=== PATIENT | female | born 1955 | race Caucasian/White ===

== ENCOUNTER 2021-10-13 14:38 | Outpatient (CLI) | payer MEDICARE, MEDICAID, SELFPAY | END 2021-10-13 14:39 | disposition home or self-care (01) | LOC: AMB 10-19 23:00 | PROVIDERS: Visit Provider Family Medicine | DX: R41.82 Altered mental status, unspecified (principal) | CPT/HCPCS: A0425; A0429 ==

== ENCOUNTER 2021-10-13 15:26 | Observation (INO) | payer MEDICARE, MEDICAID, SELFPAY ==
[2021-10-13 15:31] VITALS: BP 128/50; PULSE 80; RESP 18; TEMP 36.6; O2SAT 98
--- NOTE | 2021-10-13 15:44 | CRLHL7_ITS ---
For Patients: As a result of the Century Cures Act, medical imaging exams and procedure reports are released immediately into your electronic medical record. You may view this report before your referring provider. If you have questions, please contact your health care provider. INDICATION: Stroke symptoms TECHNIQUE: Head CT without contrast. COMPARISON: None FINDINGS: CSF spaces: Within normal limits for age. Brain parenchyma: There are nonspecific low attenuation white matter changes consistent with chronic microvascular disease. No sign of mass, hemorrhage, or midline shift. Skull base and calvarium: The visualized paranasal sinuses and mastoid air cells demonstrate no acute or significant findings. The visualized orbits are grossly unremarkable. No skull fractures. There is intracranial atherosclerosis. IMPRESSION: 1. No acute findings. 2. Nonspecific white matter disease, typical of chronic microvascular disease. 3. Findings discussed with Dr. Maria at 4:30 p.m. on October 13, [address] all CT scans at this facility use dose modulation, iterative reconstruction, and/or weight-based dosing when appropriate to reduce radiation dose to as low as reasonably achievable. Dictated by María Byrd MD @ 10/13/2021 4:32:20 PM (Electronically Signed)
[2021-10-13 16:11] LABS: Lactate* 1.7 mmol/L (0.5-1.9)
[2021-10-13 16:23] LABS: Basophils Percent Auto 0.1 % (0.0-3.0); Eosinophils Percent Auto 2.1 % (0.0-7.0); Hematocrit 28.7 % (33.0-51.0); Hemoglobin* 9.1 gm/dL (12.0-16.0); Immature Granulocytes Abs Auto 0.09 K/uL (0.00-0.30); Lymphocytes Percent Auto 19.8 % (20-44); Mean Corpuscular HGB Conc 32 gm/dL (32-36); Mean Corpuscular Hemoglobin 30 pg (26-34); Mean Corpuscular Volume 93 fL (80-100); Monocytes Percent Auto 7.1 % (0.0-11.0); Neutrophils Percent Auto 70.1 % (42.0-72.0); Platelet Count* 299 K/uL (140-440); RDW Coefficient of Variation % 13.8 % (11.5-15.5); Red Blood Count 3.08 m/uL (4.00-5.20); White Blood Count* 11.26 K/uL (4.50-11.00)
[2021-10-13 16:34] LABS: Slide Review Reflex No
[2021-10-13 16:37] LABS: Albumin* 3.9 g/dL (3.3-5.0)
[2021-10-13 16:38] LABS: Chloride* 101 mmol/L (96-114); Partial Thromboplastin Time* 32 Seconds (23-33); Potassium* 5.9 mmol/L (3.6-5.1); Prothrombin Time 14.6 Seconds; Sodium* 134 mmol/L (135-149)
[2021-10-13 16:40] LABS: Alkaline Phosphatase* 79 U/L (40-150); Aspartate Amino Transferase* 27 U/L (12-35); Bilirubin Direct* 0.4 mg/dL (0.0-0.5); Bilirubin Total* 0.4 mg/dL (0.1-1.5); Blood Urea Nitrogen* 104 mg/dL (7-30); Carbon Dioxide* 22 mmol/L (20-32); Creatinine* 3.9 mg/dL (0.5-1.5); Estimated Glomerular Filt Rate 12 ml/min; Glucose* 161 mg/dL (60-115)
[2021-10-13 16:41] LABS: Alanine Aminotransferase* 19 U/L (4-35); Calcium* 8.8 mg/dL (8.4-10.6)
[2021-10-13 16:57] LABS: Acetaminophen* < 10.0 ug/mL (10.0-30.0); C Reactive Protein* 6.3 mg/dL (0.5-1.0); Ethanol* < 0.01 % (0.01-0.03)
[2021-10-13] MEDS: 0.9 % SODIUM CHLORIDE 1000 ml 1,000 ML IV (17:10)
--- NOTE | 2021-10-13 17:14 | ED_ITS ---
HPI - General Adult General Chief complaint: Neuro Symptoms/Altered Deficit Stated complaint: Muscle Twitching Time Seen by Provider: 10/13/21 15:34 Source: patient Mode of arrival: EMS Limitations: altered mental status History of Present Illness HPI narrative: 66-year-old female, resident at the [facility], into the ER via EMS secondary to confusion head tremor. She states that she started taking Lyrica a couple of days ago and immediately started getting very shaky and started getting confused. He states that he got so bad that she did not take her dose of Lyrica last night. She tells me 1st that was was going to be her 2nd dose then tells me that she has had at least 2 doses and it was at least her 3rd dose. She tells me that she feels very confused and tremulous. She denies any headache or blurry vision. She denies chest pain, shortness of breath or abdominal discomfort. She denies any changes in the amount of pain that she is in as she does have chronic pain fibromyalgia. She denies feeling lightheaded or like she might fall over. She denies feeling weak in any extremity. Patient does seem quite confused however during our conversation, she will keep answering the previous question over and over again, she will sometimes just stare off to the ceiling in mid conversation. Patient does have a complex medical history including chronic pain fibromyalgia, chronic kidney disease stage 3, diabetes, asthma, hypothyroidism, GERD, chronic anemia. She does deny any drug use or alcohol intake. She is on multiple medications- including both OxyContin and tramadol. Related Data Home Medications Medication Instructions Recorded Confirmed albuterol sulfate 90 mcg/actuation INHALATION 10/13/21 aerosol inhaler (Ventolin HFA) aspirin 81 mg chewable tablet 10/13/21 blood sugar diagnostic (True 10/13/21 10/13/21 Metrix Glucose Test Strip) blood-glucose meter (True Metrix 10/13/21 10/13/21 Glucose Meter) cyclobenzaprine 10 mg tablet mg 10/13/21 diltiazem HCl 300 mg mg PO 10/13/21 capsule,extended release 24 hr docusate sodium 100 mg capsule mg PO 10/13/21 dulaglutide 0.75 mg/0.5 mL mg SUBCUT 10/13/21 subcutaneous pen injector ([facility]) duloxetine 60 mg capsule,delayed mg PO 10/13/21 release ferrous sulfate 325 mg (65 mg mg 10/13/21 iron) tablet (FeroSul) fluticasone 500 mcg-salmeterol 50 INHALATION 10/13/21 mcg/dose blistr powdr for inhalation (Advair Diskus) fluticasone propionate 50 INTRANASAL 10/13/21 mcg/actuation nasal spray,suspension furosemide 20 mg tablet mg 10/13/21 indapamide 2.5 mg tablet mg 10/13/21 insulin aspart U-100 100 unit/mL SUBCUT 10/13/21 (3 mL) subcutaneous pen (Novolog Flexpen U-100 Insulin aspart) lancets 33 gauge (TRUEplus Lancets) 10/13/21 10/13/21 levothyroxine 150 mcg tablet mcg 10/13/21 lisinopril 20 mg tablet mg 10/13/21 montelukast 10 mg tablet mg 10/13/21 nystatin 100,000 unit/gram topical TOPICAL 10/13/21 powder (Nystop) oxycodone 60 mg tablet,crush mg PO 10/13/21 resistant,extended release 12 hr (OxyContin) pantoprazole 40 mg tablet,delayed mg PO 10/13/21 release polyethylene glycol 3350 17 g 10/13/21 gram/dose oral powder topiramate 100 mg tablet mg 10/13/21 tramadol 50 mg tablet mg 10/13/21 Allergies Allergy/AdvReac Type Severity Reaction Status Date / Time adhesive tape Allergy Verified 10/13/21 15:48 allopurinol Allergy Verified 10/13/21 15:48 atorvastatin Allergy Verified 10/13/21 15:48 clarithromycin Allergy Verified 10/13/21 15:48 fluconazole [From Diflucan] Allergy Verified 10/13/21 15:48 Review of Systems Status of ROS: Reports: 6 or more systems reviewed and unremarkable except as noted in History and below PFSH PFSH Social History Smoking Status: Never smoker Do you use any of these nicotine containing products: None Second hand tobacco smoke exposure: No How often do you have a drink containing alcohol: never How often do you have six or more drinks on one occasion: Never AUDIT-C Alcohol total score: 0 Non-prescribed substance use: denies use service: No Exam Narrative: Exam Narrative: Morbidly obese patient in no acute distress. Does not appear to be in any respiratory distress, breathes easily. HEENT: Normocephalic atraumatic. Pupils are equally round reactive to light. Extraocular muscles are intact. Conjunctivae are moist without any icterus noted. Slightly dry mucous membranes. Posterior pharynx is normal. Neck is soft without any lymphadenopathy or thyromegaly. No masses are appreciated. Cardiovascular: Heart is regular rate and rhythm S1 and S2 are present with a 3/6 systolic murmur Lungs: Clear to auscultation bilaterally no wheezes rhonchi or rales are appreciated. Patient takes deep breaths without any discomfort. Abdomen: Soft and nontender nondistended with normal bowel sounds. No guarding or rebound. Unable to assess for organomegaly or masses secondary to body habitus. Extremities: She does have bilateral lymphedema with compression stockings in place. She tells me that it is painful when I touch her legs. Skin: Well perfused without any obvious rashes. Neurologic exam: Patient follows commands when asked her to move her extremities. She has 5/5 strength of the upper bilateral extremities and 4/5 strength of the bilateral lower extremities. 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 She has no facial deficits and face is symmetric. She can smile and lift her eyebrows on command. Cranial nerves 3-12 appear to be grossly intact. Again, during our conversation patient will sometimes get stuck on the question previous and answer that multiple times. She will also sometimes stop talking in the middle of our conversation and she is not able to answer the following questions on till it is asked more than once. She is alert and oriented to place person and day of the week. She cannot however tell me the season or the year. Const: Vital Signs, click to edit/add: Vital Signs - 24 hr 10/13/21 15:31 10/13/21 17:20 Temperature 97.8 F Pulse Rate [Left P ulse Oximeter] 80 Respiratory Rate 18 Blood Pressure [Ri ght Upper Arm] 128/50 L 128/77 Pulse Oximetry 98 Course Course Hospital Course: IV was established. EKG was done, shows sinus rhythm. Proceeded with a head CT which did not show any acute pathology. Vital Signs Vital signs: Initial Vital Signs Temperature 97.8 F 10/13/21 15:31 Temperature Source Temporal Artery Scan 10/13/21 15:31 Pulse Rate 80 10/13/21 15:31 Pulse Rhythm 10/13/21 15:31 Respiratory Rate 18 10/13/21 15:31 Blood Pressure 128/50 L 10/13/21 15:31 Blood Pressure Mean 76 10/13/21 15:31 Blood Pressure Position Supine 10/13/21 15:31 Pulse Oximetry 98 10/13/21 15:31 Oxygen Delivery Method 10/13/21 15:31 Vital Signs Temperature 97.8 F 10/13/21 15:31 Pulse Rate 80 10/13/21 15:31 Respiratory Rate 18 10/13/21 15:31 Blood Pressure 128/50 L 10/13/21 15:31 Pulse Oximetry 98 10/13/21 15:31 Temperature 97.8 F 10/13/21 15:31 Pulse Rate 80 10/13/21 15:31 Respiratory Rate 18 10/13/21 15:31 Blood Pressure 128/77 10/13/21 17:20 Pulse Oximetry 98 10/13/21 15:31 Medical Decision Making MDM Narrative Medical decision making narrative: 66-year-old female coming in today with confusion. Potentially side effect from her Lyrica. Could also be secondary to chronic kidney disease and electrolyte imbalance. We is still have to rule out infection given her UA pending at this time. Given that she has no motor deficits and no speech deficits, I do not believe the patient is having stroke at this time. I did not do a CTA secondary to her kidney function we have no MRI capability at this time. Given that the patient has not yet cleared she will be admitted for further management. Medical Records Medical records reviewed: Yes I reviewed the patient's medical records Lab Data Lab results reviewed: Yes I reviewed the patient's lab results (UA and urine drug screen pending at this time.) Labs: Lab Results 10/13/21 10/13/21 10/13/21 Range/Units 16:00 16:00 16:00 WBC (4.50-11.00) K/uL RBC (4.00-5.20) m/uL Hgb (12.0-16.0) gm/dL Hct (33.0-51.0) % MCV (80-100) fL MCH (26-34) pg MCHC (32-36) gm/dL RDW Coeff of Antonio (11.5-15.5) % Plt Count (140-440) K/uL Neut % (Auto) (42.0-72.0) % Lymph % (Auto) (20-44) % [place] % (Auto) (0.0-11.0) % Eos % (Auto) (0.0-7.0) % Baso % (Auto) (0.0-3.0) % Neut # (Auto) (1.7-7.0) K/uL Lymph # (Auto) (0.90-2.90) K/uL [place] # (Auto) (0.00-0.90) K/UL Eos # (Auto) (0.00-0.50) K/uL Baso # (Auto) (0.00-0.30) K/uL Abs Immat Gran (auto) (0.00-0.30) K/uL ESR >102 L (2-20) mm/hr INR (0.91-1.10) APTT (23-33) Seconds Sodium 134 L (135-149) mmol/L Potassium 5.9 H (3.6-5.1) mmol/L Chloride 101 (96-114) mmol/L Carbon Dioxide 22 (20-32) mmol/L BUN 104 H (7-30) mg/dL Creatinine 3.9 H (0.5-1.5) mg/dL Estimated Creat Clear Estimated GFR 12 ml/min Glucose 161 H (60-115) mg/dL Lactate (0.5-1.9) mmol/L Calcium 8.8 (8.4-10.6) mg/dL Total Bilirubin 0.4 (0.1-1.5) mg/dL Direct Bilirubin 0.4 (0.0-0.5) mg/dL AST 27 (12-35) U/L ALT 19 (4-35) U/L Alkaline Phosphatase 79 (40-150) U/L Ammonia C-Reactive Protein 6.3 H (0.5-1.0) mg/dL Total Protein 7.0 (6.0-8.3) g/dL Albumin 3.9 (3.3-5.0) g/dL Acetaminophen < 10.0 L (10.0-30.0) ug/mL Ethyl Alcohol < 0.01 L (0.01-0.03) % POC Troponin I (0.01-0.04) ng/ml 10/13/21 10/13/21 10/13/21 Range/Units 16:00 16:00 16:00 WBC 11.26 H (4.50-11.00) K/uL RBC 3.08 L (4.00-5.20) m/uL Hgb 9.1 L (12.0-16.0) gm/dL Hct 28.7 L (33.0-51.0) % MCV 93 (80-100) fL MCH 30 (26-34) pg MCHC 32 (32-36) gm/dL RDW Coeff of Antonio 13.8 (11.5-15.5) % Plt Count 299 (140-440) K/uL Neut % (Auto) 70.1 (42.0-72.0) % Lymph % (Auto) 19.8 L (20-44) % [place] % (Auto) 7.1 (0.0-11.0) % Eos % (Auto) 2.1 (0.0-7.0) % Baso % (Auto) 0.1 (0.0-3.0) % Neut # (Auto) 7.90 H (1.7-7.0) K/uL Lymph # (Auto) 2.20 (0.90-2.90) K/uL [place] # (Auto) 0.80 (0.00-0.90) K/UL Eos # (Auto) 0.20 (0.00-0.50) K/uL Baso # (Auto) 0.00 (0.00-0.30) K/uL Abs Immat Gran (auto) 0.09 (0.00-0.30) K/uL ESR (2-20) mm/hr INR (0.91-1.10) APTT (23-33) Seconds Sodium (135-149) mmol/L Potassium (3.6-5.1) mmol/L Chloride (96-114) mmol/L Carbon Dioxide (20-32) mmol/L BUN (7-30) mg/dL Creatinine (0.5-1.5) mg/dL Estimated Creat Clear Estimated GFR ml/min Glucose (60-115) mg/dL Lactate 1.7 (0.5-1.9) mmol/L Calcium (8.4-10.6) mg/dL Total Bilirubin (0.1-1.5) mg/dL Direct Bilirubin (0.0-0.5) mg/dL AST (12-35) U/L ALT (4-35) U/L Alkaline Phosphatase (40-150) U/L Ammonia C-Reactive Protein (0.5-1.0) mg/dL Total Protein (6.0-8.3) g/dL Albumin (3.3-5.0) g/dL Acetaminophen (10.0-30.0) ug/mL Ethyl Alcohol (0.01-0.03) % POC Troponin I 0.00 L (0.01-0.04) ng/ml 10/13/21 10/13/21 10/13/21 Range/Units 16:00 16:00 16:00 WBC (4.50-11.00) K/uL RBC (4.00-5.20) m/uL Hgb (12.0-16.0) gm/dL Hct (33.0-51.0) % MCV (80-100) fL MCH (26-34) pg MCHC (32-36) gm/dL RDW Coeff of Antonio (11.5-15.5) % Plt Count (140-440) K/uL Neut % (Auto) (42.0-72.0) % Lymph % (Auto) (20-44) % [place] % (Auto) (0.0-11.0) % Eos % (Auto) (0.0-7.0) % Baso % (Auto) (0.0-3.0) % Neut # (Auto) (1.7-7.0) K/uL Lymph # (Auto) (0.90-2.90) K/uL [place] # (Auto) (0.00-0.90) K/UL Eos # (Auto) (0.00-0.50) K/uL Baso # (Auto) (0.00-0.30) K/uL Abs Immat Gran (auto) (0.00-0.30) K/uL ESR (2-20) mm/hr INR 1.10 (0.91-1.10) APTT 32 (23-33) Seconds Sodium Cancelled (135-149) mmol/L Potassium Cancelled (3.6-5.1) mmol/L Chloride Cancelled (96-114) mmol/L Carbon Dioxide Cancelled (20-32) mmol/L BUN Cancelled (7-30) mg/dL Creatinine Cancelled (0.5-1.5) mg/dL Estimated Creat Clear Cancelled Estimated GFR Cancelled ml/min Glucose Cancelled (60-115) mg/dL Lactate (0.5-1.9) mmol/L Calcium Cancelled (8.4-10.6) mg/dL Total Bilirubin Cancelled (0.1-1.5) mg/dL Direct Bilirubin (0.0-0.5) mg/dL AST Cancelled (12-35) U/L ALT Cancelled (4-35) U/L Alkaline Phosphatase Cancelled (40-150) U/L Ammonia Cancelled C-Reactive Protein (0.5-1.0) mg/dL Total Protein Cancelled (6.0-8.3) g/dL Albumin Cancelled (3.3-5.0) g/dL Acetaminophen (10.0-30.0) ug/mL Ethyl Alcohol (0.01-0.03) % POC Troponin I (0.01-0.04) ng/ml Imaging Data CT scan - head: Attestation: I have reviewed the pertinent imaging results. Radiologist's impression: FINDINGS: CSF spaces: Within normal limits for age. Brain parenchyma: There are nonspecific low attenuation white matter changes consistent with chronic microvascular disease. No sign of mass, hemorrhage, or midline shift. Skull base and calvarium: The visualized paranasal sinuses and mastoid air cells demonstrate no acute or significant findings. The visualized orbits are grossly unremarkable. No skull fractures. There is intracranial atherosclerosis. IMPRESSION: 1. No acute findings. 2. Nonspecific white matter disease, typical of chronic microvascular disease. 3. Findings discussed with Dr. Maria at 4:30 p.m. on October 13, 2021 Discharge Plan Discharge Clinical Impression: Hyponatremia, Acute confusion, Chronic renal failure, Hyperkalemia Patient Disposition: Admitted As Inpatient Condition: Stable
--- NOTE | 2021-10-13 17:14 | ED.NURSE ---
Heads up to house.
[2021-10-13 17:20] VITALS: BP 128/77
[2021-10-13 17:24] LABS: Erythrocyte SedimentationRate* >102 mm/hr (2-20)
--- NOTE | 2021-10-13 17:53 | ED.NURSE ---
Attempted to straight cath pt w/ assist of two other RNs (pt preferred females for cath). Pt did not tolerate well. Was unable to bed legs and position self. updated. Pt stated that she normally ambulates to bathroom and is continent of bowel and bladder, however, she does wear disposable briefs. Of note, pt did have some bleeding present in the vagina that was observed prior to cath attempts.
--- NOTE | 2021-10-13 17:57 | W.PC.EDHO ---
Primary Language: Preferred Language: Orientation Status: (a&o at baseline. Intermittent confusion today.) [] Alert & Oriented [X] Slight Confusion [] Known Dx Dementia Transfers By: (normally is able to transfer) [] Assist of 1 [X] Assist of 2 [] Lift Active Medications Generic Name Dose Route Start Last Admin Trade Name Freq PRN Reason Stop Dose Admin Sodium Chloride 1,000 mls @ 1,000 mls/hr 10/13/21 17:00 10/13/21 17:10 0.9 % Sodium Chloride 1000 Ml IV 10/13/21 17:59 1,000 mls/hr .Q1H AMINA Administration Description of Symptoms ED Triage Present Problem Pt comes from [facility] for altered Description mental status and muscle twitching. Hx of diabetes. Blood sugars fine. Recently started Lyrica (10/08) but refused dose last night ( facility wondering if it's causing symptoms.) Pt is slow to respond at times, but other times responds normally. ED Triage Date of Onset of 10/13/21 Symptoms Female History Jona Coma Scale [place] coma scale total score 13 Oxygen Administration Pulse Oximetry 98 Oxygen Delivery Method Room Air Cardiac Monitoring EKG Method 12 Lead
[2021-10-13 18:20] VITALS: BP 121/81; PULSE 81; RESP 10; O2SAT 94
[2021-10-13 18:32] LABS: SARS PCR* Negative SARS-CoV-2 (Negative)
[2021-10-13 18:58] VITALS: BP 135/71; PULSE 80; RESP 20; TEMP 36.3; O2SAT 95; BMI 60.1
[2021-10-13 19:15] VITALS: RESP 20; O2SAT 95
[2021-10-13 19:20] LABS: HCO3 VBG 22 mmol/L (21-28); PCO2 VBG 44 mmHG (40-50); PO2 VBG 73.6 mmHG (25-47); pH VBG 7.311 (7.32-7.43)
[2021-10-13 19:23] LABS: Hemoglobin* 8.3 gm/dL (12.0-16.0)
--- NOTE | 2021-10-13 19:33 | P.IMHP_ITS ---
Hospitalist- H&P: HPI History of Present Illness Time Seen by Provider: 18:30 Date Seen: 10/13/21 Chief complaint: Muscle Twitching, confusion Narrative: Eryn Pollard is a 66 year old woman. She was in her usual state of health up until about 5 days ago. Five days ago she started on a new medication, pregabalin (Lyrica) 50 mg once daily for peripheral neuropathy pain. Since then she has noted more confusion, episodes of disorientation, decreased ability to focus and pay attention, more drowsy and lethargic, more weak, and muscle twitching. Muscle twitching is keeping her awake at night sometimes. Denies fevers, rigors, diaphoresis. She states that the medicine has not helped her pain. Denies any change in her pain symptoms complex that she suffers from. No new myalgias or arthralgias or headaches. Denies focal motor neurologic deficits. Has difficulty ambulating and transferring in the 1st place. Now so weak that she is unable to transfer or pivot transfer. Denies dysuria, urgency, frequency, or hematuria. Denies diarrhea or constipation. Denies shortness of breath or cough. Denies chest heaviness, pressure, tightness, or pain. Denies syncope or near-syncope. Denies nausea or vomiting. Denies palpitations. She believes she has more edema than she normally has. Review of Systems Status of ROS: Reports: 10 or more systems reviewed and unremarkable except as noted in History and below Narrative: She tells me that she has a disability and that she is not able to walk. She tells me that she is able to pivot transfer and move about with use of wheelchair. Does ordinarily receive help with some of her activities of daily living. [facility] Social History Smoking Status: Never smoker Do you use any of these nicotine containing products: None Second hand tobacco smoke exposure: No How often do you have a drink containing alcohol: never How often do you have six or more drinks on one occasion: Never AUDIT-C Alcohol total score: 0 Non-prescribed substance use: denies use service: No Active Problems Muscle twitching (Acute) R25.3 Fibromyalgia (Acute) M79.7 Supraventricular tachycardia (Acute) I47.1 Chronic rhinitis (Acute) J31.0 Lymphedema associated with obesity (Acute) I89.0, E66.9 Chronic, continuous use of opioids (Acute) F11.90 Chronic pain (Acute) G89.29 Hyperlipidemia associated with type 2 diabetes mellitus (Acute) E11.69, E78.5 Hypertension (Acute) I10 Morbid obesity (Acute) E66.01 Obstructive sleep apnea (Acute) G47.33 Diabetic peripheral neuropathy associated with type 2 diabetes mellitus (Acute) E11.42 Chronic kidney disease, stage 5 (Acute) N18.5 Acute kidney injury (nontraumatic) (Acute) N17.9 Asthma (Acute) J45.909 Diabetes mellitus type 2 in obese (Acute) E11.69, E66.9 Edema (Acute) R60.9 Vaginal bleeding (Acute) N93.9 Anemia (Acute) D64.9 Metabolic acidosis (Acute) E87.2 Adverse drug effect (Acute) T50.905A Hyponatremia (Acute) E87.1 Acute confusion (Acute) R41.0 Chronic renal failure (Acute) N18.9 Hyperkalemia (Acute) E87.5 Social History Smoking Status: Never smoker Do you use any of these nicotine containing products: None Second hand tobacco smoke exposure: No How often do you have a drink containing alcohol: never How often do you have six or more drinks on one occasion: Never AUDIT-C Alcohol total score: 0 Non-prescribed substance use: denies use service: No Social History Smoking Status: Never smoker Do you use any of these nicotine containing products: None Second hand tobacco smoke exposure: No How often do you have a drink containing alcohol: never How often do you have six or more drinks on one occasion: Never AUDIT-C Alcohol total score: 0 Non-prescribed substance use: denies use service: No Active Problems Muscle twitching (Acute) R25.3 Fibromyalgia (Acute) M79.7 Supraventricular tachycardia (Acute) I47.1 Chronic rhinitis (Acute) J31.0 Lymphedema associated with obesity (Acute) I89.0, E66.9 Chronic, continuous use of opioids (Acute) F11.90 Chronic pain (Acute) G89.29 Hyperlipidemia associated with type 2 diabetes mellitus (Acute) E11.69, E78.5 Hypertension (Acute) I10 Morbid obesity (Acute) E66.01 Obstructive sleep apnea (Acute) G47.33 Diabetic peripheral neuropathy associated with type 2 diabetes mellitus (Acute) E11.42 Chronic kidney disease, stage 5 (Acute) N18.5 Acute kidney injury (nontraumatic) (Acute) N17.9 Asthma (Acute) J45.909 Diabetes mellitus type 2 in obese (Acute) E11.69, E66.9 Edema (Acute) R60.9 Vaginal bleeding (Acute) N93.9 Anemia (Acute) D64.9 Metabolic acidosis (Acute) E87.2 Adverse drug effect (Acute) T50.905A Hyponatremia (Acute) E87.1 Acute confusion (Acute) R41.0 Chronic renal failure (Acute) N18.9 Hyperkalemia (Acute) E87.5 Social History Smoking Status: Never smoker Do you use any of these nicotine containing products: None Second hand tobacco smoke exposure: No How often do you have a drink containing alcohol: never How often do you have six or more drinks on one occasion: Never AUDIT-C Alcohol total score: 0 Non-prescribed substance use: denies use service: No [facility] Active Problems Muscle twitching (Acute) R25.3 Fibromyalgia (Acute) M79.7 Supraventricular tachycardia (Acute) I47.1 Chronic rhinitis (Acute) J31.0 Lymphedema associated with obesity (Acute) I89.0, E66.9 Chronic, continuous use of opioids (Acute) F11.90 Chronic pain (Acute) G89.29 Hyperlipidemia associated with type 2 diabetes mellitus (Acute) E11.69, E78.5 Hypertension (Acute) I10 Morbid obesity (Acute) E66.01 Obstructive sleep apnea (Acute) G47.33 Diabetic peripheral neuropathy associated with type 2 diabetes mellitus (Acute) E11.42 Chronic kidney disease, stage 5 (Acute) N18.5 Acute kidney injury (nontraumatic) (Acute) N17.9 Asthma (Acute) J45.909 Diabetes mellitus type 2 in obese (Acute) E11.69, E66.9 Edema (Acute) R60.9 Vaginal bleeding (Acute) N93.9 Anemia (Acute) D64.9 Metabolic acidosis (Acute) E87.2 Adverse drug effect (Acute) T50.905A Hyponatremia (Acute) E87.1 Acute confusion (Acute) R41.0 Chronic renal failure (Acute) N18.9 Hyperkalemia (Acute) E87.5 Social History Smoking Status: Never smoker Do you use any of these nicotine containing products: None Second hand tobacco smoke exposure: No How often do you have a drink containing alcohol: never How often do you have six or more drinks on one occasion: Never AUDIT-C Alcohol total score: 0 Non-prescribed substance use: denies use service: No Meds Home Medications and Allergies Home Medications Medication Instructions Recorded Confirmed Type albuterol sulfate 90 mcg/actuation INHALATION 10/13/21 History aerosol inhaler (Ventolin HFA) aspirin 81 mg chewable tablet 10/13/21 History blood sugar diagnostic (True 10/13/21 10/13/21 History Metrix Glucose Test Strip) blood-glucose meter (True Metrix 10/13/21 10/13/21 History Glucose Meter) cyclobenzaprine 10 mg tablet mg 10/13/21 History diltiazem HCl 300 mg mg PO 10/13/21 History capsule,extended release 24 hr docusate sodium 100 mg capsule mg PO 10/13/21 History dulaglutide 0.75 mg/0.5 mL mg SUBCUT 10/13/21 History subcutaneous pen injector (Trulicity) duloxetine 60 mg capsule,delayed mg PO 10/13/21 History release ferrous sulfate 325 mg (65 mg mg 10/13/21 History iron) tablet (FeroSul) fluticasone 500 mcg-salmeterol 50 INHALATION 10/13/21 History mcg/dose blistr powdr for inhalation (Advair Diskus) fluticasone propionate 50 INTRANASAL 10/13/21 History mcg/actuation nasal spray,suspension furosemide 20 mg tablet mg 10/13/21 History indapamide 2.5 mg tablet mg 10/13/21 History insulin aspart U-100 100 unit/mL SUBCUT 10/13/21 History (3 mL) subcutaneous pen (Novolog Flexpen U-100 Insulin aspart) lancets 33 gauge (TRUEplus Lancets) 10/13/21 10/13/21 History levothyroxine 150 mcg tablet mcg 10/13/21 History lisinopril 20 mg tablet mg 10/13/21 History montelukast 10 mg tablet mg 10/13/21 History nystatin 100,000 unit/gram topical TOPICAL 10/13/21 History powder (Nystop) oxycodone 60 mg tablet,crush mg PO 10/13/21 History resistant,extended release 12 hr (OxyContin) pantoprazole 40 mg tablet,delayed mg PO 10/13/21 History release polyethylene glycol 3350 17 g 10/13/21 History gram/dose oral powder topiramate 100 mg tablet mg 10/13/21 History tramadol 50 mg tablet mg 10/13/21 History Home Medication Comments: She believes she may have taken 3 doses of the pregabalin. Allergies Allergy/AdvReac Type Severity Reaction Status Date / Time adhesive tape Allergy Verified 10/13/21 15:48 allopurinol Allergy Verified 10/13/21 15:48 atorvastatin Allergy Verified 10/13/21 15:48 clarithromycin Allergy Verified 10/13/21 15:48 fluconazole [From Diflucan] Allergy Verified 10/13/21 15:48 Exam Narrative: Exam Narrative: Does not appear in any acute distress. Appears drowsy. Is none the less awake. Able to engage in some conversation. Slow to respond to questions. At times when having a conversation she stops talking and stairs and then she forgets what she was talking about. She is able to sense that she is having a hard time engaging in conversation and she apologizes for this several times. Alert and oriented to self, place, time, and situation. Appears somewhat anxious. Mood and affect are congruent. Appears pale. Has intermittent twitching and jerking movements of her body and limbs. I do not see any fasciculation in her muscles. Has mild cogwheeling of both wrists, reproducible over time. Muscle tone otherwise preserved. Symmetrically diminished deep tendon reflexes of upper and lower extremities. Muscle strength testing of upper and lower extremities is symmetric. Unable to raise her legs against resistance but able to do so without resistance. Able to follow simple 1 step commands. She is not able to transfer herself from exam table to hospital bed. It takes 2-3 staff and slide board to transfer her. Cranial nerves 3-12 are grossly normal. Lungs are clear to auscultation. Heart tones with regular rhythm, murmur across precordium. Abdomen is obese, active bowel I do not examine her perineum, but when nurses attempted to do a straight cath giles finch noted scant amount of vaginal bleeding before they even attempted to do the straight cath. Has edema and lymphedema of lower extremities. Skin is intact. Const: Vital Signs, click to edit/add: Vital Signs - 24 hr 10/13/21 15:31 10/13/21 17:20 10/13/21 18:20 Temperature 97.8 F Pulse Rate [Left P ulse Oximeter] 80 81 Pulse Rate [Right Pulse Oximeter] Respiratory Rate 18 10 L Blood Pressure [Ri ght Arm] Blood Pressure [Ri ght Upper Arm] 128/50 L 128/77 121/81 Pulse Oximetry 98 94 10/13/21 18:58 Temperature 97.3 F L Pulse Rate [Left P ulse Oximeter] Pulse Rate [Right Pulse Oximeter] 80 Respiratory Rate 20 Blood Pressure [Ri ght Arm] 135/71 Blood Pressure [Ri ght Upper Arm] Pulse Oximetry 95 Documenting provider has reviewed patient's vital signs: yes Hospitalist - H&P: Result Labs Labs: Short CBC 10/13/21 10/13/21 Range/Units 16:00 19:15 WBC 11.26 H (4.50-11.00) K/uL Hgb 9.1 L 8.3 L (12.0-16.0) gm/dL Hct 28.7 L (33.0-51.0) % Plt Count 299 (140-440) K/uL BMP 10/13/21 10/13/21 16:00 16:00 Sodium 134 L Cancelled Potassium 5.9 H Cancelled Chloride 101 Cancelled Carbon Dioxide 22 Cancelled BUN 104 H Cancelled Creatinine 3.9 H Cancelled Glucose 161 H Cancelled Calcium 8.8 Cancelled Liver Function 10/13/21 10/13/21 Range/Units 16:00 16:00 Total Bilirubin 0.4 Cancelled (0.1-1.5) mg/dL Direct Bilirubin 0.4 (0.0-0.5) mg/dL AST 27 Cancelled (12-35) U/L ALT 19 Cancelled (4-35) U/L Alkaline Phosphatase 79 Cancelled (40-150) U/L Albumin 3.9 Cancelled (3.3-5.0) g/dL Assessment and Plan Assessment and plan (1) Acute confusion: Status: Acute Assessment and Plan: Likely multifactorial. Seemingly related to acute kidney injury and chronic kidney disease stage 5. May be related to adverse effect of medications as well, including pregabalin which was recently started as well as Toprinate which she has been on for some time. Certainly warrants close monitoring. (2) Chronic kidney disease, stage 5: Status: Acute (3) Muscle twitching: Status: Acute Assessment and Plan: Likely related to her metabolic encephalopathy in combination with possible adverse consequences of medications as specified. (4) Acute kidney injury (nontraumatic): Status: Acute Assessment and Plan: Will attempt mild hydration. Continue to monitor renal function. Also monitor for volume overloaded state. (5) Asthma: Status: Acute Assessment and Plan: Continue with medicines as needed. (6) Metabolic acidosis: Status: Acute Assessment and Plan: Likely related to kidney disease. Monitor venous blood gas. Consider arterial blood gas. (7) Adverse drug effect: Status: Acute Assessment and Plan: The pregabalin that she recently started and the topiramate which she has been on for some time are possible culprits. Pregabalin has already been stopped. Will decrease the dose of the topiramate by 50%. (8) Hyponatremia: Status: Acute Assessment and Plan: Chronic, stable. Continue monitor. (9) Hyperkalemia: Status: Acute Assessment and Plan: Worse than usual. Monitor with ongoing hydration efforts. May need to consider dialysis if worsening or not improving. (10) Anemia: Status: Acute Assessment and Plan: Possibly acute on chronic. Continue to monitor. (11) Vaginal bleeding: Status: Acute Assessment and Plan: She did have a hysterectomy in the past. Consider test conductor consultation. (12) Edema: Status: Acute Assessment and Plan: This is a chronic problem. May have an acute exacerbation. (13) Diabetes mellitus type 2 in obese: Status: Acute Assessment and Plan: Continue with insulin dosing for now. (14) Diabetic peripheral neuropathy associated with type 2 diabetes mellitus: Status: Acute (15) Chronic pain: Status: Acute (16) Chronic, continuous use of opioids: Status: Acute Assessment and Plan: May need to decrease her dose of opioids for short period time. (17) Obstructive sleep apnea: Status: Acute (18) Morbid obesity: Status: Acute (19) Hypertension: Status: Acute (20) Hyperlipidemia associated with type 2 diabetes mellitus: Status: Acute (21) Lymphedema associated with obesity: Status: Acute (22) Chronic rhinitis: Status: Acute (23) Supraventricular tachycardia: Status: Acute (24) Fibromyalgia: Status: Acute Plan Reviewed with patient. She is agreeable. Answered her questions. She asks us to proceed.
[2021-10-13 19:40] LABS: Creatine Kinase* 286 U/L (41-117)
[2021-10-13 19:43] LABS: Lactate* 0.6 mmol/L (0.5-1.9)
[2021-10-13] MEDS: IPRAT-ALBUT 0.5-2.5 MG/3 ML NEB 1 NEB IH (20:32)
[2021-10-13] MEDS: DULOXETINE 30 MG CAPSULE DR 60 MG PO (21:25)
[2021-10-13] MEDS: MONTELUKAST 10 MG TABLET PO (21:27)
[2021-10-13] MEDS: CYCLOBENZAPRINE HCL 10 MG TABLET PO (21:27)
[2021-10-13] MEDS: OMEPRAZOLE 20 MG CAPSULE DR PO (21:27)
[2021-10-13] MEDS: lisinopriL 20 MG TABLET PO (21:27)
[2021-10-13] MEDS: MELATONIN 3 MG TABLET PO (21:28)
[2021-10-13] MEDS: TOPIRAMATE 25 MG TABLET 50 MG PO (22:18)
[2021-10-13] MEDS: INSULIN NPH 100 UNIT/ML 40 UNIT SUBCUT (22:28)
[2021-10-13] MEDS: NYSTATIN POWDER 1 APPLIC TOPICAL (22:28)
[2021-10-13 23:09] VITALS: BP 126/52; PULSE 86; RESP 20; TEMP 37.2; O2SAT 95
[2021-10-13] MEDS: TRAMADOL HCL 50 MG TABLET PO (23:34)
[2021-10-13 23:47] LABS: Appearance Urine Cloudy (Clear); Bilirubin Urine Negative (Negative); Blood Urine 1+ (Negative); Color Urine Yellow (Yellow); Glucose Urine Negative (Negative); Ketones Urine Negative (Negative); Leukocyte Esterase Urine Trace (Negative); Nitrite Urine Negative (Negative); Protein Urine Negative (Negative); Specific Gravity Urine 1.015 (1.000-1.030); Urobilinogen Urine 0.2 (0.2-1.0)
[2021-10-13 23:54] LABS: Bacteria Urine Moderate; Other Sediment Urine 0; Squamous Epithelial Cell Urine Moderate (None-Few)
[2021-10-14] VITALS (7 sets, daily range): BP systolic 101–129; BP diastolic 45–77; PULSE 70–82; RESP 12–16; TEMP 37.1–37.2; O2SAT 92–97
[2021-10-14 00:12] LABS: Cannabinoid Screen Urine Negative (Negative); Cocaine Screen Urine Negative (Negative); Methamphetamines Screen Urine Negative (Negative); Opiate Screen Urine Negative (Negative); Phencyclidine Screen Urine Negative (Negative)
[2021-10-14 00:13] LABS: Amphetamine Screen Urine Negative (Negative); Barbiturate Screen Urine Negative (Negative); Benzodiazepines Screen Urine Negative (Negative); Methadone Screen Urine Negative (Negative); Oxycodone Screen Urine POSITIVE (Negative); Tricyclic Antidepressant Urine POSITIVE (Negative)
--- NOTE | 2021-10-14 06:00 | PC.NURSE ---
Shift Note -: Pt pleasant and cooperative, VSS, afebrile. Muscle twitching continues and Pt remains confused and dazed at times. Pt can accurately give her name, date, place and situation but will frequently fixate on one phrase and not respond, make choices or make eye contact. Pt moved under her own power to BR with A2, walker and gait belt. PT eval has been ordered for today. Tele has been d/c by order, neuro checks are WNL. BLE are fluid filled with non-pitting edema, Pt prefers to have own tj hose on. 2100 BG was 120, no action was taken. See eMAR for medication administration.
[2021-10-14 06:37] LABS: Basophils Absolute Auto 0.01 K/uL (0.00-0.30); Basophils Percent Auto 0.1 % (0.0-3.0); Eosinophils Percent Auto 2.9 % (0.0-7.0); HCO3 VBG 22 mmol/L (21-28); Hematocrit 25.4 % (33.0-51.0); Immature Granulocytes Abs Auto 0.02 K/uL (0.00-0.30); Immature Reticulocyte Fraction 12.2 % (3.0-15.9); Lymphocytes Absolute Auto 2.47 K/uL (0.90-2.90); Lymphocytes Percent Auto 23.8 % (20-44); Mean Corpuscular HGB Conc 32 gm/dL (32-36); Mean Corpuscular Hemoglobin 29 pg (26-34); Mean Corpuscular Volume 93 fL (80-100); Monocytes Percent Auto 8.4 % (0.0-11.0); Neutrophils Absolute Auto 6.69 K/uL (1.7-7.0); Neutrophils Percent Auto 64.6 % (42.0-72.0); PCO2 VBG 40 mmHG (40-50); Platelet Count* 262 K/uL (140-440); RDW Coefficient of Variation % 13.9 % (11.5-15.5); Red Blood Count 2.73 m/uL (4.00-5.20); Reticulocyte Hemoglobin Equivi 28.4 pg (29.0-35.0); Reticulocytes Absolute 0.05 # (0.03-0.08); White Blood Count* 10.36 K/uL (4.50-11.00); pH VBG 7.345 (7.32-7.43)
[2021-10-14 06:38] LABS: Lactate* 0.5 mmol/L (0.5-1.9)
[2021-10-14] MEDS: LEVOTHYROXINE 50 MCG TABLET PO (06:44)
[2021-10-14] MEDS: LEVOTHYROXINE 100 MCG TABLET PO (06:44)
[2021-10-14 06:49] LABS: Slide Review Reflex No
[2021-10-14 07:09] LABS: Iron* 49 ug/dL (37-170)
[2021-10-14 07:10] LABS: Hemoglobin A1C* 6.88 % (0-5.6)
[2021-10-14 07:12] LABS: Chloride* 103 mmol/L (96-114)
[2021-10-14 07:13] LABS: Albumin* 3.5 g/dL (3.3-5.0); Potassium* 5.7 mmol/L (3.6-5.1); Sodium* 133 mmol/L (135-149)
[2021-10-14 07:15] LABS: Creatinine* 3.7 mg/dL (0.5-1.5); Est. Creatinine Clearance* 11.03; Estimated Glomerular Filt Rate 13 ml/min
[2021-10-14 07:16] LABS: Blood Urea Nitrogen* 102 mg/dL (7-30); Calcium* 8.4 mg/dL (8.4-10.6); Carbon Dioxide* 25 mmol/L (20-32); Glucose* 105 mg/dL (60-115)
[2021-10-14 07:17] LABS: Magnesium* 3.1 mg/dL (1.5-2.6)
[2021-10-14 07:18] LABS: Percent Iron Saturation 20 % (20-50); Total Iron Binding Capacity 239 ug/dL (265-497)
[2021-10-14 07:19] LABS: C Reactive Protein* 5.9 mg/dL (0.5-1.0)
[2021-10-14 07:31] LABS: Phosphorus* 6.8 mg/dL (2.5-4.5)
--- NOTE | 2021-10-14 07:50 | PC.NURSE ---
Lab called with critical high phosphorus. Dr Sullivan aware.
[2021-10-14 08:17] LABS: NT Pro B Type NatriureticPept* 553 PG/mL (0-125)
[2021-10-14 08:20] LABS: Troponin I* 0.08 ng/mL (0.01-0.04)
--- NOTE | 2021-10-14 08:24 | PM.IMPN1 ---
Progress Note: A&P Assessment and plan (1) Acute confusion: Problem details: Likely related to her metabolic encephalopathy. Status: Acute Assessment and Plan: We will try to normalize her electrolytes today. Will continue to work with her to try to get her back to [facility]. (2) Chronic kidney disease, stage 5: Problem details: Patient does see a law office receptionist as an outpatient. Status: Acute Assessment and Plan: Creatinine is down. Will try to advance her diet. Patient has elevation of phosphorus and I did add PhosLo twice a day. (3) Muscle twitching: Status: Acute Assessment and Plan: Will try to improve her metabolic status. (4) Asthma: Problem details: Chronic problem Status: Acute Assessment and Plan: Will continue outpatient treatment. (5) Adverse drug effect: Problem details: Likely related to the effects of Lyrica given her complex medical history and medications. Status: Acute Assessment and Plan: Will continue to hold Lyrica and provide supportive care. (6) Hyponatremia: Status: Acute Assessment and Plan: Chronic no intervention needed. (7) Hyperkalemia: Status: Acute Assessment and Plan: Potassium is improving from 5.9-5.7. (8) Anemia: Problem details: Chronic likely due to renal insufficiency and anemia of chronic disease. Status: Acute (9) Diabetes mellitus type 2 in obese: Problem details: Chronic problem Status: Acute Assessment and Plan: Will continue outpatient care. (10) Chronic pain: Status: Acute Assessment and Plan: Will continue outpatient care. (11) Morbid obesity: Problem details: Chronic Status: Acute Assessment and Plan: Will continue to provide supportive care and patient will require assisted living for discharge. Subjective Time Seen by Provider: 08:25 Date Seen: 10/14/21 Interval history: Patient is a very complex 66-year-old woman with chronic renal insufficiency not on dialysis who presents with confusion disorientation lethargy and muscle twitches after being started on Lyrica for chronic pain. Patient's creatinine did come down overnight. Patient's potassium did come down. Phosphorus comes back elevated today at 6.8. Patient's Lyrica was held overnight she was gently hydrated she is eating and drinking but is quite tremulous and frail in appearance. No new problems have been noted. Exam Narrative: Exam Narrative: EXAM GENERAL: Patient is morbidly obese and tremulous. THYROID: no thyroid nodules or thyromegaly. LYMPH: No supraclavicular or cervical lymphadenopathy. SKIN: Visible skin seen during exam normal or with benign process only. EXT: No dependent lower extremity pedal edema. HEART: Regular rate and rhythm with no murmurs, rubs, or gallops. LUNGS: Clear to auscultation bilaterally with no crackles or wheezes. ABD: Soft, non tender, non distended. PSYCH: Good eye contact, speech is not pressured. Neurologic: Patient is tremulous and having difficult time feeding herself. Const: Vital Signs, click to edit/add: Vital Signs - 24 hr 10/13/21 15:31 10/13/21 17:20 10/13/21 18:20 Temperature 97.8 F Pulse Rate Pulse Rate [Left P ulse Oximeter] 80 81 Pulse Rate [Right Pulse Oximeter] Respiratory Rate 18 10 L Blood Pressure [Ri ght Arm] Blood Pressure [Ri ght Upper Arm] 128/50 L 128/77 121/81 Pulse Oximetry 98 94 10/13/21 18:58 10/13/21 19:15 10/13/21 23:09 Temperature 97.3 F L 98.9 F Pulse Rate Pulse Rate [Left P ulse Oximeter] Pulse Rate [Right Pulse Oximeter] 80 86 Respiratory Rate 20 20 20 Blood Pressure [Ri ght Arm] 135/71 126/52 L Blood Pressure [Ri ght Upper Arm] Pulse Oximetry 95 95 95 10/14/21 02:08 10/14/21 03:00 10/14/21 07:00 Temperature 99 F Pulse Rate 71 Pulse Rate [Left P ulse Oximeter] Pulse Rate [Right Pulse Oximeter] 70 82 Respiratory Rate 12 16 Blood Pressure [Ri ght Arm] 129/65 Blood Pressure [Ri ght Upper Arm] Pulse Oximetry 92 97 Labs Labs: Laboratory Results - last 24 hr 10/13/21 10/13/21 10/13/21 16:00 16:00 16:00 WBC RBC Hgb Hct MCV MCH MCHC RDW Coeff of Antonio Plt Count Neut % (Auto) Lymph % (Auto) [place] % (Auto) Eos % (Auto) Baso % (Auto) Neut # (Auto) Lymph # (Auto) [place] # (Auto) Eos # (Auto) Baso # (Auto) Abs Immat Gran (auto) ESR >102 L Absolute Retic Percent Retic Immature Retic Fraction Retic Hgb Equivalent INR APTT VBG pH VBG pCO2 VBG pO2 VBG HCO3 Sodium 134 L Potassium 5.9 H Chloride 101 Carbon Dioxide 22 BUN 104 H Creatinine 3.9 H Estimated Creat Clear Estimated GFR 12 Glucose 161 H Hemoglobin A1c Lactate Calcium 8.8 Phosphorus Magnesium Iron TIBC % Saturation Total Bilirubin 0.4 Direct Bilirubin 0.4 AST 27 ALT 19 Alkaline Phosphatase 79 Ammonia Total Creatine Kinase Troponin I C-Reactive Protein 6.3 H NT-Pro-B Natriuret Pep Total Protein 7.0 Albumin 3.9 Urine Color Urine Appearance Urine pH Ur Specific [place] Urine Protein Urine Glucose (UA) Urine Ketones Urine Blood Urine Nitrite Urine Bilirubin Urine Urobilinogen Ur Leukocyte Esterase Urine RBC Urine WBC Ur Squamous Epith Cells Other Sediment Urine Bacteria Urine Opiates Screen Ur Oxycodone Screen Urine Methadone Screen Ur Propoxyphene Screen Acetaminophen < 10.0 L Ur Barbiturates Screen U Tricyclic Antidepress Ur Phencyclidine Scrn Ur Amphetamines Screen U Methamphetamines Scrn U Benzodiazepines Scrn Urine Cocaine Screen U Marijuana (THC) Screen Ur Drug Screen Comment Ethyl Alcohol < 0.01 L SARS-CoV-2 (PCR) POC Troponin I 10/13/21 10/13/21 10/13/21 16:00 16:00 16:00 WBC 11.26 H RBC 3.08 L Hgb 9.1 L Hct 28.7 L MCV 93 MCH 30 MCHC 32 RDW Coeff of Antonio 13.8 Plt Count 299 Neut % (Auto) 70.1 Lymph % (Auto) 19.8 L [place] % (Auto) 7.1 Eos % (Auto) 2.1 Baso % (Auto) 0.1 Neut # (Auto) 7.90 H Lymph # (Auto) 2.20 [place] # (Auto) 0.80 Eos # (Auto) 0.20 Baso # (Auto) 0.00 Abs Immat Gran (auto) 0.09 ESR Absolute Retic Percent Retic Immature Retic Fraction Retic Hgb Equivalent INR APTT VBG pH VBG pCO2 VBG pO2 VBG HCO3 Sodium Potassium Chloride Carbon Dioxide BUN Creatinine Estimated Creat Clear Estimated GFR Glucose Hemoglobin A1c Lactate 1.7 Calcium Phosphorus Magnesium Iron TIBC % Saturation Total Bilirubin Direct Bilirubin AST ALT Alkaline Phosphatase Ammonia Total Creatine Kinase Troponin I C-Reactive Protein NT-Pro-B Natriuret Pep Total Protein Albumin Urine Color Urine Appearance Urine pH Ur Specific [place] Urine Protein Urine Glucose (UA) Urine Ketones Urine Blood Urine Nitrite Urine Bilirubin Urine Urobilinogen Ur Leukocyte Esterase Urine RBC Urine WBC Ur Squamous Epith Cells Other Sediment Urine Bacteria Urine Opiates Screen Ur Oxycodone Screen Urine Methadone Screen Ur Propoxyphene Screen Acetaminophen Ur Barbiturates Screen U Tricyclic Antidepress Ur Phencyclidine Scrn Ur Amphetamines Screen U Methamphetamines Scrn U Benzodiazepines Scrn Urine Cocaine Screen U Marijuana (THC) Screen Ur Drug Screen Comment Ethyl Alcohol SARS-CoV-2 (PCR) POC Troponin I 0.00 L 10/13/21 10/13/21 10/13/21 16:00 16:00 16:00 WBC RBC Hgb Hct MCV MCH MCHC RDW Coeff of Antonio Plt Count Neut % (Auto) Lymph % (Auto) [place] % (Auto) Eos % (Auto) Baso % (Auto) Neut # (Auto) Lymph # (Auto) [place] # (Auto) Eos # (Auto) Baso # (Auto) Abs Immat Gran (auto) ESR Absolute Retic Percent Retic Immature Retic Fraction Retic Hgb Equivalent INR 1.10 APTT 32 VBG pH VBG pCO2 VBG pO2 VBG HCO3 Sodium Cancelled Potassium Cancelled Chloride Cancelled Carbon Dioxide Cancelled BUN Cancelled Creatinine Cancelled Estimated Creat Clear Cancelled Estimated GFR Cancelled Glucose Cancelled Hemoglobin A1c Lactate Calcium Cancelled Phosphorus Magnesium Iron TIBC % Saturation Total Bilirubin Cancelled Direct Bilirubin AST Cancelled ALT Cancelled Alkaline Phosphatase Cancelled Ammonia Cancelled Total Creatine Kinase Troponin I C-Reactive Protein NT-Pro-B Natriuret Pep Total Protein Cancelled Albumin Cancelled Urine Color Urine Appearance Urine pH Ur Specific [place] Urine Protein Urine Glucose (UA) Urine Ketones Urine Blood Urine Nitrite Urine Bilirubin Urine Urobilinogen Ur Leukocyte Esterase Urine RBC Urine WBC Ur Squamous Epith Cells Other Sediment Urine Bacteria Urine Opiates Screen Ur Oxycodone Screen Urine Methadone Screen Ur Propoxyphene Screen Acetaminophen Ur Barbiturates Screen U Tricyclic Antidepress Ur Phencyclidine Scrn Ur Amphetamines Screen U Methamphetamines Scrn U Benzodiazepines Scrn Urine Cocaine Screen U Marijuana (THC) Screen Ur Drug Screen Comment Ethyl Alcohol SARS-CoV-2 (PCR) POC Troponin I 10/13/21 10/13/21 10/13/21 17:30 19:00 19:15 WBC RBC Hgb 8.3 L Hct MCV MCH MCHC RDW Coeff of Antonio Plt Count Neut % (Auto) Lymph % (Auto) [place] % (Auto) Eos % (Auto) Baso % (Auto) Neut # (Auto) Lymph # (Auto) [place] # (Auto) Eos # (Auto) Baso # (Auto) Abs Immat Gran (auto) ESR Absolute Retic Percent Retic Immature Retic Fraction Retic Hgb Equivalent INR APTT VBG pH 7.311 L VBG pCO2 44 VBG pO2 73.6 H VBG HCO3 22 Sodium Potassium Chloride Carbon Dioxide BUN Creatinine Estimated Creat Clear Estimated GFR Glucose Hemoglobin A1c Lactate 0.6 Calcium Phosphorus Magnesium Iron TIBC % Saturation Total Bilirubin Direct Bilirubin AST ALT Alkaline Phosphatase Ammonia Total Creatine Kinase Troponin I C-Reactive Protein NT-Pro-B Natriuret Pep Total Protein Albumin Urine Color Urine Appearance Urine pH Ur Specific [place] Urine Protein Urine Glucose (UA) Urine Ketones Urine Blood Urine Nitrite Urine Bilirubin Urine Urobilinogen Ur Leukocyte Esterase Urine RBC Urine WBC Ur Squamous Epith Cells Other Sediment Urine Bacteria Urine Opiates Screen Ur Oxycodone Screen Urine Methadone Screen Ur Propoxyphene Screen Acetaminophen Ur Barbiturates Screen U Tricyclic Antidepress Ur Phencyclidine Scrn Ur Amphetamines Screen U Methamphetamines Scrn U Benzodiazepines Scrn Urine Cocaine Screen U Marijuana (THC) Screen Ur Drug Screen Comment Ethyl Alcohol SARS-CoV-2 (PCR) Negative SARS-CoV-2 POC Troponin I 10/13/21 10/13/21 10/13/21 19:15 23:05 23:05 WBC RBC Hgb Hct MCV MCH MCHC RDW Coeff of Antonio Plt Count Neut % (Auto) Lymph % (Auto) [place] % (Auto) Eos % (Auto) Baso % (Auto) Neut # (Auto) Lymph # (Auto) [place] # (Auto) Eos # (Auto) Baso # (Auto) Abs Immat Gran (auto) ESR Absolute Retic Percent Retic Immature Retic Fraction Retic Hgb Equivalent INR APTT VBG pH VBG pCO2 VBG pO2 VBG HCO3 Sodium Potassium Chloride Carbon Dioxide BUN Creatinine Estimated Creat Clear Estimated GFR Glucose Hemoglobin A1c Lactate Calcium Phosphorus Magnesium Iron TIBC % Saturation Total Bilirubin Direct Bilirubin AST ALT Alkaline Phosphatase Ammonia Total Creatine Kinase 286 H Troponin I 0.08 H* C-Reactive Protein NT-Pro-B Natriuret Pep 553 H Total Protein Albumin Urine Color Yellow Urine Appearance Cloudy A Urine pH 5.0 Ur Specific [place] 1.015 Urine Protein Negative Urine Glucose (UA) Negative Urine Ketones Negative Urine Blood 1+ A Urine Nitrite Negative Urine Bilirubin Negative Urine Urobilinogen 0.2 Ur Leukocyte Esterase Trace A Urine RBC 5-10 A Urine WBC 2-5 Ur Squamous Epith Cells Moderate A Other Sediment 0 Urine Bacteria Moderate A Urine Opiates Screen Negative Ur Oxycodone Screen POSITIVE A Urine Methadone Screen Negative Ur Propoxyphene Screen Negative Acetaminophen Ur Barbiturates Screen Negative U Tricyclic Antidepress POSITIVE A Ur Phencyclidine Scrn Negative Ur Amphetamines Screen Negative U Methamphetamines Scrn Negative U Benzodiazepines Scrn Negative Urine Cocaine Screen Negative U Marijuana (THC) Screen Negative Ur Drug Screen Comment See Note Ethyl Alcohol SARS-CoV-2 (PCR) POC Troponin I 10/14/21 10/14/21 10/14/21 06:16 06:16 06:16 WBC 10.36 RBC 2.73 L Hgb 8.0 L Hct 25.4 L MCV 93 MCH 29 MCHC 32 RDW Coeff of Antonio 13.9 Plt Count 262 Neut % (Auto) 64.6 Lymph % (Auto) 23.8 [place] % (Auto) 8.4 Eos % (Auto) 2.9 Baso % (Auto) 0.1 Neut # (Auto) 6.69 Lymph # (Auto) 2.47 [place] # (Auto) 0.90 Eos # (Auto) 0.30 Baso # (Auto) 0.01 Abs Immat Gran (auto) 0.02 ESR Absolute Retic 0.05 Percent Retic 2.0 Immature Retic Fraction 12.2 Retic Hgb Equivalent 28.4 L INR APTT VBG pH VBG pCO2 VBG pO2 VBG HCO3 Sodium 133 L Potassium 5.7 H Chloride 103 Carbon Dioxide 25 BUN 102 H Creatinine 3.7 H Estimated Creat Clear 11.03 Estimated GFR 13 Glucose 105 Hemoglobin A1c Lactate Calcium 8.4 Phosphorus 6.8 H* Magnesium 3.1 H Iron 49 TIBC 239 L % Saturation 20 Total Bilirubin Direct Bilirubin AST ALT Alkaline Phosphatase Ammonia Total Creatine Kinase Troponin I C-Reactive Protein 5.9 H NT-Pro-B Natriuret Pep Total Protein Albumin 3.5 Urine Color Urine Appearance Urine pH Ur Specific [place] Urine Protein Urine Glucose (UA) Urine Ketones Urine Blood Urine Nitrite Urine Bilirubin Urine Urobilinogen Ur Leukocyte Esterase Urine RBC Urine WBC Ur Squamous Epith Cells Other Sediment Urine Bacteria Urine Opiates Screen Ur Oxycodone Screen Urine Methadone Screen Ur Propoxyphene Screen Acetaminophen Ur Barbiturates Screen U Tricyclic Antidepress Ur Phencyclidine Scrn Ur Amphetamines Screen U Methamphetamines Scrn U Benzodiazepines Scrn Urine Cocaine Screen U Marijuana (THC) Screen Ur Drug Screen Comment Ethyl Alcohol SARS-CoV-2 (PCR) POC Troponin I 10/14/21 10/14/21 06:16 06:16 WBC RBC Hgb Hct MCV MCH MCHC RDW Coeff of Antonio Plt Count Neut % (Auto) Lymph % (Auto) [place] % (Auto) Eos % (Auto) Baso % (Auto) Neut # (Auto) Lymph # (Auto) [place] # (Auto) Eos # (Auto) Baso # (Auto) Abs Immat Gran (auto) ESR Absolute Retic Percent Retic Immature Retic Fraction Retic Hgb Equivalent INR APTT VBG pH 7.345 VBG pCO2 40 VBG pO2 167.0 H VBG HCO3 22 Sodium Potassium Chloride Carbon Dioxide BUN Creatinine Estimated Creat Clear Estimated GFR Glucose Hemoglobin A1c 6.88 H Lactate 0.5 Calcium Phosphorus Magnesium Iron TIBC % Saturation Total Bilirubin Direct Bilirubin AST ALT Alkaline Phosphatase Ammonia Total Creatine Kinase Troponin I C-Reactive Protein NT-Pro-B Natriuret Pep Total Protein Albumin Urine Color Urine Appearance Urine pH Ur Specific [place] Urine Protein Urine Glucose (UA) Urine Ketones Urine Blood Urine Nitrite Urine Bilirubin Urine Urobilinogen Ur Leukocyte Esterase Urine RBC Urine WBC Ur Squamous Epith Cells Other Sediment Urine Bacteria Urine Opiates Screen Ur Oxycodone Screen Urine Methadone Screen Ur Propoxyphene Screen Acetaminophen Ur Barbiturates Screen U Tricyclic Antidepress Ur Phencyclidine Scrn Ur Amphetamines Screen U Methamphetamines Scrn U Benzodiazepines Scrn Urine Cocaine Screen U Marijuana (THC) Screen Ur Drug Screen Comment Ethyl Alcohol SARS-CoV-2 (PCR) POC Troponin I
[2021-10-14] MEDS: ASPIRIN 81 MG TAB.CHEW PO (08:28)
[2021-10-14] MEDS: OMEPRAZOLE 20 MG CAPSULE DR PO ×2 (08:28→20:38)
[2021-10-14] MEDS: dilTIAZem 180 MG CAP (CD) PO (08:29)
[2021-10-14] MEDS: dilTIAZem 120 MG CAP.ER.24H PO (08:29)
[2021-10-14] MEDS: CALCIUM ACETATE 667 MG CAPSULE PO ×2 (08:29→18:36)
[2021-10-14] MEDS: polyethylene glycoL 3350 17 GM PACK PO (08:30)
[2021-10-14] MEDS: IPRAT-ALBUT 0.5-2.5 MG/3 ML NEB 1 NEB IH ×4 (08:30→20:35)
[2021-10-14] MEDS: FUROSEMIDE 20 MG TABLET PO (08:30)
[2021-10-14] MEDS: NYSTATIN POWDER 1 APPLIC TOPICAL ×2 (08:32→20:55)
[2021-10-14] MEDS: TOPIRAMATE 50 MG TABLET PO ×2 (09:05→20:34)
[2021-10-14] MEDS: INDAPAMIDE 2.5 MG TABLET PO (09:44)
--- NOTE | 2021-10-14 10:52 | REH.OT ---
Per PT, Pt. not medically appropriate for OT evaluation today. OT will re-attempt evaluation tomorrow.
--- NOTE | 2021-10-14 11:17 | NUTR.NU ---
RDN with MD consult for DMT2, АНДРЕЙ, and CCKD stage 5. RDN attempted to visit with patient whom was in pain and declined visit - visit not appropriate at this time. RDN will continue to monitor and follow-up prn.
[2021-10-14] MEDS: TRAMADOL HCL 50 MG TABLET PO (13:04)
[2021-10-14 14:31] LABS: NT Pro B Type NatriureticPept* 675 PG/mL (0-125)
[2021-10-14 14:34] LABS: Troponin I* 0.01 ng/mL (0.01-0.04)
--- NOTE | 2021-10-14 15:04 | PC.NURSE ---
Shift [id number]: pt having difficulty verbalizing. Pt able to answer yes or no questions. Occasionally pt is able to speak, responses are delayed. Pt says ?ow ow ow? with repositions, prn tramadol given.?SCDs not applied d/t pain in bilat LE. When speaking with pt display card writer notes her dozing off, pt is easy to wake. Needs full assistance with eating d/t muscle spasms. A x 2 with gb and walker. Pt up to the BR x1, no BM, 800ml yellow urine output. PERRLA. Productive cough, 2 nebs given. O2 sats >93% on RA. HR 80s. BP 120s/60s, taken on pts forearm per her request. Spoke with Claudette at [facility] in [place] this afternoon. She stated that the pt is typically alert, orientated, and coherent. Per Claudette, Lyrica was started on 10/08 and the pt stopped taking it 10/12, last dose was Wednesday 10/11. ?
[2021-10-14 18:14] LABS: Ferritin* 39.3 ng/mL (11.1-264.0)
--- NOTE | 2021-10-14 19:18 | PC.NURSE ---
End of shift-- Assumed care of patient at 1500. Alert and oriented, but drowsy. Generalized weakness and tremors noted. VSS and pt is afebrile. SPO2 maintained >93% on RA. Patient was unable to verbalize pain but stated ouchie, everywhere and better. LS CTA. HR reg, but murmur was noted. She denied nausea, and ate 75% of a regular diet, though she did require assistance with eating and appeared at times to struggle with delayed swallowing. She was incontinent of urine and had a smear of incontinent BM as well. Inner right thigh and coccyx area were reddish purple and aloe was applied. Pt repositioned frequently. She was up to the chair with assist of 2, belt and walker and tolerated it fairly well. Report to [place], [place].
[2021-10-14] MEDS: CYCLOBENZAPRINE HCL 10 MG TABLET PO (20:34)
[2021-10-14] MEDS: DULOXETINE 30 MG CAPSULE DR 60 MG PO (20:34)
[2021-10-14] MEDS: lisinopriL 20 MG TABLET PO (20:35)
[2021-10-14] MEDS: MONTELUKAST 10 MG TABLET PO (20:39)
[2021-10-14] MEDS: MELATONIN 3 MG TABLET PO (20:54)
[2021-10-15 03:00] VITALS: BP 127/62; PULSE 83; RESP 18; TEMP 36.9; O2SAT 92
--- NOTE | 2021-10-15 05:53 | PC.NURSE ---
Alert and orientedx4 with some forgetfulness and delayed response. Really frustrated with neuro assessment. Moving all extremities fine. Resting hand/limb tremors. Following commands fine. Neuro checks Q4H; no new changes noted. Stable vitals. Difficulty with rating pain no visible signs of pain tonight. Conversing much better this am. Denies further concerns
[2021-10-15 06:30] LABS: Basophils Absolute Auto 0.02 K/uL (0.00-0.30); Basophils Percent Auto 0.2 % (0.0-3.0); Eosinophils Percent Auto 3.2 % (0.0-7.0); Hematocrit 24.5 % (33.0-51.0); Immature Granulocytes Abs Auto 0.08 K/uL (0.00-0.30); Lymphocytes Absolute Auto 2.11 K/uL (0.90-2.90); Lymphocytes Percent Auto 22.7 % (20-44); Mean Corpuscular HGB Conc 32 gm/dL (32-36); Mean Corpuscular Hemoglobin 30 pg (26-34); Mean Corpuscular Volume 94 fL (80-100); Neutrophils Absolute Auto 6.03 K/uL (1.7-7.0); Platelet Count* 261 K/uL (140-440); Red Blood Count 2.62 m/uL (4.00-5.20); White Blood Count* 9.28 K/uL (4.50-11.00)
[2021-10-15] MEDS: LEVOTHYROXINE 100 MCG TABLET PO (06:36)
[2021-10-15] MEDS: LEVOTHYROXINE 50 MCG TABLET PO (06:36)
[2021-10-15 06:41] LABS: Albumin* 3.4 g/dL (3.3-5.0)
[2021-10-15 06:42] LABS: Chloride* 105 mmol/L (96-114); Hemoglobin* 7.9 gm/dL (12.0-16.0); Potassium* 5.4 mmol/L (3.6-5.1); Slide Review Reflex No; Sodium* 133 mmol/L (135-149)
[2021-10-15 06:44] LABS: Alkaline Phosphatase* 70 U/L (40-150); Aspartate Amino Transferase* 20 U/L (12-35); Bilirubin Total* 0.4 mg/dL (0.1-1.5); Carbon Dioxide* 21 mmol/L (20-32); Creatinine* 3.1 mg/dL (0.5-1.5); Est. Creatinine Clearance* 13.17; Estimated Glomerular Filt Rate 16 ml/min; Total Protein* 6.1 g/dL (6.0-8.3)
[2021-10-15 06:45] LABS: Alanine Aminotransferase* 13 U/L (4-35); Blood Urea Nitrogen* 93 mg/dL (7-30); Calcium* 8.5 mg/dL (8.4-10.6); Glucose* 145 mg/dL (60-115); Phosphorus* 5.7 mg/dL (2.5-4.5)
[2021-10-15 07:00] VITALS: BP 137/74; PULSE 94; RESP 18; TEMP 37.2; O2SAT 98
[2021-10-15] MEDS: CALCIUM ACETATE 667 MG CAPSULE PO ×2 (07:26→18:53)
--- NOTE | 2021-10-15 08:25 | PM.IMPN1 ---
Progress Note: A&P Assessment and plan (1) Acute confusion: Problem details: Likely related to her metabolic encephalopathy. Status: Acute Assessment and Plan: Electrolytes improving. I am concerned about a hemoglobin of 7.9. Will PT OT see her with possible discharge back tomorrow to [facility]. (2) Chronic kidney disease, stage 5: Problem details: Patient does see a transportation department supervisor as an outpatient. Status: Acute Assessment and Plan: Creatinine phosphorus improving. Will continue current management. (3) Muscle twitching: Status: Acute Assessment and Plan: Improving with management of underlying issues. (4) Asthma: Problem details: Chronic problem Status: Acute Assessment and Plan: Will continue outpatient treatment. (5) Adverse drug effect: Problem details: Likely related to the effects of Lyrica given her complex medical history and medications. Status: Acute Assessment and Plan: Will continue to hold Lyrica and provide supportive care. Improving. (6) Hyponatremia: Status: Acute Assessment and Plan: Sodium stable 133. (7) Hyperkalemia: Status: Acute Assessment and Plan: Stable. (8) Anemia: Problem details: Chronic likely due to renal insufficiency and anemia of chronic disease. Status: Acute Assessment and Plan: Will plan to repeat her CBC in the morning. This likely is anemia of chronic disease related to her chronic renal insufficiency worsened by her acute illness. (9) Diabetes mellitus type 2 in obese: Problem details: Chronic problem Status: Acute Assessment and Plan: Will continue outpatient care. (10) Chronic pain: Status: Acute Assessment and Plan: Will continue outpatient care. (11) Morbid obesity: Problem details: Chronic Status: Acute Assessment and Plan: Will continue to provide supportive care and patient will require assisted living for discharge. Time Spent With Patient Total time spent: 30 minutes. Subjective Time Seen by Provider: 08:27 Date Seen: 10/15/21 Interval history: Patient is a 66-year-old woman who was admitted with acute weakness in neurologic complaints felt to be related to the initiation of Lyrica. Patient had worsening of her chronic renal insufficiency as well as elevated phosphorus admission. She was very tremulous and was nearly bed-bound yesterday. Today she is up in a chair feeling much better still has a bit of a tremor though. She has had improvement of her creatinine down her phosphorus down. Her hemoglobin is down to 7.9. She really has no other major complaints or concerns. Exam Narrative: Exam Narrative: EXAM GENERAL: Patient is obese and somewhat tremulous. Much improved from yesterday. EYES: No scleral icterus. LYMPH: No supraclavicular or cervical lymphadenopathy. SKIN: Visible skin seen during exam normal or with benign process only. EXT: No dependent lower extremity pedal edema. HEART: Regular rate and rhythm with no murmurs, rubs, or gallops. LUNGS: Clear to auscultation bilaterally with no crackles or wheezes. ABD: Soft, non tender, non distended. PSYCH: Good eye contact, speech is not pressured. Const: Vital Signs, click to edit/add: Vital Signs - 24 hr 10/14/21 11:00 10/14/21 15:00 10/14/21 19:00 Temperature 98.7 F 98.8 F 98.9 F Pulse Rate [Right Pulse Oximeter] 81 74 Respiratory Rate 16 16 Blood Pressure [Ri ght Arm] 122/61 101/45 L 107/65 Pulse Oximetry 94 94 96 10/14/21 23:00 10/15/21 03:00 Temperature 98.4 F Pulse Rate [Right Pulse Oximeter] 82 83 Respiratory Rate 18 Blood Pressure [Ri ght Arm] 109/77 127/62 Pulse Oximetry 94 92 Labs Labs: Laboratory Results - last 24 hr 10/14/21 10/14/21 10/15/21 06:16 06:16 05:52 WBC 9.28 RBC 2.62 L Hgb 7.9 L* Hct 24.5 L MCV 94 MCH 30 MCHC 32 RDW Coeff of Antonio 14.0 Plt Count 261 Neut % (Auto) 65.0 Lymph % (Auto) 22.7 [place] % (Auto) 8.0 Eos % (Auto) 3.2 Baso % (Auto) 0.2 Neut # (Auto) 6.03 Lymph # (Auto) 2.11 [place] # (Auto) 0.70 Eos # (Auto) 0.30 Baso # (Auto) 0.02 Abs Immat Gran (auto) 0.08 Sodium Potassium Chloride Carbon Dioxide BUN Creatinine Estimated Creat Clear Estimated GFR Glucose Calcium Phosphorus Ferritin 39.3 Total Bilirubin AST ALT Alkaline Phosphatase Troponin I 0.01 NT-Pro-B Natriuret Pep 675 H Total Protein Albumin TSH 2.100 10/15/21 05:52 WBC RBC Hgb Hct MCV MCH MCHC RDW Coeff of Antonio Plt Count Neut % (Auto) Lymph % (Auto) [place] % (Auto) Eos % (Auto) Baso % (Auto) Neut # (Auto) Lymph # (Auto) [place] # (Auto) Eos # (Auto) Baso # (Auto) Abs Immat Gran (auto) Sodium 133 L Potassium 5.4 H Chloride 105 Carbon Dioxide 21 BUN 93 H Creatinine 3.1 H Estimated Creat Clear 13.17 Estimated GFR 16 Glucose 145 H Calcium 8.5 Phosphorus 5.7 H Ferritin Total Bilirubin 0.4 AST 20 ALT 13 Alkaline Phosphatase 70 Troponin I NT-Pro-B Natriuret Pep Total Protein 6.1 Albumin 3.4 TSH
[2021-10-15] MEDS: OMEPRAZOLE 20 MG CAPSULE DR PO ×2 (08:57→20:33)
[2021-10-15] MEDS: dilTIAZem 120 MG CAP.ER.24H PO (08:57)
[2021-10-15] MEDS: INDAPAMIDE 2.5 MG TABLET PO (08:57)
[2021-10-15] MEDS: TOPIRAMATE 50 MG TABLET PO ×2 (08:57→20:33)
[2021-10-15] MEDS: FUROSEMIDE 20 MG TABLET PO (08:57)
[2021-10-15] MEDS: ASPIRIN 81 MG TAB.CHEW PO (08:58)
[2021-10-15] MEDS: polyethylene glycoL 3350 17 GM PACK PO (08:58)
[2021-10-15] MEDS: NYSTATIN POWDER 1 APPLIC TOPICAL ×2 (08:58→20:35)
[2021-10-15] MEDS: dilTIAZem 180 MG CAP (CD) PO (08:58)
[2021-10-15] MEDS: IPRAT-ALBUT 0.5-2.5 MG/3 ML NEB 1 NEB IH ×4 (08:58→20:31)
[2021-10-15] MEDS: TRAMADOL HCL 50 MG TABLET PO (10:59)
[2021-10-15 11:00] VITALS: BP 129/57; PULSE 80; RESP 18; TEMP 36.9; O2SAT 95
[2021-10-15 15:00] VITALS: BP 126/50; PULSE 75; RESP 18; TEMP 36.6; O2SAT 99
--- NOTE | 2021-10-15 15:15 | PC.SOCIAL ---
Discharge planning: Met with pt regarding discharge plan. Pt lives at [facility] on the [facility]I waver and is pleased with this arrangement. Pt states she plans to return there at discharge from the hospital. Pt shared that there has been some concern expressed by the facility about the assistance she needs but she is not interested in moving at this time. Pt shared she has fallen several times at the facility. Pt is open to using a walker if recommended from this hospital stay to be safer at her assisted living apartment. Pt has a CADI worker at [facility], who she states is helpful if she needs increased services. Pt gave this delinquency prevention social worker permission to contact [facility] and her [facility] CADI worker as needed to arrange discharge plans. telephone sex worker to follow up as needed.
--- NOTE | 2021-10-15 15:27 | NUTR.NU ---
RDN with MD consult for DMT2 and CKD stage V. RDN visited with patient whom agreed to receive diabetic diet education. She reports she has received some carbohydrate counting diet education in the past. Diabetic diet education provided. Discussed basics of carbohydrate counting including sources of carbohydrates, serving sizes, and label reading. Discussed using the plate method for carbohydrate-controlled, balanced meals that include ? plate non-starchy vegetables, ? plate protein, and ~3 servings of carbohydrates per meal (fruit, whole grains, legumes, milk, yogurt) and 1-2 per snack. RDN also recommended patient to have a consistent intake of protein, however to limit an excessive amount due to kidney function. Handout provided to support discussion. RDN contact information provided and encouraged patient to call with questions. RDN to follow up as needed.
[2021-10-15 19:00] VITALS: BP 97/70; PULSE 74; RESP 18; TEMP 36.6; O2SAT 96
--- NOTE | 2021-10-15 19:34 | PC.NURSE ---
shift note -: A x 2 with gb and walker to standing position, SBA with gb and walker. up to BR 2x this shift, 800mL urine output each BR trip. pt up in chair majority of shift. appetite is very poor, only few bites of each meal. pt c/o pain in her mouth from the sores, swish & swallow aids pain. PRN Ultram given for generalized pain, 11/06. pt is less tremulous today. pt occasionally becomes less alert and needs to be redirected, otherwise she is oriented and is able to communicate very well. VSS. pt continues to have a cough, occasionally able to spit up green thick phlegm. Daughter in law Feng came to visit, # [phone]
[2021-10-15] MEDS: DULOXETINE 30 MG CAPSULE DR 60 MG PO (20:31)
[2021-10-15] MEDS: lisinopriL 20 MG TABLET PO (20:31)
[2021-10-15] MEDS: MONTELUKAST 10 MG TABLET PO (20:31)
[2021-10-15] MEDS: CYCLOBENZAPRINE HCL 10 MG TABLET PO (20:33)
[2021-10-15] MEDS: MELATONIN 3 MG TABLET PO (20:33)
[2021-10-15 23:00] VITALS: BP 130/60; PULSE 70; PULSE 74; RESP 18; TEMP 36.6; O2SAT 96
[2021-10-16 03:00] VITALS: BP 138/72; PULSE 68; RESP 18; TEMP 36.9; O2SAT 93
[2021-10-16] MEDS: LEVOTHYROXINE 100 MCG TABLET PO (05:30)
[2021-10-16] MEDS: LEVOTHYROXINE 50 MCG TABLET PO (05:30)
[2021-10-16] MEDS: TRAMADOL HCL 50 MG TABLET PO ×2 (05:30→12:05)
--- NOTE | 2021-10-16 06:53 | PC.NURSE ---
Alert and oriented x4. conversing more this AM; less delayed response. Ambulating independently in the room with rolling walker. Vitals stable.Pain managed with scheduled and PRN Oxycodone and tramdol respectively. Excited to go home soon. Low HS blood sugars; MD to be notified to adjust insulin.
[2021-10-16 07:00] VITALS: BP 138/60; PULSE 82; RESP 18; TEMP 36.9; O2SAT 99
[2021-10-16 07:22] LABS: Basophils Absolute Auto 0.02 K/uL (0.00-0.30); Basophils Percent Auto 0.2 % (0.0-3.0); Eosinophils Absolute Auto 0.29 K/uL (0.00-0.50); Eosinophils Percent Auto 3.5 % (0.0-7.0); Hematocrit 27.5 % (33.0-51.0); Hemoglobin* 8.8 gm/dL (12.0-16.0); Immature Granulocytes Abs Auto 0.03 K/uL (0.00-0.30); Lymphocytes Absolute Auto 2.15 K/uL (0.90-2.90); Lymphocytes Percent Auto 25.6 % (20-44); Mean Corpuscular HGB Conc 32 gm/dL (32-36); Mean Corpuscular Hemoglobin 30 pg (26-34); Mean Corpuscular Volume 94 fL (80-100); Monocytes Percent Auto 8.1 % (0.0-11.0); Neutrophils Absolute Auto 5.22 K/uL (1.7-7.0); Neutrophils Percent Auto 62.2 % (42.0-72.0); Platelet Count* 272 K/uL (140-440); RDW Coefficient of Variation % 13.9 % (11.5-15.5); Red Blood Count 2.93 m/uL (4.00-5.20); White Blood Count* 8.39 K/uL (4.50-11.00)
[2021-10-16 07:23] LABS: Chloride* 105 mmol/L (96-114); Slide Review Reflex No; Sodium* 136 mmol/L (135-149)
[2021-10-16 07:24] LABS: Potassium* 4.6 mmol/L (3.6-5.1)
[2021-10-16 07:26] LABS: Carbon Dioxide* 22 mmol/L (20-32); Creatinine* 2.3 mg/dL (0.5-1.5); Est. Creatinine Clearance* 17.75; Estimated Glomerular Filt Rate 23 ml/min
[2021-10-16 07:27] LABS: Blood Urea Nitrogen* 78 mg/dL (7-30); Calcium* 9.2 mg/dL (8.4-10.6); Glucose* 165 mg/dL (60-115)
[2021-10-16] MEDS: CALCIUM ACETATE 667 MG CAPSULE PO (08:20)
[2021-10-16] MEDS: OMEPRAZOLE 20 MG CAPSULE DR PO (08:25)
[2021-10-16] MEDS: NYSTATIN POWDER 1 APPLIC TOPICAL (09:00)
[2021-10-16] MEDS: dilTIAZem 120 MG CAP.ER.24H PO (09:05)
[2021-10-16] MEDS: TOPIRAMATE 50 MG TABLET PO (09:05)
[2021-10-16] MEDS: dilTIAZem 180 MG CAP (CD) PO (09:05)
[2021-10-16] MEDS: INDAPAMIDE 2.5 MG TABLET PO (09:06)
[2021-10-16] MEDS: IPRAT-ALBUT 0.5-2.5 MG/3 ML NEB 1 NEB IH (09:06)
--- NOTE | 2021-10-16 09:49 | PM.DS1 ---
DS: Providers Provider Time Seen by Provider: 09:50 Date Seen: 10/16/21 Date of admission: 10/13/21 18:09 Primary care physician: Not a Local Provider Admitting Clinician: Tre Paredes MD Consults: 10/13/21 19:04 Consult to Nutrition [CONS] Routine Comment: Reason for consult:: Miscellaneous Comment: DMT2; АНДРЕЙ & CKD stage V Consult to Physical Therapy [CONS] Routine Comment: Reason(s) for PT Consult:: Evaluate and Treat Any Restrictions?:: See Comment Comment: baseline weak, now more weak Consult to [employer] [CONS] Routine Comment: Reason for Consult:: Discharge Planning Needs 10/13/21 19:06 Consult to Occupational Therapy [CONS] Routine Comment: Reason(s) for OT Consult:: Evaluate and Treat Any Restrictions?:: See Comment Comment: baseline weak, now more weak 10/14/21 02:01 Consult to Physical Therapy [CONS] Routine Comment: Reason(s) for PT Consult:: ACL Protocols Any Restrictions?:: No Restrictions 10/14/21 08:45 Consult to Physical Therapy [CONS] Routine Comment: Reason(s) for PT Consult:: Weakness Any Restrictions?:: No Restrictions 10/14/21 08:46 Consult to Occupational Therapy [CONS] Routine Comment: Reason(s) for OT Consult:: Difficulty Managing ADLs Any Restrictions?:: No Restrictions Attending Physician on discharge: Tre Paredes MD DS: Diagnosis Discharge Diagnosis (1) Acute confusion: Status: Acute Problem details: Likely related to her metabolic encephalopathy. (2) Chronic kidney disease, stage 5: Status: Acute Problem details: Patient does see a door maker as an outpatient. (3) Muscle twitching: Status: Acute (4) Asthma: Status: Acute Problem details: Chronic problem (5) Adverse drug effect: Status: Acute Problem details: Likely related to the effects of Lyrica given her complex medical history and medications. (6) Hyponatremia: Status: Acute (7) Hyperkalemia: Status: Acute (8) Anemia: Status: Acute Problem details: Chronic likely due to renal insufficiency and anemia of chronic disease. (9) Diabetes mellitus type 2 in obese: Status: Acute Problem details: Chronic problem (10) Chronic pain: Status: Acute (11) Morbid obesity: Status: Acute Problem details: Chronic DS: Summary Hospital Course Hospital Course: Patient was admitted with increased tremulousness following the initiation Lyrica for chronic pain. She had acute mental status changes. The mental status changes in the tremulousness improved. She is still has significantly unsteady gait related to her comorbidities and obesity. We did have PT and OT see her in the patient is return to usual level of functioning. Patient has chronic renal insufficiency her creatinine did go to 3.9 before following to 3.1 which is near her baseline. She did have elevated phosphorus which showed was treated with PhosLo in the hospital. Patient is ready for discharge home and will continue her outpatient medications as previous minus the Lyrica. Time Spent with Patient Time attestation: Total time spent providing and/or coordinating discharge services: Time spent: Greater than 30 minutes Exam Narrative: Exam Narrative: EXAM GENERAL: Patient appears comfortable and well. Patient is obese but with less tremulousness and good cognition today. EYES: No scleral icterus. LYMPH: No supraclavicular or cervical lymphadenopathy. SKIN: Visible skin seen during exam normal or with benign process only. EXT: No dependent lower extremity pedal edema. HEART: Regular rate and rhythm with no murmurs, rubs, or gallops. LUNGS: Clear to auscultation bilaterally with no crackles or wheezes. ABD: Soft, non tender, non distended. PSYCH: Good eye contact, speech is not pressured. Const: Vital Signs, click to edit/add: Vital Signs - 24 hr 10/15/21 11:00 10/15/21 15:00 10/15/21 19:00 Temperature 98.4 F 98 F 98 F Pulse Rate [Right Pulse Oximeter] 80 75 74 Respiratory Rate 18 18 18 Blood Pressure [Ri ght Arm] 129/57 L 126/50 L 97/70 Pulse Oximetry 95 99 96 10/15/21 23:00 10/16/21 03:00 10/16/21 07:00 Temperature 98 F 98.4 F 98.4 F Pulse Rate [Right Pulse Oximeter] 70 68 82 Respiratory Rate 18 18 18 Blood Pressure [Ri ght Arm] 130/60 138/72 138/60 Pulse Oximetry 96 93 99 DS: Data Data Completed and Pending Labs on day of discharge: Labs from last 24 hours 10/16/21 10/16/21 06:08 06:08 WBC 8.39 RBC 2.93 L Hgb 8.8 L Hct 27.5 L MCV 94 MCH 30 MCHC 32 RDW Coeff of Antonio 13.9 Plt Count 272 Neut % (Auto) 62.2 Lymph % (Auto) 25.6 [place] % (Auto) 8.1 Eos % (Auto) 3.5 Baso % (Auto) 0.2 Neut # (Auto) 5.22 Lymph # (Auto) 2.15 [place] # (Auto) 0.70 Eos # (Auto) 0.29 Baso # (Auto) 0.02 Abs Immat Gran (auto) 0.03 Sodium 136 Potassium 4.6 Chloride 105 Carbon Dioxide 22 BUN 78 H Creatinine 2.3 H Estimated Creat Clear 17.75 Estimated GFR 23 Glucose 165 H Calcium 9.2 Phosphorus 5.0 H Discharge Plan Discharge Disposition: [facility] Date of Admission: 10/13/21 18:09 Attending Provider on Discharge: Payam Sullivan Primary Care Provider: Provider,Not a Local Condition: Stable Discharge Medications: Continued cyclobenzaprine 10 mg tablet 10 mg PO HS 0RF (DME) blood-glucose meter [True Metrix Glucose Meter] [facility] [place] MISCELLANEOUS 0RF Label Comments: USE DIRECTED . PHARMACY TO DISPENSE BRAND BASED ON INSURANCE indapamide 2.5 mg tablet 2.5 mg PO DAILY 0RF lisinopril 20 mg tablet 20 mg PO HS 0RF (DME) True Metrix Glucose Test Strip Strip MISCELLANEOUS 0RF Label Comments: USE 1 EACH TO TEST 4 TIMES A DAY. (DIAGNOSIS CODE E11.21) tramadol 50 mg tablet 50 mg PO Q8H PRN0RF diltiazem HCl 300 mg capsule,extended release 24hr 300 mg PO Q24H 0RF pantoprazole 40 mg tablet,delayed release (DR/EC) 40 mg PO Q12H 0RF ferrous sulfate [FeroSul] 325 mg (65 mg iron) tablet 325 mg PO QAM 0RF levothyroxine 150 mcg tablet 150 mcg PO DAILY 0RF fluticasone propion-salmeterol [Advair Diskus] 500-50 mcg/dose blister with device 1 inh INHALATION Q12H 0RF docusate sodium 100 mg capsule 200 mg PO HS 0RF aspirin 81 mg tablet,chewable 1 tab PO DAILY 0RF montelukast 10 mg tablet 10 mg PO HS 0RF furosemide 20 mg tablet 20 mg PO QAM 0RF nystatin [Nystop] 100,000 unit/gram powder 1 applic TOPICAL BID PRN0RF polyethylene glycol 3350 17 gram/dose powder 17 g PO Q48H 0RF albuterol sulfate [Ventolin HFA] 90 mcg/actuation HFA aerosol inhaler 1 - 2 puff INHALATION Q4H PRN0RF topiramate 100 mg tablet 100 mg PO Q12H 0RF fluticasone propionate 50 mcg/actuation spray,suspension 2 spray INTRANASAL DAILY 0RF insulin aspart U-100 [Novolog Flexpen U-100 Insulin] 100 unit/mL (3 mL) insulin pen 8 unit SUBCUT TIDWM 0RF duloxetine 60 mg capsule,delayed release(DR/EC) 60 mg PO DAILY 0RF (DME) lancets [TRUEplus Lancets] 33 gauge misc MISCELLANEOUS 0RF Label Comments: USE 1 EACH TO TEST 4 TIMES A DAY. oxycodone [OxyContin] 60 mg tablet,oral only,ext.rel.12 hr 60 mg PO Q12H 0RF Trulicity 0.75 mg/0.5 mL pen injector 0.75 mg SUBCUT .WEEKLY 0RF Novolin N Flexpen 100 unit/mL (3 mL) insulin pen 10 unit SUBCUT QAM 0RF Novolin N Flexpen 100 unit/mL (3 mL) insulin pen 40 unit subcut HS 0RF melatonin 3 mg capsule 3 mg PO HS 0RF clotrimazole 1 % cream 1 applic topical BID 0RF insulin aspart U-100 [Novolog Flexpen U-100 Insulin] 100 unit/mL (3 mL) insulin pen 1 sliding scale dose subcut USEASDIRECTD 0RF Rx Instructions: 2 ADDITIONAL UNITS FOR EVERY 40 POINTS GREATER THAN BLOOD SUGAR OF 180 cholecalciferol (vitamin D3) [Vitamin D3] 50 mcg (2,000 unit) tablet 2,000 unit PO DAILY 0RF Discharge Orders: Discharge Order (Routine); Ordered 10/16/21 Ordered By: Payam Sullivan Activity Level: Activity as Tolerated Discharge Diet: Regular Follow Up Appointments: Provider,Not a Local [Primary Care Provider] - Forms: [facility] Info Instructions
[2021-10-16] MEDS: FUROSEMIDE 20 MG TABLET PO (11:03)
[2021-10-16] MEDS: ASPIRIN 81 MG TAB.CHEW PO (11:03)
--- NOTE | 2021-10-16 12:16 | PC.NURSE ---
Pt. Alert and oriented x4. conversing more this AM; no delayed response. Ambulating independently in the room with rolling walker. Vitals stable.Pain managed with scheduled and PRN Oxycodone and tramdol respectively. Excited to go home soon. blood sugars elevated, insulin and sliding scale given; IV intact and removed at 1215. Patient belongings form signed and discharge instructions given. Nurse to Nurse given to YONI Wilkins at [facility] at 1150.
== END 2021-10-16 12:40 ==
LOC: ED 18:06 → MEDSURG 19:50
PROVIDERS: Internal Medicine; Admitting Provider Internal Medicine; Emergency Provider Family Medicine; Visit Provider Internal Medicine
DX: G93.41 Metabolic encephalopathy (principal); R25.3 Fasciculation; J45.909 Unspecified asthma, uncomplicated; T50.905A Adverse effect of unspecified drugs, medicaments and biological substances, initial encounter; E87.1 Hypo-osmolality and hyponatremia; E87.5 Hyperkalemia; D64.9 Anemia, unspecified; N18.5 Chronic kidney disease, stage 5; E11.22 Type 2 diabetes mellitus with diabetic chronic kidney disease; I12.0 Hypertensive chronic kidney disease with stage 5 chronic kidney disease or end stage renal disease; E11.42 Type 2 diabetes mellitus with diabetic polyneuropathy; E11.69 Type 2 diabetes mellitus with other specified complication; E66.9 Obesity, unspecified; E66.01 Morbid (severe) obesity due to excess calories; Z68.44 Body mass index [BMI] 60.0-69.9, adult; G89.29 Other chronic pain; R26.81 Unsteadiness on feet; E83.39 Other disorders of phosphorus metabolism; Z79.82 Long term (current) use of aspirin; Z79.4 Long term (current) use of insulin; R41.0 Disorientation, unspecified; R53.1 Weakness; R60.9 Edema, unspecified; M79.7 Fibromyalgia; I47.1 Supraventricular tachycardia; J31.0 Chronic rhinitis; I89.0 Lymphedema, not elsewhere classified; F11.90 Opioid use, unspecified, uncomplicated; E78.5 Hyperlipidemia, unspecified; G47.33 Obstructive sleep apnea (adult) (pediatric); N93.9 Abnormal uterine and vaginal bleeding, unspecified; N17.9 Acute kidney failure, unspecified; Z90.710 Acquired absence of both cervix and uterus; K21.9 Gastro-esophageal reflux disease without esophagitis; E03.9 Hypothyroidism, unspecified; E87.8 Other disorders of electrolyte and fluid balance, not elsewhere classified
CPT/HCPCS: 36415; 70450; 80048; 80053; 80069; 80076; 80143; 80306; 81001; 82077; 82140; 82550; 82728; 82803; 82947; 83036; 83540; 83550; 83605; 83735; 83880; 84100; 84443; 84484; 85018; 85025; 85045; 85610; 85651; 85730; 86140; 87086; 87635; 93005; 94640; 96360; 96372; 97110; 97116; 97162; 97165; 97535; 99284; A9270; G0378; G0379; J7030

== ENCOUNTER 2022-03-30 16:55 | Outpatient (CLI) | payer MEDICARE, MEDICAID, SELFPAY | END 2022-03-30 16:56 | disposition home or self-care (01) | LOC: AMB 21:44 | PROVIDERS: Visit Provider Family Medicine | DX: S89.91XA Unspecified injury of right lower leg, initial encounter (principal); S09.90XA Unspecified injury of head, initial encounter; W19.XXXA Unspecified fall, initial encounter; Y92.009 Unspecified place in unspecified non-institutional (private) residence as the place of occurrence of the external cause | CPT/HCPCS: A0425; A0427 ==

== ENCOUNTER 2022-04-20 07:05 | Outpatient (CLI) | payer MEDICARE, MEDICAID, SELFPAY | END 2022-04-20 07:06 | disposition home or self-care (01) | LOC: AMB 04-23 09:51 | PROVIDERS: Visit Provider Family Medicine | DX: M79.604 Pain in right leg (principal); M79.605 Pain in left leg; M54.50 Low back pain, unspecified | CPT/HCPCS: A0425; A0427 ==

== ENCOUNTER 2022-04-20 07:51 | Emergency (ER) | payer MEDICARE, MEDICAID, SELFPAY ==
[2022-04-20] VITALS (22 sets, daily range): BP systolic 166–187; BP diastolic 65–117; PULSE 90–100; RESP 16–20; TEMP 36.8; O2SAT 93–99; BMI 58.6
--- NOTE | 2022-04-20 09:05 | CRLHL7_ITS ---
For Patients: As a result of the Century Cures Act, medical imaging exams and procedure reports are released immediately into your electronic medical record. You may view this report before your referring provider. If you have questions, please contact your health care provider. Indication: Flank pain Technique: Contrast CT chest abdomen and pelvis Comparison: No comparison Findings: Mild aneurysmal dilatation of the ascending thoracic aorta measuring 4.3 cm. Heart size is normal. Lungs are clear. Liver gallbladder spleen appears unremarkable adrenal glands unremarkable pancreas is unremarkable. No abdominal aortic aneurysm. Small to characterize low-attenuation lesions in the right kidney. No hydronephrosis or renal calculi seen however limited given presence of contrast. Urinary bladder slightly lobulated but unremarkable. Abundant stool in the colon the bowel unremarkable. No suspicious bony lesions are seen. Impression: No acute findings in the abdomen or pelvis. No hydronephrosis or renal calculi seen limited by presence of contrast. Please note that all CT scans at this facility use dose modulation, iterative reconstruction, and/or weight-based dosing when appropriate to reduce radiation dose to as low as reasonably achievable. Dictated by Amanda Chao MD @ 04/20/2022 11:46:14 AM (Electronically Signed)
--- NOTE | 2022-04-20 09:19 | ED_ITS ---
HPI - General Adult General Date Seen: 04/20/22 Chief complaint: Back Injury/Pain Stated complaint: Fall Time Seen by Provider: 04/20/22 08:15 Source: patient, EMS and RN notes reviewed Mode of arrival: wheelchair Limitations: no limitations History of Present Illness HPI narrative: Patient is a 66-year-old woman who is brought in by ambulance after a fall at [facility] where she resides. She says that they have not done a good job of getting her medications filled on a timely basis, she is supposed to be on OxyContin 60 mg twice daily and they ran out of that about a week ago, and also she takes Topamax for her diabetic neuropathy in the ran out of that several days ago. As a result, she says that her neuropathy has been worse, so she stumbled this morning and fell, striking her right back and flank area on a bookcase. She complains of pain in that area as well as her right upper shoulder blade area. She was not able to get up and so was laying on the floor for several hours before someone came to help. She did not hit her head, denies loss of consciousness or neck pain. She does not complain specifically of shortness of breath. Received fentanyl and Zofran in the ambulance per EMS for complaints of pain and nausea. She also tells me she was admitted to [facility] a couple of weeks ago due to cellulitis in her right leg. She says when she was discharged she was only given 3 days of oral antibiotics and she is concerned that the cellulitis has not gotten better. She does have chronic lymphedema in her legs, but the erythema has not resolved in the right leg. She has not had fevers or vomiting. Related Data Home Medications Medication Instructions Recorded Confirmed albuterol sulfate 90 mcg/actuation 1 - 2 puff inhalation Q4H PRN 10/13/21 10/14/21 aerosol inhaler (Ventolin HFA) aspirin 81 mg chewable tablet 1 tab PO DAILY 10/13/21 04/20/22 blood sugar diagnostic (True 10/13/21 10/13/21 Metrix Glucose Test Strip) blood-glucose meter (True Metrix 10/13/21 10/13/21 Glucose Meter) cyclobenzaprine 10 mg tablet 10 mg PO HS 10/13/21 04/20/22 diltiazem HCl 300 mg 300 mg PO Q24H 10/13/21 04/20/22 capsule,extended release 24 hr docusate sodium 100 mg capsule 200 mg PO HS 10/13/21 04/20/22 dulaglutide 0.75 mg/0.5 mL 0.75 mg subcut .WEEKLY 10/13/21 04/20/22 subcutaneous pen injector (Trulicity) duloxetine 60 mg capsule,delayed 60 mg PO DAILY 10/13/21 04/20/22 release ferrous sulfate 325 mg (65 mg 325 mg PO QAM 10/13/21 10/14/21 iron) tablet (FeroSul) fluticasone 500 mcg-salmeterol 50 1 inh inhalation Q12H 10/13/21 04/20/22 mcg/dose blistr powdr for inhalation (Advair Diskus) fluticasone propionate 50 2 spray intranasal DAILY 10/13/21 10/14/21 mcg/actuation nasal spray,suspension furosemide 20 mg tablet 20 mg PO QA 10/13/21 04/20/22 indapamide 2.5 mg tablet 2.5 mg PO DAILY 10/13/21 04/20/22 insulin aspart U-100 100 unit/mL 8 unit subcut TIDWM 10/13/21 10/14/21 (3 mL) subcutaneous pen (Novolog FlexPen U-100 Insulin aspart) lancets 33 gauge (TRUEplus Lancets) 10/13/21 10/13/21 levothyroxine 150 mcg tablet 150 mcg PO DAILY 10/13/21 04/20/22 lisinopril 20 mg tablet 20 mg PO HS 10/13/21 04/20/22 montelukast 10 mg tablet 10 mg PO HS 10/13/21 04/20/22 nystatin 100,000 unit/gram topical 1 applic topical BID PRN 10/13/21 10/14/21 powder (Nystop) oxycodone 60 mg tablet,crush 60 mg PO Q12H 10/13/21 04/20/22 resistant,extended release 12 hr (OxyContin) pantoprazole 40 mg tablet,delayed 40 mg PO Q12H 10/13/21 04/20/22 release polyethylene glycol 3350 17 17 g PO Q48H 10/13/21 04/20/22 gram/dose oral powder topiramate 100 mg tablet 100 mg PO Q12H 10/13/21 04/20/22 tramadol 50 mg tablet 50 mg PO Q8H PRN 10/13/21 10/14/21 cholecalciferol (vitamin D3) 50 2,000 unit PO DAILY 10/14/21 04/20/22 mcg (2,000 unit) tablet (Vitamin D3) clotrimazole 1 % topical cream 1 applic topical BID 10/14/21 04/20/22 insulin NPH isoph U-100 human 100 10 unit subcut QAM 10/14/21 10/14/21 unit/mL (3 mL) subcutaneous pen (Novolin N FlexPen) insulin NPH isoph U-100 human 100 40 unit subcut HS 10/14/21 04/20/22 unit/mL (3 mL) subcutaneous pen (Novolin N FlexPen) insulin aspart U-100 100 unit/mL 1 sliding scale dose subcut 10/14/21 10/14/21 (3 mL) subcutaneous pen (Novolog USEASDIRECTD FlexPen U-100 Insulin aspart) melatonin 3 mg capsule 3 mg PO HS 10/14/21 04/20/22 fluticasone 500 mcg-salmeterol 50 1 inh inhalation BID 04/20/22 04/20/22 mcg/dose blistr powdr for inhalation (Advair Diskus) Allergies Allergy/AdvReac Type Severity Reaction Status Date / Time adhesive tape Allergy Verified 04/20/22 08:15 allopurinol Allergy Verified 04/20/22 08:15 atorvastatin Allergy Verified 04/20/22 08:15 clarithromycin Allergy Verified 04/20/22 08:15 fluconazole [From Diflucan] Allergy Verified 04/20/22 08:15 Review of Systems Status of ROS: Reports: 10 or more systems reviewed and unremarkable except as noted in History and below [facility] Medical History Chronic, continuous use of opioids Hyponatremia Metabolic acidosis POLST (Physician Orders for Life-Sustaining Treatment) Vaginal bleeding Social History Highest level of school completed/degree received: high school graduate Smoking Status: Never smoker Do you use any of these nicotine containing products: None Second hand tobacco smoke exposure: No How often do you have a drink containing alcohol: never How often do you have six or more drinks on one occasion: Never AUDIT-C Alcohol total score: 0 Non-prescribed substance use: denies use Gender Identity: female service: No Exam Narrative: Exam Narrative: Vital signs as noted above. In general, an alert, nontoxic woman. She is sitting in a wheelchair. Significantly overweight. Head: Normocephalic, atraumatic. Eyes: Pupils are equal reactive. Extraocular movements are full. Conjunctivae are normal. ENT: Mucous membranes are moist. Throat is normal. Neck: Supple without lymphadenopathy. Nontender to palpation in the midline. Heart: Regular rate and rhythm. Significant systolic murmur heard best over the right sternal border. She reports this is old. Lungs: Clear bilaterally. No increased work of breathing, crackles or wheezes. Abdomen: Soft and nontender. Obese. Back: Diffusely tender throughout the right side of her back. Difficult to assess for any focal tenderness. Extremities: Significant bilateral lower extremity edema. She does have erythema noted over the right lower extremity laterally. There is warmth in this area, induration. No fluctuance or visible open wounds. She has some venous stasis changes on the left but no significant erythema. Pulses were not evaluated. She notes some shortness of the right shoulder but does have range of motion. No significant tenderness to palpation. Neurologic: Patient is alert and oriented to person and place. Speech is fluent. Face is symmetric. Moves all extremities equally. Affect: Normal. Skin: Warm and dry. Well perfused. Const: Vital Signs, click to edit/add: Vital Signs - 24 hr 04/20/22 08:03 04/20/22 09:22 04/20/22 09:26 Temperature 98.3 F Pulse Rate Pulse Rate [Bilate ral] 93 Pulse Rate [Right Pulse Oximeter] 91 93 Respiratory Rate 16 20 Blood Pressure Blood Pressure [Le ft Forearm] 166/82 H 168/65 H Pulse Oximetry 98 98 Oxygen Delivery Me thod Room Air Room Air 04/20/22 09:31 04/20/22 09:34 04/20/22 09:45 Temperature Pulse Rate 95 96 95 Pulse Rate [Bilate ral] Pulse Rate [Right Pulse Oximeter] Respiratory Rate Blood Pressure Blood Pressure [Le ft Forearm] Pulse Oximetry 95 96 96 Oxygen Delivery Me thod 04/20/22 10:00 04/20/22 10:05 04/20/22 10:15 Temperature Pulse Rate 96 93 90 Pulse Rate [Bilate ral] Pulse Rate [Right Pulse Oximeter] Respiratory Rate Blood Pressure Blood Pressure [Le ft Forearm] Pulse Oximetry 98 98 98 Oxygen Delivery Me thod 04/20/22 10:30 04/20/22 11:11 04/20/22 11:14 Temperature Pulse Rate 91 97 97 Pulse Rate [Bilate ral] Pulse Rate [Right Pulse Oximeter] Respiratory Rate Blood Pressure 178/74 H Blood Pressure [Le ft Forearm] Pulse Oximetry 95 99 98 Oxygen Delivery Me thod 04/20/22 11:15 04/20/22 11:30 04/20/22 11:32 Temperature Pulse Rate 98 93 94 Pulse Rate [Bilate ral] Pulse Rate [Right Pulse Oximeter] Respiratory Rate Blood Pressure 187/117 H Blood Pressure [Le ft Forearm] Pulse Oximetry 98 93 96 Oxygen Delivery Me thod Documenting provider has reviewed patient's vital signs: yes Course Course Hospital Course: I gave her oxycodone orally here. Given limitations of the exam, body habitus, and reported fall against the corner of a but case, I have elected to just CT her to evaluate for any solid organ injury or bony injury to her flank. I have also ordered some labs given what looks to be some ongoing cellulitis in the right leg. She is afebrile here, not tachycardic nor hypotensive. It is possible there is a component of venous stasis to this, but it does look like there is also probably a cellulitic component to me as well. Patient had 10 mg of immediate release oxycodone here. She does express frustration with the fact that her living facility has not consistently gotten her medications filled, which is understandable. I did give her ultimately also a 60 mg OxyContin here. Her labs are reassuring, CBC shows a normal white blood cell count. Her hemoglobin is 9.4, which is pretty good for her actually. She tends to run low. Electrolytes are unremarkable, creatinine is 1.4. She did have a CT scan of the chest and abdomen with contrast. Radiology reads this as negative for any acute findings. There is no evidence of solid organ injury or fracture. UA is negative. CRP is mildly elevated at 3.7. Lactate is normal. I am going to put her on some Keflex for her leg, discussed with her that I think part of this is probably chronic given her lymphedema, but it does look disproportionately erythematous to me. She needs to be back on her OxyContin, but it sounds as if she will not have access to that until at least tomorrow night, so I did give her oxycodone 10. I looked in the prescription monitoring database and it does appear that that prescription has not yet been filled for March. It is usually filled on the of the and it is now the . She should be rechecked with primary care this week for her leg. If she has worsening such as fever, chills, vomiting etcetera she should be seen again here. Otherwise, continue current medications for pain, ice as needed. Note also that total CK was normal at 73. No concern for rhabdomyolysis. Vital Signs Vital signs: Initial Vital Signs Temperature 98.3 F 04/20/22 08:03 Temperature Source Temporal Artery Scan 04/20/22 08:03 Pulse Rate 91 04/20/22 08:03 Respiratory Rate 16 04/20/22 08:03 Blood Pressure 166/82 H 04/20/22 08:03 Blood Pressure Mean 110 04/20/22 08:03 Blood Pressure Position Sitting 04/20/22 08:03 Pulse Oximetry 98 04/20/22 08:03 Oxygen Delivery Method 04/20/22 08:03 Vital Signs Temperature 98.3 F 04/20/22 08:03 Pulse Rate 91 04/20/22 08:03 Respiratory Rate 16 04/20/22 08:03 Blood Pressure 166/82 H 04/20/22 08:03 Pulse Oximetry 98 04/20/22 08:03 Oxygen Delivery Method 04/20/22 08:03 Temperature 98.3 F 04/20/22 08:03 Pulse Rate 94 04/20/22 11:32 Respiratory Rate 20 04/20/22 09:26 Blood Pressure 187/117 H 04/20/22 11:32 Pulse Oximetry 96 04/20/22 11:32 Oxygen Delivery Method 04/20/22 09:26 Medical Decision Making Lab Data Labs: Lab Results 04/20/22 04/20/22 04/20/22 Range/Units 08:40 09:24 09:24 WBC 10.83 (4.50-11.00) K/uL RBC 3.17 L (4.00-5.20) m/uL Hgb 9.4 L (12.0-16.0) gm/dL Hct 29.9 L (33.0-51.0) % MCV 94 (80-100) fL MCH 30 (26-34) pg MCHC 31 L (32-36) gm/dL RDW Coeff of Antonio 12.7 (11.5-15.5) % Plt Count 312 (140-440) K/uL Neut % (Auto) 79.7 H (42.0-72.0) % Lymph % (Auto) 14.9 L (20-44) % [place] % (Auto) 3.9 (0.0-11.0) % Eos % (Auto) 0.8 (0.0-7.0) % Baso % (Auto) 0.2 (0.0-3.0) % Neut # (Auto) 8.60 H (1.7-7.0) K/uL Lymph # (Auto) 1.60 (0.90-2.90) K/uL [place] # (Auto) 0.40 (0.00-0.90) K/UL Eos # (Auto) 0.09 (0.00-0.50) K/uL Baso # (Auto) 0.02 (0.00-0.30) K/uL Sodium 140 (135-149) mmol/L Potassium 4.1 (3.6-5.1) mmol/L Chloride 109 (96-114) mmol/L Carbon Dioxide 25 (20-32) mmol/L BUN 36 H (7-30) mg/dL Creatinine 1.4 (0.5-1.5) mg/dL Estimated Creat Clear 29.16 Estimated GFR 42 ml/min Glucose 196 H (60-115) mg/dL Lactate (0.5-1.9) mmol/L Calcium 8.7 (8.4-10.6) mg/dL Total Bilirubin 0.4 (0.1-1.5) mg/dL Direct Bilirubin 0.3 (0.0-0.5) mg/dL AST 18 (12-35) U/L ALT 16 (4-35) U/L Alkaline Phosphatase 85 (40-150) U/L Total Creatine Kinase (41-117) U/L C-Reactive Protein 3.7 H (0.5-1.0) mg/dL Total Protein 7.3 (6.0-8.3) g/dL Albumin 3.8 (3.3-5.0) g/dL Urine Color Yellow (Yellow) Urine Appearance Clear (Clear) Urine pH 8.5 (5.0-8.5) Ur Specific [place] 1.015 (1.000-1.030) Urine Protein Negative (Negative) Urine Glucose (UA) Negative (Negative) Urine Ketones Negative (Negative) Urine Blood Negative (Negative) Urine Nitrite Negative (Negative) Urine Bilirubin Negative (Negative) Urine Urobilinogen 0.2 (0.2-1.0) Ur Leukocyte Esterase Trace A (Negative) Urine RBC 0-2 (0-2) Urine WBC 2-5 (0-5) Ur Squamous Epith Cells Few (None-Few) Urine Bacteria Few A (None) 04/20/22 04/20/22 Range/Units 09:24 09:24 WBC (4.50-11.00) K/uL RBC (4.00-5.20) m/uL Hgb (12.0-16.0) gm/dL Hct (33.0-51.0) % MCV (80-100) fL MCH (26-34) pg MCHC (32-36) gm/dL RDW Coeff of Antonio (11.5-15.5) % Plt Count (140-440) K/uL Neut % (Auto) (42.0-72.0) % Lymph % (Auto) (20-44) % [place] % (Auto) (0.0-11.0) % Eos % (Auto) (0.0-7.0) % Baso % (Auto) (0.0-3.0) % Neut # (Auto) (1.7-7.0) K/uL Lymph # (Auto) (0.90-2.90) K/uL [place] # (Auto) (0.00-0.90) K/UL Eos # (Auto) (0.00-0.50) K/uL Baso # (Auto) (0.00-0.30) K/uL Sodium (135-149) mmol/L Potassium (3.6-5.1) mmol/L Chloride (96-114) mmol/L Carbon Dioxide (20-32) mmol/L BUN (7-30) mg/dL Creatinine (0.5-1.5) mg/dL Estimated Creat Clear Estimated GFR ml/min Glucose (60-115) mg/dL Lactate 0.9 (0.5-1.9) mmol/L Calcium (8.4-10.6) mg/dL Total Bilirubin (0.1-1.5) mg/dL Direct Bilirubin (0.0-0.5) mg/dL AST (12-35) U/L ALT (4-35) U/L Alkaline Phosphatase (40-150) U/L Total Creatine Kinase 73 (41-117) U/L C-Reactive Protein (0.5-1.0) mg/dL Total Protein (6.0-8.3) g/dL Albumin (3.3-5.0) g/dL Urine Color (Yellow) Urine Appearance (Clear) Urine pH (5.0-8.5) Ur Specific [place] (1.000-1.030) Urine Protein (Negative) Urine Glucose (UA) (Negative) Urine Ketones (Negative) Urine Blood (Negative) Urine Nitrite (Negative) Urine Bilirubin (Negative) Urine Urobilinogen (0.2-1.0) Ur Leukocyte Esterase (Negative) Urine RBC (0-2) Urine WBC (0-5) Ur Squamous Epith Cells (None-Few) Urine Bacteria (None) Discharge Plan Discharge Clinical Impression: Back contusion, Chronic pain, Cellulitis of leg Patient Disposition: [facility] Condition: Improved Instructions: Cellulitis (ED), Contusion in Adults (ED) Additional Instructions: Antibiotic as prescribed. Continue your pain medications. Return for worsening cellulitis, new symptoms such as fever, vomiting, chills. Primary care follow- up in the next week for recheck. Prescriptions: No Action cyclobenzaprine 10 mg tablet 10 mg PO HS (DME) blood-glucose meter [True Metrix Glucose Meter] [facility] MISCELLANEOUS Label Comments: USE DIRECTED . PHARMACY TO DISPENSE BRAND BASED ON INSURANCE indapamide 2.5 mg tablet 2.5 mg PO DAILY lisinopril 20 mg tablet 20 mg PO HS (DME) True Metrix Glucose Test Strip Strip MISCELLANEOUS Label Comments: USE 1 EACH TO TEST 4 TIMES A DAY. (DIAGNOSIS CODE E11.21) tramadol 50 mg tablet 50 mg PO Q8H PRN diltiazem HCl 300 mg capsule,extended release 24hr 300 mg PO Q24H pantoprazole 40 mg tablet,delayed release (DR/EC) 40 mg PO Q12H ferrous sulfate [FeroSul] 325 mg (65 mg iron) tablet 325 mg PO QAM levothyroxine 150 mcg tablet 150 mcg PO DAILY fluticasone propion-salmeterol [Advair Diskus] 500-50 mcg/dose blister with device 1 inh INHALATION Q12H docusate sodium 100 mg capsule 200 mg PO HS aspirin 81 mg tablet,chewable 1 tab PO DAILY montelukast 10 mg tablet 10 mg PO HS furosemide 20 mg tablet 20 mg PO QAM nystatin [Nystop] 100,000 unit/gram powder 1 applic TOPICAL BID PRN polyethylene glycol 3350 17 gram/dose powder 17 g PO Q48H albuterol sulfate [Ventolin HFA] 90 mcg/actuation HFA aerosol inhaler 1 - 2 puff INHALATION Q4H PRN topiramate 100 mg tablet 100 mg PO Q12H fluticasone propionate 50 mcg/actuation spray,suspension 2 spray INTRANASAL DAILY insulin aspart U-100 [Novolog FlexPen U-100 Insulin] 100 unit/mL (3 mL) insulin pen 8 unit SUBCUT TIDWM duloxetine 60 mg capsule,delayed release(DR/EC) 60 mg PO DAILY (DME) lancets [TRUEplus Lancets] 33 gauge [facility] MISCELLANEOUS Label Comments: USE 1 EACH TO TEST 4 TIMES A DAY. oxycodone [OxyContin] 60 mg tablet,oral only,ext.rel.12 hr 60 mg PO Q12H Trulicity 0.75 mg/0.5 mL pen injector 0.75 mg SUBCUT .WEEKLY Novolin N FlexPen 100 unit/mL (3 mL) insulin pen 10 unit SUBCUT QAM Novolin N FlexPen 100 unit/mL (3 mL) insulin pen 40 unit subcut HS melatonin 3 mg capsule 3 mg PO HS clotrimazole 1 % cream 1 applic topical BID insulin aspart U-100 [Novolog FlexPen U-100 Insulin] 100 unit/mL (3 mL) insulin pen 1 sliding scale dose subcut USEASDIRECTD Rx Instructions: 2 ADDITIONAL UNITS FOR EVERY 40 POINTS GREATER THAN BLOOD SUGAR OF 180 cholecalciferol (vitamin D3) [Vitamin D3] 50 mcg (2,000 unit) tablet 2,000 unit PO DAILY fluticasone propion-salmeterol [Advair Diskus] 500-50 mcg/dose blister with device 1 inh inhalation BID Stand Alone Forms: MyHealth Info Instructions
[2022-04-20] MEDS: OXYCODONE 5 MG TABLET PO ×2 (09:20→10:59)
[2022-04-20 09:32] LABS: Lactate* 0.9 mmol/L (0.5-1.9)
[2022-04-20 09:34] LABS: Appearance Urine Clear (Clear); Bilirubin Urine Negative (Negative); Blood Urine Negative (Negative); Color Urine Yellow (Yellow); Glucose Urine Negative (Negative); Ketones Urine Negative (Negative); Leukocyte Esterase Urine Trace (Negative); Nitrite Urine Negative (Negative); Protein Urine Negative (Negative); Specific Gravity Urine 1.015 (1.000-1.030); Urobilinogen Urine 0.2 (0.2-1.0); pH Urine 8.5 (5.0-8.5)
--- NOTE | 2022-04-20 09:35 | ED.NURSE ---
During assessment questions, pt answered no to do you feel safe in your current living environment? Are you currently being abused? and pt stated no, further questions how do you feel unsafe? pt stated they are not giving me my medications
[2022-04-20 09:38] LABS: Basophils Absolute Auto 0.02 K/uL (0.00-0.30); Basophils Percent Auto 0.2 % (0.0-3.0); Eosinophils Absolute Auto 0.09 K/uL (0.00-0.50); Eosinophils Percent Auto 0.8 % (0.0-7.0); Hematocrit 29.9 % (33.0-51.0); Hemoglobin* 9.4 gm/dL (12.0-16.0); Immature Granulocytes Abs Auto 0.05 K/uL (0.00-0.30); Immature Granulocytes Pct Auto 0.5 %; Lymphocytes Percent Auto 14.9 % (20-44); Mean Corpuscular HGB Conc 31 gm/dL (32-36); Mean Corpuscular Hemoglobin 30 pg (26-34); Mean Corpuscular Volume 94 fL (80-100); Monocytes Percent Auto 3.9 % (0.0-11.0); Neutrophils Percent Auto 79.7 % (42.0-72.0); Platelet Count* 312 K/uL (140-440); RDW Coefficient of Variation % 12.7 % (11.5-15.5); Red Blood Count 3.17 m/uL (4.00-5.20); White Blood Count* 10.83 K/uL (4.50-11.00)
[2022-04-20 09:45] LABS: Slide Review Reflex No
[2022-04-20 09:45] LABS: Bacteria Urine Few; RBC Urine 0-2 (0-2); Squamous Epithelial Cell Urine Few (None-Few)
[2022-04-20 10:07] LABS: Albumin* 3.8 g/dL (3.3-5.0); Chloride* 109 mmol/L (96-114)
[2022-04-20 10:08] LABS: Potassium* 4.1 mmol/L (3.6-5.1); Sodium* 140 mmol/L (135-149)
[2022-04-20 10:10] LABS: Alkaline Phosphatase* 85 U/L (40-150); Aspartate Amino Transferase* 18 U/L (12-35); Bilirubin Direct* 0.3 mg/dL (0.0-0.5); Bilirubin Total* 0.4 mg/dL (0.1-1.5); Blood Urea Nitrogen* 36 mg/dL (7-30); Carbon Dioxide* 25 mmol/L (20-32); Creatinine* 1.4 mg/dL (0.5-1.5); Est. Creatinine Clearance* 29.16; Estimated Glomerular Filt Rate 42 ml/min; Total Protein* 7.3 g/dL (6.0-8.3)
[2022-04-20 10:11] LABS: Alanine Aminotransferase* 16 U/L (4-35); Calcium* 8.7 mg/dL (8.4-10.6); Creatine Kinase* 73 U/L (41-117); Glucose* 196 mg/dL (60-115)
[2022-04-20 10:13] LABS: C Reactive Protein* 3.7 mg/dL (0.5-1.0)
[2022-04-20] MEDS: METOCLOPRAMIDE HCL 10 MG in 0.9 % SODIUM CHLORIDE 100 ml 100 ML 306 MG IVPB (11:01)
--- NOTE | 2022-04-20 13:10 | ED.NURSE ---
Pt received prescriptions of Keflex and oxycodone and DC information given to pt. Waiting on taxi ride back to care facility. Report given to Roldan BORDEN (no RN available).
--- NOTE | 2022-04-20 13:41 | ED.NURSE ---
Gave update to Patience BORDEN at the [facility] on what medications pt received while in the hospital and that pt currently has her two new prescriptions with her, one being a pain medication. Pt sent back home in taxi ride
--- NOTE | 2022-04-21 16:57 | ED.NURSE ---
A report was made for a [facility] report with confirmation number [id number] at 04/21/22 at 1654 based on concerns expressed by patient.
== END 2022-04-20 13:26 ==
PROVIDERS: Emergency Provider Emergency Medicine
DX: S30.0XXA Contusion of lower back and pelvis, initial encounter (principal); L03.119 Cellulitis of unspecified part of limb; G89.29 Other chronic pain
CPT/HCPCS: 36415; 71260; 74177; 80048; 80076; 81001; 82550; 83605; 85025; 86140; 87040; 87086; 96365; 99284; 99285; A9270; J2765; Q9967

== ENCOUNTER 2022-09-14 19:16 | Outpatient (CLI) | payer MEDICARE, MEDICAID, SELFPAY | END 2022-09-14 19:17 | disposition home or self-care (01) | LOC: AMB 09-18 09:17 | PROVIDERS: Visit Provider Family Medicine | DX: S81.812A Laceration without foreign body, left lower leg, initial encounter (principal); X58.XXXA Exposure to other specified factors, initial encounter; Y92.039 Unspecified place in apartment as the place of occurrence of the external cause | CPT/HCPCS: A0425; A0433 ==

== ENCOUNTER 2022-09-14 19:58 | Inpatient (IN) | payer MEDICARE, MEDICAID, SELFPAY ==
[2022-09-14] VITALS (12 sets, daily range): BP systolic 121–166; BP diastolic 46–78; PULSE 75–85; RESP 14–24; TEMP 35.8–36.9; O2SAT 95–100; BMI 56.2
--- NOTE | 2022-09-14 | CRLHL7_ITS ---
For Patients: As a result of the Cures Act, medical imaging exams and procedure reports are released immediately into your electronic medical record. You may view this report before your referring provider. If you have questions, please contact your health care provider. INDICATION: Left leg laceration. Evaluate fracture. TECHNIQUE: Two views of the left tibia/fibula. COMPARISON: None. FINDINGS: There is a large soft tissue defect over the anterolateral lower leg. There is no acute fracture or suspicious osseous lesion. No radiopaque foreign body. There is diffuse reticulation of the subcutaneous fat suggestive of edema. IMPRESSION: Large soft tissue laceration over the anterolateral lower leg. No fracture or radiopaque foreign body.. Dictated by Melissa Galvez MD @ 09/14/2022 9:21:20 PM (Electronically Signed)
[2022-09-14] MEDS: HYDROmorphone 0.5 mg/0.5 ml inj 1 MG IVP (20:07)
--- NOTE | 2022-09-14 20:38 | ED.WOUNDLAC ---
HPI - Wound/Laceration General Date Seen: 09/14/22 Chief Complaint: Laceration/Wound Stated Complaint: Leg Lac Time Seen by Provider: 09/14/22 20:16 Source: patient and EMS Mode of arrival: EMS Limitations: no limitations History of Present Illness HPI narrative: Patient is a 67-year-old lady who presents from the detention after she slipped and went over top of her walker, lacerating her left gold region. EMS was called because the amount of bleeding, she was turn a hernandez x2 over her left upper leg, in brought in by a [facility]. She does does have a lot of pain and received fentanyl and morphine EN route. Two IVs were started both 18 gauge in her upper extremities, she denies any injury to her head or neck, there is no loss of consciousness, [facility] Body four view annotation: 1. 2. Place: home Patient tetanus UTD: Yes Context: accidental Associated symptoms: none Treatments prior to arrival: tourniquet Related Data Home Medications Medication Instructions Recorded Confirmed albuterol sulfate 90 mcg/actuation 1 - 2 puff inhalation Q4H PRN 10/13/21 09/14/22 aerosol inhaler (Ventolin HFA) aspirin 81 mg chewable tablet 1 tab PO DAILY 10/13/21 09/14/22 blood sugar diagnostic (True 10/13/21 10/13/21 Metrix Glucose Test Strip) blood-glucose meter (True Metrix 10/13/21 10/13/21 Glucose Meter) cyclobenzaprine 10 mg tablet 10 mg PO HS 10/13/21 09/14/22 diltiazem HCl 300 mg 300 mg PO Q24H 10/13/21 09/14/22 capsule,extended release 24 hr docusate sodium 100 mg capsule 200 mg PO HS 10/13/21 09/14/22 dulaglutide 0.75 mg/0.5 mL 0.75 mg subcut .WEEKLY 10/13/21 04/20/22 subcutaneous pen injector (Virgilioulicmichael) duloxetine 60 mg capsule,delayed 60 mg PO DAILY 10/13/21 09/14/22 release ferrous sulfate 325 mg (65 mg 325 mg PO QAM 10/13/21 09/14/22 iron) tablet (FeroSul) fluticasone 500 mcg-salmeterol 50 1 inh inhalation Q12H 10/13/21 09/14/22 mcg/dose blistr powdr for inhalation (Advair Diskus) fluticasone propionate 50 2 spray intranasal DAILY 10/13/21 10/14/21 mcg/actuation nasal spray,suspension furosemide 20 mg tablet 20 mg PO QAM 10/13/21 09/14/22 indapamide 2.5 mg tablet 2.5 mg PO DAILY 10/13/21 09/14/22 insulin aspart U-100 100 unit/mL 8 unit subcut TIDWM 10/13/21 09/14/22 (3 mL) subcutaneous pen (Novolog FlexPen U-100 Insulin aspart) lancets 33 gauge (TRUEplus Lancets) 10/13/21 10/13/21 levothyroxine 150 mcg tablet 150 mcg PO DAILY 10/13/21 09/14/22 lisinopril 20 mg tablet 20 mg PO HS 10/13/21 09/14/22 montelukast 10 mg tablet 10 mg PO HS 10/13/21 09/14/22 nystatin 100,000 unit/gram topical 1 applic topical BID PRN 10/13/21 09/14/22 powder (Nystop) oxycodone 60 mg tablet,crush 60 mg PO Q12H 10/13/21 09/14/22 resistant,extended release 12 hr (OxyContin) pantoprazole 40 mg tablet,delayed 40 mg PO Q12H 10/13/21 09/14/22 release polyethylene glycol 3350 17 17 g PO Q48H 10/13/21 09/14/22 gram/dose oral powder topiramate 100 mg tablet 100 mg PO Q12H 10/13/21 09/14/22 tramadol 50 mg tablet 50 mg PO Q8H PRN 10/13/21 09/14/22 cholecalciferol (vitamin D3) 50 2,000 unit PO DAILY 10/14/21 09/14/22 mcg (2,000 unit) tablet (Vitamin D3) insulin NPH isoph U-100 human 100 10 unit subcut QAM 10/14/21 10/14/21 unit/mL (3 mL) subcutaneous pen (Novolin N FlexPen) insulin NPH isoph U-100 human 100 40 unit subcut HS 10/14/21 09/14/22 unit/mL (3 mL) subcutaneous pen (Novolin N FlexPen) insulin aspart U-100 100 unit/mL 1 sliding scale dose subcut 10/14/21 10/14/21 (3 mL) subcutaneous pen (Novolog USEASDIRECTD FlexPen U-100 Insulin aspart) melatonin 3 mg capsule 3 mg PO HS 10/14/21 09/14/22 fluticasone 500 mcg-salmeterol 50 1 inh inhalation BID 04/20/22 09/14/22 mcg/dose blistr powdr for inhalation (Advair Diskus) Allergies Allergy/AdvReac Type Severity Reaction Status Date / Time adhesive tape Allergy Verified 09/14/22 20:32 allopurinol Allergy Verified 09/14/22 20:32 atorvastatin Allergy Verified 09/14/22 20:32 clarithromycin Allergy Verified 09/14/22 20:32 dulaglutide [From Trulicity] Allergy Verified 09/14/22 20:32 fluconazole [From Diflucan] Allergy Verified 09/14/22 20:32 Review of Systems Status of ROS: Reports: 10 or more systems reviewed and unremarkable except as noted in History and below PFSH PFSH Medical History POLST (Physician Orders for Life-Sustaining Treatment) ?Z78.9 - Other specified health status (ICD-10) Chronic, continuous use of opioids ?F11.90 - Opioid use, unspecified, uncomplicated (ICD-10) Vaginal bleeding ?N93.9 - Abnormal uterine and vaginal bleeding, unspecified (ICD-10) Metabolic acidosis ?E87.2 - Acidosis (ICD-10) Hyponatremia ?E87.1 - Hypo-osmolality and hyponatremia (ICD-10) Social History Highest level of school completed/degree received: high school graduate Smoking Status: Never smoker Do you use any of these nicotine containing products: None Second hand tobacco smoke exposure: No How often do you have a drink containing alcohol: never How often do you have six or more drinks on one occasion: Never AUDIT-C Alcohol total score: 0 Non-prescribed substance use: denies use Gender Identity: female service: No Exam Narrative: Exam Narrative: On examination there is a tourniquet on her upper left lower leg, the tourniquet he is removed, wanted of time, there is a large laceration of it least 14 in common obese type presentation with also [place] skin, that looks to be non viable, large amount of fat, is noted, and some venous oozing, but no arterial marga bleeding is noted. She has good DP and posterior tibial pulses on the left side, found by Doppler she has good dorsiflexion against and 5/5 strength EHLs for 5/5 in her foot flexion is normal too. Knee has good range of motion she is little bit sore with assistant attorney general hernandez was but otherwise is normal her hip has normal range of motion, there is no evidence of any abdominal pain she has a very large abdomen, chest is clear heart sounds are normal, her neck moves for full range of motion her mouth opening is normal no evidence of trauma. Const: Documenting provider has reviewed patient's vital signs: yes MDM - Wound/Laceration MDM Narrative Medical decision making narrative: Given this large laceration, we used 4x4s, on wet them, I put some playing over the area, she will give her some Ancef, 2 g, I contacted surgery, from General surgery will come in and take her to the OR for a closure and a wound VAC. I contacted hospitalist, to admit her given her whole host of other medical problems, to manage these, while in the hospital. I did two views of her leg by x-ray, there did not show any fracture, just the deficit of tissue. I will review the labs also. She is typed and screen for 2 units, she received 1 mg of Dilaudid here. Differential Diagnosis Differential diagnosis: Likely laceration, abscess, abrasion and avulsion of skin Lab Data Attestation: I reviewed the patient's lab results. Discharge Plan Discharge Clinical Impression: Laceration of leg not thigh, complicated Patient Disposition: Admitted As Inpatient Prescriptions: No Action cyclobenzaprine 10 mg tablet 10 mg PO HS (DME) blood-glucose meter [True Metrix Glucose Meter] Misc MISCELLANEOUS Patient Comments: USE DIRECTED . PHARMACY TO DISPENSE BRAND BASED ON INSURANCE indapamide 2.5 mg tablet 2.5 mg PO DAILY lisinopril 20 mg tablet 20 mg PO HS (DME) True Metrix Glucose Test Strip Strip MISCELLANEOUS Patient Comments: USE 1 EACH TO TEST 4 TIMES A DAY. (DIAGNOSIS CODE E11.21) tramadol 50 mg tablet 50 mg PO Q8H PRN diltiazem HCl 300 mg capsule,extended release 24hr 300 mg PO Q24H pantoprazole 40 mg tablet,delayed release (DR/EC) 40 mg PO Q12H ferrous sulfate [FeroSul] 325 mg (65 mg iron) tablet 325 mg PO QAM levothyroxine 150 mcg tablet 150 mcg PO DAILY fluticasone propion-salmeterol [Advair Diskus] 500-50 mcg/dose blister with device 1 inh INHALATION Q12H docusate sodium 100 mg capsule 200 mg PO HS aspirin 81 mg tablet,chewable 1 tab PO DAILY montelukast 10 mg tablet 10 mg PO HS furosemide 20 mg tablet 20 mg PO QAM nystatin [Nystop] 100,000 unit/gram powder 1 applic TOPICAL BID PRN polyethylene glycol 3350 17 gram/dose powder 17 g PO Q48H albuterol sulfate [Ventolin HFA] 90 mcg/actuation HFA aerosol inhaler 1 - 2 puff INHALATION Q4H PRN topiramate 100 mg tablet 100 mg PO Q12H fluticasone propionate 50 mcg/actuation spray,suspension 2 spray INTRANASAL DAILY insulin aspart U-100 [Novolog FlexPen U-100 Insulin] 100 unit/mL (3 mL) insulin pen 8 unit SUBCUT TIDWM duloxetine 60 mg capsule,delayed release(DR/EC) 60 mg PO DAILY (DME) lancets [TRUEplus Lancets] 33 gauge misc MISCELLANEOUS Patient Comments: USE 1 EACH TO TEST 4 TIMES A DAY. oxycodone [OxyContin] 60 mg tablet,oral only,ext.rel.12 hr 60 mg PO Q12H Trulicity 0.75 mg/0.5 mL pen injector 0.75 mg SUBCUT .WEEKLY Novolin N FlexPen 100 unit/mL (3 mL) insulin pen 10 unit SUBCUT QAM Novolin N FlexPen 100 unit/mL (3 mL) insulin pen 40 unit subcut HS melatonin 3 mg capsule 3 mg PO HS insulin aspart U-100 [Novolog FlexPen U-100 Insulin] 100 unit/mL (3 mL) insulin pen 1 sliding scale dose subcut USEASDIRECTD Rx Instructions: 2 ADDITIONAL UNITS FOR EVERY 40 POINTS GREATER THAN BLOOD SUGAR OF 180 cholecalciferol (vitamin D3) [Vitamin D3] 50 mcg (2,000 unit) tablet 2,000 unit PO DAILY fluticasone propion-salmeterol [Advair Diskus] 500-50 mcg/dose blister with device 1 inh inhalation BID Follow Up/Referrals: Provider,Not a Local [Primary Care Provider] -
[2022-09-14 20:39] LABS: Basophils Absolute Auto 0.02 K/uL (0.00-0.30); Basophils Percent Auto 0.2 % (0.0-3.0); Eosinophils Absolute Auto 0.24 K/uL (0.00-0.50); Eosinophils Percent Auto 2.4 % (0.0-7.0); Hematocrit 28.1 % (33.0-51.0); Immature Granulocytes Abs Auto 0.04 K/uL (0.00-0.30); Immature Granulocytes Pct Auto 0.4 %; Lymphocytes Absolute Auto 2.31 K/uL (0.90-2.90); Lymphocytes Percent Auto 23.5 % (20-44); Mean Corpuscular HGB Conc 32 gm/dL (32-36); Mean Corpuscular Hemoglobin 30 pg (26-34); Mean Corpuscular Volume 94 fL (80-100); Neutrophils Absolute Auto 6.64 K/uL (1.7-7.0); Neutrophils Percent Auto 67.5 % (42.0-72.0); Platelet Count* 268 K/uL (140-440); RDW Coefficient of Variation % 13.7 % (11.5-15.5); Red Blood Count 2.99 m/uL (4.00-5.20); White Blood Count* 9.84 K/uL (4.50-11.00)
[2022-09-14 20:43] LABS: Chloride* 105 mmol/L (96-114); Potassium* 5.2 mmol/L (3.6-5.1); Sodium* 133 mmol/L (135-149)
[2022-09-14 20:46] LABS: Blood Urea Nitrogen* 45 mg/dL (7-30); Carbon Dioxide* 22 mmol/L (20-32); Creatinine* 1.6 mg/dL (0.5-1.5); Est. Creatinine Clearance* 25.18; Estimated Glomerular Filt Rate 36 ml/min; Glucose* 266 mg/dL (60-115)
[2022-09-14 20:47] LABS: Calcium* 8.4 mg/dL (8.4-10.6); INR 1.06 (0.91-1.10); Partial Thromboplastin Time* 37 Seconds (23-33); Prothrombin Time 14.5 Seconds
[2022-09-14 20:50] LABS: Slide Review Reflex No
[2022-09-14] MEDS: 0.9 % SODIUM CHLORIDE 1000 ml 1,000 ML 125 ML IV ×2 (20:50→22:28)
--- NOTE | 2022-09-14 20:50 | ED.NURSE ---
Ct Director of Health Services updated at [facility].
[2022-09-14] MEDS: CEFAZOLIN 2 GM INJ IVP (21:01)
--- NOTE | 2022-09-14 21:14 | ED.NURSE ---
patient changed out of clothes and into her gown. Patients dress cut off.
--- NOTE | 2022-09-14 21:25 | PM.IMCN1 ---
Date of Consult Patient: Other Consult date: 09/14/22 Requesting Physician: General Surgery Primary Care Provider: Not a Local Provider Consult Narrative Reason for consult: Assist with management of multiple active medical conditions Narrative: Eryn Pollard is a 67 year old woman was in her usual state of health until she slipped and fell this evening. She resides in an assisted living facility in [place], [place]. She was preparing for a bath. She has chronic gait instability for which she receives assistance with various activities of daily living including or bathing. She was standing and attempted to sit down on her wheelchair, reportedly the brakes for the wheelchair were not locked, and when she attempted to sit the wheelchair moved and she then somehow fell forward landing on her walker. The walker caused a huge laceration in her left leg anteriorly and laterally. She bled profusely. Had no loss of consciousness. Recalls the event clearly. The technical support internship called EMS promptly. On arrival, EMS applied a tourniquet and transferred her to the emergency department for further assessment and management. IV analgesics were administered to help manage the pain. In our emergency department the tourniquet was removed and the wound was cleaned. Remarkably the lower extremity pain improved substantially after the tourniquet was removed. X-ray demonstrated no fracture. It was determined that patient required deeper cleaning and management from a surgeon. Surgery was consulted. Patient will be going to the operating room shortly for additional management of this wound. She indicates that she remains able to move her affected left lower extremity as usual. Has no loss of sensation that she is aware of. Does have chronic bilateral lower extremity lymphedema. Ordinarily utilizes either compression wraps or compression stockings. At the time of this incident she was preparing to take a bath and she had her wraps and stockings removed. Did not have a wound of this lower extremity prior to this event. Review of Systems Status of ROS: Reports: 10 or more systems reviewed and unremarkable except as noted in History and below Narrative: No recent illness, fever, rigors, diaphoresis. No recent trauma, injury, or travel. Denies chest heaviness, pressure, tightness, or pain. Denies syncope or near-syncope. Denies orthostasis, dizziness, vertigo. Denies cough, dyspnea at rest, change in baseline dyspnea with exertion, paroxysmal nocturnal dyspnea, orthopnea. Denies claudication. Has chronic bilateral lower extremity lymphedema. Until this event her skin has been intact. Denies dysphagia, odynophagia, dyspepsia, nausea, vomiting, abdominal pain, abdominal bloating, constipation, or diarrhea. Denies icterus or jaundice. Denies dysuria, urgency, frequency, hematuria. Denies polyuria, polydipsia, polyphagia. Denies nocturnal sweats. Denies weight gain or weight loss. Denies heat or cold intolerance. Receives much of her medical care [facility]. Tells me she has disability is not ordinarily able to walk very well. Usually able to pivot transfer and move about with use of her wheelchair. Receives help with much of her activities of daily living. [facility] Medical History (Updated 09/14/22 @ 21:52 by Tre Paredes MD) Lymphedema associated with obesity ?I89.0 - Lymphedema, not elsewhere classified (ICD-10) ?E66.9 - Obesity, unspecified (ICD-10) Chronic pain ?G89.29 - Other chronic pain (ICD-10) Hypertension ?I10 - Essential (primary) hypertension (ICD-10) Morbid obesity ?E66.01 - Morbid (severe) obesity due to excess calories (ICD-10) Obstructive sleep apnea ?G47.33 - Obstructive sleep apnea (adult) (pediatric) (ICD-10) Diabetic peripheral neuropathy associated with type 2 diabetes mellitus ?E11.42 - Type 2 diabetes mellitus with diabetic polyneuropathy (ICD-10) Asthma ?J45.909 - Unspecified asthma, uncomplicated (ICD-10) Diabetes mellitus type 2 in obese ?E11.69 - Type 2 diabetes mellitus with other specified complication (ICD-10) ?E66.9 - Obesity, unspecified (ICD-10) Anemia ?D64.9 - Anemia, unspecified (ICD-10) Chronic kidney disease, stage 4 (severe) ?N18.4 - Chronic kidney disease, stage 4 (severe) (ICD-10) Fibromyalgia ?M79.7 - Fibromyalgia (ICD-10) Supraventricular tachycardia ?I47.1 - Supraventricular tachycardia (ICD-10) Chronic rhinitis ?J31.0 - Chronic rhinitis (ICD-10) Hyperlipidemia associated with type 2 diabetes mellitus ?E11.69 - Type 2 diabetes mellitus with other specified complication (ICD-10) ?E78.5 - Hyperlipidemia, unspecified (ICD-10) POLST (Physician Orders for Life-Sustaining Treatment) ?Z78.9 - Other specified health status (ICD-10) Chronic, continuous use of opioids ?F11.90 - Opioid use, unspecified, uncomplicated (ICD-10) Vaginal bleeding ?N93.9 - Abnormal uterine and vaginal bleeding, unspecified (ICD-10) Metabolic acidosis ?E87.2 - Acidosis (ICD-10) Hyponatremia ?E87.1 - Hypo-osmolality and hyponatremia (ICD-10) Surgical History (Updated 09/14/22 @ 21:47 by Niya Mistry MD) S/P carpal tunnel release ?Z98.890 - Other specified postprocedural states (ICD-10) H/O left wrist surgery ?Z98.890 - Other specified postprocedural states (ICD-10) H/O: section ?Z98.891 - History of uterine scar from previous surgery (ICD-10) H/O hysterectomy with oophorectomy Social History Highest level of school completed/degree received: high school graduate Smoking Status: Never smoker Do you use any of these nicotine containing products: None Second hand tobacco smoke exposure: No How often do you have a drink containing alcohol: never How often do you have six or more drinks on one occasion: Never AUDIT-C Alcohol total score: 0 Non-prescribed substance use: denies use Gender Identity: female service: No Meds Home Medications and Allergies Home Medications Medication Instructions Recorded Confirmed Type albuterol sulfate 90 mcg/actuation 1 - 2 puff inhalation Q4H PRN 10/13/21 09/14/22 History aerosol inhaler (Ventolin HFA) aspirin 81 mg chewable tablet 1 tab PO DAILY 10/13/21 09/14/22 History blood sugar diagnostic (True 10/13/21 10/13/21 History Metrix Glucose Test Strip) blood-glucose meter (True Metrix 10/13/21 10/13/21 History Glucose Meter) cyclobenzaprine 10 mg tablet 10 mg PO HS 10/13/21 09/14/22 History diltiazem HCl 300 mg 300 mg PO Q24H 10/13/21 09/14/22 History capsule,extended release 24 hr docusate sodium 100 mg capsule 200 mg PO HS 10/13/21 09/14/22 History dulaglutide 0.75 mg/0.5 mL 0.75 mg subcut .WEEKLY 10/13/21 04/20/22 History subcutaneous pen injector (Trulicity) duloxetine 60 mg capsule,delayed 60 mg PO DAILY 10/13/21 09/14/22 History release ferrous sulfate 325 mg (65 mg 325 mg PO QAM 10/13/21 09/14/22 History iron) tablet (FeroSul) fluticasone 500 mcg-salmeterol 50 1 inh inhalation Q12H 10/13/21 09/14/22 History mcg/dose blistr powdr for inhalation (Advair Diskus) fluticasone propionate 50 2 spray intranasal DAILY 10/13/21 10/14/21 History mcg/actuation nasal spray,suspension furosemide 20 mg tablet 20 mg PO QAM 10/13/21 09/14/22 History indapamide 2.5 mg tablet 2.5 mg PO DAILY 10/13/21 09/14/22 History insulin aspart U-100 100 unit/mL 8 unit subcut TIDWM 10/13/21 09/14/22 History (3 mL) subcutaneous pen (Novolog FlexPen U-100 Insulin aspart) lancets 33 gauge (TRUEplus Lancets) 10/13/21 10/13/21 History levothyroxine 150 mcg tablet 150 mcg PO DAILY 10/13/21 09/14/22 History lisinopril 20 mg tablet 20 mg PO HS 10/13/21 09/14/22 History montelukast 10 mg tablet 10 mg PO HS 10/13/21 09/14/22 History nystatin 100,000 unit/gram topical 1 applic topical BID PRN 10/13/21 09/14/22 History powder (Nystop) oxycodone 60 mg tablet,crush 60 mg PO Q12H 10/13/21 09/14/22 History resistant,extended release 12 hr (OxyContin) pantoprazole 40 mg tablet,delayed 40 mg PO Q12H 10/13/21 09/14/22 History release polyethylene glycol 3350 17 17 g PO Q48H 10/13/21 09/14/22 History gram/dose oral powder topiramate 100 mg tablet 100 mg PO Q12H 10/13/21 09/14/22 History tramadol 50 mg tablet 50 mg PO Q8H PRN 10/13/21 09/14/22 History cholecalciferol (vitamin D3) 50 2,000 unit PO DAILY 10/14/21 09/14/22 History mcg (2,000 unit) tablet (Vitamin D3) insulin NPH isoph U-100 human 100 10 unit subcut QAM 10/14/21 10/14/21 History unit/mL (3 mL) subcutaneous pen (Novolin N FlexPen) insulin NPH isoph U-100 human 100 40 unit subcut HS 10/14/21 09/14/22 History unit/mL (3 mL) subcutaneous pen (Novolin N FlexPen) insulin aspart U-100 100 unit/mL 1 sliding scale dose subcut 10/14/21 10/14/21 History (3 mL) subcutaneous pen (Novolog USEASDIRECTD FlexPen U-100 Insulin aspart) melatonin 3 mg capsule 3 mg PO HS 10/14/21 09/14/22 History fluticasone 500 mcg-salmeterol 50 1 inh inhalation BID 04/20/22 09/14/22 History mcg/dose blistr powdr for inhalation (Advair Diskus) Home Medication Comments: Medications still need to be reconciled as of this documentation. Allergies Allergy/AdvReac Type Severity Reaction Status Date / Time adhesive tape Allergy Verified 09/14/22 20:32 allopurinol Allergy Verified 09/14/22 20:32 atorvastatin Allergy Verified 09/14/22 20:32 clarithromycin Allergy Verified 09/14/22 20:32 dulaglutide [From Trulicity] Allergy Verified 09/14/22 20:32 fluconazole [From Diflucan] Allergy Verified 09/14/22 20:32 Exam Narrative: Exam Narrative: Appears comfortable and in no acute distress. Vision and hearing are grossly normal. Skin is pale. Pleasant, cooperative. Articulate. Mood and affect are congruent. Alert, oriented to self, place, time, situation. No head injuries. External auditory canals are clear. Tympanic membranes normal. Midline nasal septum, normal nasal mucosa. Tight oral aperture. Dentition in fair repair. Neck supple. Midline trachea. No JVD or hepatojugular reflux. No carotid bruits. No lymphadenopathy of head and neck region. No axillary lymphadenopathy. Lungs clear to auscultation without wheezing, rhonchi, or rales. Chest wall excursions are full. No CVA tenderness. Heart tones with regular rhythm, normal S1-S2. Chronic systolic murmur across precordium. PMI not laterally displaced. Abdomen is obese with active bowel sounds, soft, nontender. No rebound or guarding. Bilateral lower extremity edema. Left leg with large dressing. I did review photographs of her affected left leg. Large, deep, laceration, transverse and longitudinal. Adipose tissue visible. Bone not visible. Capillary refill less than 3 seconds in hands and feet. Able to move hips, knees, ankles, toes bilaterally. Const: Vital Signs, click to edit/add: Vital Signs - 24 hr 09/14/22 20:33 09/14/22 21:14 Temperature 98.5 F Pulse Rate [Pulse Oximeter] 85 85 Respiratory Rate 24 20 Blood Pressure [Le ft Forearm] 166/78 H 131/55 L Pulse Oximetry 100 97 Oxygen Delivery Me thod Room Air Labs Labs: Short CBC 09/14/22 Range/Units 20:20 WBC 9.84 (4.50-11.00) K/uL Hgb 9.0 L (12.0-16.0) gm/dL Hct 28.1 L (33.0-51.0) % Plt Count 268 (140-440) K/uL BMP 09/14/22 20:20 Sodium 133 L Potassium 5.2 H Chloride 105 Carbon Dioxide 22 BUN 45 H Creatinine 1.6 H Glucose 266 H Calcium 8.4 Assessment and Plan Assessment and plan (1) Laceration of leg not thigh, complicated: Status: Acute (2) Hyperkalemia: Status: Acute (3) Chronic kidney disease, stage 4 (severe): Status: Acute (4) Lymphedema associated with obesity: Status: Acute (5) Chronic pain: Status: Acute (6) Diabetes mellitus type 2 in obese: Problem comment: Chronic problem Status: Acute (7) Morbid obesity: Problem comment: Chronic Status: Acute (8) Hypertension: Status: Acute (9) Obstructive sleep apnea: Status: Acute (10) Asthma: Problem comment: Chronic problem Status: Acute (11) Diabetic peripheral neuropathy associated with type 2 diabetes mellitus: Status: Acute (12) Anemia: Problem comment: Chronic likely due to renal insufficiency and anemia of chronic disease. Status: Acute (13) Unstable gait: Status: Acute (14) Physical debility: Status: Acute Plan 1. Will follow with General surgery. 2. My understanding is that is that patient will go to the operating room shortly for wound management. 3. Will continue with general supportive efforts. 4. Sliding scale insulin in addition to her usual dose of insulin. 5. Will need to decide on a discharge disposition that is safe for her as time evolves. 6. Consider physical therapy, occupational therapy, high school social science teacher consultation. 7. Answered patient's questions are satisfaction. 8. Patient agreeable with above stated plans and recommendations.
[2022-09-14] MEDS: HYDROmorphone 0.5 mg/0.5 ml inj IVP ×3 (21:36→23:27)
--- NOTE | 2022-09-14 21:40 | PM.GSCN ---
History of Present Illness Consult details Date Seen: 09/14/22 Consult date: 09/14/22 Narrative: The patient is a 67-year-old female who presented to the emergency department today after falling at her assisted living facility and sustaining a large laceration to her left lower extremity. She states that she was not dizzy but she went to sit down in her wheelchair however lost her balance because the wheelchair was moved from underneath her and her leg got caught on the walker which was sitting next to her. She had a large laceration to her left lower extremity and a large amount of bleeding at the scene. She has has a history of lymphedema. This was diagnosed about 6 years ago at [facility]. She was hospitalized there for cellulitis of her right lower extremity. This occurred after sustaining superficial trauma to the right leg. She feels that she has recently had recurrence of cellulitis on the right leg as well as the left because she has noticed some new redness. She does wraps with occupational therapy 3 times a week for her lymphedema. The left lower extremity is painful. She is mildly nauseated. She has neuropathy of her foot at baseline because of her diabetes. She last ate at 6:00 p.m.. [facility] Medical History (Updated 09/14/22 @ 21:52 by Tre Paredes MD) Lymphedema associated with obesity ?I89.0 - Lymphedema, not elsewhere classified (ICD-10) ?E66.9 - Obesity, unspecified (ICD-10) Chronic pain ?G89.29 - Other chronic pain (ICD-10) Hypertension ?I10 - Essential (primary) hypertension (ICD-10) Morbid obesity ?E66.01 - Morbid (severe) obesity due to excess calories (ICD-10) Obstructive sleep apnea ?G47.33 - Obstructive sleep apnea (adult) (pediatric) (ICD-10) Diabetic peripheral neuropathy associated with type 2 diabetes mellitus ?E11.42 - Type 2 diabetes mellitus with diabetic polyneuropathy (ICD-10) Asthma ?J45.909 - Unspecified asthma, uncomplicated (ICD-10) Diabetes mellitus type 2 in obese ?E11.69 - Type 2 diabetes mellitus with other specified complication (ICD-10) ?E66.9 - Obesity, unspecified (ICD-10) Anemia ?D64.9 - Anemia, unspecified (ICD-10) Chronic kidney disease, stage 4 (severe) ?N18.4 - Chronic kidney disease, stage 4 (severe) (ICD-10) Fibromyalgia ?M79.7 - Fibromyalgia (ICD-10) Supraventricular tachycardia ?I47.1 - Supraventricular tachycardia (ICD-10) Chronic rhinitis ?J31.0 - Chronic rhinitis (ICD-10) Hyperlipidemia associated with type 2 diabetes mellitus ?E11.69 - Type 2 diabetes mellitus with other specified complication (ICD-10) ?E78.5 - Hyperlipidemia, unspecified (ICD-10) POLST (Physician Orders for Life-Sustaining Treatment) ?Z78.9 - Other specified health status (ICD-10) Chronic, continuous use of opioids ?F11.90 - Opioid use, unspecified, uncomplicated (ICD-10) Vaginal bleeding ?N93.9 - Abnormal uterine and vaginal bleeding, unspecified (ICD-10) Metabolic acidosis ?E87.2 - Acidosis (ICD-10) Hyponatremia ?E87.1 - Hypo-osmolality and hyponatremia (ICD-10) Surgical History (Updated 09/14/22 @ 21:47 by Niya Mistry MD) S/P carpal tunnel release ?Z98.890 - Other specified postprocedural states (ICD-10) H/O left wrist surgery ?Z98.890 - Other specified postprocedural states (ICD-10) H/O: section ?Z98.891 - History of uterine scar from previous surgery (ICD-10) H/O hysterectomy with oophorectomy Social History Highest level of school completed/degree received: high school graduate Smoking Status: Never smoker Do you use any of these nicotine containing products: None Second hand tobacco smoke exposure: No How often do you have a drink containing alcohol: never How often do you have six or more drinks on one occasion: Never AUDIT-C Alcohol total score: 0 Non-prescribed substance use: denies use Gender Identity: female service: No Meds Home Medications and Allergies Home Medications Medication Instructions Recorded Confirmed Type albuterol sulfate 90 mcg/actuation 1 - 2 puff inhalation Q4H PRN 10/13/21 09/14/22 History aerosol inhaler (Ventolin HFA) aspirin 81 mg chewable tablet 1 tab PO DAILY 10/13/21 09/14/22 History blood sugar diagnostic (True 10/13/21 10/13/21 History Metrix Glucose Test Strip) blood-glucose meter (True Metrix 10/13/21 10/13/21 History Glucose Meter) cyclobenzaprine 10 mg tablet 10 mg PO HS 10/13/21 09/14/22 History diltiazem HCl 300 mg 300 mg PO Q24H 10/13/21 09/14/22 History capsule,extended release 24 hr docusate sodium 100 mg capsule 200 mg PO HS 10/13/21 09/14/22 History dulaglutide 0.75 mg/0.5 mL 0.75 mg subcut .WEEKLY 10/13/21 04/20/22 History subcutaneous pen injector (Trulicity) duloxetine 60 mg capsule,delayed 60 mg PO DAILY 10/13/21 09/14/22 History release ferrous sulfate 325 mg (65 mg 325 mg PO QAM 10/13/21 09/14/22 History iron) tablet (FeroSul) fluticasone 500 mcg-salmeterol 50 1 inh inhalation Q12H 10/13/21 09/14/22 History mcg/dose blistr powdr for inhalation (Advair Diskus) fluticasone propionate 50 2 spray intranasal DAILY 10/13/21 10/14/21 History mcg/actuation nasal spray,suspension furosemide 20 mg tablet 20 mg PO QAM 10/13/21 09/14/22 History indapamide 2.5 mg tablet 2.5 mg PO DAILY 10/13/21 09/14/22 History insulin aspart U-100 100 unit/mL 8 unit subcut TIDWM 10/13/21 09/14/22 History (3 mL) subcutaneous pen (Novolog FlexPen U-100 Insulin aspart) lancets 33 gauge (TRUEplus Lancets) 10/13/21 10/13/21 History levothyroxine 150 mcg tablet 150 mcg PO DAILY 10/13/21 09/14/22 History lisinopril 20 mg tablet 20 mg PO HS 10/13/21 09/14/22 History montelukast 10 mg tablet 10 mg PO HS 10/13/21 09/14/22 History nystatin 100,000 unit/gram topical 1 applic topical BID PRN 10/13/21 09/14/22 History powder (Nystop) oxycodone 60 mg tablet,crush 60 mg PO Q12H 10/13/21 09/14/22 History resistant,extended release 12 hr (OxyContin) pantoprazole 40 mg tablet,delayed 40 mg PO Q12H 10/13/21 09/14/22 History release polyethylene glycol 3350 17 17 g PO Q48H 10/13/21 09/14/22 History gram/dose oral powder topiramate 100 mg tablet 100 mg PO Q12H 10/13/21 09/14/22 History tramadol 50 mg tablet 50 mg PO Q8H PRN 10/13/21 09/14/22 History cholecalciferol (vitamin D3) 50 2,000 unit PO DAILY 10/14/21 09/14/22 History mcg (2,000 unit) tablet (Vitamin D3) insulin NPH isoph U-100 human 100 10 unit subcut QAM 10/14/21 10/14/21 History unit/mL (3 mL) subcutaneous pen (Novolin N FlexPen) insulin NPH isoph U-100 human 100 40 unit subcut HS 10/14/21 09/14/22 History unit/mL (3 mL) subcutaneous pen (Novolin N FlexPen) insulin aspart U-100 100 unit/mL 1 sliding scale dose subcut 10/14/21 10/14/21 History (3 mL) subcutaneous pen (Novolog USEASDIRECTD FlexPen U-100 Insulin aspart) melatonin 3 mg capsule 3 mg PO HS 10/14/21 09/14/22 History fluticasone 500 mcg-salmeterol 50 1 inh inhalation BID 04/20/22 09/14/22 History mcg/dose blistr powdr for inhalation (Advair Diskus) Allergies Allergy/AdvReac Type Severity Reaction Status Date / Time adhesive tape Allergy Verified 09/14/22 20:32 allopurinol Allergy Verified 09/14/22 20:32 atorvastatin Allergy Verified 09/14/22 20:32 clarithromycin Allergy Verified 09/14/22 20:32 dulaglutide [From Trulicity] Allergy Verified 09/14/22 20:32 fluconazole [From Diflucan] Allergy Verified 09/14/22 20:32 Exam Narrative: Exam Narrative: General: Alert and oriented, no acute distress CV: Regular rate and rhythm Respiratory: Breathing nonlabored on room air Extremities: Right lower extremity with erythema over her gold. This does not johanna. Left lower extremity with a large laceration anteriolaterally. There is a flap of nonviable skin. This appears to be only down to subcutaneous fat. No active bleeding currently. I am able to palpate a dorsalis pedis pulse on the left. Patient has paresthesias because of diabetic medic neuropathy. Able to wiggle her toes and move her foot without difficulty. There is also some redness of the skin on the left lower extremity as well in a similar distribution to the right. Const: Vital Signs, click to edit/add: Vital Signs - 24 hr 09/14/22 20:33 09/14/22 21:14 Temperature 98.5 F Pulse Rate [Pulse Oximeter] 85 85 Respiratory Rate 24 20 Blood Pressure [Le ft Forearm] 166/78 H 131/55 L Pulse Oximetry 100 97 Oxygen Delivery Me thod Room Air Results Labs Labs: Abnormal lab results 09/14/22 Range/Units 20:20 RBC 2.99 L (4.00-5.20) m/uL Hgb 9.0 L (12.0-16.0) gm/dL Hct 28.1 L (33.0-51.0) % APTT 37 H (23-33) Seconds Sodium 133 L (135-149) mmol/L Potassium 5.2 H (3.6-5.1) mmol/L BUN 45 H (7-30) mg/dL Creatinine 1.6 H (0.5-1.5) mg/dL Glucose 266 H (60-115) mg/dL Diabetes panel 09/14/22 Range/Units 20:20 Sodium 133 L (135-149) mmol/L Potassium 5.2 H (3.6-5.1) mmol/L Chloride 105 (96-114) mmol/L Carbon Dioxide 22 (20-32) mmol/L BUN 45 H (7-30) mg/dL Creatinine 1.6 H (0.5-1.5) mg/dL Glucose 266 H (60-115) mg/dL Calcium 8.4 (8.4-10.6) mg/dL Calcium panel 09/14/22 Range/Units 20:20 Calcium 8.4 (8.4-10.6) mg/dL Pituitary panel 09/14/22 Range/Units 20:20 Sodium 133 L (135-149) mmol/L Potassium 5.2 H (3.6-5.1) mmol/L Chloride 105 (96-114) mmol/L Carbon Dioxide 22 (20-32) mmol/L BUN 45 H (7-30) mg/dL Creatinine 1.6 H (0.5-1.5) mg/dL Glucose 266 H (60-115) mg/dL Calcium 8.4 (8.4-10.6) mg/dL Adrenal panel 09/14/22 Range/Units 20:20 Sodium 133 L (135-149) mmol/L Potassium 5.2 H (3.6-5.1) mmol/L Chloride 105 (96-114) mmol/L Carbon Dioxide 22 (20-32) mmol/L BUN 45 H (7-30) mg/dL Creatinine 1.6 H (0.5-1.5) mg/dL Glucose 266 H (60-115) mg/dL Calcium 8.4 (8.4-10.6) mg/dL All other labs normal. Imaging Additional studies: INDICATION: Left leg laceration. Evaluate fracture. TECHNIQUE: Two views of the left tibia/fibula. COMPARISON: None. FINDINGS: There is a large soft tissue defect over the anterolateral lower leg. There is no acute fracture or suspicious osseous lesion. No radiopaque foreign body. There is diffuse reticulation of the subcutaneous fat suggestive of edema. IMPRESSION: Large soft tissue laceration over the anterolateral lower leg. No fracture or radiopaque foreign body.. Dictated by Melissa aGlvez MD @ 09/14/2022 9:21:20 PM Assessment and Plan Assessment and plan (1) Laceration of leg not thigh, complicated: Status: Acute Plan The patient is a 67-year-old female with morbid obesity, diabetes, lymphedema possible early cellulitis of the bilateral lower extremities now with a large laceration to the left lower extremity. -given its size and also her comorbidities I think that this would best be repaired in the operating room. I discussed with her that there will likely be an open area left since there is a large flap of devascularized skin. She is at risk for infection and compression wraps and vigilant wound care will be necessary. Fortunately she seems to have a good set up already at her assisted living facility and she may be able to easily transition her care back to the assisted living facility. We can also consider having her follow-up in our wound clinic if there is availability as well. I have discussed her case with Anesthesia and I think that spinal anesthetic will be most feasible for her given her risk of aspiration with her comorbidities and recent meal. The patient agreed to proceed with exploration and closure of laceration in the operating room and we will plan on this emergently.
--- NOTE | 2022-09-14 21:54 | P.GSOP_ITS ---
Operative Note Date of procedure: 09/14/22 Pre-op diagnosis: Left lower extremity laceration Post-op diagnosis: Left lower extremity laceration with degloving injury Type of Procedure: 1. Irrigation and debridement left lower extremity laceration; sharp debridement down to fascia, 3 x 10 cm 2. Laceration repair; 11 cm total Indications: The patient is a 67-year-old female who today fell in her correction and sustained a large laceration to her left lower extremity with devitalized tissue. Because of the extensive nature of the wound, it was felt that she wo uld need washout and debridement in the OR prior to repair. Procedure Description: After discussing the risks and benefits of the procedure, the patient signed informed consent.? The operative site was marked and the patient was brought to the operating room. A spinal anesthetic was then placed. Please see the truck repair supervisor note for details. The patient was placed in supine position with care to pad her pressure points.? The operative site was then prepped and draped in the usual sterile fashion.? A time-out was then performed. The wound was examined. It was somewhat crescent shaped. Medially the wound measured 6 cm. Inferiorly the wound measured 12 cm. There was a flap of devitalized tissue measuring 3 cm x 10 cm. This was attached laterally. The majority of this was ecchymotic. The wound extended down to fascia and upon further investigation, there was 6 cm of undermining superiorly. The wound was 2 cm deep. I began by scrubbing the wound with Hibiclens and then irrigating it. I then used cautery to ensure hemostasis on small bleeding vessels. Using a scissor, I then proceeded to debride pieces of subcutaneous fat which were devitalized. The lateral skin flap was fairly well-demarcated and I excised the ischemic portion. Once this was done, I placed vertical mattress suture for 6 cm medially as well as 4 and 1 cm laterally with a total area of closure measuring 11 cm. Once this was done, I placed Surgicel in the wound base, and then placed a wet to dry dressing with Kerlix in the open portion of the wound and Xeroform gauze over the sutured area. An ABD was applied. The leg was then wrapped in Kerlix and an Ketan wrap. The patient was then transported to the recovery area in stable condition. The patient tolerated the procedure well. Findings: Degloving injury to the left lower extremity with devitalized skin. Anesthesia: spinal Surgeon: Niya Mistry MD Estimated blood loss (mL): 20 Condition: stable Disposition: PACU
[2022-09-14] MEDS: fentaNYL 100 MCG/2 ML inj 50 MCG IVP ×2 (23:07→23:23)
--- NOTE | 2022-09-14 23:08 | P.ANES_ITS ---
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
[2022-09-15] VITALS (17 sets, daily range): BP systolic 125–161; BP diastolic 50–68; PULSE 73–85; RESP 18; TEMP 36.2–36.6; O2SAT 97–100
[2022-09-15] MEDS: HYDROmorphone 0.5 mg/0.5 ml inj IVP ×10 (00:43→23:40)
[2022-09-15] MEDS: dilTIAZem 180 MG CAP (CD) PO ×2 (01:54→21:09)
[2022-09-15] MEDS: dilTIAZem 120 MG CAP.ER.24H PO ×2 (01:54→21:09)
[2022-09-15] MEDS: TOPIRAMATE 25 MG TABLET 100 MG PO (01:55)
[2022-09-15] MEDS: CYCLOBENZAPRINE HCL 10 MG TABLET PO ×2 (01:55→21:09)
--- NOTE | 2022-09-15 02:55 | W.PM.CROSSCO ---
Assessment and Plan Assessment and plan (1) Diabetes mellitus type 2 in obese: Problem comment: Chronic problem Status: Acute Plan [facility] called to address few nighttime meds Ordered one time dose of flexeril, topamax as well as insulin. BG of 342 so ordered 8 u novolog sliding scale. She also missed her home nighttime long acting insulin of 40u so ordered 20u NPH now. May benefit from BID dosing of NPH while hospitalized but no changes made to currently ordered regimen at this time. Further adjustments pending AM glucose.
[2022-09-15] MEDS: INSULIN NPH 100 UNIT/ML 20 UNIT SUBCUT (03:29)
[2022-09-15] MEDS: ACETAMINOPHEN 325 MG TABLET 650 MG PO ×3 (03:32→17:12)
[2022-09-15] MEDS: TRAMADOL HCL 50 MG TABLET PO ×3 (03:32→19:29)
[2022-09-15] MEDS: CEFAZOLIN 1 GM in 0.9 % SODIUM CHLORIDE Mini-bag 100 ML IVPB ×3 (04:52→21:07)
[2022-09-15 06:16] LABS: Basophils Absolute Auto 0.01 K/uL (0.00-0.30); Basophils Percent Auto 0.1 % (0.0-3.0); Eosinophils Absolute Auto 0.08 K/uL (0.00-0.50); Eosinophils Percent Auto 0.9 % (0.0-7.0); Hematocrit 23.1 % (33.0-51.0); Immature Granulocytes Abs Auto 0.08 K/uL (0.00-0.30); Immature Granulocytes Pct Auto 0.9 %; Lymphocytes Absolute Auto 2.32 K/uL (0.90-2.90); Lymphocytes Percent Auto 24.9 % (20-44); Mean Corpuscular HGB Conc 32 gm/dL (32-36); Mean Corpuscular Hemoglobin 30 pg (26-34); Mean Corpuscular Volume 94 fL (80-100); Monocytes Percent Auto 6.3 % (0.0-11.0); Neutrophils Absolute Auto 6.25 K/uL (1.7-7.0); Neutrophils Percent Auto 66.9 % (42.0-72.0); Platelet Count* 209 K/uL (140-440); RDW Coefficient of Variation % 13.5 % (11.5-15.5); Red Blood Count 2.46 m/uL (4.00-5.20); White Blood Count* 9.33 K/uL (4.50-11.00)
[2022-09-15 06:21] LABS: Hemoglobin* 7.3 gm/dL (12.0-16.0); Slide Review Reflex No
[2022-09-15 06:33] LABS: Chloride* 107 mmol/L (96-114); Potassium* 4.4 mmol/L (3.6-5.1); Sodium* 134 mmol/L (135-149)
[2022-09-15 06:36] LABS: Blood Urea Nitrogen* 42 mg/dL (7-30); Calcium* 8.1 mg/dL (8.4-10.6); Carbon Dioxide* 24 mmol/L (20-32); Creatinine* 1.7 mg/dL (0.5-1.5); Estimated Glomerular Filt Rate 33 ml/min; Glucose* 338 mg/dL (60-115)
--- NOTE | 2022-09-15 06:50 | PC.NURSE ---
Shift note: Pt came back from surgery awake, alert and oriented. Tolerated ice chips and fluids PO with no c/o nausea. DIONTE wrap applied after surgery, it has some serous drainage through. The extremity is elevated, ice applied periodically when pt able tolerate it. She is moving her toes and an entire extremity. C/o pain 8-01/06, RN treated per eMAR with relief so that the pt was able to rest 1-2 hours and the time.
[2022-09-15] MEDS: FERROUS SULFATE 325 MG TABLET PO (08:54)
[2022-09-15] MEDS: TOPIRAMATE 50 MG TABLET 100 MG PO ×2 (08:54→21:09)
[2022-09-15] MEDS: FUROSEMIDE 20 MG TABLET PO (08:54)
[2022-09-15] MEDS: INDAPAMIDE 2.5 MG TABLET PO (08:54)
[2022-09-15] MEDS: LEVOTHYROXINE 75 MCG TABLET 150 MCG PO (08:54)
[2022-09-15] MEDS: DULOXETINE 30 MG CAPSULE DR 60 MG PO (08:54)
[2022-09-15] MEDS: NYSTATIN POWDER 1 APPLIC TOPICAL (08:55)
[2022-09-15] MEDS: FLUTICASONE PROPIONATE NASAL 2 SPRAY NOSTRIL-B (08:55)
--- NOTE | 2022-09-15 09:08 | P.IMPN_ITS ---
Progress Note: A&P Assessment and plan (1) Laceration of leg not thigh, complicated: Problem details: - primary repair with Dr. Mistry of General Surgery 09/14 Status: Acute (2) Anemia: Problem details: - acute on chronic, amenable to transfusion 09/15 for Hgb <8 Status: Acute (3) Physical debility: Problem details: - multiple comorbidities including lymphedema, therapies following - may require higher level of care upon discharge Status: Acute (4) Diabetic peripheral neuropathy associated with type 2 diabetes mellitus: Status: Acute (5) Chronic kidney disease, stage 5: Problem details: - follows with Nephrology as an outpatient Status: Acute (6) Lymphedema associated with obesity: Problem details: - wraps at home, therapies following during stay Status: Acute (7) Chronic pain: Status: Acute Plan - transfuse today - General Surgery following wound status - appreciate input from therapies regarding discharge planning Subjective Date Seen: 09/15/22 Interval history: Eryn is still having some pain in her LLE from wound repair last night. Amenable to blood transfusion given Hgb of <8 today. Exam Narrative: Exam Narrative: GEN: Alert and laying comfortably in bed HEENT: EOMIs bilaterally, no scleral icterus CV: RRR, + systolic murmur heard across precordium R: LCTA bilaterally without concerning wheezing, decreased bilateral bases Ext: + lymphedema noted, LLE wrapped from surgical intervention and not formally examined Neuro: No focal deficits Psych: Appropriate Const: Vital Signs, click to edit/add: Vital Signs - 24 hr 09/14/22 20:33 09/14/22 21:14 09/14/22 23:01 Temperature 98.5 F 97.7 F Pulse Rate 80 Pulse Rate [Pulse Oximeter] 85 85 Respiratory Rate 24 20 16 Blood Pressure 121/59 L Blood Pressure [Le ft Arm] Blood Pressure [Le ft Forearm] 166/78 H 131/55 L Pulse Oximetry 100 97 98 Oxygen Delivery Me thod Room Air Room Air 09/14/22 23:05 09/14/22 23:10 09/14/22 23:14 Temperature Pulse Rate 81 80 Pulse Rate [Pulse Oximeter] Respiratory Rate 14 14 Blood Pressure 137/63 135/54 L Blood Pressure [Le ft Arm] Blood Pressure [Le ft Forearm] Pulse Oximetry 99 98 98 Oxygen Delivery Me thod 09/14/22 23:15 09/14/22 23:20 09/14/22 23:25 Temperature Pulse Rate 80 76 77 Pulse Rate [Pulse Oximeter] Respiratory Rate 16 16 15 Blood Pressure 129/46 L 130/74 134/72 Blood Pressure [Le ft Arm] Blood Pressure [Le ft Forearm] Pulse Oximetry 99 98 95 Oxygen Delivery Me thod 09/14/22 23:30 09/14/22 23:35 09/14/22 23:40 Temperature 98.2 F 96.5 F L Pulse Rate 76 75 76 Pulse Rate [Pulse Oximeter] Respiratory Rate 14 16 18 Blood Pressure 133/55 L 140/65 H Blood Pressure [Le ft Arm] 162/56 H Blood Pressure [Le ft Forearm] Pulse Oximetry 97 97 Oxygen Delivery Me thod Room Air 09/14/22 23:40 09/15/22 00:00 09/15/22 00:15 Temperature 96.5 F L 97.7 F 97.7 F Pulse Rate Pulse Rate [Pulse Oximeter] 76 82 77 Respiratory Rate 18 18 18 Blood Pressure Blood Pressure [Le ft Arm] 162/56 H 143/62 H 150/50 H Blood Pressure [Le ft Forearm] Pulse Oximetry 96 98 98 Oxygen Delivery Me od Room Air Room Air Room Air 09/15/22 00:30 09/15/22 02:00 09/15/22 02:30 Temperature 97.7 F 97.8 F 97.8 F Pulse Rate Pulse Rate [Pulse Oximeter] 79 81 85 Respiratory Rate 18 18 18 Blood Pressure Blood Pressure [Le ft Arm] 154/63 H 161/62 H 160/59 H Blood Pressure [Le ft Forearm] Pulse Oximetry 98 97 97 Oxygen Delivery Me od Room Air Room Air Room Air 09/15/22 03:30 09/15/22 07:00 09/15/22 07:00 Temperature 98 F 97.6 F Pulse Rate Pulse Rate [Pulse Oximeter] 81 77 Respiratory Rate 18 18 Blood Pressure Blood Pressure [Le ft Arm] 154/60 H 143/59 H Blood Pressure [Le ft Forearm] Pulse Oximetry 98 100 100 Oxygen Delivery Me thod Room Air Room Air Labs Labs: Laboratory Results - last 24 hr 09/14/22 09/15/22 20:20 05:59 WBC 9.84 9.33 RBC 2.99 L 2.46 L Hgb 9.0 L 7.3 L* Hct 28.1 L 23.1 L MCV 94 94 MCH 30 30 MCHC 32 32 RDW Coeff of Antonio 13.7 13.5 Plt Count 268 209 Neut % (Auto) 67.5 66.9 Lymph % (Auto) 23.5 24.9 [place] % (Auto) 6.0 6.3 Eos % (Auto) 2.4 0.9 Baso % (Auto) 0.2 0.1 Neut # (Auto) 6.64 6.25 Lymph # (Auto) 2.31 2.32 [place] # (Auto) 0.60 0.60 Eos # (Auto) 0.24 0.08 Baso # (Auto) 0.02 0.01 INR 1.06 APTT 37 H Sodium 133 L 134 L Potassium 5.2 H 4.4 Chloride 105 107 Carbon Dioxide 22 24 BUN 45 H 42 H Creatinine 1.6 H 1.7 H Estimated Creat Clear 25.18 23.70 Estimated GFR 36 33 Glucose 266 H 338 H Calcium 8.4 8.1 L Blood Type O Positive Antibody Screen NEGATIVE Crossmatch (AHG) See Detail
--- NOTE | 2022-09-15 09:50 | REH.PT ---
PT Eval orders received, but evaluation held today due to fatigue and low Hgb with transfusion possible. Will attempt again tomorrow.
[2022-09-15] MEDS: OMEPRAZOLE 20 MG CAPSULE DR 40 MG PO ×2 (12:13→23:39)
--- NOTE | 2022-09-15 12:35 | P.GSPN_ITS ---
Subjective Subjective Date Seen: 09/15/22 Interval history: Eryn had significant pain overnight. Morning hemoglobin was 7.3. She is getting transfused. Exam Narrative: Exam Narrative: General: No acute distress Extremities: Left lower extremity with serous drainage on the dressing. No significant bleeding. Superior flap is somewhat reddened, more likely from ti ssue ischemia than cellulitis wound base is clean. Const: Vital Signs, click to edit/add: Vital Signs - 24 hr 09/14/22 20:33 09/14/22 21:14 09/14/22 23:01 Temperature 98.5 F 97.7 F Pulse Rate 80 Pulse Rate [Pulse Oximeter] 85 85 Respiratory Rate 24 20 16 Blood Pressure 121/59 L Blood Pressure [Le ft Arm] Blood Pressure [Le ft Forearm] 166/78 H 131/55 L Pulse Oximetry 100 97 98 Oxygen Delivery Me od Room Air Room Air 09/14/22 23:05 09/14/22 23:10 09/14/22 23:14 Temperature Pulse Rate 81 80 Pulse Rate [Pulse Oximeter] Respiratory Rate 14 14 Blood Pressure 137/63 135/54 L Blood Pressure [Le ft Arm] Blood Pressure [Le ft Forearm] Pulse Oximetry 99 98 98 Oxygen Delivery Me thod 09/14/22 23:15 09/14/22 23:20 09/14/22 23:25 Temperature Pulse Rate 80 76 77 Pulse Rate [Pulse Oximeter] Respiratory Rate 16 16 15 Blood Pressure 129/46 L 130/74 134/72 Blood Pressure [Le ft Arm] Blood Pressure [Le ft Forearm] Pulse Oximetry 99 98 95 Oxygen Delivery Me thod 09/14/22 23:30 09/14/22 23:35 09/14/22 23:40 Temperature 98.2 F 96.5 F L Pulse Rate 76 75 76 Pulse Rate [Pulse Oximeter] Respiratory Rate 14 16 18 Blood Pressure 133/55 L 140/65 H Blood Pressure [Le ft Arm] 162/56 H Blood Pressure [Le ft Forearm] Pulse Oximetry 97 97 Oxygen Delivery Me thod Room Air 09/14/22 23:40 09/15/22 00:00 09/15/22 00:15 Temperature 96.5 F L 97.7 F 97.7 F Pulse Rate Pulse Rate [Pulse Oximeter] 76 82 77 Respiratory Rate 18 18 18 Blood Pressure Blood Pressure [Le ft Arm] 162/56 H 143/62 H 150/50 H Blood Pressure [Le ft Forearm] Pulse Oximetry 96 98 98 Oxygen Delivery Me thod Room Air Room Air Room Air 09/15/22 00:30 09/15/22 02:00 09/15/22 02:30 Temperature 97.7 F 97.8 F 97.8 F Pulse Rate Pulse Rate [Pulse Oximeter] 79 81 85 Respiratory Rate 18 18 18 Blood Pressure Blood Pressure [Le ft Arm] 154/63 H 161/62 H 160/59 H Blood Pressure [Le ft Forearm] Pulse Oximetry 98 97 97 Oxygen Delivery Me thod Room Air Room Air Room Air 09/15/22 03:30 09/15/22 07:00 09/15/22 07:00 Temperature 98 F 97.6 F Pulse Rate Pulse Rate [Pulse Oximeter] 81 77 Respiratory Rate 18 18 Blood Pressure Blood Pressure [Le ft Arm] 154/60 H 143/59 H Blood Pressure [Le ft Forearm] Pulse Oximetry 98 100 100 Oxygen Delivery Me thod Room Air Room Air 09/15/22 07:00 09/15/22 10:34 09/15/22 10:55 Temperature 97.1 F L 97.5 F L Pulse Rate 78 74 Pulse Rate [Pulse Oximeter] 74 Respiratory Rate 18 18 Blood Pressure 137/57 L 128/57 L Blood Pressure [Le ft Arm] Blood Pressure [Le ft Forearm] Pulse Oximetry 100 98 Oxygen Delivery Me thod Labs/Imaging Labs Labs: White blood cell count is normal. Hemoglobin is 7.3. Imaging Imaging: Knee x-ray done today without evidence of fracture. Progress Note: A&P Assessment and plan (1) Physical debility: Problem details: - multiple comorbidities including lymphedema, therapies following - may require higher level of care upon discharge Status: Acute (2) Anemia: Problem details: - acute on chronic, amenable to transfusion 09/15 for Hgb <8 Status: Acute (3) Diabetic peripheral neuropathy associated with type 2 diabetes mellitus: Status: Acute (4) Obstructive sleep apnea: Status: Acute (5) Morbid obesity: Problem details: Chronic Status: Acute (6) Diabetes mellitus type 2 in obese: Problem details: Chronic problem Status: Acute (7) Lymphedema associated with obesity: Problem details: - wraps at home, therapies following during stay Status: Acute (8) Laceration of leg not thigh, complicated: Problem details: - primary repair with Dr. Mistry of General Surgery 09/14 Status: Acute Plan Eryn is a 67-year-old female with multiple medical comorbidities who fell and sustained a large laceration to her left lower extremity. Wound edges with small amount of ischemia, however overall all the tissue appears viable. I did attempt to place a wound VAC on her today however, I was unable to get a seal. This was attempted x2. We will plan to have the nurse replace the wet to dry dressing. I have instructed her to place the patient in an Ketan wrap as well. -working on dispo, however patient will likely need subacute.
--- NOTE | 2022-09-15 12:37 | CRLHL7_ITS ---
For Patients: As a result of the Cures Act, medical imaging exams and procedure reports are released immediately into your electronic medical record. You may view this report before your referring provider. If you have questions, please contact your health care provider. INDICATION: Trauma. Fall. Pain. Laceration distal left lower extremity. TECHNIQUE: Three views of the left knee. COMPARISON: Two views of the left tibia and fibula from the same date. FINDINGS: The left knee is negative for fracture or dislocation. No definite erosion. No definite effusion accounting for suboptimal patient positioning. IMPRESSION: Negative left knee. Dictated by Pavan Rothman MD @ 09/15/2022 2:02:30 PM (Electronically Signed)
[2022-09-15] MEDS: FUROSEMIDE 10 MG/ML inj 20 MG IV (13:25)
[2022-09-15 16:19] LABS: Hemoglobin* 8.5 gm/dL (12.0-16.0)
--- NOTE | 2022-09-15 16:35 | PC.SOCIAL ---
Discharge planning: Met with pt regarding d/c plan. Pt is agreeable to going to a senior living facility short term if needed. Pt is concerned about the quality fo the group home she goes to as she has heard bad stories from friends about group home care. Pt is not interested in [facility] as she is in a connected facility at [facility] and does not agree with their staffing plan. Provided pt with a resource list of senior living facilities with updated ratings from the department of health as well as the website to look up facility ratings. Pt states she is interested in [facility] and [facility]. Pt is aware that there may be limited facilities that are able to meet her needs due to the wound vac. Pt was appreciative of the information provided. 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
[2022-09-15] MEDS: SODIUM CHLORIDE 0.9 % (FLUSH) 10 ML SYRINGE 5 ML IVF ×3 (17:10→21:10)
--- NOTE | 2022-09-15 19:26 | PC.NURSE ---
[id number]: Patient remained vitally stable throughout shift. Patient receiving dilaudid every 2-3 hours for pain control. Provider was unsuccessful in applying wound vac x2. Nursing changed dressing this afternoon. Patient received blood transfusion today and asymptomatic of reactions. Patient used commode today and was a sit to stand for transfer.
[2022-09-15] MEDS: INSULIN NPH 100 UNIT/ML 40 UNIT SUBCUT (21:08)
[2022-09-15] MEDS: DOCUSATE SODIUM 100 MG CAPSULE 200 MG PO (21:09)
[2022-09-15] MEDS: MONTELUKAST 10 MG TABLET PO (21:09)
[2022-09-15] MEDS: MELATONIN 3 MG TABLET PO (21:09)
[2022-09-16] VITALS (7 sets, daily range): BP systolic 107–137; BP diastolic 47–77; PULSE 70–83; RESP 18; TEMP 35.8–36.7; O2SAT 98
[2022-09-16] MEDS: SODIUM CHLORIDE 0.9 % (FLUSH) 10 ML SYRINGE 5 ML IVF ×3 (04:21→20:36)
[2022-09-16] MEDS: CEFAZOLIN 1 GM in 0.9 % SODIUM CHLORIDE Mini-bag 100 ML IVPB ×3 (04:21→20:31)
[2022-09-16] MEDS: HYDROmorphone 0.5 mg/0.5 ml inj IVP ×6 (04:25→17:29)
--- NOTE | 2022-09-16 06:23 | PC.NURSE ---
Shift note: Pt has been in bed throughout the shift. Asked for pain medication regularly. Pain rated between 7 and 8. IV line infiltrated and new one inserted at the left arm. Pt has had adequate sleep. Dressing appeared soaked with sanguinous fluid but no odor. Vitally stable.
[2022-09-16 07:56] LABS: Ionized Calcium* 1.05 mmol/L (1.11-1.30)
[2022-09-16 08:13] LABS: Basophils Percent Auto 0.2 % (0.0-3.0); Eosinophils Percent Auto 1.8 % (0.0-7.0); Hematocrit 26.3 % (33.0-51.0); Hemoglobin* 8.4 gm/dL (12.0-16.0); Immature Granulocytes Pct Auto 0.2 %; Lymphocytes Percent Auto 22.1 % (20-44); Mean Corpuscular HGB Conc 32 gm/dL (32-36); Mean Corpuscular Hemoglobin 30 pg (26-34); Mean Corpuscular Volume 94 fL (80-100); Monocytes Percent Auto 6.1 % (0.0-11.0); Neutrophils Percent Auto 69.6 % (42.0-72.0); Platelet Count* 197 K/uL (140-440); RDW Coefficient of Variation % 14.4 % (11.5-15.5); Red Blood Count 2.81 m/uL (4.00-5.20); White Blood Count* 12.42 K/uL (4.50-11.00)
[2022-09-16] MEDS: TRAMADOL HCL 50 MG TABLET PO ×2 (08:22→23:55)
[2022-09-16 08:23] LABS: Chloride* 109 mmol/L (96-114); Potassium* 4.5 mmol/L (3.6-5.1); Sodium* 135 mmol/L (135-149)
[2022-09-16 08:25] LABS: Est. Creatinine Clearance* 20.14; Estimated Glomerular Filt Rate 27 ml/min
[2022-09-16 08:26] LABS: Blood Urea Nitrogen* 47 mg/dL (7-30); Calcium* 8.7 mg/dL (8.4-10.6); Carbon Dioxide* 19 mmol/L (20-32); Glucose* 61 mg/dL (60-115)
[2022-09-16 08:34] LABS: Slide Review Reflex Yes
[2022-09-16 08:41] LABS: Slide Review Acceptable Review (Acceptable)
[2022-09-16] MEDS: DULOXETINE 30 MG CAPSULE DR 60 MG PO (08:42)
[2022-09-16] MEDS: FLUTICASONE PROPIONATE NASAL 2 SPRAY NOSTRIL-B (08:42)
[2022-09-16] MEDS: INDAPAMIDE 2.5 MG TABLET PO (08:42)
[2022-09-16] MEDS: FERROUS SULFATE 325 MG TABLET PO (08:43)
[2022-09-16] MEDS: FUROSEMIDE 20 MG TABLET PO (08:43)
[2022-09-16] MEDS: LEVOTHYROXINE 75 MCG TABLET 150 MCG PO (08:43)
--- NOTE | 2022-09-16 10:22 | PM.GSPN ---
Subjective Subjective Date Seen: 09/16/22 Interval history: She is stable. Had a difficult morning because of difficulty with lab draws. Exam Narrative: Exam Narrative: General: No acute distress Extremities: Left lower extremity wound appears healthy. No purulent drainage. Skin is somewhat reddened so inferior medially as well as superiorly. This was present preoperatively though may be slightly worse today. Wound edges appear viable except for the skin flap laterally where there was a small area of tissue which is ecchymotic. This is only approximately 1 mm. Const: Vital Signs, click to edit/add: Vital Signs - 24 hr 09/15/22 10:34 09/15/22 10:55 09/15/22 11:33 Temperature 97.1 F L 97.5 F L 97.5 F L Pulse Rate 78 74 80 Pulse Rate [Pulse Oximeter] Respiratory Rate 18 18 18 Blood Pressure 137/57 L 128/57 L 131/59 L Blood Pressure [Le ft Arm] Pulse Oximetry 100 98 [facility] 12:39 09/15/22 13:00 09/15/22 15:00 Temperature 97.6 F 97.6 F Pulse Rate 78 83 Pulse Rate [Pulse Oximeter] Respiratory Rate 18 18 Blood Pressure 146/68 H 155/66 H Blood Pressure [Le ft Arm] Pulse Oximetry 98 98 98 [facility] 09/15/22 15:00 09/15/22 15:00 09/15/22 19:00 Temperature 97.6 F 97.2 F L Pulse Rate Pulse Rate [Pulse Oximeter] 74 83 74 Respiratory Rate 18 18 18 Blood Pressure Blood Pressure [Le ft Arm] 155/66 H 127/54 L Pulse Oximetry 98 [facility] 09/15/22 22:44 09/15/22 22:45 09/15/22 23:00 Temperature 97.1 F L Pulse Rate Pulse Rate [Pulse Oximeter] 74 73 Respiratory Rate 18 18 Blood Pressure Blood Pressure [Le ft Arm] 125/54 L Pulse Oximetry 99 [facility] 09/16/22 01:50 09/16/22 03:00 09/16/22 07:00 Temperature 96.7 F L 97.1 F L 97.0 F L Pulse Rate Pulse Rate [Pulse Oximeter] 73 70 73 Respiratory Rate 18 18 18 Blood Pressure Blood Pressure [Le ft Arm] 133/57 L 107/52 L 123/59 L Pulse Oximetry 98 98 98 Oxygen Delivery Me thod Room Air Room Air Room Air Progress Note: A&P Assessment and plan (1) Physical debility: Problem details: - multiple comorbidities including lymphedema, therapies following - may require higher level of care upon discharge Status: Acute (2) Unstable gait: Status: Acute (3) Anemia: Problem details: - acute on chronic, amenable to transfusion 09/15 for Hgb <8 Status: Acute (4) Diabetic peripheral neuropathy associated with type 2 diabetes mellitus: Status: Acute (5) Lymphedema associated with obesity: Problem details: - wraps at home, therapies following during stay Status: Acute (6) Laceration of leg not thigh, complicated: Problem details: - primary repair with Dr. Mistry of General Surgery 09/14 Status: Acute Plan The patient is postop day 2 status post repair and debridement of left lower extremity traumatic laceration. -attempted to place wound VAC yesterday however once unable to create a seal. Today I attempted this again. Again it is showing that there is a leak despite meticulous placement and reinforcement and also that it is on a flat area. We will plan to leave in place this morning and re-evaluate. If the leak is still present after it has had ample time for suction to be applied, then I will replace her in a wet to dry and we will abort the wound VAC plan. Recommend continuing antibiotics for now. -working on dispo to nursing facility. From my standpoint, patient could discharge with wound cares when the facility is available. Will attempt to get her follow-up in our wound center here at [place].
[2022-09-16] MEDS: TOPIRAMATE 50 MG TABLET 100 MG PO ×2 (10:35→20:34)
--- NOTE | 2022-09-16 11:40 | PM.IMPN1 ---
Progress Note: A&P Assessment and plan (1) Physical debility: Problem details: - multiple comorbidities including lymphedema, therapies following - will require higher level of care upon discharge Status: Acute (2) Murmur: Problem details: - TTE ordered for 09/16 Status: Acute (3) Unstable gait: Status: Acute (4) Anemia: Problem details: - acute on chronic, transfused 1U PRBCs 09/15 for Hgb <8 - per patient, anemia is 2/2 chronic renal disease Status: Acute (5) Diabetic peripheral neuropathy associated with type 2 diabetes mellitus: Status: Acute (6) Lymphedema associated with obesity: Problem details: - wraps at home, therapies following during stay Status: Acute (7) Laceration of leg not thigh, complicated: Problem details: - primary repair with Dr. Mistry of General Surgery 09/14, wound vac placed 09/16 - on Ancef Status: Acute (8) Chronic kidney disease, stage 5: Problem details: - follows with Nephrology as an outpatient Status: Acute Plan - per above - given stability of Hgb and high risk status, will initiate low dose Lovenox 09/16 - to SNF when medically stable, possibly as early as tomorrow Subjective Date Seen: 09/16/22 Interval history: Eryn continues to have pain in LLE, no other concerns this morning. She is feeling better after her blood transfusion yesterday. Continues to work with therapies and understands she'll likely need a higher level of care facility upon d/c from the hospital. Exam Narrative: Exam Narrative: GEN: Alert HEENT: EOMIs bilaterally, no scleral icterus CV: RRR, holosystolic murmur heard across precordium R: LCTA bilaterally without concerning wheezing Ext: + edema RLE, LLE is wrapped and not formally examined Skin: Scattered abrasions of extremities noted Neuro: No focal deficits Psych: Appropriate Const: Vital Signs, click to edit/add: Vital Signs - 24 hr 09/15/22 12:39 09/15/22 13:00 09/15/22 15:00 Temperature 97.6 F 97.6 F Pulse Rate 78 83 Pulse Rate [Pulse Oximeter] Respiratory Rate 18 18 Blood Pressure 146/68 H 155/66 H Blood Pressure [Le ft Arm] Pulse Oximetry 98 98 98 Oxygen Delivery Me thod 09/15/22 15:00 09/15/22 15:00 09/15/22 19:00 Temperature 97.6 F 97.2 F L Pulse Rate Pulse Rate [Pulse Oximeter] 74 83 74 Respiratory Rate 18 18 18 Blood Pressure Blood Pressure [Le ft Arm] 155/66 H 127/54 L Pulse Oximetry 98 99 Oxygen Delivery Me thod Room Air Room Air 09/15/22 22:44 09/15/22 22:45 09/15/22 23:00 Temperature 97.1 F L Pulse Rate Pulse Rate [Pulse Oximeter] 74 73 Respiratory Rate 18 18 Blood Pressure Blood Pressure [Le ft Arm] 125/54 L Pulse Oximetry 99 99 Oxygen Delivery Me thod Room Air 09/16/22 01:50 09/16/22 03:00 09/16/22 07:00 Temperature 96.7 F L 97.1 F L 97.0 F L Pulse Rate Pulse Rate [Pulse Oximeter] 73 70 73 Respiratory Rate 18 18 18 Blood Pressure Blood Pressure [Le ft Arm] 133/57 L 107/52 L 123/59 L Pulse Oximetry 98 98 98 Oxygen Delivery Me thod Room Air Room Air Room Air Labs Labs: Laboratory Results - last 24 hr 09/14/22 09/15/22 09/16/22 20:20 16:10 07:45 WBC RBC Hgb 8.5 L Hct MCV MCH MCHC RDW Coeff of Antonio Plt Count Neut % (Auto) Lymph % (Auto) Richardson % (Auto) Eos % (Auto) Baso % (Auto) Neut # (Auto) Lymph # (Auto) Richardson # (Auto) Eos # (Auto) Baso # (Auto) Diff Slide Review Sodium Potassium Chloride Carbon Dioxide BUN Creatinine Estimated Creat Clear Estimated GFR Glucose Calcium Ionized Calcium Adriane 1.05 L Crossmatch (AHG) See Detail 09/16/22 07:49 WBC 12.42 H RBC 2.81 L Hgb 8.4 L Hct 26.3 L MCV 94 MCH 30 MCHC 32 RDW Coeff of Antonio 14.4 Plt Count 197 Neut % (Auto) 69.6 Lymph % (Auto) 22.1 Richardson % (Auto) 6.1 Eos % (Auto) 1.8 Baso % (Auto) 0.2 Neut # (Auto) 8.60 H Lymph # (Auto) 2.70 Richardson # (Auto) 0.80 Eos # (Auto) 0.20 Baso # (Auto) 0.00 Diff Slide Review Acceptable Review Sodium 135 Potassium 4.5 Chloride 109 Carbon Dioxide 19 L BUN 47 H Creatinine 2.0 H Estimated Creat Clear 20.14 Estimated GFR 27 Glucose 61 Calcium 8.7 Ionized Calcium Adriane Crossmatch ([facility])
[2022-09-16] MEDS: OMEPRAZOLE 20 MG CAPSULE DR 40 MG PO ×2 (11:49→23:47)
--- NOTE | 2022-09-16 12:09 | REH.OT ---
Attempted OT treatment x2 today, pt refused d/t pain. Pt reporting pain 8/10 with first trial. Will attempt again this afternoon or tomorrow.
--- NOTE | 2022-09-16 14:04 | PC.SOCIAL ---
1. [facility] cannot assess referral as pt. is over their weight limit of 250lb. 2. Gianna Leonardo, messages left. 3. Message left with Vivien Cisneros in [facility] 4. [facility] has a bed and is assessing. Pt. does not want to go to [facility] but is willing to consider this as a last resort if the other facilities do not have openings. Pt. is unwilling to look at facilities with 2/5 stars and does not want to go as far as [facility].
--- NOTE | 2022-09-16 19:24 | PC.NURSE ---
[id number]: Patient continues to complain of consistent pain throughout the day. Patient states her pain is always a 8/10 pain and even after pain medication. Patient resting well in bed and falls asleep throughout day and then when awakened from sleep she states her pain is a 8/10. Patient vitally stable. Patient with roho cushion in bed d/t soreness in coccyx and small open area. Barrier cream applied. Patient refuses to turn in bed and states she turns herself. Patient requires assist x 2 with transfer to commode. Patient refused to ambulate to restroom with PT present and states it is too painful to ambulate. Patient refused OT today. Patient had an echo of her heart today. Provider attempted to apply wound vac and was unsuccessful today. Nursing applied wet to dry dressing. Patient encouraged to participate with therapy in order to expedite discharge. Patient blood sugar was 45 this am and hypoglycemia protocol intiated. Patient blood sugar increased to 115. Patient able to verablize needs and make needs known.
[2022-09-16] MEDS: CYCLOBENZAPRINE HCL 10 MG TABLET PO (20:34)
[2022-09-16] MEDS: dilTIAZem 180 MG CAP (CD) PO (20:34)
[2022-09-16] MEDS: DOCUSATE SODIUM 100 MG CAPSULE 200 MG PO (20:34)
[2022-09-16] MEDS: dilTIAZem 120 MG CAP.ER.24H PO (20:35)
[2022-09-16] MEDS: MONTELUKAST 10 MG TABLET PO (20:35)
[2022-09-16] MEDS: MELATONIN 3 MG TABLET PO (20:35)
[2022-09-16] MEDS: ENOXAPARIN 30 MG/0.3ML INJ SUBCUT (20:36)
[2022-09-16] MEDS: INSULIN NPH 100 UNIT/ML 30 UNIT SUBCUT (20:57)
[2022-09-16] MEDS: polyethylene glycoL 3350 17 GM PACK PO (23:47)
[2022-09-17 03:00] VITALS: BP 121/53; PULSE 70; RESP 18; TEMP 36.7; O2SAT 97
[2022-09-17] MEDS: CEFAZOLIN 1 GM in 0.9 % SODIUM CHLORIDE Mini-bag 100 ML IVPB (04:44)
[2022-09-17] MEDS: HYDROmorphone 0.5 mg/0.5 ml inj IVP ×3 (04:56→10:24)
[2022-09-17] MEDS: SODIUM CHLORIDE 0.9 % (FLUSH) 10 ML SYRINGE 5 ML IVF ×2 (04:57→07:30)
--- NOTE | 2022-09-17 05:03 | PC.NURSE ---
Shift note; Pt has been bed since the start of the shift. Patient periodically ask for pain medication. Alert and oriented. Dressing changed at 0525. The edges of the wound appears pink and irregular with middle dark substance. Abdominal pad and gauze bandage were soaked. Pt had adequate sleep. Vitally stable.
[2022-09-17 07:00] VITALS: BP 125/50; PULSE 68; RESP 18; TEMP 36; O2SAT 99
[2022-09-17 07:03] LABS: Basophils Absolute Auto 0.02 K/uL (0.00-0.30); Basophils Percent Auto 0.2 % (0.0-3.0); Eosinophils Absolute Auto 0.45 K/uL (0.00-0.50); Eosinophils Percent Auto 4.4 % (0.0-7.0); Hematocrit 26.4 % (33.0-51.0); Hemoglobin* 8.2 gm/dL (12.0-16.0); Immature Granulocytes Abs Auto 0.04 K/uL (0.00-0.30); Immature Granulocytes Pct Auto 0.4 %; Lymphocytes Absolute Auto 2.64 K/uL (0.90-2.90); Lymphocytes Percent Auto 25.9 % (20-44); Mean Corpuscular HGB Conc 31 gm/dL (32-36); Mean Corpuscular Hemoglobin 29 pg (26-34); Mean Corpuscular Volume 94 fL (80-100); Neutrophils Absolute Auto 6.34 K/uL (1.7-7.0); Neutrophils Percent Auto 62.1 % (42.0-72.0); Platelet Count* 214 K/uL (140-440); RDW Coefficient of Variation % 14.2 % (11.5-15.5)
[2022-09-17 07:11] LABS: Slide Review Reflex No
[2022-09-17 07:23] LABS: Chloride* 108 mmol/L (96-114); Potassium* 4.2 mmol/L (3.6-5.1); Sodium* 139 mmol/L (135-149)
[2022-09-17 07:26] LABS: Blood Urea Nitrogen* 50 mg/dL (7-30); Carbon Dioxide* 24 mmol/L (20-32); Creatinine* 2.1 mg/dL (0.5-1.5); Est. Creatinine Clearance* 19.18; Estimated Glomerular Filt Rate 26 ml/min
[2022-09-17 07:27] LABS: Calcium* 8.5 mg/dL (8.4-10.6); Glucose* 71 mg/dL (60-115)
[2022-09-17] MEDS: LEVOTHYROXINE 75 MCG TABLET 150 MCG PO (10:12)
[2022-09-17] MEDS: INDAPAMIDE 2.5 MG TABLET PO (10:13)
[2022-09-17] MEDS: TOPIRAMATE 50 MG TABLET 100 MG PO (10:14)
[2022-09-17] MEDS: DULOXETINE 30 MG CAPSULE DR 60 MG PO (10:14)
[2022-09-17] MEDS: TRAMADOL HCL 50 MG TABLET PO (10:14)
[2022-09-17] MEDS: FERROUS SULFATE 325 MG TABLET PO (10:14)
[2022-09-17] MEDS: FLUTICASONE PROPIONATE NASAL 2 SPRAY NOSTRIL-B (10:14)
[2022-09-17] MEDS: FUROSEMIDE 20 MG TABLET PO (10:14)
--- NOTE | 2022-09-17 10:58 | REH.PT ---
PT note: Pt refused PT x 2 due to receiving IV potassium, pain/burning from that. PM surgery. PT to reassess 09/18/22.
[2022-09-17 11:00] VITALS: BP 137/52; PULSE 78; RESP 18; TEMP 36.2; O2SAT 100
--- NOTE | 2022-09-17 11:13 | PM.DS1 ---
DS: Providers Provider Date Seen: 09/17/22 Date of admission: 09/15/22 09:04 Primary care physician: Not a Local Provider Admitting Clinician: Niya Mistry MD Consults: PT, OT, General Surgery Attending Physician on discharge: Evelyne Whalen MD Date of Discharge: 09/17/22 DS: Diagnosis Discharge Diagnosis (1) Murmur: Status: Acute Problem details: - noted on exam, TTE 09/16: Final Impressions: 1. Normal left ventricular size, normal wall thickness, normal global systolic function, calculated EF of 71 %. 2. Right ventricular cavity size is normal, global systolic RV function is normal. 3. The aortic valve is not well visualized, moderate stenosis and no regurgitation. The aortic valve peak velocity is 3.5 m/s, the peak gradient is 49 mmHg, and the mean gradient is 32 mmHg. The aortic valve area is 1.24 cm?? with a dimensionless index of 0.35. The stroke volume index is 44.2 ml/m??. 4. Echo contrast was administered to enhance visualization of all left ventricular segments. (2) Physical debility: Status: Acute Problem details: - multiple comorbidities including lymphedema, therapies following - SNF recommended upon discharge (3) Anemia: Status: Acute Problem details: - acute on chronic, transfused 1U PRBCs 09/15 for Hgb <8 - 2/2 chronic renal disease (4) Diabetic peripheral neuropathy associated with type 2 diabetes mellitus: Status: Acute (5) Asthma: Status: Acute Problem details: - chronic, quiescent (6) Diabetes mellitus type 2 in obese: Status: Acute Problem details: - chronic, long acting insulin decreased during stay given hypoglycemia (7) Laceration of leg not thigh, complicated: Status: Acute Problem details: - primary repair with Dr. Mistry of General Surgery 09/14, unable to place wound vac 2/2 habitus; wet to dry dressings - on Ancef during stay, discharging on Keflex (8) Edema: Status: Acute Problem details: - Lymphedema, chronic DS: Summary Hospital Course Hospital Course: Eryn is a 67yo female who was admitted to the hospital after a fall at her [facility], sustaining a complicated laceration to the LLE. This was repaired by Dr. Mistry of General Surgery, followed by wet-to-dry dressing changes daily. Patient's comorbidities and notable hospital findings above (anemia requiring transfusion of 1U PRBCs, CKD with creatinine of 2.1 on discharge, lymphedema, IDDM2 with intermittent hypoglycemia). Medication changes noted below. Given patient's fall and deconditioning, she was followed by therapies, who ultimately recommended a SNF stay upon discharge. Patient was medically stable for discharge to [address] [place] [address] on 09/17/22. Status at Discharge Functional status at discharge: uses cane/walker Overall status at discharge: patient is progressing back to baseline Time Spent with Patient Time attestation: Total time spent providing and/or coordinating discharge services: Time spent: Greater than 30 minutes Specific discharge activities: medication management, patient education Exam Narrative: Exam Narrative: GEN: Alert and oriented HEENT: EOMIs bilaterally, no scleral icterus, conjunctiva pale CV: RRR, Holosystolic murmur across precordium R: LCTA bilaterally without concerning wheezing, air movement adequate Ext: edema and skin thickening of BLE, LLE wound is wrapped and not formally examined (seen by General Surgery for wound care) Neuro: No focal deficits, ambulates with assistance and use of a walker Psych: Appropriate Const: Vital Signs, click to edit/add: Vital Signs - 24 hr 09/16/22 15:00 09/16/22 15:00 09/16/22 15:00 Temperature 97.1 F L Pulse Rate [Pulse Oximeter] 79 79 Respiratory Rate 18 18 Blood Pressure [Le ft Arm] 130/61 Pulse Oximetry 98 98 Oxygen Delivery Me thod Room Air 09/16/22 19:00 09/16/22 23:00 09/16/22 23:00 Temperature 98.1 F Pulse Rate [Pulse Oximeter] 77 79 Respiratory Rate 18 18 Blood Pressure [Le ft Arm] 124/47 L Pulse Oximetry 98 98 Oxygen Delivery Me thod Room Air 09/16/22 23:00 09/17/22 03:00 09/17/22 07:00 Temperature 98.1 F 98.1 F Pulse Rate [Pulse Oximeter] 79 70 Respiratory Rate 18 18 Blood Pressure [Le ft Arm] 121/77 121/53 L Pulse Oximetry 98 97 99 Oxygen Delivery Me thod Room Air Room Air 09/17/22 07:00 09/17/22 07:00 Temperature 96.8 F L Pulse Rate [Pulse Oximeter] 68 68 Respiratory Rate 18 18 Blood Pressure [Le ft Arm] 125/50 L Pulse Oximetry 99 Oxygen Delivery Me thod Room Air DS: Data Data Completed and Pending Labs on day of discharge: Labs from last 24 hours 09/17/22 06:49 WBC 10.20 RBC 2.80 L Hgb 8.2 L Hct 26.4 L MCV 94 MCH 29 MCHC 31 L RDW Coeff of Antonio 14.2 Plt Count 214 Neut % (Auto) 62.1 Lymph % (Auto) 25.9 [place] % (Auto) 7.0 Eos % (Auto) 4.4 Baso % (Auto) 0.2 Neut # (Auto) 6.34 Lymph # (Auto) 2.64 [place] # (Auto) 0.70 Eos # (Auto) 0.45 Baso # (Auto) 0.02 Sodium 139 Potassium 4.2 Chloride 108 Carbon Dioxide 24 BUN 50 H Creatinine 2.1 H Estimated Creat Clear 19.18 Estimated GFR 26 Glucose 71 Calcium 8.5 Discharge Plan Discharge Disposition: [facility] Date of Admission: 09/15/22 09:04 Attending Provider on Discharge: Evelyne Whalen Primary Care Provider: Provider,Not a Local Condition: Stable Discharge Medications: New Novolin N FlexPen 100 unit/mL (3 mL) insulin pen 6 unit subcut BID Qty: 15 0RF Rx Instructions: 6U in AM, 20U HS cephalexin 500 mg capsule 500 mg PO BID 5 Days Qty: 10 0RF Continued cyclobenzaprine 10 mg tablet 10 mg PO HS indapamide 2.5 mg tablet 2.5 mg PO DAILY tramadol 50 mg tablet 50 mg PO Q8H PRN diltiazem HCl 300 mg capsule,extended release 24hr 300 mg PO DAILY pantoprazole 40 mg tablet,delayed release (DR/EC) 40 mg PO BID ferrous sulfate [FeroSul] 325 mg (65 mg iron) tablet 325 mg PO QAM levothyroxine 150 mcg tablet 150 mcg PO DAILY fluticasone propion-salmeterol [Advair Diskus] 500-50 mcg/dose blister with device 1 inh INHALATION BID docusate sodium 100 mg capsule 200 mg PO HS montelukast 10 mg tablet 10 mg PO HS furosemide 20 mg tablet 20 mg PO QAM nystatin [Nystop] 100,000 unit/gram powder 1 applic TOPICAL BID PRN polyethylene glycol 3350 17 gram/dose powder 17 g PO Q48H albuterol sulfate [Ventolin HFA] 90 mcg/actuation HFA aerosol inhaler 1 - 2 puff INHALATION Q4H PRN topiramate 100 mg tablet 100 mg PO BID fluticasone propionate 50 mcg/actuation spray,suspension 2 spray INTRANASAL DAILY insulin aspart U-100 [Novolog FlexPen U-100 Insulin] 100 unit/mL (3 mL) insulin pen 8 unit SUBCUT TIDWM Patient Comments: PLUS SLIDING SCALE duloxetine 60 mg capsule,delayed release(DR/EC) 60 mg PO HS oxycodone [OxyContin] 60 mg tablet,oral only,ext.rel.12 hr 60 mg PO BID melatonin 3 mg capsule 3 mg PO HS insulin aspart U-100 [Novolog FlexPen U-100 Insulin] 100 unit/mL (3 mL) insulin pen 1 sliding scale dose subcut USEASDIRECTD Rx Instructions: 2 ADDITIONAL UNITS FOR EVERY 40 POINTS GREATER THAN BLOOD SUGAR OF 180 cholecalciferol (vitamin D3) [Vitamin D3] 50 mcg (2,000 unit) tablet 2,000 unit PO DAILY ipratropium-albuterol 20-100 mcg/actuation mist 1 puff inhalation Q6H PRN clotrimazole 1 % cream 1 applic topical BID PRN Held aspirin 81 mg tablet,chewable 1 tab PO HS Hold Instructions: Resume on 09/17/22. restart on Thursday, 09/22 if Hgb remains stable Discontinued lisinopril 20 mg tablet 20 mg PO HS Novolin N FlexPen 100 unit/mL (3 mL) insulin pen 6 unit SUBCUT QAM Novolin N FlexPen 100 unit/mL (3 mL) insulin pen 36 unit subcut HS ondansetron HCl 4 mg tablet 4 mg PO Q6H PRN Discharge Orders: Discharge Order (Routine); Ordered 09/17/22 Ordered By: Evelyne Whalen Additional Instructions: DECREASE NOVOLIN dose given inpatient hypoglycemia (6U AM, 20U HS). Sliding scale with meals as needed. HOLD ASPIRIN until repeat CBC done next week. STOP Lisinopril given lower BPs and Creatinine of 2.1 Activity Level: Activity as Tolerated Activity Detail: per PT/OT Discharge Diet: Diabetic Follow Up Appointments: Provider,Not a Local [Primary Care Provider] - (See PCP at [facility] after discharge from SNF) Wound Care: Wet-to-dry dressing daily (per Dr. Mistry of General Surgery) Admit to: SNF Discharge Potential: Fair Length of Stay: 30-90 days Can use facility standing orders?: Yes Code Status: Full Code Rehab Potential: Fair Therapy: Physical Therapy and Occupational Therapy Therapy Orders: Evaluate and Treat Therapy Orders Additional Information: also lymphedema management Oxygen: No Urinary Catheter: No Glucose Checks: AC and HS Next INR: n/a Lab Orders: CBC and BMP on Thursday, 09/22 Orders are good >30 days: Yes Signature: Evelyne Whalen MD
--- NOTE | 2022-09-17 11:15 | PC.SOCIAL ---
Pt. was declined by [facility], they accepted another referral for their one bed. [facility] has a bed and can accept pt. today. Pt. will go via non-emergency ambulance under her [place] benefit.
--- NOTE | 2022-09-17 11:41 | P.GSPN_ITS ---
Subjective Subjective Date Seen: 09/17/22 Interval history: Lucila is doing well overall. Attempted wound VAC placement again yesterday but could not get a seal. Return to wet to dries. Exam Narrative: Exam Narrative: General: No acute distress Extremities: Left lower extremity wound with healthy granulation tissue. No purulence. Brownish areas are from Surgicel placed at the time of surgery. Edges of skin are generally healthy though the skin flap laterally does have a small strip of ecchymosis. There is some redness around the wound. This is mildly more noticeable than what was present preoperatively. Const: Vital Signs, click to edit/add: Vital Signs - 24 hr 09/16/22 15:00 09/16/22 15:00 09/16/22 15:00 Temperature 97.1 F L Pulse Rate [Pulse Oximeter] 79 79 Respiratory Rate 18 18 Blood Pressure [Le ft Arm] 130/61 Pulse Oximetry 98 98 Oxygen Delivery Me thod Room Air 09/16/22 19:00 09/16/22 23:00 09/16/22 23:00 Temperature 98.1 F Pulse Rate [Pulse Oximeter] 77 79 Respiratory Rate 18 18 Blood Pressure [Le ft Arm] 124/47 L Pulse Oximetry 98 98 Oxygen Delivery Me thod Room Air 09/16/22 23:00 09/17/22 03:00 09/17/22 07:00 Temperature 98.1 F 98.1 F Pulse Rate [Pulse Oximeter] 79 70 Respiratory Rate 18 18 Blood Pressure [Le ft Arm] 121/77 121/53 L Pulse Oximetry 98 97 99 Oxygen Delivery Me thod Room Air Room Air 09/17/22 07:00 09/17/22 07:00 Temperature 96.8 F L Pulse Rate [Pulse Oximeter] 68 68 Respiratory Rate 18 18 Blood Pressure [Le ft Arm] 125/50 L Pulse Oximetry 99 Oxygen Delivery Me thod Room Air Progress Note: A&P Assessment and plan (1) Physical debility: Problem details: - multiple comorbidities including lymphedema, therapies following - SNF recommended upon discharge Status: Acute (2) Murmur: Problem details: - noted on exam, TTE 09/16: Final Impressions: 1. Normal left ventricular size, normal wall thickness, normal global systolic function, calculated EF of 71 %. 2. Right ventricular cavity size is normal, global systolic RV function is normal. 3. The aortic valve is not well visualized, moderate stenosis and no regurgitation. The aortic valve peak velocity is 3.5 m/s, the peak gradient is 49 mmHg, and the mean gradient is 32 mmHg. The aortic valve area is 1.24 cm?? with a dimensionless index of 0.35. The stroke volume index is 44.2 ml/m??. 4. Echo contrast was administered to enhance visualization of all left ve ntricular segments. Status: Acute (3) Diabetic peripheral neuropathy associated with type 2 diabetes mellitus: Status: Acute (4) Anemia: Problem details: - acute on chronic, transfused 1U PRBCs 09/15 for Hgb <8 - 2/2 chronic renal disease Status: Acute (5) Laceration of leg not thigh, complicated: Problem details: - primary repair with Dr. Mistry of General Surgery 09/14, unable to place wound vac 2/2 habitus; wet to dry dressings - on Ancef during stay, discharging on Keflex Status: Acute (6) Lymphedema associated with obesity: Problem details: - wraps at home, therapies following during stay Status: Acute Plan The patient is a 67-year-old female who is postop day 3 status post debridement and repair of traumatic left lower extremity laceration. The plan is for her to discharge to subacute nursing facility today. -Continue daily dressing changes with vashe - discharge orders placed -there is some periwound redness. Some of this is chronic for the patient but also likely irritation all and also may be related to mild cellulitis. Continue antibiotics. There is no other sign or symptom of infection of the wound such as purulent drainage. -recommend that the patient establish care in the [facility] wound center - patient should follow up next week to establish care. If they are unable to get her in next week then she should be placed in my surgery Clinic next Thursday so I can evaluate the wound.
[2022-09-17 11:56] VITALS: BP 155/66; PULSE 83; RESP 18; TEMP 36
--- NOTE | 2022-09-17 12:20 | PC.NURSE ---
Nurse to nurse given to Lucila at [facility].
--- NOTE | 2022-09-17 13:06 | PC.NURSE ---
Patient transferred to [facility] via non emergent ambulance. Nursing called [facility] to communicate patient did not receive afternoon insulin dose or lunch. Patient did not receive prilosec or afternoon ABX therapy either.
== END 2022-09-17 12:45 | DRG 571 ==
LOC: ED 20:28 → SS 20:42 → MEDSURG 23:45 → SS 09-15 10:22 → MEDSURG 09-15 10:22
PROVIDERS: Admitting Provider Family Medicine; Emergency Provider Family Medicine; Visit Provider Surgery
PROC: 0JBP0ZZ Excision of Left Lower Leg Subcutaneous Tissue and Fascia, Open Approach (ICD-10-PCS; principal; 2022-09-14 21:30)
DX: S81.802A Unspecified open wound, left lower leg, initial encounter (principal); I12.0 Hypertensive chronic kidney disease with stage 5 chronic kidney disease or end stage renal disease; N18.5 Chronic kidney disease, stage 5; L03.116 Cellulitis of left lower limb; Z68.43 Body mass index [BMI] 50.0-59.9, adult; S81.812A Laceration without foreign body, left lower leg, initial encounter; I89.0 Lymphedema, not elsewhere classified; E11.65 Type 2 diabetes mellitus with hyperglycemia; E11.42 Type 2 diabetes mellitus with diabetic polyneuropathy; E11.22 Type 2 diabetes mellitus with diabetic chronic kidney disease; D63.1 Anemia in chronic kidney disease; E87.5 Hyperkalemia; Z79.4 Long term (current) use of insulin; Z79.84 Long term (current) use of oral hypoglycemic drugs; G89.29 Other chronic pain; R01.1 Cardiac murmur, unspecified; E66.01 Morbid (severe) obesity due to excess calories; G47.33 Obstructive sleep apnea (adult) (pediatric); W01.0XXA Fall on same level from slipping, tripping and stumbling without subsequent striking against object, initial encounter; Y92.129 Unspecified place in nursing home as the place of occurrence of the external cause; F11.90 Opioid use, unspecified, uncomplicated; R26.89 Other abnormalities of gait and mobility; J45.909 Unspecified asthma, uncomplicated; E78.5 Hyperlipidemia, unspecified
CPT/HCPCS: 01470; 36415; 36430; 73562; 73590; 80048; 82330; 82962; 85018; 85025; 85610; 85730; 86850; 86900; 86901; 86922; 93005; 93306; 97162; 97166; 97530; 99140; 99284; 99291; A9270; J0690; J1170; J1650; J1940; J2370; J2405; J3010; J3490; J7030; P9016

== ENCOUNTER 2022-09-17 12:34 | Outpatient (CLI) | payer MEDICARE, MEDICAID, SELFPAY | END 2022-09-17 12:35 | disposition home or self-care (01) | LOC: AMB 10-03 10:59 | PROVIDERS: Visit Provider Emergency Medicine | DX: Z99.3 Dependence on wheelchair (principal) | CPT/HCPCS: A0425; A0428 ==

== ENCOUNTER 2022-09-23 08:37 | Outpatient (CLI) | payer MEDICARE, MEDICAID, SELFPAY | END 2022-09-23 08:38 | disposition home or self-care (01) | LOC: WOUND 08:41 | PROVIDERS: Visit Provider Family Medicine | DX: I87.312 Chronic venous hypertension (idiopathic) with ulcer of left lower extremity (principal); E11.622 Type 2 diabetes mellitus with other skin ulcer; L97.822 Non-pressure chronic ulcer of other part of left lower leg with fat layer exposed; L97.225 Non-pressure chronic ulcer of left calf with muscle involvement without evidence of necrosis; D64.9 Anemia, unspecified; Z79.4 Long term (current) use of insulin | CPT/HCPCS: 11042; 11045; 99213 ==

== ENCOUNTER 2022-09-24 14:25 | Outpatient (CLI) | payer MEDICARE, MEDICAID, SELFPAY | END 2022-09-24 14:26 | disposition home or self-care (01) | LOC: AMB 09-30 10:36 | PROVIDERS: Visit Provider Family Medicine | DX: R41.82 Altered mental status, unspecified (principal) | CPT/HCPCS: A0425; A0429 ==

== ENCOUNTER 2022-09-24 14:47 | Inpatient (IN) | payer MEDICARE, MEDICAID, SELFPAY ==
[2022-09-24] VITALS (21 sets, daily range): BP systolic 96–140; BP diastolic 47–60; PULSE 78–95; RESP 20–22; TEMP 37–37.3; O2SAT 86–98; BMI 68.4; BMI 48.8
[2022-09-24 15:40] LABS: Lactate* 0.9 mmol/L (0.5-1.9)
[2022-09-24 15:43] LABS: Basophils Percent Auto 0.1 % (0.0-3.0); Eosinophils Percent Auto 0.2 % (0.0-7.0); Hematocrit 22.4 % (33.0-51.0); Immature Granulocytes Pct Auto 1.2 %; Lymphocytes Percent Auto 7.4 % (20-44); Mean Corpuscular HGB Conc 32 gm/dL (32-36); Mean Corpuscular Hemoglobin 29 pg (26-34); Mean Corpuscular Volume 91 fL (80-100); Monocytes Percent Auto 6.6 % (0.0-11.0); Neutrophils Percent Auto 84.5 % (42.0-72.0); Platelet Count* 322 K/uL (140-440); RDW Coefficient of Variation % 13.8 % (11.5-15.5); Red Blood Count 2.47 m/uL (4.00-5.20); White Blood Count* 18.45 K/uL (4.50-11.00)
[2022-09-24 15:48] LABS: Hemoglobin* 7.2 gm/dL (12.0-16.0); Slide Review Reflex No
--- NOTE | 2022-09-24 15:52 | ED.NURSE ---
Critical hgb received from lab: 7.2, handed to at 1553, result expected, no further orders.
[2022-09-24 15:57] LABS: Albumin* 3.4 g/dL (3.3-5.0); Chloride* 100 mmol/L (96-114); Potassium* 3.8 mmol/L (3.6-5.1); Sodium* 132 mmol/L (135-149)
[2022-09-24 15:59] LABS: Creatinine* 2.8 mg/dL (0.5-1.5)
[2022-09-24 16:00] LABS: Alanine Aminotransferase* 15 U/L (4-35); Alkaline Phosphatase* 90 U/L (40-150); Aspartate Amino Transferase* 18 U/L (12-35); Bilirubin Direct* 0.3 mg/dL (0.0-0.5); Bilirubin Total* 0.6 mg/dL (0.1-1.5); Blood Urea Nitrogen* 56 mg/dL (7-30); Carbon Dioxide* 21 mmol/L (20-32); Est. Creatinine Clearance* 14.39; Estimated Glomerular Filt Rate 18 ml/min; Glucose* 216 mg/dL (60-115); Total Protein* 6.7 g/dL (6.0-8.3)
[2022-09-24 16:01] LABS: Calcium* 8.5 mg/dL (8.4-10.6)
[2022-09-24 16:14] LABS: C Reactive Protein* 25.6 mg/dL (0.5-1.0)
[2022-09-24 16:19] LABS: Erythrocyte SedimentationRate* > 102 mm/hr (2-20)
--- NOTE | 2022-09-24 16:31 | ED_ITS ---
HPI - General Adult General Chief complaint: Laceration/Wound Stated complaint: Infection Altered Lab Values Time Seen by Provider: 09/24/22 14:48 Source: patient Limitations: no limitations and altered mental status History of Present Illness HPI narrative: 67-year-old female coming in today at the request of the staff at [facility] for altered mental status. She states she has been sleepier than normal. Patient is a well-known patient to us with chronic and complicated medical history who recently suffered a large wound to the left lower extremity, [facility], who was seen today per her schedule and wounds were redressed. She tells me she feels fine and has no specific complaints. However, she is a bit sleepy when I talk to her. No fevers that staff is aware of. No vomiting. No coughing or shortness of breath. Related Data Home Medications Medication Instructions Recorded Confirmed albuterol sulfate 90 mcg/actuation 1 - 2 puff inhalation Q4H PRN 10/13/21 09/14/22 aerosol inhaler (Ventolin HFA) aspirin 81 mg chewable tablet 1 tab PO HS 10/13/21 09/15/22 cyclobenzaprine 10 mg tablet 10 mg PO HS 10/13/21 09/14/22 diltiazem HCl 300 mg 300 mg PO DAILY 10/13/21 09/15/22 capsule,extended release 24 hr docusate sodium 100 mg capsule 200 mg PO HS 10/13/21 09/14/22 duloxetine 60 mg capsule,delayed 60 mg PO HS 10/13/21 09/15/22 release ferrous sulfate 325 mg (65 mg 325 mg PO QAM 10/13/21 09/14/22 iron) tablet (FeroSul) fluticasone 500 mcg-salmeterol 50 1 inh inhalation BID 10/13/21 09/15/22 mcg/dose blistr powdr for inhalation (Advair Diskus) fluticasone propionate 50 2 spray intranasal DAILY 10/13/21 09/15/22 mcg/actuation nasal spray,suspension furosemide 20 mg tablet 20 mg PO QAM 10/13/21 09/14/22 indapamide 2.5 mg tablet 2.5 mg PO DAILY 10/13/21 09/14/22 insulin aspart U-100 100 unit/mL 8 unit subcut TIDWM 10/13/21 09/14/22 (3 mL) subcutaneous pen (Novolog FlexPen U-100 Insulin aspart) levothyroxine 150 mcg tablet 150 mcg PO DAILY 10/13/21 09/14/22 montelukast 10 mg tablet 10 mg PO HS 10/13/21 09/14/22 nystatin 100,000 unit/gram topical 1 applic topical BID PRN 10/13/21 09/14/22 powder (Nystop) oxycodone 60 mg tablet,crush 60 mg PO BID 10/13/21 09/15/22 resistant,extended release 12 hr (OxyContin) pantoprazole 40 mg tablet,delayed 40 mg PO BID 10/13/21 09/15/22 release polyethylene glycol 3350 17 17 g PO Q48H 10/13/21 09/14/22 gram/dose oral powder topiramate 100 mg tablet 100 mg PO BID 10/13/21 09/15/22 tramadol 50 mg tablet 50 mg PO Q8H PRN 10/13/21 09/14/22 cholecalciferol (vitamin D3) 50 2,000 unit PO DAILY 10/14/21 09/14/22 mcg (2,000 unit) tablet (Vitamin D3) insulin aspart U-100 100 unit/mL 1 sliding scale dose subcut 10/14/21 09/15/22 (3 mL) subcutaneous pen (Novolog USEASDIRECTD FlexPen U-100 Insulin aspart) melatonin 3 mg capsule 3 mg PO HS 10/14/21 09/14/22 clotrimazole 1 % topical cream 1 applic topical BID PRN 09/15/22 09/15/22 ipratropium 20 mcg-albuterol 100 1 puff inhalation Q6H PRN 09/15/22 09/15/22 mcg/actuation mist for inhalation Previous Rx's Medication Instructions Recorded cephalexin 500 mg capsule 500 mg PO BID 5 days #10 caps 09/17/22 insulin NPH isoph U-100 human 100 6 unit (0.06 mL) subcut BID #15 mL 09/17/22 unit/mL (3 mL) subcutaneous pen (Novolin N FlexPen) oxycodone 20 mg tablet,crush 60 mg (3 x 20 mg) PO Q12H #90 tabs 09/17/22 resistant,extended release 12 hr (OxyContin) tramadol 50 mg tablet 50 mg PO Q8H PRN #60 tabs 09/17/22 Allergies Allergy/AdvReac Type Severity Reaction Status Date / Time adhesive tape Allergy Verified 09/14/22 20:32 allopurinol Allergy Verified 09/14/22 20:32 atorvastatin Allergy Verified 09/14/22 20:32 clarithromycin Allergy Verified 09/14/22 20:32 dulaglutide [From Trulicity] Allergy Verified 09/14/22 20:32 fluconazole [From Diflucan] Allergy Verified 09/14/22 20:32 Review of Systems Status of ROS: Reports: 10 or more systems reviewed and unremarkable except as noted in History and below [facility] Medical History Murmur ?R01.1 - Cardiac murmur, unspecified (ICD-10) Physical debility ?R53.81 - Other malaise (ICD-10) Unstable gait ?R26.81 - Unsteadiness on feet (ICD-10) Chronic kidney disease, stage 5 ?N18.5 - Chronic kidney disease, stage 5 (ICD-10) Hypothyroidism ?E03.9 - Hypothyroidism, unspecified (ICD-10) Lymphedema associated with obesity ?I89.0 - Lymphedema, not elsewhere classified (ICD-10) ?E66.9 - Obesity, unspecified (ICD-10) Chronic pain ?G89.29 - Other chronic pain (ICD-10) Hypertension ?I10 - Essential (primary) hypertension (ICD-10) Morbid obesity ?E66.01 - Morbid (severe) obesity due to excess calories (ICD-10) Obstructive sleep apnea ?G47.33 - Obstructive sleep apnea (adult) (pediatric) (ICD-10) Diabetic peripheral neuropathy associated with type 2 diabetes mellitus ?E11.42 - Type 2 diabetes mellitus with diabetic polyneuropathy (ICD-10) Asthma ?J45.909 - Unspecified asthma, uncomplicated (ICD-10) Diabetes mellitus type 2 in obese ?E11.69 - Type 2 diabetes mellitus with other specified complication (ICD-10) ?E66.9 - Obesity, unspecified (ICD-10) Anemia ?D64.9 - Anemia, unspecified (ICD-10) Fibromyalgia ?M79.7 - Fibromyalgia (ICD-10) Supraventricular tachycardia ?I47.1 - Supraventricular tachycardia (ICD-10) Chronic rhinitis ?J31.0 - Chronic rhinitis (ICD-10) Hyperlipidemia associated with type 2 diabetes mellitus ?E11.69 - Type 2 diabetes mellitus with other specified complication (ICD-10) ?E78.5 - Hyperlipidemia, unspecified (ICD-10) POLST (Physician Orders for Life-Sustaining Treatment) ?Z78.9 - Other specified health status (ICD-10) Chronic, continuous use of opioids ?F11.90 - Opioid use, unspecified, uncomplicated (ICD-10) Vaginal bleeding ?N93.9 - Abnormal uterine and vaginal bleeding, unspecified (ICD-10) Metabolic acidosis ?E87.2 - Acidosis (ICD-10) Hyponatremia ?E87.1 - Hypo-osmolality and hyponatremia (ICD-10) Surgical History S/P carpal tunnel release ?Z98.890 - Other specified postprocedural states (ICD-10) H/O left wrist surgery ?Z98.890 - Other specified postprocedural states (ICD-10) H/O: section ?Z98.891 - History of uterine scar from previous surgery (ICD-10) H/O hysterectomy with oophorectomy Social History Highest level of school completed/degree received: high school graduate Smoking Status: Never smoker Do you use any of these nicotine containing products: None Second hand tobacco smoke exposure: No How often do you have a drink containing alcohol: never How often do you have six or more drinks on one occasion: Never AUDIT-C Alcohol total score: 0 Non-prescribed substance use: denies use Gender Identity: female service: No Exam Narrative: Exam Narrative: Morbidly obese, well-developed patient in no acute distress. Alert and oriented x3. However, does not answer other questions appropriately . She can clearly tell me the place, time, month, year and president however, when asked her why she is in the ER she repeats herself over and over again and her answers do not actually answer the question that I am asking. Her blood pressures in the 1 teens systolic and her pulse is in the 90s. Looking through her chart her pulse is usually in the 70s or 80s, blood pressures in the 120s or above. HEENT: Normocephalic atraumatic. Pupils are equally round reactive to light. Extraocular muscles are intact. Conjunctivae are moist without any icterus noted, pale. Moist mucous membranes. Neck is soft. Cardiovascular: Heart is regular rate and rhythm S1 and S2 with a loud 3/6 systolic murmur. Lungs: Slightly decreased breath sounds bilaterally. Abdomen: Soft and nontender nondistended with normal bowel sounds. Difficult to assess for organomegaly secondary to body habitus. Extremities: Obese, with trace pitting edema. She has a large wound on the left lower extremity that does appear to be healing well. Weak PT and DP pulses bilaterally. Skin: Well perfused without any obvious rashes, pale. Const: Vital Signs, click to edit/add: Vital Signs - 24 hr 09/24/22 14:58 09/24/22 14:58 09/24/22 15:06 Temperature 98.9 F Pulse Rate 94 Pulse Rate [Pulse Oximeter] 95 Respiratory Rate 20 Blood Pressure Blood Pressure [Le ft Forearm] 140/60 H Pulse Oximetry 89 94 86 L Oxygen Delivery Me thod Room Air Nasal Cannula Room Air Oxygen Flow Rate 1 09/24/22 15:15 09/24/22 15:32 09/24/22 15:33 Temperature Pulse Rate 91 90 Pulse Rate [Pulse Oximeter] Respiratory Rate Blood Pressure 114/57 L Blood Pressure [Le ft Forearm] Pulse Oximetry 94 93 Oxygen Delivery Me thod Nasal Cannula Oxygen Flow Rate 1 09/24/22 15:45 09/24/22 15:47 Temperature Pulse Rate 91 Pulse Rate [Pulse Oximeter] Respiratory Rate Blood Pressure Blood Pressure [Le ft Forearm] Pulse Oximetry 95 96 Oxygen Delivery Me thod Oxygen Flow Rate Course Course Hospital Course: IV was established and labs were drawn. White blood cell is elevated over 18,000, CRP and sed rate also elevated. Lactate is normal creatinine is a bit above her baseline. We started IV fluids and IV Zosyn. Blood and urine cul tures have been drawn. Vital Signs Vital signs: Initial Vital Signs Temperature 98.9 F 09/24/22 14:58 Temperature Source Temporal Artery Scan 09/24/22 14:58 Pulse Rate 95 09/24/22 14:58 Respiratory Rate 20 09/24/22 14:58 Blood Pressure 140/60 H 09/24/22 14:58 Blood Pressure Mean 86 09/24/22 14:58 Pulse Oximetry 89 09/24/22 14:58 Oxygen Delivery Method Room Air 09/24/22 14:58 Oxygen Flow Rate 1 09/24/22 14:58 Vital Signs Temperature 98.9 F 09/24/22 14:58 Pulse Rate 95 09/24/22 14:58 Respiratory Rate 20 09/24/22 14:58 Blood Pressure 140/60 H 09/24/22 14:58 Pulse Oximetry 89 09/24/22 14:58 Oxygen Delivery Method Room Air 09/24/22 14:58 Oxygen Flow Rate 1 09/24/22 14:58 Temperature 98.9 F 09/24/22 14:58 Pulse Rate 91 09/24/22 15:45 Respiratory Rate 20 09/24/22 14:58 Blood Pressure 114/57 L 09/24/22 15:32 Pulse Oximetry 96 09/24/22 15:47 Oxygen Delivery Method Nasal Cannula 09/24/22 15:15 Oxygen Flow Rate 1 09/24/22 15:15 Medical Decision Making MDM Narrative Medical decision making narrative: 67-year-old female with signs of infection, unclear source at this time. UA and chest x-ray pending at this time. Patient will be admitted for further management. Medical Records Medical records reviewed: Yes I reviewed the patient's medical records Lab Data Lab results reviewed: Yes I reviewed the patient's lab results Labs: Lab Results 09/24/22 Range/Units 15:30 WBC 18.45 H (4.50-11.00) K/uL RBC 2.47 L (4.00-5.20) m/uL Hgb 7.2 L* (12.0-16.0) gm/dL Hct 22.4 L (33.0-51.0) % MCV 91 (80-100) fL MCH 29 (26-34) pg MCHC 32 (32-36) gm/dL RDW Coeff of Antonio 13.8 (11.5-15.5) % Plt Count 322 (140-440) K/uL Neut % (Auto) 84.5 H (42.0-72.0) % Lymph % (Auto) 7.4 L (20-44) % [place] % (Auto) 6.6 (0.0-11.0) % Eos % (Auto) 0.2 (0.0-7.0) % Baso % (Auto) 0.1 (0.0-3.0) % Neut # (Auto) 15.60 H (1.7-7.0) K/uL Lymph # (Auto) 1.40 (0.90-2.90) K/uL [place] # (Auto) 1.20 H (0.00-0.90) K/UL Eos # (Auto) 0.00 (0.00-0.50) K/uL Baso # (Auto) 0.00 (0.00-0.30) K/uL ESR > 102 H (2-20) mm/hr Sodium 132 L (135-149) mmol/L Potassium 3.8 (3.6-5.1) mmol/L Chloride 100 (96-114) mmol/L Carbon Dioxide 21 (20-32) mmol/L BUN 56 H (7-30) mg/dL Creatinine 2.8 H (0.5-1.5) mg/dL Estimated Creat Clear 14.39 Estimated GFR 18 ml/min Glucose 216 H (60-115) mg/dL Lactate 0.9 (0.5-1.9) mmol/L Calcium 8.5 (8.4-10.6) mg/dL Total Bilirubin 0.6 (0.1-1.5) mg/dL Direct Bilirubin 0.3 (0.0-0.5) mg/dL AST 18 (12-35) U/L ALT 15 (4-35) U/L Alkaline Phosphatase 90 (40-150) U/L C-Reactive Protein 25.6 H (0.5-1.0) mg/dL Total Protein 6.7 (6.0-8.3) g/dL Albumin 3.4 (3.3-5.0) g/dL Discharge Plan Discharge Clinical Impression: Altered mental status, Infection Patient Disposition: Admitted As Inpatient Condition: Stable
--- NOTE | 2022-09-24 16:42 | CRLHL7_ITS ---
For Patients: As a result of the Century Cures Act, medical imaging exams and procedure reports are released immediately into your electronic medical record. You may view this report before your referring provider. If you have questions, please contact your health care provider. HISTORY: Altered mental status. COMPARISON: CT of the chest from 04/20/2022. FINDINGS: A portable semi-erect AP view of the chest was obtained at 1653 hours. There is new mild vascular engorgement with new mild interstitial pulmonary edema, findings of new mild congestive failure. There is no sign of a pleural effusion or focal infiltrate. The heart has increased in size and is now mildly enlarged. The mediastinum is otherwise normal in appearance. The osseous structures are normal in appearance for the patient`s age. IMPRESSION: New mild congestive failure with new mild cardiomegaly. Dictated by Jimbo Flores MD @ 09/24/2022 5:33:32 PM (Electronically Signed)
[2022-09-24] MEDS: 0.9 % SODIUM CHLORIDE 1000 ml 1,000 ML IV (16:47)
[2022-09-24] MEDS: PIPERACILLIN/TAZOBACTAM 3.375 GM in 0.9 % SODIUM CHLORIDE Mini-bag 100 ML IVPB (17:27)
--- NOTE | 2022-09-24 17:36 | ED.NURSE ---
Communicated with RN at [facility] to give update. Nursing station phone is: [phone]
--- NOTE | 2022-09-24 18:07 | P.IMHP_ITS ---
Hospitalist- H&P: HPI History of Present Illness Date Seen: 09/24/22 Chief complaint: Altered Narrative: Eryn Pollard is a 67 year old female who presented to the ER today for altered mental status/increased sleepiness at the request of [address] [place] [address]. She was notably hospitalized from 09/14-09/17 after falling and sustaining a large LLE laceration and degloving wound. This was surgically repaired by Dr. Mistry of General Surgery and she was discharged to [address] [address] for rehab. [facility] for a wound check/dressing change, and notes feeling very sleepy after the appt. She typically would rest for 1-2 days after an appointment, but had rehab today and felt too tired to participate. Also felt too tired to eat today and endorses feeling wiped. She does not feel that she truly had altered mental status. She recently completed a course of Keflex. She has chronic pain and is on daily narcotics, no recent dose changes. ER Course and Findings: - O2 saturation 86% on ED arrival, supplemental oxygen placed - WBC 18, elevated CRP, normal lactate - CXR exhibits signs of fluid overload - Hgb 7.2 (was 8.2 upon discharge last week) - Cr 2.8 (was 2.1 last week, closer to patient's outpatient baseline) - erythema and scant drainage from wound on LLE - 1U of PRBCs ordered and Zosyn administered Patient's histories are updated below. Prior to her 09/14 hospitalization, she was living at an assisted living facility (required higher LOC after last admission). Review of Systems Status of ROS: Reports: 10 or more systems reviewed and unremarkable except as noted in History and below Narrative: - dry cough that started today, no hemoptysis - chronic constipation, can't remember last BM - less UOP over the last 2-3 days - has noted some skin breakdown over coccyx (air mattress at [address] [place] [address] has helped with this) - has noted intermittent dyspnea, unclear triggers - more LE edema, taking 20mg of Lasix daily [facility] Medical History (Updated 09/24/22 @ 21:29 by Evelyne Whalen MD) Chronic pain ?G89.29 - Other chronic pain (ICD-10) Chronic kidney disease, stage 5 ?N18.5 - Chronic kidney disease, stage 5 (ICD-10) Diabetes mellitus type 2 in obese ?E11.69 - Type 2 diabetes mellitus with other specified complication (ICD-10) ?E66.9 - Obesity, unspecified (ICD-10) Anemia ?D64.9 - Anemia, unspecified (ICD-10) Murmur ?R01.1 - Cardiac murmur, unspecified (ICD-10) Physical debility ?R53.81 - Other malaise (ICD-10) Unstable gait ?R26.81 - Unsteadiness on feet (ICD-10) Hypothyroidism ?E03.9 - Hypothyroidism, unspecified (ICD-10) Lymphedema associated with obesity ?I89.0 - Lymphedema, not elsewhere classified (ICD-10) ?E66.9 - Obesity, unspecified (ICD-10) Hypertension ?I10 - Essential (primary) hypertension (ICD-10) Morbid obesity ?E66.01 - Morbid (severe) obesity due to excess calories (ICD-10) Obstructive sleep apnea ?G47.33 - Obstructive sleep apnea (adult) (pediatric) (ICD-10) Diabetic peripheral neuropathy associated with type 2 diabetes mellitus ?E11.42 - Type 2 diabetes mellitus with diabetic polyneuropathy (ICD-10) Asthma ?J45.909 - Unspecified asthma, uncomplicated (ICD-10) Fibromyalgia ?M79.7 - Fibromyalgia (ICD-10) Supraventricular tachycardia ?I47.1 - Supraventricular tachycardia (ICD-10) Chronic rhinitis ?J31.0 - Chronic rhinitis (ICD-10) Hyperlipidemia associated with type 2 diabetes mellitus ?E11.69 - Type 2 diabetes mellitus with other specified complication (ICD-10) ?E78.5 - Hyperlipidemia, unspecified (ICD-10) POLST (Physician Orders for Life-Sustaining Treatment) ?Z78.9 - Other specified health status (ICD-10) Chronic, continuous use of opioids ?F11.90 - Opioid use, unspecified, uncomplicated (ICD-10) Vaginal bleeding ?N93.9 - Abnormal uterine and vaginal bleeding, unspecified (ICD-10) Metabolic acidosis ?E87.2 - Acidosis (ICD-10) Hyponatremia ?E87.1 - Hypo-osmolality and hyponatremia (ICD-10) Surgical History S/P carpal tunnel release ?Z98.890 - Other specified postprocedural states (ICD-10) H/O left wrist surgery ?Z98.890 - Other specified postprocedural states (ICD-10) H/O: section ?Z98.891 - History of uterine scar from previous surgery (ICD-10) H/O hysterectomy with oophorectomy Social History (Updated 09/24/22 @ 18:15 by Evelyne Whalen MD) Narrative: Eryn is , has 2 adult sons (Maurisio in [place] would be MDM if needed) in [place]. Nonsmoker, no ETOH use. Retired from [employer]. Full Code. What is your current living situation: I presently have a place to live Problems where you live: no known problems Problems where you live details: none In the past 12 months, utilities in danger of being shut off: no In the past 12 mos, have been you worried that your food would run out before you had money to buy more?: never true In the past 12 mos, the food you bought just didn't last and you didn't have money to buy more?: never true Highest level of school completed/degree received: 12th grade, no diploma Smoking Status: Never smoker Do you use any of these nicotine containing products: None Second hand tobacco smoke exposure: No How often do you have a drink containing alcohol: never How often do you have six or more drinks on one occasion: Never AUDIT-C Alcohol total score: 0 Non-prescribed substance use: denies use Caffeine: Yes How often does anyone, including family, friends and others, physically hurt you : How often does anyone, including family, friends and others, insult or talk down to you: How often does anyone, including family, friends and others, threaten you with harm: How often does anyone, including family, friends and others, scream or curse at you: Gender Identity: female service: No Meds Home Medications and Allergies Home Medications Medication Instructions Recorded Confirmed Type albuterol sulfate 90 mcg/actuation 1 puff inhalation Q4H PRN 10/13/21 09/24/22 History aerosol inhaler (Ventolin HFA) cyclobenzaprine 10 mg tablet 10 mg PO HS 10/13/21 09/24/22 History diltiazem HCl 300 mg 300 mg PO HS 10/13/21 09/24/22 History capsule,extended release 24 hr docusate sodium 100 mg capsule 200 mg PO HS 10/13/21 09/24/22 History duloxetine 60 mg capsule,delayed 60 mg PO HS 10/13/21 09/24/22 History release ferrous sulfate 325 mg (65 mg 325 mg PO QAM 10/13/21 09/24/22 History iron) tablet (FeroSul) fluticasone 500 mcg-salmeterol 50 1 inh inhalation BID 10/13/21 09/24/22 History mcg/dose blistr powdr for inhalation (Advair Diskus) fluticasone propionate 50 2 spray intranasal DAILY 10/13/21 09/24/22 History mcg/actuation nasal spray,suspension furosemide 20 mg tablet 20 mg PO QAM 10/13/21 09/24/22 History indapamide 2.5 mg tablet 2.5 mg PO DAILY 10/13/21 09/24/22 History insulin aspart U-100 100 unit/mL 8 unit subcut TIDWM 10/13/21 09/24/22 History (3 mL) subcutaneous pen (Novolog FlexPen U-100 Insulin aspart) levothyroxine 150 mcg tablet 150 mcg PO DAILY 10/13/21 09/24/22 History montelukast 10 mg tablet 10 mg PO HS 10/13/21 09/24/22 History nystatin 100,000 unit/gram topical 1 applic topical BID PRN 10/13/21 09/24/22 History powder (Nystop) pantoprazole 40 mg tablet,delayed 40 mg PO BID 10/13/21 09/24/22 History release polyethylene glycol 3350 17 17 g PO DAILY 10/13/21 09/24/22 History gram/dose oral powder topiramate 100 mg tablet 100 mg PO BID 10/13/21 09/24/22 History tramadol 50 mg tablet 50 mg PO TID 10/13/21 09/24/22 History cholecalciferol (vitamin D3) 50 2,000 unit PO DAILY 10/14/21 09/24/22 History mcg (2,000 unit) tablet (Vitamin D3) insulin aspart U-100 100 unit/mL 1 sliding scale dose subcut 10/14/21 09/24/22 History (3 mL) subcutaneous pen (Novolog USEASDIRECTD FlexPen U-100 Insulin aspart) melatonin 3 mg capsule 3 mg PO HS 10/14/21 09/24/22 History clotrimazole 1 % topical cream 1 applic topical BID PRN 09/15/22 09/24/22 History ipratropium 20 mcg-albuterol 100 1 puff inhalation Q6H PRN 09/15/22 09/24/22 History mcg/actuation mist for inhalation insulin NPH isoph U-100 human 100 6 - 28 unit subcut BID 09/24/22 09/24/22 History unit/mL (3 mL) subcutaneous pen (Novolin N FlexPen) Allergies Allergy/AdvReac Type Severity Reaction Status Date / Time adhesive tape Allergy Verified 09/14/22 20:32 allopurinol Allergy Verified 09/14/22 20:32 atorvastatin Allergy Verified 09/14/22 20:32 clarithromycin Allergy Verified 09/14/22 20:32 dulaglutide [From Trulicity] Allergy Verified 09/14/22 20:32 fluconazole [From Diflucan] Allergy Verified 09/14/22 20:32 Exam Narrative: Exam Narrative: GEN: Alert and oriented, nontoxic in answering questions appropriately. Pale HEENT: EOMIs bilaterally, no scleral icterus CV: RRR, + systolic murmur R: LCTA bilaterally without concerning wheezing, fine bibasilar rales Ext: 3+ edema BLE Skin: wound on LLE examined; superior area sutured, inferior region is open with scant drainage, mild surrounding erythema, area is mildly ttp Neuro: No focal deficits Psych: Appropriate Const: Vital Signs, click to edit/add: Vital Signs - 24 hr 09/24/22 14:58 09/24/22 14:58 09/24/22 15:06 Temperature 98.9 F Pulse Rate 94 Pulse Rate [Pulse Oximeter] 95 Respiratory Rate 20 Blood Pressure Blood Pressure [Le ft Forearm] 140/60 H Pulse Oximetry 89 94 86 L Oxygen Delivery Me thod Room Air Nasal Cannula Room Air Oxygen Flow Rate 1 09/24/22 15:13 09/24/22 15:15 09/24/22 15:32 Temperature Pulse Rate 91 Pulse Rate [Pulse Oximeter] Respiratory Rate Blood Pressure 114/57 L Blood Pressure [Le ft Forearm] Pulse Oximetry 94 Oxygen Delivery Me thod Nasal Cannula Nasal Cannula Oxygen Flow Rate 1 09/24/22 15:33 09/24/22 15:45 09/24/22 15:47 Temperature Pulse Rate 90 91 Pulse Rate [Pulse Oximeter] Respiratory Rate Blood Pressure Blood Pressure [Le ft Forearm] Pulse Oximetry 93 95 96 Oxygen Delivery Me thod Oxygen Flow Rate 09/24/22 16:00 09/24/22 16:02 09/24/22 16:15 Temperature Pulse Rate 86 86 88 Pulse Rate [Pulse Oximeter] Respiratory Rate Blood Pressure 101/55 L Blood Pressure [Le ft Forearm] Pulse Oximetry 96 95 Oxygen Delivery Me thod Oxygen Flow Rate 09/24/22 16:30 09/24/22 16:31 09/24/22 16:45 Temperature Pulse Rate 88 89 84 Pulse Rate [Pulse Oximeter] Respiratory Rate Blood Pressure 111/56 L Blood Pressure [Le ft Forearm] Pulse Oximetry 95 95 94 Oxygen Delivery Me thod Oxygen Flow Rate 09/24/22 16:48 09/24/22 17:40 Temperature 99.2 F 98.8 F Pulse Rate Pulse Rate [Pulse Oximeter] Respiratory Rate Blood Pressure Blood Pressure [Le ft Forearm] Pulse Oximetry 92 Oxygen Delivery Me thod Nasal Cannula Oxygen Flow Rate 1 Hospitalist - H&P: Result Labs Labs: Short CBC 09/24/22 Range/Units 15:30 WBC 18.45 H (4.50-11.00) K/uL Hgb 7.2 L* (12.0-16.0) gm/dL Hct 22.4 L (33.0-51.0) % Plt Count 322 (140-440) K/uL BMP 09/24/22 15:30 Sodium 132 L Potassium 3.8 Chloride 100 Carbon Dioxide 21 BUN 56 H Creatinine 2.8 H Glucose 216 H Calcium 8.5 Liver Function 09/24/22 Range/Units 15:30 Total Bilirubin 0.6 (0.1-1.5) mg/dL Direct Bilirubin 0.3 (0.0-0.5) mg/dL AST 18 (12-35) U/L ALT 15 (4-35) U/L Alkaline Phosphatase 90 (40-150) U/L Albumin 3.4 (3.3-5.0) g/dL Assessment and Plan Assessment and plan (1) Altered mental status: Problem comment: - concern from 3 Links, no evidence of this upon admission (possibly related to hypoxia) - patient endorses feeling wiped from recent outpatient Wound Care appt and therapies, also has anemia, hypoxia, CKD, cellulitis - will ask therapies to follow Status: Acute (2) Cellulitis: Problem comment: - mild surrounding erythema of laceration in addition to findings of pain, fatigue, leukocytosis, elevated inflammatory markers, multiple comorbidities - Zosyn initiated in ED (09/24), will continue Status: Acute (3) Acute respiratory failure with hypoxia: Problem comment: - O2 saturation 86% upon ED arrival - no evidence of acute infectious process on CXR, + fluid overload - will transfuse, diurese, follow closely, am VBG - recent TTE (09/16/22) reassuring, likely has an element of TRACY Status: Acute (4) Anemia: Problem comment: - acute on chronic, 2/2 chronic renal disease - transfused 1U PRBCs 09/24 for Hgb <8 - no evidence of acute bleeding Status: Acute (5) Laceration of leg not thigh, complicated: Problem comment: - primary repair with Dr. Mistry of General Surgery 09/14, unable to place wound vac 2/2 habitus; wet to dry dressings - will ask wound team to follow while inpatient Status: Acute (6) Chronic kidney disease, stage 5: Problem comment: - with АНДРЕЙ (admission Cr 2.8, baseline Cr 2.1-2.2) - follow renal function closely as she also needs diuresis at this time - sees Nephrology as an outpatient Status: Acute (7) Edema: Problem comment: - Lymphedema, chronic Status: Acute (8) Diabetes mellitus type 2 in obese: Problem comment: - insulin dependent - continue home medications + SSI Status: Acute Plan - admit to inpatient - IV abx, wound care consult - transfuse 1U PRBCs - supplemental oxygen - SCDs for ppx - follow renal function and Hgb - Full Code status
--- NOTE | 2022-09-24 19:14 | PC.NURSE ---
End of Shift: Pt admitted to Med Surg via ED d/t low hgb, elevated wbc, and lower extremity wounds. Pt reports pain ranging between 6-8/10. 1 unit blood administered, pt tolerated well. Pt utilizes w/c per pt, has not left bed since admission to unit. Tolerating regular diet well. O2 sats ranging between 88-92% with 1 L NC O2. Recently titrated off O2 NC, O2 sats 91% RA.
[2022-09-24] MEDS: FUROSEMIDE 10 MG/ML inj 20 MG IVP (20:55)
[2022-09-24] MEDS: OMEPRAZOLE 20 MG CAPSULE DR 40 MG PO (21:58)
[2022-09-24] MEDS: DULOXETINE 30 MG CAPSULE DR 60 MG PO (21:58)
[2022-09-24] MEDS: MELATONIN 3 MG TABLET PO (21:58)
[2022-09-24] MEDS: DOCUSATE SODIUM 100 MG CAPSULE 200 MG PO (21:59)
[2022-09-24] MEDS: CYCLOBENZAPRINE HCL 10 MG TABLET PO (21:59)
[2022-09-24] MEDS: MONTELUKAST 10 MG TABLET PO (21:59)
[2022-09-24] MEDS: TRAMADOL HCL 50 MG TABLET PO (21:59)
[2022-09-24] MEDS: TOPIRAMATE 50 MG TABLET 100 MG PO (22:35)
[2022-09-24] MEDS: INSULIN NPH 100 UNIT/ML 28 UNIT SUBCUT (22:35)
[2022-09-24 23:34] LABS: Appearance Urine Cloudy (Clear); Bilirubin Urine 1+ (Negative); Blood Urine 2+ (Negative); Color Urine Yellow (Yellow); Glucose Urine Negative (Negative); Ketones Urine Trace (Negative); Leukocyte Esterase Urine Trace (Negative); Nitrite Urine Negative (Negative); Protein Urine 1+ (Negative); Specific Gravity Urine 1.025 (1.000-1.030); Urobilinogen Urine 0.2 (0.2-1.0)
[2022-09-24 23:41] LABS: Amorphous Sediment Urine Moderate; Bacteria Urine Moderate; Mucus Urine Few; Squamous Epithelial Cell Urine Few (None-Few)
[2022-09-24] MEDS: PIPERACILLIN/TAZOBACTAM 2.25 GM in 0.9 % SODIUM CHLORIDE Mini-bag 100 ML IVPB (23:58)
[2022-09-24] MEDS: SODIUM CHLORIDE 0.9 % (FLUSH) 10 ML SYRINGE 5 ML IVF (23:58)
[2022-09-25] VITALS (13 sets, daily range): BP systolic 101–143; BP diastolic 53–68; PULSE 62–87; RESP 12–22; TEMP 36.5–36.9; O2SAT 90–97
[2022-09-25] MEDS: ACETAMINOPHEN 325 MG TABLET 975 MG PO ×3 (00:49→17:29)
[2022-09-25] MEDS: LEVOTHYROXINE 75 MCG TABLET 150 MCG PO (06:29)
[2022-09-25] MEDS: PIPERACILLIN/TAZOBACTAM 2.25 GM in 0.9 % SODIUM CHLORIDE Mini-bag 100 ML IVPB ×3 (06:29→21:37)
[2022-09-25 06:42] LABS: HCO3 VBG 20 mmol/L (21-28); PCO2 VBG 39 mmHG (40-50); PO2 VBG 47.9 mmHG (25-47); pH VBG 7.314 (7.32-7.43)
[2022-09-25 06:45] LABS: Basophils Percent Auto 0.3 % (0.0-3.0); Eosinophils Percent Auto 2.5 % (0.0-7.0); Hematocrit 22.5 % (33.0-51.0); Immature Granulocytes Pct Auto 0.5 %; Lymphocytes Percent Auto 14.3 % (20-44); Mean Corpuscular HGB Conc 32 gm/dL (32-36); Mean Corpuscular Hemoglobin 30 pg (26-34); Mean Corpuscular Volume 92 fL (80-100); Monocytes Percent Auto 7.8 % (0.0-11.0); Neutrophils Percent Auto 74.6 % (42.0-72.0); Platelet Count* 282 K/uL (140-440); Red Blood Count 2.44 m/uL (4.00-5.20); White Blood Count* 11.01 K/uL (4.50-11.00)
[2022-09-25 07:02] LABS: Hemoglobin* 7.2 gm/dL (12.0-16.0); Slide Review Reflex No
--- NOTE | 2022-09-25 07:02 | PC.NURSE ---
[id number]: A1/walker/GB. Tolerates movement well. A&Ox3. PRN Tylenol x2 administered for 7/10 throat pain. Dressing to LLE C/D/I. 1 unit PRBC infused and tolerated well. 1Lt NC applied for 4-5 hours during noc to maintain sats>90.
[2022-09-25 07:04] LABS: Chloride* 101 mmol/L (96-114); Potassium* 3.6 mmol/L (3.6-5.1); Sodium* 134 mmol/L (135-149)
[2022-09-25 07:07] LABS: Creatinine* 3.1 mg/dL (0.5-1.5); Estimated Glomerular Filt Rate 16 ml/min
[2022-09-25 07:08] LABS: Blood Urea Nitrogen* 60 mg/dL (7-30); Calcium* 8.4 mg/dL (8.4-10.6); Carbon Dioxide* 19 mmol/L (20-32); Glucose* 309 mg/dL (60-115)
[2022-09-25 07:39] LABS: C Reactive Protein* 26.7 mg/dL (0.5-1.0)
[2022-09-25 07:53] LABS: Erythrocyte SedimentationRate* > 102 mm/hr (2-20)
[2022-09-25] MEDS: FLUTICASONE PROPIONATE NASAL 2 SPRAY NOSTRIL-B (08:42)
[2022-09-25] MEDS: INDAPAMIDE 2.5 MG TABLET PO (08:42)
[2022-09-25] MEDS: OMEPRAZOLE 20 MG CAPSULE DR 40 MG PO ×2 (08:43→21:39)
[2022-09-25] MEDS: TOPIRAMATE 50 MG TABLET 100 MG PO ×2 (08:43→21:40)
[2022-09-25] MEDS: polyethylene glycoL 3350 17 GM PACK PO (08:44)
[2022-09-25] MEDS: LACTATED RINGERS 500 ML 500 ML IV (08:57)
[2022-09-25] MEDS: LACTATED RINGERS 1000 ML 1,000 ML 125 ML IV ×2 (08:58→16:05)
[2022-09-25 09:19] LABS: NT Pro B Type NatriureticPept* 2410 pg/mL; Troponin I* 0.03 ng/mL (0.01-0.04)
[2022-09-25] MEDS: INSULIN NPH 100 UNIT/ML 6 UNIT SUBCUT (09:19)
[2022-09-25 13:29] LABS: Hemoglobin A1C* 6.51 % (0-5.6)
--- NOTE | 2022-09-25 13:56 | REH.OT ---
Orders received for OT eval and treat. Patient is receiving a blood transfusion due to very low hbg. Nursing asked OT to wait until 09/26/22.
--- NOTE | 2022-09-25 15:08 | PM.IMPN1 ---
Progress Note: A&P Assessment and plan (1) Acute respiratory failure with hypoxia: Problem details: - O2 saturation 86% upon ED arrival - no evidence of acute infectious process on CXR, question of pulmonary edema on chest x-ray. Clinically does not appear to be having heart failure on exam - recent TTE (09/16/22) reassuring, likely has an element of TRACY. I suspect some hypoxia is due to combination of untreated sleep apnea plus moderately high dose of chronic opioid use Status: Acute (2) Chronic pain: Problem details: - on chronic narcotics. Likely contributing to hypoxia and worsening sleep apnea. Reporting fairly severe pain now but long-term should be tapered off opioids and in the short term needs to use her BiPAP Status: Acute (3) Cellulitis: Problem details: - mild surrounding erythema of laceration in addition to findings of pain, fatigue, leukocytosis, elevated inflammatory markers, multiple comorbidities - Zosyn initiated in ED (09/24), will continue. Dr. Mistry to evaluate wound. Status: Acute (4) Diabetes mellitus type 2 in obese: Problem details: - insulin dependent - continue home medications + SSI Status: Acute (5) Anemia: Problem details: - acute on chronic, 2/2 chronic renal disease. Monitor for source of bleeding. Transfuse to get hemoglobin to 8 - transfused 1U PRBCs 09/24 for Hgb <8 - no evidence of acute bleeding. Check stool guaiacs. Status: Acute (6) Chronic kidney disease, stage 5: Problem details: - with АНДРЕЙ (admission Cr 2.8, baseline Cr 2.1-2.2) Fluid resuscitation today. Clinically I suspect she has a little too dry. Status: Acute (7) Altered mental status: Problem details: - concern from 3 Links, no evidence of this upon admission (possibly related to hypoxia) - patient endorses feeling wiped from recent outpatient Wound Care appt and therapies, also has anemia, hypoxia, CKD, cellulitis - will ask therapies to follow Concern for sleep apnea and opioids causing excessive sedation. Continue to monitor and evaluate Status: Acute (8) Laceration of leg not thigh, complicated: Problem details: - primary repair with Dr. Mistry of General Surgery 09/14, unable to place wound vac 2/2 habitus; wet to dry dressings - will ask wound team to follow while inpatient Status: Acute (9) Edema: Problem details: - Lymphedema, chronic Status: Acute (10) Leukocytosis: Problem details: Marked leukocytosis on admission. Suspicious for infection possibly a her leg wound with cellulitis. Will monitor for other sources of infection that could explain elevated inflammatory markers and acute illness. Status: Acute Plan Continue in hospital for evaluation and management of leg cellulitis and leg wound, altered mental status, hypoxia, acute on chronic kidney injury. Time Spent With Patient Total time spent: Total time spent today is 45 minutes, 30 minutes in coordination of care discussing with patient other providers ongoing evaluation management kidney disease, heart disease, altered mental status, leg infection. Subjective Date Seen: 09/25/22 Interval history: Eryn Pollard is a 67 year old female who presented to the ER September 24 for altered mental status/increased sleepiness at the request of [address] [place] [address]. She was notably hospitalized from 09/14-09/17 after falling and sustaining a large LLE laceration and degloving wound. This was surgically repaired by Dr. Mistry of General Surgery and she was discharged to [address] [place] [address] for rehab. Teresa was seen at [facility] yesterday for a wound check/dressing change, and notes feeling very sleepy after the appt. She typically would rest for 1-2 days after an appointment, but had rehab today and felt too tired to participate. Also felt too tired to eat today and endorses feeling wiped. She does not feel that she truly had altered mental status. She recently completed a course of Keflex. She has chronic pain and is on daily narcotics, no recent dose changes. She has sleep apnea and has been prescribed BiPAP but tells me she does not use it. I have asked her to have her son bring it in so that we can set it up for her to use again Today she reports generally feeling well except for her chronic pain which she reports his unbearable. Exam Narrative: Exam Narrative: When I walk into her room she is observed to have prominent snoring with episodes of sleep apnea occurring over a 1 minute period of observation. When she arouses for the nurse. She is oriented to her circumstances. Eyes are normal. Oropharynx very small airway. Neck is supple without mass or adenopathy. She does report a little tenderness in the right side of her neck but I do not note significant adenopathy or mass or stridor. Respirations are clear to auscultation. No wheezing rales or rhonchi. Cardiovascular: S1, S2, regular rate and rhythm. Abdomen: Bowel sounds active. Abdomen is soft without tenderness or mass. External genitalia normal. Her left lower extremity has a large wound which is partially sutured and partially left open for secondary healing with gauze packed in the wound. It is relatively deep. Intact pulses and sensation. Mild erythema around her wound. Const: Vital Signs, click to edit/add: Vital Signs - 24 hr 09/24/22 15:13 09/24/22 15:15 09/24/22 15:32 Temperature Pulse Rate 91 Pulse Rate [Pulse Oximeter] Respiratory Rate Blood Pressure 114/57 L Blood Pressure [Ri ght Arm] Pulse Oximetry 94 Oxygen Delivery Me thod Nasal Cannula Nasal Cannula Oxygen Flow Rate 1 09/24/22 15:33 09/24/22 15:45 09/24/22 15:47 Temperature Pulse Rate 90 91 Pulse Rate [Pulse Oximeter] Respiratory Rate Blood Pressure Blood Pressure [Ri ght Arm] Pulse Oximetry 93 95 96 Oxygen Delivery Me thod Oxygen Flow Rate 09/24/22 16:00 09/24/22 16:02 09/24/22 16:15 Temperature Pulse Rate 86 86 88 Pulse Rate [Pulse Oximeter] Respiratory Rate Blood Pressure 101/55 L Blood Pressure [Ri ght Arm] Pulse Oximetry 96 95 Oxygen Delivery Me thod Oxygen Flow Rate 09/24/22 16:30 09/24/22 16:31 09/24/22 16:45 Temperature Pulse Rate 88 89 84 Pulse Rate [Pulse Oximeter] Respiratory Rate Blood Pressure 111/56 L Blood Pressure [Ri ght Arm] Pulse Oximetry 95 95 94 Oxygen Delivery Me thod Oxygen Flow Rate 09/24/22 16:48 09/24/22 17:40 09/24/22 18:26 Temperature 99.2 F 98.8 F Pulse Rate Pulse Rate [Pulse Oximeter] Respiratory Rate 20 Blood Pressure Blood Pressure [Ri ght Arm] Pulse Oximetry 92 93 Oxygen Delivery Me thod Nasal Cannula Nasal Cannula Oxygen Flow Rate 1 2 09/24/22 18:46 09/24/22 19:05 09/24/22 20:16 Temperature 99.1 F 98.6 F 98.8 F Pulse Rate 86 84 85 Pulse Rate [Pulse Oximeter] Respiratory Rate 20 20 22 Blood Pressure 96/51 L 120/57 L 118/55 L Blood Pressure [Ri ght Arm] Pulse Oximetry 98 91 93 Oxygen Delivery Me thod Oxygen Flow Rate 09/24/22 20:16 09/24/22 21:55 09/24/22 23:00 Temperature 98.8 F 98.6 F Pulse Rate 79 78 Pulse Rate [Pulse Oximeter] 85 Respiratory Rate 22 20 Blood Pressure 108/47 L Blood Pressure [Ri ght Arm] 118/55 L Pulse Oximetry 93 94 Oxygen Delivery Me thod Room Air Oxygen Flow Rate 09/24/22 23:00 09/24/22 23:00 09/25/22 00:42 Temperature 98.6 F 98.3 F Pulse Rate 87 Pulse Rate [Pulse Oximeter] 79 Respiratory Rate 20 20 20 Blood Pressure 122/53 L Blood Pressure [Ri ght Arm] 108/47 L Pulse Oximetry 94 90 90 Oxygen Delivery Me thod Room Air Room Air Oxygen Flow Rate 09/25/22 01:04 09/25/22 07:00 09/25/22 07:00 Temperature 97.7 F Pulse Rate Pulse Rate [Pulse Oximeter] 79 73 Respiratory Rate 22 22 22 Blood Pressure Blood Pressure [Ri ght Arm] 128/58 L Pulse Oximetry 92 95 Oxygen Delivery Me thod Room Air Room Air Oxygen Flow Rate 09/25/22 07:00 09/25/22 07:21 09/25/22 11:00 Temperature 97.9 F 98.1 F Pulse Rate 70 Pulse Rate [Pulse Oximeter] 73 70 Respiratory Rate 22 14 Blood Pressure Blood Pressure [Ri ght Arm] 113/59 L 106/53 L Pulse Oximetry 95 92 Oxygen Delivery Me thod Room Air Room Air Oxygen Flow Rate 09/25/22 11:21 09/25/22 11:42 09/25/22 12:27 Temperature 98.1 F 97.8 F 97.8 F Pulse Rate 68 66 66 Pulse Rate [Pulse Oximeter] Respiratory Rate 14 22 22 Blood Pressure 101/63 115/63 120/68 Blood Pressure [Ri ght Arm] Pulse Oximetry 94 95 95 Oxygen Delivery Me thod Oxygen Flow Rate 09/25/22 14:02 Temperature 97.8 F Pulse Rate 65 Pulse Rate [Pulse Oximeter] Respiratory Rate 12 Blood Pressure 114/59 L Blood Pressure [Ri ght Arm] Pulse Oximetry 91 Oxygen Delivery Me thod Oxygen Flow Rate Documenting provider has reviewed patient's vital signs: yes Labs Labs: Laboratory Results - last 24 hr 09/24/22 09/24/22 09/24/22 15:30 16:51 23:21 WBC 18.45 H RBC 2.47 L Hgb 7.2 L* Hct 22.4 L MCV 91 MCH 29 MCHC 32 RDW Coeff of Antonio 13.8 Plt Count 322 Neut % (Auto) 84.5 H Lymph % (Auto) 7.4 L [place] % (Auto) 6.6 Eos % (Auto) 0.2 Baso % (Auto) 0.1 Neut # (Auto) 15.60 H Lymph # (Auto) 1.40 [place] # (Auto) 1.20 H Eos # (Auto) 0.00 Baso # (Auto) 0.00 ESR > 102 H VBG pH VBG pCO2 VBG pO2 VBG HCO3 Sodium 132 L Potassium 3.8 Chloride 100 Carbon Dioxide 21 BUN 56 H Creatinine 2.8 H Estimated Creat Clear 14.39 Estimated GFR 18 Glucose 216 H Hemoglobin A1c Lactate 0.9 Calcium 8.5 Total Bilirubin 0.6 Direct Bilirubin 0.3 AST 18 ALT 15 Alkaline Phosphatase 90 Troponin I C-Reactive Protein 25.6 H NT-Pro-B Natriuret Pep Total Protein 6.7 Albumin 3.4 Urine Color Yellow Urine Appearance Cloudy A Urine pH 5.0 Ur Specific [place] 1.025 Urine Protein 1+ A Urine Glucose (UA) Negative Urine Ketones Trace A Urine Blood 2+ A Urine Nitrite Negative Urine Bilirubin 1+ A Urine Urobilinogen 0.2 Ur Leukocyte Esterase Trace A Urine RBC 5-10 A Urine WBC 5-10 A Ur Squamous Epith Cells Few Amorphous Sediment Moderate A Urine Bacteria Moderate A Urine Mucus Few A Lab Acknowledgement Blood Type O Positive Antibody Screen NEGATIVE Crossmatch (AHG) See Detail 09/25/22 09/25/22 09/25/22 06:32 08:35 12:01 WBC 11.01 H RBC 2.44 L Hgb 7.2 L* Hct 22.5 L MCV 92 MCH 30 MCHC 32 RDW Coeff of [place] 14.0 Plt Count 282 Neut % (Auto) 74.6 H Lymph % (Auto) 14.3 L [place] % (Auto) 7.8 Eos % (Auto) 2.5 Baso % (Auto) 0.3 Neut # (Auto) 8.20 H Lymph # (Auto) 1.60 [place] # (Auto) 0.90 Eos # (Auto) 0.30 Baso # (Auto) 0.00 ESR > 102 H VBG pH 7.314 L VBG pCO2 39 L VBG pO2 47.9 H VBG HCO3 20 L Sodium 134 L Potassium 3.6 Chloride 101 Carbon Dioxide 19 L BUN 60 H Creatinine 3.1 H Estimated Creat Clear 13.00 Estimated GFR 16 Glucose 309 H Hemoglobin A1c 6.51 H Lactate Calcium 8.4 Total Bilirubin Direct Bilirubin AST ALT Alkaline Phosphatase Troponin I 0.03 C-Reactive Protein 26.7 H NT-Pro-B Natriuret Pep 2410 Total Protein Albumin Urine Color Urine Appearance Urine pH Ur Specific [place] Urine Protein Urine Glucose (UA) Urine Ketones Urine Blood Urine Nitrite Urine Bilirubin Urine Urobilinogen Ur Leukocyte Esterase Urine RBC Urine WBC Ur Squamous Epith Cells Amorphous Sediment Urine Bacteria Urine Mucus Lab Acknowledgement Test Added Test Added Blood Type Antibody Screen Crossmatch (AHG)
--- NOTE | 2022-09-25 15:25 | PC.SOCIAL ---
Discharge planning: Received call from social Ame worker at [facility], stating they will accept pt back if they can meet her needs at discharge, but that she is not technically on a bed hold and will need all information faxed for evaluation for re-admission when ready. Called and spoke with Antoinette and registered account administrator who confirmed they expect to take her back at discharge but that they are unable to have her on a bed hold because their facility does not meet the required percentage of filled beds to be able to do a Medical assistance bed hold. Pt information to be sent to [facility] when ready for discharge for evaluation for readmission to [facility]. municipal maintenance worker to follow up as needed.
--- NOTE | 2022-09-25 18:57 | PC.NURSE ---
End of Shift: Pt AO throughout shift, reports pain between 6-10/06. Well-controlled with tylenol. Pivot to BSC. No BM or void today. LS diminished, expiratory wheezes noted toward end of shift. Pt reports wanting PRN neb with HS meds. O2 sats between 94-96 RA. Tolerated regular diet well.
[2022-09-25] MEDS: IPRAT-ALBUT 0.5-2.5 MG/3 ML NEB 1 NEB IH (21:36)
[2022-09-25] MEDS: MONTELUKAST 10 MG TABLET PO (21:39)
[2022-09-25] MEDS: DOCUSATE SODIUM 100 MG CAPSULE 200 MG PO (21:39)
[2022-09-25] MEDS: CYCLOBENZAPRINE HCL 10 MG TABLET PO (21:40)
[2022-09-25] MEDS: DULOXETINE 30 MG CAPSULE DR 60 MG PO (21:40)
[2022-09-25] MEDS: MELATONIN 3 MG TABLET PO (21:40)
[2022-09-25] MEDS: SODIUM CHLORIDE 0.9 % (FLUSH) 10 ML SYRINGE 5 ML IVF (21:42)
--- NOTE | 2022-09-25 22:00 | PC.NURSE ---
Per Dr. Whalen, leave patient on continuous fluids overnight.
[2022-09-26] VITALS (7 sets, daily range): BP systolic 136–162; BP diastolic 64–85; PULSE 67–89; RESP 14–16; TEMP 36.7–36.9; O2SAT 92–97
[2022-09-26] MEDS: LACTATED RINGERS 1000 ML 1,000 ML 125 ML IV ×2 (00:35→08:36)
[2022-09-26 01:28] LABS: Fecal Occult Blood* Negative (Negative)
[2022-09-26] MEDS: ACETAMINOPHEN 325 MG TABLET 975 MG PO ×3 (03:15→15:26)
[2022-09-26] MEDS: PIPERACILLIN/TAZOBACTAM 2.25 GM in 0.9 % SODIUM CHLORIDE Mini-bag 100 ML IVPB ×2 (03:19→08:36)
--- NOTE | 2022-09-26 05:56 | PC.NURSE ---
[id number]: Patient had an uneventful night. Patient complained of chronic pain all over body and mouth pain. No visualized sores in mouth. Patient does have caries in mouth. Patient able to transfer with assist x1 with gait belt and walker. Patient with no shortness of breath and remained on room air all night. Patient vitally stable. Patient states she does not have her BIPAP as this needs to be resized now that she has gained about 60 pounds since first getting it. Patient demonstrates staff seeking behavior while staff is in room. Patient sensitive to touch and constantly says ow or ouch when cares are being done or patient is being moved in bed, but then able to carry on a normal conversation shortly after. Patient states if she does not think about the pain then she doesn't hurt. Patient reports she cannot get comfortable due to her not having her personal fan. Patient was offered hospital mini fan and patient refused and states it is too small. Patient able to move self in bed but requests staff to constantly readjust extremities. Patient remains on tele SR. Patient concerned about her tramadol being on hold and nurse informed her this will be addressed in am by am provider. Patient also requests air mattress and this nurse informed charge nurse of patient request. Patient able to use call light appropriately. Patient did not go to sleep to around 3am and she states she just could not get comfortable.
[2022-09-26] MEDS: LEVOTHYROXINE 75 MCG TABLET 150 MCG PO (06:19)
[2022-09-26 06:53] LABS: Basophils Absolute Auto 0.04 K/uL (0.00-0.30); Basophils Percent Auto 0.4 % (0.0-3.0); Eosinophils Absolute Auto 0.48 K/uL (0.00-0.50); Eosinophils Percent Auto 5.4 % (0.0-7.0); Immature Granulocytes Abs Auto 0.03 K/uL (0.00-0.30); Immature Granulocytes Pct Auto 0.3 %; Lymphocytes Percent Auto 19.3 % (20-44); Mean Corpuscular HGB Conc 33 gm/dL (32-36); Mean Corpuscular Hemoglobin 30 pg (26-34); Mean Corpuscular Volume 90 fL (80-100); Monocytes Percent Auto 8.8 % (0.0-11.0); Neutrophils Absolute Auto 5.85 K/uL (1.7-7.0); Neutrophils Percent Auto 65.8 % (42.0-72.0); Platelet Count* 313 K/uL (140-440); RDW Coefficient of Variation % 14.5 % (11.5-15.5); Red Blood Count 2.67 m/uL (4.00-5.20)
[2022-09-26 06:56] LABS: Slide Review Reflex No
[2022-09-26 07:08] LABS: Chloride* 102 mmol/L (96-114); Potassium* 3.6 mmol/L (3.6-5.1); Sodium* 133 mmol/L (135-149)
[2022-09-26 07:11] LABS: Creatinine* 3.1 mg/dL (0.5-1.5); Estimated Glomerular Filt Rate 16 ml/min
[2022-09-26 07:12] LABS: Blood Urea Nitrogen* 61 mg/dL (7-30); Calcium* 8.4 mg/dL (8.4-10.6); Carbon Dioxide* 22 mmol/L (20-32); Glucose* 206 mg/dL (60-115)
[2022-09-26] MEDS: OMEPRAZOLE 20 MG CAPSULE DR 40 MG PO ×2 (08:35→20:59)
[2022-09-26] MEDS: FLUTICASONE PROPIONATE NASAL 2 SPRAY NOSTRIL-B (08:35)
[2022-09-26] MEDS: ALBUTEROL INHALER 1 PUFF IH ×2 (08:35→14:38)
[2022-09-26] MEDS: INDAPAMIDE 2.5 MG TABLET PO (08:36)
[2022-09-26] MEDS: IPRAT-ALBUT 0.5-2.5 MG/3 ML NEB 1 NEB IH ×2 (09:35→16:00)
[2022-09-26] MEDS: BENZOCAINE/MENTHOL 1 EACH LOZENGE MUCOUS MEM ×2 (09:35→15:27)
[2022-09-26] MEDS: TOPIRAMATE 50 MG TABLET 100 MG PO ×2 (09:51→20:56)
--- NOTE | 2022-09-26 10:43 | REH.OT ---
Patient declined OT evaluation. Patient does not want therapy while in the hospital.
[2022-09-26] MEDS: levoFLOXacin 500 MG TABLET PO (11:19)
[2022-09-26] MEDS: SODIUM CHLORIDE 0.9 % (FLUSH) 10 ML SYRINGE 5 ML IVF ×2 (11:19→21:03)
[2022-09-26] MEDS: FUROSEMIDE 10 MG/ML inj 40 MG IVP (11:19)
--- NOTE | 2022-09-26 11:19 | NUTR.NU ---
RDN with RN consult for skin risk assessment. Pt with laceration on LLE from fall. PMH includes Insulin dep DM, anemia, hypoxia, CKD, cellulitis. Labs: HA1c: 09/23 6.51, 09/26 K 3.6, Glucose (POC) this mornin. BUN/creat have been trending up. GFR 09/25 16 (L). 114 kg. adj BW 72.7 kg Diet history reveals possible low protein intake in current living situation. Pt c/o sore mouth/teeth making it difficult to chew tough meat. States that the meat here has been fine. Had first meal last night and this morning. States it was good and she could eat the meat here just fine. Reviewed sources of protein with pt. Discussed options for protein after discharge that are available (add eggs, yogurt, choose the meals with meat that is tender). Pt also has uses protein shakes and this designer/writer advised pt to read carb levels and count the carbs in the protein shakes (3-4 choices of carbs (45-60 gm/meal L and D). Meal ordering options for current stay in hospital reviewed. Tips for Adding Protein provided. Pt advised to make goal of 60-80 gm, and adequate calories, for best healing with DM and CKd. Phone number provided for pt if questions.
--- NOTE | 2022-09-26 14:14 | PC.NURSE ---
Addendum entered by Sania Newman RN 09/26/22 14:41: Patient voided 900cc Original Note: Shift Summary: Patient pleasant and cooperative. Up with one assist, walker and gait belt. Vitals stable and WNL. o2 sats >90% on RA. Lung sounds with wheeze, given PRN neb. IV saline locked this morning. Given 40mg of lasix this morning with no output yet, bladder scan done this afternoon and showed 119cc. MD updated, new order for Lasix 80mg, patient refusing at this time, given teachings on importance of medication x3, still refusing. Patient states she now feels like shes ready to void however wants to enjoy her lunch first. Dressing over left calf dry and intact.
--- NOTE | 2022-09-26 14:16 | PC.SOCIAL ---
Phone call to [facility] and spoke to Laura in admissions. Laura is requesting that a referral be sent for pt. Secure e-mailed referral to [facility]. Received a phone call from Laura in admissions stating that they can accept pt for admission for Thursday or Thursday (not Thursday). If pt is going to [facility] Thursday they are requesting that pt come as early as possible. The phone number to call on Thursday is the on-call nurse, Billie, at [phone]. If there is no answer the nursing station can be called at [phone]. Laura informs that they do not need a preadmission screening for pt as it is not considered a new admission. Provided information to pt's family. Provided information to charge nurse. Social work will follow up as needed.
--- NOTE | 2022-09-26 14:24 | P.IMPN_ITS ---
Progress Note: A&P Assessment and plan (1) Acute respiratory failure with hypoxia: Problem details: - O2 saturation 86% upon ED arrival - no evidence of acute infectious process on CXR, question of pulmonary edema on chest x-ray. Today appears to be having heart failure exacerbation, likely due to fluid resuscitation. IV furosemide. - recent TTE (09/16/22) reassuring, likely has an element of TRACY. I suspect some hypoxia is due to combination of untreated sleep apnea plus moderately high dose of chronic opioid use Status: Acute (2) Chronic pain: Problem details: - on chronic narcotics. Likely contributing to hypoxia and worsening sleep apnea. Reporting fairly severe pain now but long-term should be tapered off opioids and in the short term needs to use her BiPAP Status: Acute (3) Cellulitis: Problem details: - mild surrounding erythema of laceration in addition to findings of pain, fatigue, leukocytosis, elevated inflammatory markers, multiple comorbidities Wound looks quite good today. Switch from Zosyn to oral, renal dosed Levaquin Dr. Mistry to evaluate wound. Status: Acute (4) Diabetes mellitus type 2 in obese: Problem details: - insulin dependent - continue home medications + SSI Status: Acute (5) Anemia: Problem details: - acute on chronic, 2/2 chronic renal disease. Monitor for source of bleeding. Transfuse to get hemoglobin to 8 - transfused 1U PRBCs 09/24 for Hgb <8 - no evidence of acute bleeding. Check stool guaiacs. Status: Acute (6) Chronic kidney disease, stage 5: Problem details: - with АНДРЕЙ (admission Cr 2.8, baseline Cr 2.1-2.2) Fluid resuscitation yesterday. Creatinine is stable at 3.1. Today peers volume overloaded. Trial of IV furosemide diuresis. Status: Acute (7) Altered mental status: Problem details: - concern from 3 Links, no evidence of this upon admission (possibly related to hypoxia) - patient endorses feeling wiped from recent outpatient Wound Care appt and therapies, also has anemia, hypoxia, CKD, cellulitis - will ask therapies to follow Concern for sleep apnea and opioids causing excessive sedation. Continue to m onitor and evaluate Status: Acute (8) Laceration of leg not thigh, complicated: Problem details: - primary repair with Dr. Mistry of General Surgery 09/14, unable to place wound vac 2/2 habitus; wet to dry dressings - will ask wound team to follow while inpatient Status: Acute (9) Edema: Problem details: - Lymphedema, chronic Status: Acute (10) Leukocytosis: Problem details: Marked leukocytosis on admission. Suspicious for infection possibly a her leg wound with cellulitis. Will monitor for other sources of infection that could explain elevated inflammatory markers and acute illness. Status: Acute Plan Continue in-hospital for monitoring of heart failure, renal failure, evidence for infection. Transition towards oral medications and work on plan for discharge back to [address] [place] [address]. Time Spent With Patient Total time spent: Total time spent today is 40 minutes, 30 minutes in coordination of care discussing with patient other providers management of heart failure, renal failure and infection. Subjective Date Seen: 09/26/22 Interval history: Eryn Pollard is a 67 year old female who presented to the ER September 24 for altered mental status/increased sleepiness at the request of [address] [place] [address]. She was notably hospitalized from 09/14-09/17 after falling and sustaining a large LLE laceration and degloving wound. This was surgically repaired by Dr. Mistry of General Surgery and she was discharged to [address] [place] [address] for rehab. Eryn was seen at the [facility] the day prior to admission for a wound check/dressing change, and notes feeling very sleepy after the appt. She typically would rest for 1-2 days after an appointment, but had rehab today and felt too tired to participate. Also felt too tired to eat today and endorses feeling wiped. She does not feel that she truly had altered mental status. She recently completed a course of Keflex. She has chronic pain and is on daily narcotics, no recent dose changes. She has sleep apnea and has been prescribed BiPAP but tells me she does not use it. I have asked her to have her son bring it in so that we can set it up for her to use again Today she reports generally feeling well except for her chronic pain which she reports his unbearable. She reports feeling some better in the last day. She is not have any fevers. She is reporting some cough and wheeziness. She started using nebulizer treatments for the wheezing. Notably on admission there was a question of heart failure. She has been receiving fluids because of concern about acute kidney injury. Continues on renal doses piperacillin tazobactam for empiric treatment of sepsis. Exam Narrative: Exam Narrative: She is observed to have a persistent cough with some wheezing and a few basilar crackles on auscultation. Cardiovascular: S1, S2, regular rate and rhythm. Abdomen: Bowel sounds active. Abdomen is soft without tenderness or mass. Left lower extremities examined the bandage over the leg laceration is removed no significant erythema or drainage base of the wound is clean with good granulation tissue. Const: Vital Signs, click to edit/add: Vital Signs - 24 hr 09/25/22 15:00 09/25/22 15:00 09/25/22 15:00 Temperature 97.8 F Pulse Rate Pulse Rate [Pulse Oximeter] 70 62 Respiratory Rate 20 20 20 Blood Pressure [Ri ght Arm] 121/59 L Pulse Oximetry 97 97 Oxygen Delivery Me thod Room Air Room Air Oxygen Flow Rate 09/25/22 15:00 09/25/22 19:00 09/25/22 22:24 Temperature 98.4 F Pulse Rate 62 Pulse Rate [Pulse Oximeter] 80 80 Respiratory Rate 20 20 Blood Pressure [Ri ght Arm] 134/60 Pulse Oximetry 95 Oxygen Delivery Me thod Room Air Oxygen Flow Rate 09/25/22 22:24 09/25/22 23:00 09/25/22 23:00 Temperature 98.4 F Pulse Rate 62 Pulse Rate [Pulse Oximeter] 77 Respiratory Rate 20 16 Blood Pressure [Ri ght Arm] 143/62 H Pulse Oximetry 95 96 Oxygen Delivery Me thod Room Air Room Air Oxygen Flow Rate 2 09/26/22 03:00 09/26/22 07:23 09/26/22 08:12 Temperature 98.3 F Pulse Rate 67 Pulse Rate [Pulse Oximeter] 79 Respiratory Rate 16 Blood Pressure [Ri ght Arm] 137/64 Pulse Oximetry 95 92 Oxygen Delivery Me thod Room Air Room Air Oxygen Flow Rate 09/26/22 08:12 09/26/22 11:11 Temperature 98.1 F 98.2 F Pulse Rate Pulse Rate [Pulse Oximeter] 71 88 Respiratory Rate 14 16 Blood Pressure [Ri ght Arm] 136/66 147/67 H Pulse Oximetry 92 96 Oxygen Delivery Me thod Room Air Room Air Oxygen Flow Rate Documenting provider has reviewed patient's vital signs: yes Labs Labs: Laboratory Results - last 24 hr 09/26/22 09/26/22 00:45 06:16 WBC 8.90 RBC 2.67 L Hgb 8.0 L Hct 24.0 L MCV 90 MCH 30 MCHC 33 RDW Coeff of [place] 14.5 Plt Count 313 Neut % (Auto) 65.8 Lymph % (Auto) 19.3 L [place] % (Auto) 8.8 Eos % (Auto) 5.4 Baso % (Auto) 0.4 Neut # (Auto) 5.85 Lymph # (Auto) 1.70 [place] # (Auto) 0.80 Eos # (Auto) 0.48 Baso # (Auto) 0.04 Sodium 133 L Potassium 3.6 Chloride 102 Carbon Dioxide 22 BUN 61 H Creatinine 3.1 H Estimated Creat Clear 13.00 Estimated GFR 16 Glucose 206 H Calcium 8.4 C-Reactive Protein 22.0 H Stool Occult Blood Negative
[2022-09-26 16:49] LABS: SARS PCR* Negative SARS-CoV-2 (Negative)
--- NOTE | 2022-09-26 19:03 | PM.GSCN ---
History of Present Illness Consult details Date Seen: 09/26/22 Consult date: 09/26/22 Narrative: The patient is a 67-year-old female who presented to the emergency department 2 days prior with altered mental status from her senior living. She had been hospitalized from 09/14 62 after falling and sustaining a large laceration. I repaired this in the operating room and left the wound open with wet to dry dressings. She followed up in [facility] last Thursday. They switched her to an every other day dressing. She was found to have worsening chronic kidney disease, hypoxia, CHF exacerbation as well as anemia and urinary tract infection. She was placed on Zosyn and she had normalization of her white blood cell count. She is overall feeling better. She was also transfused 1 unit of red cells. [facility] Medical History (Updated 09/26/22 @ 14:30 by Marck Estrada MD) Physical debility ?R53.81 - Other malaise (ICD-10) Chronic pain ?G89.29 - Other chronic pain (ICD-10) Chronic kidney disease, stage 5 ?N18.5 - Chronic kidney disease, stage 5 (ICD-10) Diabetes mellitus type 2 in obese ?E11.69 - Type 2 diabetes mellitus with other specified complication (ICD-10) ?E66.9 - Obesity, unspecified (ICD-10) Anemia ?D64.9 - Anemia, unspecified (ICD-10) Murmur ?R01.1 - Cardiac murmur, unspecified (ICD-10) Unstable gait ?R26.81 - Unsteadiness on feet (ICD-10) Hypothyroidism ?E03.9 - Hypothyroidism, unspecified (ICD-10) Lymphedema associated with obesity ?I89.0 - Lymphedema, not elsewhere classified (ICD-10) ?E66.9 - Obesity, unspecified (ICD-10) Hypertension ?I10 - Essential (primary) hypertension (ICD-10) Morbid obesity ?E66.01 - Morbid (severe) obesity due to excess calories (ICD-10) Obstructive sleep apnea ?G47.33 - Obstructive sleep apnea (adult) (pediatric) (ICD-10) Diabetic peripheral neuropathy associated with type 2 diabetes mellitus ?E11.42 - Type 2 diabetes mellitus with diabetic polyneuropathy (ICD-10) Asthma ?J45.909 - Unspecified asthma, uncomplicated (ICD-10) Fibromyalgia ?M79.7 - Fibromyalgia (ICD-10) Supraventricular tachycardia ?I47.1 - Supraventricular tachycardia (ICD-10) Chronic rhinitis ?J31.0 - Chronic rhinitis (ICD-10) Hyperlipidemia associated with type 2 diabetes mellitus ?E11.69 - Type 2 diabetes mellitus with other specified complication (ICD-10) ?E78.5 - Hyperlipidemia, unspecified (ICD-10) POLST (Physician Orders for Life-Sustaining Treatment) ?Z78.9 - Other specified health status (ICD-10) Chronic, continuous use of opioids ?F11.90 - Opioid use, unspecified, uncomplicated (ICD-10) Vaginal bleeding ?N93.9 - Abnormal uterine and vaginal bleeding, unspecified (ICD-10) Metabolic acidosis ?E87.2 - Acidosis (ICD-10) Hyponatremia ?E87.1 - Hypo-osmolality and hyponatremia (ICD-10) Surgical History S/P carpal tunnel release ?Z98.890 - Other specified postprocedural states (ICD-10) H/O left wrist surgery ?Z98.890 - Other specified postprocedural states (ICD-10) H/O: section ?Z98.891 - History of uterine scar from previous surgery (ICD-10) H/O hysterectomy with oophorectomy Social History (Updated 09/24/22 @ 18:15 by Evelyne Whalen MD) Narrative: Eryn is , has 2 adult sons (Filipeer in [place] would be MDM if needed) in [place]. Nonsmoker, no ETOH use. Retired from [employer]. Full Code. What is your current living situation?: I presently have a place to live Problems where you live: no known problems Problems where you live details: none In the past 12 months, utilities in danger of being shut off: no In the past 12 mos, have been you worried that your food would run out before you had money to buy more?: never true In the past 12 mos, the food you bought just didn't last and you didn't have money to buy more?: never true Highest level of school completed/degree received: 12th grade, no diploma Smoking Status: Never smoker Do you use any of these nicotine containing products: None Second hand tobacco smoke exposure: No How often do you have a drink containing alcohol: never How often do you have six or more drinks on one occasion: Never AUDIT-C Alcohol total score: 0 Non-prescribed substance use: denies use Caffeine: Yes How often does anyone, including family, friends and others, physically hurt you: never How often does anyone, including family, friends and others, insult or talk down to you: never How often does anyone, including family, friends and others, threaten you with harm: never How often does anyone, including family, friends and others, scream or curse at you: never Gender Identity: female service: No Meds Home Medications and Allergies Home Medications Medication Instructions Recorded Confirmed Type albuterol sulfate 90 mcg/actuation 1 puff inhalation Q4H PRN 10/13/21 09/24/22 History aerosol inhaler (Ventolin HFA) cyclobenzaprine 10 mg tablet 10 mg PO HS 10/13/21 09/24/22 History diltiazem HCl 300 mg 300 mg PO HS 10/13/21 09/24/22 History capsule,extended release 24 hr docusate sodium 100 mg capsule 200 mg PO HS 10/13/21 09/24/22 History duloxetine 60 mg capsule,delayed 60 mg PO HS 10/13/21 09/24/22 History release ferrous sulfate 325 mg (65 mg 325 mg PO QA 10/13/21 09/24/22 History iron) tablet (FeroSul) fluticasone 500 mcg-salmeterol 50 1 inh inhalation BID 10/13/21 09/24/22 History mcg/dose blistr powdr for inhalation (Advair Diskus) fluticasone propionate 50 2 spray intranasal DAILY 10/13/21 09/24/22 History mcg/actuation nasal spray,suspension furosemide 20 mg tablet 20 mg PO QAM 10/13/21 09/24/22 History indapamide 2.5 mg tablet 2.5 mg PO DAILY 10/13/21 09/24/22 History insulin aspart U-100 100 unit/mL 8 unit subcut TIDWM 10/13/21 09/24/22 History (3 mL) subcutaneous pen (Novolog FlexPen U-100 Insulin aspart) levothyroxine 150 mcg tablet 150 mcg PO DAILY 10/13/21 09/24/22 History montelukast 10 mg tablet 10 mg PO HS 10/13/21 09/24/22 History nystatin 100,000 unit/gram topical 1 applic topical BID PRN 10/13/21 09/24/22 History powder (Nystop) pantoprazole 40 mg tablet,delayed 40 mg PO BID 10/13/21 09/24/22 History release polyethylene glycol 3350 17 17 g PO DAILY 10/13/21 09/24/22 History gram/dose oral powder topiramate 100 mg tablet 100 mg PO BID 10/13/21 09/24/22 History tramadol 50 mg tablet 50 mg PO TID 10/13/21 09/24/22 History cholecalciferol (vitamin D3) 50 2,000 unit PO DAILY 10/14/21 09/24/22 History mcg (2,000 unit) tablet (Vitamin D3) insulin aspart U-100 100 unit/mL 1 sliding scale dose subcut 10/14/21 09/24/22 History (3 mL) subcutaneous pen (Novolog USEASDIRECTD FlexPen U-100 Insulin aspart) melatonin 3 mg capsule 3 mg PO HS 10/14/21 09/24/22 History clotrimazole 1 % topical cream 1 applic topical BID PRN 09/15/22 09/24/22 History ipratropium 20 mcg-albuterol 100 1 puff inhalation Q6H PRN 09/15/22 09/24/22 History mcg/actuation mist for inhalation insulin NPH isoph U-100 human 100 6 - 28 unit subcut BID 09/24/22 09/24/22 History unit/mL (3 mL) subcutaneous pen (Novolin N FlexPen) Allergies Allergy/AdvReac Type Severity Reaction Status Date / Time adhesive tape Allergy Verified 09/14/22 20:32 allopurinol Allergy Verified 09/14/22 20:32 atorvastatin Allergy Verified 09/14/22 20:32 clarithromycin Allergy Verified 09/14/22 20:32 dulaglutide [From Trulicity] Allergy Verified 09/14/22 20:32 fluconazole [From Diflucan] Allergy Verified 09/14/22 20:32 Exam Narrative: Exam Narrative: General: No acute distress Extremities: Left leg with wound noted on lower portion. There is erythema at the superior flap as well as medially, however this has been present since surgery. The wound base appears healthy without need for debridement. The superior portion flap has sealed itself down to the fascia below and the wound no longer tracks. All of the wound edges are viable. Sutures were removed today. Const: Vital Signs, click to edit/add: Vital Signs - 24 hr 09/25/22 22:24 09/25/22 22:24 09/25/22 23:00 Temperature Pulse Rate 62 Pulse Rate [Pulse Oximeter] 80 Respiratory Rate 20 20 Blood Pressure [Ri ght Arm] Pulse Oximetry 95 Oxygen Delivery Me thod Room Air Oxygen Flow Rate 09/25/22 23:00 09/26/22 03:00 09/26/22 07:23 Temperature 98.4 F 98.3 F Pulse Rate 67 Pulse Rate [Pulse Oximeter] 77 79 Respiratory Rate 16 16 Blood Pressure [Ri ght Arm] 143/62 H 137/64 Pulse Oximetry 96 95 Oxygen Delivery Me thod Room Air Room Air Oxygen Flow Rate 2 09/26/22 08:12 09/26/22 08:12 09/26/22 11:11 Temperature 98.1 F 98.2 F Pulse Rate Pulse Rate [Pulse Oximeter] 71 88 Respiratory Rate 14 16 Blood Pressure [Ri ght Arm] 136/66 147/67 H Pulse Oximetry 92 92 96 Oxygen Delivery Me thod Room Air Room Air Room Air Oxygen Flow Rate Results Labs Labs: Abnormal lab results 09/26/22 Range/Units 06:16 RBC 2.67 L (4.00-5.20) m/uL Hgb 8.0 L (12.0-16.0) gm/dL Hct 24.0 L (33.0-51.0) % Lymph % (Auto) 19.3 L (20-44) % Sodium 133 L (135-149) mmol/L BUN 61 H (7-30) mg/dL Creatinine 3.1 H (0.5-1.5) mg/dL Glucose 206 H (60-115) mg/dL C-Reactive Protein 22.0 H (0.5-1.0) mg/dL Diabetes panel 09/26/22 Range/Units 06:16 Sodium 133 L (135-149) mmol/L Potassium 3.6 (3.6-5.1) mmol/L Chloride 102 (96-114) mmol/L Carbon Dioxide 22 (20-32) mmol/L BUN 61 H (7-30) mg/dL Creatinine 3.1 H (0.5-1.5) mg/dL Glucose 206 H (60-115) mg/dL Calcium 8.4 (8.4-10.6) mg/dL Calcium panel 09/26/22 Range/Units 06:16 Calcium 8.4 (8.4-10.6) mg/dL Pituitary panel 09/26/22 Range/Units 06:16 Sodium 133 L (135-149) mmol/L Potassium 3.6 (3.6-5.1) mmol/L Chloride 102 (96-114) mmol/L Carbon Dioxide 22 (20-32) mmol/L BUN 61 H (7-30) mg/dL Creatinine 3.1 H (0.5-1.5) mg/dL Glucose 206 H (60-115) mg/dL Calcium 8.4 (8.4-10.6) mg/dL Adrenal panel 09/26/22 Range/Units 06:16 Sodium 133 L (135-149) mmol/L Potassium 3.6 (3.6-5.1) mmol/L Chloride 102 (96-114) mmol/L Carbon Dioxide 22 (20-32) mmol/L BUN 61 H (7-30) mg/dL Creatinine 3.1 H (0.5-1.5) mg/dL Glucose 206 H (60-115) mg/dL Calcium 8.4 (8.4-10.6) mg/dL All other labs normal. Assessment and Plan Assessment and plan (1) Laceration of leg not thigh, complicated: Problem comment: - primary repair with Dr. Mistry of General Surgery 09/14, unable to place wound vac 2/2 habitus; wet to dry dressings - will ask wound team to follow while inpatient Status: Acute (2) Cellulitis: Problem comment: - mild surrounding erythema of laceration in addition to findings of pain, fatigue, leukocytosis, elevated inflammatory markers, multiple comorbidities Wound looks quite good today. Switch from Zosyn to oral, renal dosed Levaquin Dr. Mistry to evaluate wound. Status: Acute Plan The patient is a 67-year-old female with a left lower extremity wound. She follows in the [facility] Center and is due to follow up in 2 weeks. The wound overall looks good, however she does have some cellulitis on her lower extremity. This appears to be chronic for her and was actually present when she presented and also on her right lower extremity. I think it is reasonable to continue her on some antibiotics, however, I also think we should change her dressing back to daily wet to dry with vashe and her bilateral lower extremity should be wrapped with Ketan wraps for compression.
--- NOTE | 2022-09-26 19:55 | PC.NURSE ---
Nursing Care Hours: [id number] Pt this shift calm and cooperative with cares. VSS. Pain 5/10 treated per eMAR. Up with 1 assist with walker to bathroom. Wound dressing changed per Dr. Mistry. Sutures removed, pt tolerated well. Wound bed looks beefy red, moist with pink surrounding tissue. Ate about 50%, agreed to a Ensure clear protein drink.
[2022-09-26] MEDS: DULOXETINE 30 MG CAPSULE DR 60 MG PO (20:56)
[2022-09-26] MEDS: MELATONIN 3 MG TABLET PO (20:59)
[2022-09-26] MEDS: DOCUSATE SODIUM 100 MG CAPSULE 200 MG PO (20:59)
[2022-09-26] MEDS: MONTELUKAST 10 MG TABLET PO (21:00)
[2022-09-26] MEDS: CYCLOBENZAPRINE HCL 10 MG TABLET PO (21:00)
[2022-09-27] VITALS (9 sets, daily range): BP systolic 145–182; BP diastolic 78–96; PULSE 70–97; RESP 15–18; TEMP 36.6–37.3; O2SAT 96–100
[2022-09-27] MEDS: ACETAMINOPHEN 325 MG TABLET 975 MG PO ×2 (00:14→19:46)
[2022-09-27] MEDS: LEVOTHYROXINE 75 MCG TABLET 150 MCG PO (06:17)
--- NOTE | 2022-09-27 06:56 | PC.NURSE ---
Pt alert and oriented x3. Afebrile. Pt reports 7/10 pain in left leg, pain managed with PRN medications. Pt?s left calf dressing is CDI.?Pt denies SOB, chest pain, and N/V. Pt is up SBA with walker gait belt, reg diet, and voiding. Pt slept intermittently throughout most of night.
[2022-09-27 07:01] LABS: Basophils Absolute Auto 0.02 K/uL (0.00-0.30); Basophils Percent Auto 0.3 % (0.0-3.0); Eosinophils Absolute Auto 0.36 K/uL (0.00-0.50); Eosinophils Percent Auto 4.5 % (0.0-7.0); Hematocrit 25.8 % (33.0-51.0); Hemoglobin* 8.4 gm/dL (12.0-16.0); Immature Granulocytes Abs Auto 0.08 K/uL (0.00-0.30); Lymphocytes Percent Auto 22.6 % (20-44); Mean Corpuscular HGB Conc 33 gm/dL (32-36); Mean Corpuscular Hemoglobin 30 pg (26-34); Mean Corpuscular Volume 91 fL (80-100); Monocytes Percent Auto 8.5 % (0.0-11.0); Neutrophils Absolute Auto 5.04 K/uL (1.7-7.0); Neutrophils Percent Auto 63.1 % (42.0-72.0); Platelet Count* 390 K/uL (140-440); RDW Coefficient of Variation % 14.3 % (11.5-15.5); Red Blood Count 2.84 m/uL (4.00-5.20); White Blood Count* 7.98 K/uL (4.50-11.00)
[2022-09-27 07:04] LABS: Slide Review Reflex No
[2022-09-27 07:21] LABS: Chloride* 103 mmol/L (96-114); Potassium* 3.9 mmol/L (3.6-5.1); Sodium* 137 mmol/L (135-149)
[2022-09-27 07:24] LABS: Creatinine* 2.3 mg/dL (0.5-1.5); Est. Creatinine Clearance* 17.52; Estimated Glomerular Filt Rate 23 ml/min
[2022-09-27 07:25] LABS: Blood Urea Nitrogen* 57 mg/dL (7-30); Calcium* 8.6 mg/dL (8.4-10.6); Carbon Dioxide* 21 mmol/L (20-32); Glucose* 139 mg/dL (60-115)
[2022-09-27 07:46] LABS: C Reactive Protein* 15.6 mg/dL (0.5-1.0)
[2022-09-27] MEDS: FUROSEMIDE 20 MG TABLET PO (08:47)
[2022-09-27] MEDS: INDAPAMIDE 2.5 MG TABLET PO (08:48)
[2022-09-27] MEDS: FLUTICASONE PROPIONATE NASAL 2 SPRAY NOSTRIL-B (08:48)
[2022-09-27] MEDS: OMEPRAZOLE 20 MG CAPSULE DR 40 MG PO ×2 (08:49→20:33)
[2022-09-27] MEDS: SODIUM CHLORIDE 0.9 % (FLUSH) 10 ML SYRINGE 5 ML IVF ×2 (08:50→20:52)
[2022-09-27] MEDS: TOPIRAMATE 50 MG TABLET 100 MG PO ×2 (08:50→20:34)
[2022-09-27] MEDS: IPRAT-ALBUT 0.5-2.5 MG/3 ML NEB 1 NEB IH ×2 (11:19→20:52)
[2022-09-27] MEDS: ALBUTEROL INHALER 1 PUFF IH (11:19)
[2022-09-27] MEDS: HYDRALAZINE HCL 20 MG/ML inj 10 MG IVP (15:45)
[2022-09-27] MEDS: HYDROmorphone 0.5 mg/0.5 ml inj IVP (15:45)
--- NOTE | 2022-09-27 19:37 | PC.NURSE ---
Nursing Care Notes: [id number] Pt this shift calm, alert and oriented. Increased HTN, see VS, PRN order given. C/o pain to L leg 8 even after scheduled pain meds, 1 time PRN order dose given. Dressing change done, wet to dry. Increased redness around open tissue, area marked with blue marker and dated. Moderate serous fluid on old gauze wrap. Wound bed is moist and beefy red, undermining at proximal end. Pt c/o today of general malaise. Intermittent cough with occasional cough attack per pt. Moist but not productive today. No wheezing. SOB in morning requiring PRN neb and inhaler. Pt states symptoms of feeling right throat gland soreness, chilled with hot and cold episodes, shaky, fatigued, and toward end of shift c/o nausea. Oral temp has remained WNL, at 1800 it was 99.0. Decreased appetite, eating 25% of breakfast and dinner, refused lunch, refused supplements and snacks. Pt refused Miralax in morning d/t already having soft BM. three BM formed this shift, 4th BM loose. Pt also refused IV fluid order. Educated pt on hospitalist rationale for helping the kidneys, pt states she is peeing large amounts and is worried about getting fluid overload. New IV placed d/t occlusion.
[2022-09-27] MEDS: CYCLOBENZAPRINE HCL 10 MG TABLET PO (20:31)
[2022-09-27] MEDS: DULOXETINE 30 MG CAPSULE DR 60 MG PO (20:31)
[2022-09-27] MEDS: MELATONIN 3 MG TABLET PO (20:32)
[2022-09-27] MEDS: DOCUSATE SODIUM 100 MG CAPSULE 200 MG PO (20:33)
[2022-09-27] MEDS: MONTELUKAST 10 MG TABLET PO (20:39)
--- NOTE | 2022-09-27 20:58 | P.IMPN_ITS ---
Progress Note: A&P Assessment and plan (1) Cellulitis: Problem details: - mild surrounding erythema of laceration in addition to findings of pain, fatigue, leukocytosis, elevated inflammatory markers, multiple comorbidities Wound looks quite good today. Switch from Zosyn to oral, renal dosed Levaquin Dr. Mistry to evaluate wound. Status: Acute (2) UTI (urinary tract infection): Problem details: Ucx growing pseudomonas was started on levaquin for above cellulitis Status: Acute (3) Chronic kidney disease, stage 5: Problem details: - with АНДРЕЙ (admission Cr 2.8, baseline Cr 2.1-2.2); АНДРЕЙ resolving Cr improving 2.3 was around 1.6 on 09/14 IVF continued till this evening Status: Acute (4) Hypertension: Problem details: continue lasix; imdur; add norvasc; avoid ACEi/ARB for now given renal function; prn hydralazine SBP in 180s today Status: Acute (5) Laceration of leg not thigh, complicated: Problem details: - primary repair with Dr. Mistry of General Surgery 09/14, unable to place wound vac 2/2 habitus; wet to dry dressings - will ask wound team to follow while inpatient Status: Acute (6) Physical debility: Problem details: Continue to assess. Therapy to evaluate and treat. Status: Acute (7) Diabetes mellitus type 2 in obese: Problem details: - insulin dependent - continue home medications + SSI Status: Acute (8) Anemia: Problem details: - acute on chronic, 2/2 chronic renal disease. Monitor for source of bleeding. Transfuse to get hemoglobin to 8 - transfused 1U PRBCs 09/24 for Hgb <8 - no evidence of acute bleeding. Check stool guaiacs. Status: Acute (9) Acute respiratory failure with hypoxia: Problem details: - O2 saturation 86% upon ED arrival - no evidence of acute infectious process on CXR, question of pulmonary edema on chest x-ray. Today appears to be having heart failure exacerbation, likely due to fluid resuscitation. IV furosemide. - recent TTE (09/16/22) reassuring, likely has an element of TRACY. I suspect some hypoxia is due to combination of untreated sleep apnea plus moderately high dose of chronic opioid use Status: Acute (10) Chronic pain: Problem details: - on chronic narcotics. Likely contributing to hypoxia and worsening sleep apnea. Reporting fairly severe pain now but long-term should be tapered off opioids and in the short term needs to use her BiPAP Status: Acute (11) Altered mental status: Problem details: - concern from 3 Links, no evidence of this upon admission (possibly related to hypoxia) - patient endorses feeling wiped from recent outpatient Wound Care appt and therapies, also has anemia, hypoxia, CKD, cellulitis - will ask therapies to follow Concern for sleep apnea and opioids causing excessive sedation. Continue to mo nitor and evaluate Status: Acute (12) Edema: Problem details: - Lymphedema, chronic Status: Acute Plan Dispo-Return to Short term rehab likely thursday vs thursday Time Spent With Patient Total time spent: 35 Subjective Date Seen: 09/27/22 Interval history: patient new to me she complains of leg pain worsening since yesterday and asking if tramadol can be restarted given IV dilaudid X1 elevated BPs in 180s; low grade temps of 99F no fever overnight Exam Narrative: Exam Narrative: Gen: morbidly obese female appears on comfortable HEENT: NCAT EOMI mmm Neck: Supple CV: RRR normal s1 s2 Lungs: CTAB Abd: Soft,nt, nd Neuro: Alert, oriented, CN grossly intact; nonfocal screening?exam Psych: appropriate affect MSK: age appropriate muscle mass Skin; lymphedema of lower extremities; both legs wrapped Const: Vital Signs, click to edit/add: Vital Signs - 24 hr 09/26/22 23:25 09/26/22 23:25 09/26/22 23:25 Temperature Pulse Rate 71 Pulse Rate [Pulse Oximeter] 89 Respiratory Rate 16 16 Blood Pressure [Ri ght Arm] Pulse Oximetry 97 Oxygen Delivery Me thod Room Air 09/26/22 23:25 09/27/22 04:20 09/27/22 07:00 Temperature 98.3 F 98.2 F Pulse Rate 95 Pulse Rate [Pulse Oximeter] 83 70 Respiratory Rate 16 18 Blood Pressure [Ri ght Arm] 162/85 H 145/78 H Pulse Oximetry 97 96 Oxygen Delivery Me thod Room Air Room Air 09/27/22 07:00 09/27/22 07:00 09/27/22 07:00 Temperature 98.7 F Pulse Rate Pulse Rate [Pulse Oximeter] 70 90 Respiratory Rate 18 18 18 Blood Pressure [Ri ght Arm] 175/96 H Pulse Oximetry 100 100 Oxygen Delivery Me thod Room Air Room Air 09/27/22 11:00 09/27/22 15:00 09/27/22 15:00 Temperature Pulse Rate Pulse Rate [Pulse Oximeter] 95 95 Respiratory Rate 15 16 16 Blood Pressure [Ri t Arm] 182/84 H Pulse Oximetry 96 97 Oxygen Delivery Me thod Room Air Room Air 09/27/22 18:00 09/27/22 19:46 Temperature 99 F 99.2 F Pulse Rate Pulse Rate [Pulse Oximeter] Respiratory Rate [facility] Pulse Oximetry Oxygen Delivery Me thod Labs Labs: Laboratory Results - last 24 hr 09/27/22 06:19 WBC 7.98 RBC 2.84 L Hgb 8.4 L Hct 25.8 L MCV 91 MCH 30 MCHC 33 RDW Coeff of Antonio 14.3 Plt Count 390 Neut % (Auto) 63.1 Lymph % (Auto) 22.6 [place] % (Auto) 8.5 Eos % (Auto) 4.5 Baso % (Auto) 0.3 Neut # (Auto) 5.04 Lymph # (Auto) 1.80 [place] # (Auto) 0.70 Eos # (Auto) 0.36 Baso # (Auto) 0.02 Sodium 137 Potassium 3.9 Chloride 103 Carbon Dioxide 21 BUN 57 H Creatinine 2.3 H Estimated Creat Clear 17.52 Estimated GFR 23 Glucose 139 H Calcium 8.6 C-Reactive Protein 15.6 H
[2022-09-27] MEDS: AMLODIPINE 10 MG TABLET PO (21:42)
[2022-09-27] MEDS: TRAMADOL HCL 50 MG TABLET PO (22:32)
[2022-09-28] VITALS: BP 164/77; PULSE 82; PULSE 96; RESP 18; TEMP 36.8; O2SAT 96
[2022-09-28] MEDS: HYDROmorphone 0.5 mg/0.5 ml inj IVP ×3 (00:53→08:21)
[2022-09-28 02:56] VITALS: BP 163/81; PULSE 88; RESP 18; TEMP 36.7; O2SAT 96
[2022-09-28] MEDS: ACETAMINOPHEN 325 MG TABLET 975 MG PO (03:02)
[2022-09-28] MEDS: LEVOTHYROXINE 75 MCG TABLET 150 MCG PO (06:01)
[2022-09-28 06:06] LABS: Basophils Absolute Auto 0.02 K/uL (0.00-0.30); Basophils Percent Auto 0.2 % (0.0-3.0); Eosinophils Absolute Auto 0.28 K/uL (0.00-0.50); Eosinophils Percent Auto 3.4 % (0.0-7.0); Hematocrit 26.1 % (33.0-51.0); Hemoglobin* 8.5 gm/dL (12.0-16.0); Immature Granulocytes Abs Auto 0.11 K/uL (0.00-0.30); Immature Granulocytes Pct Auto 1.3 %; Lymphocytes Absolute Auto 1.97 K/uL (0.90-2.90); Lymphocytes Percent Auto 23.9 % (20-44); Mean Corpuscular HGB Conc 33 gm/dL (32-36); Mean Corpuscular Hemoglobin 30 pg (26-34); Mean Corpuscular Volume 91 fL (80-100); Monocytes Percent Auto 9.3 % (0.0-11.0); Neutrophils Percent Auto 61.9 % (42.0-72.0); Platelet Count* 386 K/uL (140-440); RDW Coefficient of Variation % 14.3 % (11.5-15.5); Red Blood Count 2.88 m/uL (4.00-5.20); White Blood Count* 8.25 K/uL (4.50-11.00)
[2022-09-28 06:09] LABS: Slide Review Reflex No
[2022-09-28 06:20] LABS: Chloride* 105 mmol/L (96-114)
[2022-09-28 06:21] LABS: Potassium* 3.4 mmol/L (3.6-5.1); Sodium* 138 mmol/L (135-149)
[2022-09-28 06:23] LABS: Creatinine* 1.4 mg/dL (0.5-1.5); Est. Creatinine Clearance* 28.78; Estimated Glomerular Filt Rate 42 ml/min
[2022-09-28 06:24] LABS: Blood Urea Nitrogen* 42 mg/dL (7-30); Calcium* 8.7 mg/dL (8.4-10.6); Carbon Dioxide* 22 mmol/L (20-32); Glucose* 206 mg/dL (60-115)
[2022-09-28 06:27] LABS: C Reactive Protein* 7.1 mg/dL (0.5-1.0)
--- NOTE | 2022-09-28 07:59 | PC.NURSE ---
Pt alert and oriented x3. Afebrile. Pt reports 9/10 pain in left leg and feeling warm, pt was given PRN Tylenol and scheduled oxycodone, repositioned x 5, Ice pack was given with cold wash cloth for forehead and portable fan, offered aromatherapy pt refused. Pt continued to report discomfort and was taken to the BR, and was up the?chair for 15 mins then went back to bed due to no relief. Astronomy Instructor called Dr. Erwin on pt?s discomfort and uncontrolled pain, MD ordered a maximum of 3 times?PRN dose of Dilaudid and?scheduled TID tramadol. Pt tramadol helped rating pain 7/10. Astronomy Instructor asked pt what baseline chronic pain is at before pt got the leg wound, pt reported 6-7/10.?Pt?s left calf dressing is CDI. Mepelex on coccyx changed in CDI. Pt?s legs are elevated.?Pt denies SOB, chest pain, and N/V. Pt is up SBA with walker gait belt, reg diet, and voiding. Pt slept intermittently throughout most of night.
[2022-09-28 08:00] VITALS: BP 172/81; PULSE 85; PULSE 88; RESP 16; TEMP 37.1; O2SAT 96
[2022-09-28] MEDS: SODIUM CHLORIDE 0.9 % (FLUSH) 10 ML SYRINGE 5 ML IVF ×2 (08:21→21:24)
[2022-09-28] MEDS: FUROSEMIDE 20 MG TABLET PO (08:45)
[2022-09-28] MEDS: INDAPAMIDE 2.5 MG TABLET PO (09:14)
[2022-09-28] MEDS: OMEPRAZOLE 20 MG CAPSULE DR 40 MG PO ×2 (09:14→21:12)
[2022-09-28] MEDS: TRAMADOL HCL 50 MG TABLET PO ×3 (09:14→21:12)
[2022-09-28] MEDS: FLUTICASONE PROPIONATE NASAL 2 SPRAY NOSTRIL-B (09:17)
[2022-09-28] MEDS: levoFLOXacin 250 MG TABLET PO (09:19)
[2022-09-28] MEDS: TOPIRAMATE 50 MG TABLET 100 MG PO ×2 (09:19→21:13)
[2022-09-28] MEDS: hydroCHLOROthiazide 12.5 MG CAPSULE PO ×2 (10:13→15:38)
[2022-09-28] MEDS: POTASSIUM CHLORIDE 10 MEQ CAPSULE ER 40 MEQ PO (10:13)
--- NOTE | 2022-09-28 10:23 | CRLHL7_ITS ---
For Patients: As a result of the Century Cures Act, medical imaging exams and procedure reports are released immediately into your electronic medical record. You may view this report before your referring provider. If you have questions, please contact your health care provider. INDICATION: left leg pain COMPARISON: None. TECHNIQUE: A compression venous ultrasound exam was performed of the left lower extremity using cao-scale imaging, color Doppler and spectral Doppler analysis. FINDINGS: Sonographic imaging of the left lower extremity demonstrates normal compressibility and color Doppler venous blood flow within the common femoral vein, deep femoral vein, and the proximal greater saphenous vein. Within the thigh, the femoral vein is patent and compressible. At a lower level, the popliteal veins also show normal compressibility and color Doppler venous blood flow. The posterior tibial veins are not visualized due to overlying bandages. Limited imaging of the contralateral groin demonstrates a normal spectral waveform and color Doppler venous blood flow within the right common femoral vein. IMPRESSION: No DVT within the visualized anatomy. Dictated by Jensen Crooks MD @ 09/28/2022 2:22:07 PM (Electronically Signed)
[2022-09-28 12:00] VITALS: BP 171/78; PULSE 82; RESP 16; TEMP 36.9; O2SAT 96
[2022-09-28] MEDS: HYDROmorphone 2 MG TABLET PO ×2 (12:39→19:34)
--- NOTE | 2022-09-28 14:51 | PC.NURSE ---
End of shift nursing note, care provided from [id number]: Pt alert and oriented, pleasant and conversational this shift. Pt can communicate all needs, originally stated she wished to take shower today, repairer typewriter coordinated this with LILIAN team but pt continued to state she wasn't ready for shower throughout day then had US of LLE and stated she was too tired for shower this shift, repairer typewriter offered for shampoo cap, pt declined but allowed repairer typewriter to detangle and brush her hair and plans for shower tomorrow when feeling better rested (per pt and last shift report pt did not have restful night of sleep d/t increase in pain). Pain more controlled now with continued restart of scheduled Tramadol and new order for PO Dilaudid 2mg. SBA w/ walker and gaitbelt for amb needs, up to void, barrier cream applied to buttocks below intact mepilex. PRN Dilaudid admin, scheduled Oxy and Tramadol admin for pain. Pt's vitals stable, aside from continued elevated BP, new order for HCTZ admin this shift and new order for Amlodipine and HCTZ this evening as well, pt on RA. K+ replaced w/ 40mEq this shift for K+ of 3.4. 24g IV remains patent to L wrist, saline locked. Minimal appetite, food and snacks encouraged throughout shift, pt often declining, repairer typewriter had conversation w/ pt about importance of protein for wound healing and overall energy, pt states understanding. Scheduled and SSI admin in AM for BG of 188, held in afternoon for BG of 149 and pt refused MD jolie updated. Wound care done this afternoon, pt tolerated. Pt now resting soundly. Call light within pt reach & pt uses appropriately.
[2022-09-28 15:00] VITALS: BP 160/75; PULSE 79; RESP 16; TEMP 36.7; O2SAT 95
[2022-09-28] MEDS: AMLODIPINE 10 MG TABLET PO (18:51)
[2022-09-28 19:00] VITALS: BP 165/75; PULSE 91; RESP 16; TEMP 36.9; O2SAT 97
--- NOTE | 2022-09-28 19:51 | P.IMPN_ITS ---
Progress Note: A&P Assessment and plan (1) Cellulitis: Problem details: - mild surrounding erythema of laceration in addition to findings of pain, fatigue, leukocytosis, elevated inflammatory markers, multiple comorbidities Wound looks quite good today. Switch from Zosyn to oral, renal dosed Levaquin Dr. Mistry to evaluate wound. Status: Acute (2) UTI (urinary tract infection): Problem details: Ucx growing pseudomonas was started on levaquin for above cellulitis Status: Acute (3) Hypertension: Problem details: continue lasix; imdur; add norvasc; avoid ACEi/ARB for now given renal function; prn hydralazine SBP >180 added hctz on 09/28 Status: Acute (4) Chronic pain: Problem details: - on chronic narcotics. Likely contributing to hypoxia and worsening sleep apnea. Reporting fairly severe pain now but long-term should be tapered off opioids and in the short term needs to use her BiPAP Status: Acute (5) Acute respiratory failure with hypoxia: Problem details: -resolved - O2 saturation 86% upon ED arrival - no evidence of acute infectious process on CXR, question of pulmonary edema on chest x-ray. - recent TTE (09/16/22) reassuring, likely has an element of TRACY. I suspect some hypoxia is due to combination of untreated sleep apnea plus moderately high dose of chronic opioid use Status: Acute (6) Diabetes mellitus type 2 in obese: Problem details: - insulin dependent - continue home medications + SSI Status: Acute (7) Anemia: Problem details: - acute on chronic, 2/2 chronic renal disease. Monitor for source of bleeding. Transfuse to get hemoglobin to 8 - transfused 1U PRBCs 09/24 for Hgb <8 - no evidence of acute bleeding. Status: Acute (8) Chronic kidney disease, stage 5: Problem details: - with АНДРЕЙ (admission Cr 2.8, baseline Cr 2.1-2.2); АНДРЕЙ resolved Cr improving 1.4 was around 1.6 on 09/14 Status: Acute (9) Laceration of leg not thigh, complicated: Problem details: - primary repair with Dr. Mistry of General Surgery 09/14, unable to place wound vac 2/2 habitus; wet to dry dressings - will ask wound team to follow while inpatient Status: Acute Plan DC [facility] tomorrow Subjective Date Seen: 09/28/22 Interval history: patient c/o left pain ultram restarted yesterday to wean patient of IV dilaudid repeat LLE US negative for dvt no acute events overnight scheduled dc tomorrow anticipated No DVT within the visualized anatomy. Exam Narrative: Exam Narrative: Gen: no acute distress HEENT: NCAT EOMI mmm CV: RRR normal s1 s2 Lungs: CTAB Abd: Soft,nt, nd Neuro: Alert, oriented, CN grossly intact; nonfocal screening?exam Psych: appropriate affect MSK: age appropriate muscle mass Skin; Warm, dry no rash on face; erythema/edema LLE Const: Vital Signs, click to edit/add: Vital Signs - 24 hr 09/27/22 21:23 09/27/22 22:45 09/27/22 22:45 Temperature 98.5 F Pulse Rate [Pulse Oximeter] 93 Respiratory Rate 16 16 Blood Pressure [Ri ght Arm] Pulse Oximetry 97 Oxygen Delivery Me thod Room Air Oxygen Flow Rate 09/27/22 22:45 09/28/22 02:56 09/28/22 08:00 Temperature 97.9 F 98.0 F Pulse Rate [Pulse Oximeter] 93 88 88 Respiratory Rate 16 18 16 Blood Pressure [Ri ght Arm] 158/79 H 163/81 H Pulse Oximetry 97 96 Oxygen Delivery Me thod Room Air Room Air Oxygen Flow Rate 09/28/22 08:00 09/28/22 08:00 09/28/22 12:00 Temperature 98.7 F 98.4 F Pulse Rate [Pulse Oximeter] 85 82 Respiratory Rate 16 16 16 Blood Pressure [Ri ght Arm] 172/81 H 171/78 H Pulse Oximetry 96 96 96 Oxygen Delivery Me thod Room Air Room Air Room Air Oxygen Flow Rate 0 0 09/28/22 15:00 09/28/22 15:00 09/28/22 15:00 Temperature 98.1 F Pulse Rate [Pulse Oximeter] 79 79 Respiratory Rate 16 16 Blood Pressure [Ri ght Arm] 160/75 H Pulse Oximetry 95 95 Oxygen Delivery Me thod Room Air Room Air Oxygen Flow Rate 0 Labs Labs: Laboratory Results - last 24 hr 09/28/22 05:56 WBC 8.25 RBC 2.88 L Hgb 8.5 L Hct 26.1 L MCV 91 MCH 30 MCHC 33 RDW Coeff of Antonio 14.3 Plt Count 386 Neut % (Auto) 61.9 Lymph % (Auto) 23.9 [place] % (Auto) 9.3 Eos % (Auto) 3.4 Baso % (Auto) 0.2 Neut # (Auto) 5.10 Lymph # (Auto) 1.97 [place] # (Auto) 0.80 Eos # (Auto) 0.28 Baso # (Auto) 0.02 Sodium 138 Potassium 3.4 L Chloride 105 Carbon Dioxide 22 BUN 42 H Creatinine 1.4 Estimated Creat Clear 28.78 Estimated GFR 42 Glucose 206 H Calcium 8.7 C-Reactive Protein 7.1 H
[2022-09-28] MEDS: DULOXETINE 30 MG CAPSULE DR 60 MG PO (21:12)
[2022-09-28] MEDS: CYCLOBENZAPRINE HCL 10 MG TABLET PO (21:12)
[2022-09-28] MEDS: MELATONIN 3 MG TABLET PO (21:12)
[2022-09-28] MEDS: MONTELUKAST 10 MG TABLET PO (21:12)
[2022-09-28] MEDS: DOCUSATE SODIUM 100 MG CAPSULE 200 MG PO (21:12)
--- NOTE | 2022-09-28 22:45 | PC.NURSE ---
Shift note: Pt's dressing is clean and dry but reported of frequent pain of about 8. Vital signs stable. Pt did well ambulating with 1 assist, walker and GB.
[2022-09-29] MEDS: ACETAMINOPHEN 325 MG TABLET 975 MG PO ×2 (00:12→08:38)
[2022-09-29] MEDS: HYDROmorphone 2 MG TABLET PO ×3 (00:12→11:45)
[2022-09-29 03:00] VITALS: BP 154/69; PULSE 79; RESP 16; TEMP 36.8; O2SAT 96
[2022-09-29] MEDS: LEVOTHYROXINE 75 MCG TABLET 150 MCG PO (05:53)
--- NOTE | 2022-09-29 06:59 | PC.NURSE ---
END OF SHIFT NOTE: PT PLEASANT AND COOPERATIVE. A&Ox3. DENIES CP, SOB, N/V. AMBULATES WITH WALKER, GB, A1. CALLS APPROPRIATELY. VSS ON RA; AFEBRILE. DIONTE WRAP TO LLE. PT REPORTS PAIN TO BACK 7/10, LLE 8/10, HEADACHE 7/10 WITH RELIEF FROM PRN DILAUDID, PRN TYLENOL AND ELEVATION OF LIMB. ALARM ON AND CALL LIGHT WITHIN PT?S REACH. AWAITING PLACEMENT.
[2022-09-29 07:03] LABS: Basophils Absolute Auto 0.02 K/uL (0.00-0.30); Basophils Percent Auto 0.2 % (0.0-3.0); Eosinophils Absolute Auto 0.28 K/uL (0.00-0.50); Eosinophils Percent Auto 3.5 % (0.0-7.0); Hematocrit 28.5 % (33.0-51.0); Immature Granulocytes Abs Auto 0.06 K/uL (0.00-0.30); Immature Granulocytes Pct Auto 0.7 %; Lymphocytes Absolute Auto 2.38 K/uL (0.90-2.90); Lymphocytes Percent Auto 29.6 % (20-44); Mean Corpuscular HGB Conc 32 gm/dL (32-36); Mean Corpuscular Hemoglobin 29 pg (26-34); Mean Corpuscular Volume 92 fL (80-100); Monocytes Percent Auto 7.7 % (0.0-11.0); Neutrophils Absolute Auto 4.67 K/uL (1.7-7.0); Neutrophils Percent Auto 58.3 % (42.0-72.0); Platelet Count* 421 K/uL (140-440); RDW Coefficient of Variation % 14.3 % (11.5-15.5); Red Blood Count 3.09 m/uL (4.00-5.20); White Blood Count* 8.03 K/uL (4.50-11.00)
[2022-09-29 07:06] LABS: Slide Review Reflex No
[2022-09-29 07:19] LABS: Chloride* 104 mmol/L (96-114); Sodium* 139 mmol/L (135-149)
[2022-09-29 07:20] LABS: Potassium* 3.8 mmol/L (3.6-5.1)
[2022-09-29 07:22] LABS: Creatinine* 1.3 mg/dL (0.5-1.5); Est. Creatinine Clearance* 30.99; Estimated Glomerular Filt Rate 46 ml/min
[2022-09-29 07:23] LABS: Blood Urea Nitrogen* 33 mg/dL (7-30); Calcium* 8.9 mg/dL (8.4-10.6); Carbon Dioxide* 26 mmol/L (20-32); Glucose* 153 mg/dL (60-115)
[2022-09-29 08:30] VITALS: BP 183/84; PULSE 79; RESP 20; TEMP 36.8; O2SAT 97
[2022-09-29] MEDS: TRAMADOL HCL 50 MG TABLET PO (08:39)
[2022-09-29] MEDS: INDAPAMIDE 2.5 MG TABLET PO (08:44)
[2022-09-29] MEDS: hydroCHLOROthiazide 12.5 MG CAPSULE 25 MG PO (08:44)
[2022-09-29] MEDS: OMEPRAZOLE 20 MG CAPSULE DR 40 MG PO (08:44)
[2022-09-29] MEDS: FUROSEMIDE 20 MG TABLET PO (08:44)
[2022-09-29] MEDS: FLUTICASONE PROPIONATE NASAL 2 SPRAY NOSTRIL-B (08:45)
[2022-09-29] MEDS: ALBUTEROL INHALER 1 PUFF IH (08:46)
--- NOTE | 2022-09-29 09:10 | PC.SOCIAL ---
Discharge plan: Met with pt who states she agrees to discharge back to [facility] today. Provided pt with Important Message from Medicare and pt states she is pleased with plan for discharge today. Pt is requesting non-emergency ambulance for transport at discharge. RN to do nurse to nurse. PAS not needed as pt is returning to same facility.
--- NOTE | 2022-09-29 09:50 | P.DS_ITS ---
DS: Providers Provider Date Seen: 09/29/22 Date of admission: 09/24/22 18:29 Primary care physician: Not a Local Provider Admitting Clinician: Evelyne Whalen MD Consults: 09/24/22 18:29 Consult to Physical Therapy [CONS] Routine Comment: Reason(s) for PT Consult:: Evaluate Ambulation Any Restrictions?:: No Restrictions Consult to Physical Therapy [CONS] Routine Comment: Reason(s) for PT Consult:: Evaluate and Treat Any Restrictions?:: No Restrictions Consult to Gallery Or Museum Technician [CONS] Routine Comment: Reason for Consult:: Discharge Planning Needs 09/24/22 21:54 Consult to Wound Care [CONS] Routine Comment: Or whoever is covering Consulting Provider: Amy Cox 09/26/22 07:36 Consult to Physician [CONS] Routine Comment: Consulting Provider: Niya Mistry Has provider been notified: No Attending Physician on discharge: Julio Valverde MD Date of Discharge: 09/29/22 DS: Diagnosis Discharge Diagnosis (1) Cellulitis: Status: Acute Problem details: - mild surrounding erythema of laceration in addition to findings of pain, fatigue, leukocytosis, elevated inflammatory markers, multiple comorbidities Wound looks quite good today. Switch from Zosyn to oral, renal dosed Levaquin Dr. Mistry to evaluate wound. (2) UTI (urinary tract infection): Status: Acute Problem details: Ucx growing pseudomonas was started on levaquin for above cellulitis (3) Hypertension: Status: Acute Problem details: continue lasix; imdur; add norvasc; avoid ACEi/ARB for now given renal function; prn hydralazine SBP >180 added hctz on 09/28 (4) Physical debility: Status: Acute Problem details: Continue to assess. Therapy to evaluate and treat. (5) Chronic pain: Status: Acute Problem details: - on chronic narcotics. Likely contributing to hypoxia and worsening sleep apnea. Reporting fairly severe pain now but long-term should be tapered off opioids and in the short term needs to use her BiPAP (6) Diabetes mellitus type 2 in obese: Status: Acute Problem details: - insulin dependent - continue home medications + SSI (7) Anemia: Status: Acute Problem details: - acute on chronic, 2/2 chronic renal disease. Monitor for source of bleeding. Transfuse to get hemoglobin to 8 - transfused 1U PRBCs 09/24 for Hgb <8 - no evidence of acute bleeding. (8) Chronic kidney disease, stage 5: Status: Acute Problem details: - with АНДРЕЙ (admission Cr 2.8, baseline Cr 2.1-2.2); АНДРЕЙ resolved Cr improving 1.4 was around 1.6 on 09/14 (9) Laceration of leg not thigh, complicated: Status: Acute Problem details: - primary repair with Dr. Mistry of General Surgery 09/14, unable to place wound vac 2/2 habitus; wet to dry dressings - will ask wound team to follow while inpatient (10) Edema: Status: Acute Problem details: - Lymphedema, chronic DS: Summary Hospital Course Hospital Course: Hospitalist- H&P: HPI History of Present Illness Date Seen: 09/24/22 Chief complaint: Altered Narrative: Eryn Pollard is a 67 year old female who presented to the ER today for altered mental status/increased sleepiness at the request of [address] [place] [address]. She was notably hospitalized from 09/14-09/17 after falling and sustaining a large LLE laceration and degloving wound. This was surgically repaired by Dr. Mistry of General Surgery and she was discharged to [address] [place] [address] for rehab. Teresa was seen at [facility] yesterday for a wound check/dressing change, and notes feeling very sleepy after the appt. She typically would rest for 1-2 days after an appointment, but had rehab today and felt too tired to participate. Also felt too tired to eat today and endorses feeling wiped. She does not feel that she truly had altered mental status. She recently completed a course of Keflex. She has chronic pain and is on daily narcotics, no recent dose changes. ER Course and Findings: - O2 saturation 86% on ED arrival, supplemental oxygen placed - WBC 18, elevated CRP, normal lactate - CXR exhibits signs of fluid overload - Hgb 7.2 (was 8.2 upon discharge last week) - Cr 2.8 (was 2.1 last week, closer to patient's outpatient baseline) - erythema and scant drainage from wound on LLE - 1U of PRBCs ordered and Zosyn administered Time Spent with Patient Time attestation: Total time spent providing and/or coordinating discharge services: Time spent: Greater than 30 minutes Exam Narrative: Exam Narrative: Gen: no acute distress HEENT: NCAT EOMI mmm CV: RRR normal s1 s2 Lungs: CTAB Abd: Soft,nt, nd Neuro: Alert, oriented, CN grossly intact; nonfocal screening?exam Psych: appropriate affect MSK: age appropriate muscle mass Skin; Warm, dry no rash on face; erythema/edema LLE Const: Vital Signs, click to edit/add: Vital Signs - 24 hr 09/28/22 12:00 09/28/22 15:00 09/28/22 15:00 Temperature 98.4 F Pulse Rate [Pulse Oximeter] 82 79 Respiratory Rate 16 16 Blood Pressure [Ri ght Arm] 171/78 H Pulse Oximetry 96 95 Oxygen Delivery Me thod Room Air Room Air Oxygen Flow Rate 0 09/28/22 15:00 09/28/22 19:00 09/29/22 03:00 Temperature 98.1 F 98.5 F 98.3 F Pulse Rate [Pulse Oximeter] 79 91 79 Respiratory Rate 16 16 16 Blood Pressure [Ri ght Arm] 160/75 H 165/75 H 154/69 H Pulse Oximetry 95 97 96 Oxygen Delivery Me thod Room Air Room Air Room Air Oxygen Flow Rate 0 0 DS: Data Data Completed and Pending Completed studies during hospitalization: Procedures Excision of Left Lower Leg Subcutaneous Tissue and Fascia, Open Approach (09/15/22) Irrigation of Skin and Mucous Membranes using Irrigating Substance (09/15/22) Repair Left Lower Leg Subcutaneous Tissue and Fascia, Open Approach (09/15/22) Transfusion of Nonautologous Red Blood Cells into Peripheral Vein, Percutaneous Approach (09/15/22) Labs on day of discharge: Labs from last 24 hours 09/29/22 06:10 WBC 8.03 RBC 3.09 L Hgb 9.0 L Hct 28.5 L MCV 92 MCH 29 MCHC 32 RDW Coeff of [place] 14.3 Plt Count 421 Neut % (Auto) 58.3 Lymph % (Auto) 29.6 [place] % (Auto) 7.7 Eos % (Auto) 3.5 Baso % (Auto) 0.2 Neut # (Auto) 4.67 Lymph # (Auto) 2.38 [place] # (Auto) 0.60 Eos # (Auto) 0.28 Baso # (Auto) 0.02 Sodium 139 Potassium 3.8 Chloride 104 Carbon Dioxide 26 BUN 33 H Creatinine 1.3 Estimated Creat Clear 30.99 Estimated GFR 46 Glucose 153 H Calcium 8.9 Preliminary micro results at discharge 09/24/22 15:59 Blood Culture - Preliminary Blood NO GROWTH AFTER 96 HOURS 09/24/22 16:22 Blood Culture - Preliminary Blood NO GROWTH AFTER 96 HOURS Discharge Plan Discharge Disposition: Xfer SNF Discharge Location: [facility] Date of Admission: 09/24/22 18:29 Attending Provider on Discharge: Julio Valverde Consulting Providers: Amy Cox; Niya Mistry Primary Care Provider: Provider,Not a Local Condition: Stable Discharge Medications: New amlodipine 10 mg Tablet 10 mg PO QPM Qty: 30 0RF hydrochlorothiazide 25 mg tablet 25 mg PO DAILY Qty: 30 0RF insulin glargine [Basaglar KwikPen U-100 Insulin] 100 unit/mL (3 mL) insulin pen 20 unit subcut BID Qty: 1 2RF levofloxacin 250 mg tablet 250 mg PO DAILY Qty: 3 0RF Rx Instructions: please start on September 30, end on October 02 Continued cyclobenzaprine 10 mg tablet 10 mg PO HS indapamide 2.5 mg tablet 2.5 mg PO DAILY diltiazem HCl 300 mg capsule,extended release 24hr 300 mg PO HS pantoprazole 40 mg tablet,delayed release (DR/EC) 40 mg PO BID ferrous sulfate [FeroSul] 325 mg (65 mg iron) tablet 325 mg PO QAM levothyroxine 150 mcg tablet 150 mcg PO DAILY fluticasone propion-salmeterol [Advair Diskus] 500-50 mcg/dose blister with device 1 inh INHALATION BID docusate sodium 100 mg capsule 200 mg PO HS montelukast 10 mg tablet 10 mg PO HS furosemide 20 mg tablet 20 mg PO QAM nystatin [Nystop] 100,000 unit/gram powder 1 applic TOPICAL BID PRN polyethylene glycol 3350 17 gram/dose powder 17 g PO DAILY albuterol sulfate [Ventolin HFA] 90 mcg/actuation HFA aerosol inhaler 1 puff INHALATION Q4H PRN topiramate 100 mg tablet 100 mg PO BID fluticasone propionate 50 mcg/actuation spray,suspension 2 spray INTRANASAL DAILY duloxetine 60 mg capsule,delayed release(DR/EC) 60 mg PO HS melatonin 3 mg capsule 3 mg PO HS insulin aspart U-100 [Novolog FlexPen U-100 Insulin] 100 unit/mL (3 mL) insulin pen 1 sliding scale dose subcut USEASDIRECTD Rx Instructions: 2 ADDITIONAL UNITS FOR EVERY 40 POINTS GREATER THAN BLOOD SUGAR OF 180 cholecalciferol (vitamin D3) [Vitamin D3] 50 mcg (2,000 unit) tablet 2,000 unit PO DAILY ipratropium-albuterol 20-100 mcg/actuation mist 1 puff inhalation Q6H PRN clotrimazole 1 % cream 1 applic topical BID PRN tramadol 50 mg tablet 50 mg PO TID Qty: 10 0RF oxycodone [OxyContin] 20 mg Tablet,Oral Only,Ext.Rel.12 Hr 60 mg PO Q12H Qty: 18 0RF Changed insulin aspart U-100 [Novolog FlexPen U-100 Insulin] 100 unit/mL (3 mL) insulin pen 12 unit SUBCUT TIDWM Qty: 15 0RF Patient Comments: PLUS SLIDING SCALE Discontinued Novolin N FlexPen 100 unit/mL (3 mL) insulin pen 6 - 28 unit subcut BID Rx Instructions: 6U in AM, 28U HS Discharge Orders: Discharge Order (Routine); Ordered 09/29/22 Ordered By: Julio Valverde Activity Level: Activity as Tolerated Activity Detail: Elevate legs Discharge Diet: Diabetic Follow Up Appointments: [facility] [Outside] (Patient discharged to [facility] Provider,Not a Local [Primary Care Provider] - (PCP 3-5 days; post hospital follow up; pain management, Diabetes management, hypertension management BMP in 3 days) Wound Care: Daily dressing change to left leg with Vashe-soaked gauze. cover with ABD and wrap in Kerlix and an DIONTE. Follow up in wound clinic as scheduled in 1-2 weeks. Admit to: SNF Discharge Potential: Good Length of Stay: <30 days Can use facility standing orders?: Yes Code Status: Full Code Rehab Potential: Good Therapy: Physical Therapy and Occupational Therapy Therapy Orders: Evaluate and Treat Glucose Checks: with meals and HS Lab Orders: BMP 3 days Orders are good >30 days: No Signature: Julio Valverde
[2022-09-29 11:34] LABS: SARS PCR* Negative SARS-CoV-2 (Negative)
[2022-09-29] MEDS: levoFLOXacin 250 MG TABLET PO (11:44)
[2022-09-29 12:00] VITALS: BP 184/83; PULSE 80; RESP 20; TEMP 37; O2SAT 97
--- NOTE | 2022-09-29 16:56 | PC.NURSE ---
Please see eMar for multiple scheduled meds and pain management protocol. Eval by Dr. Valverde. Pt showered with assist of one. Covid test obtained per SNF request. Results negative for Covid. Pt received oral levaquin. Dressing changed per instructions from and report called to [facility]. Primary RN gave verbal report to Juarez VALLEJO at [phone]. IV discontinued. Please see eMar for BG levels and insulin doses on this patient. Eryn discharge via stretcher with all personal belongings @ 1225 pm to [facility] with EMS personnel. She returned to her previous living situation. She will continue to see Dr. Mistry in the wound care clinic.
== END 2022-09-29 12:25 | DRG 602 ==
LOC: ED 16:42 → MEDSURG 17:28
PROVIDERS: Family Medicine; Hospitalist; Admitting Provider Family Medicine; Emergency Provider Family Medicine; Visit Provider Family Medicine
DX: L03.116 Cellulitis of left lower limb (principal); J96.01 Acute respiratory failure with hypoxia; I12.0 Hypertensive chronic kidney disease with stage 5 chronic kidney disease or end stage renal disease; N18.5 Chronic kidney disease, stage 5; N17.9 Acute kidney failure, unspecified; N39.0 Urinary tract infection, site not specified; Z68.42 Body mass index [BMI] 45.0-49.9, adult; D62 Acute posthemorrhagic anemia; R41.82 Altered mental status, unspecified; S81.812A Laceration without foreign body, left lower leg, initial encounter; E11.22 Type 2 diabetes mellitus with diabetic chronic kidney disease; D63.1 Anemia in chronic kidney disease; B96.5 Pseudomonas (aeruginosa) (mallei) (pseudomallei) as the cause of diseases classified elsewhere; E66.01 Morbid (severe) obesity due to excess calories; G47.33 Obstructive sleep apnea (adult) (pediatric); I89.0 Lymphedema, not elsewhere classified; G89.29 Other chronic pain; E11.42 Type 2 diabetes mellitus with diabetic polyneuropathy; Z79.84 Long term (current) use of oral hypoglycemic drugs; Z79.4 Long term (current) use of insulin; M79.7 Fibromyalgia; F11.90 Opioid use, unspecified, uncomplicated; J45.909 Unspecified asthma, uncomplicated; E78.5 Hyperlipidemia, unspecified; E03.9 Hypothyroidism, unspecified
CPT/HCPCS: 11042; 11045; 36415; 36430; 71045; 80048; 80076; 81001; 82270; 82803; 82962; 83036; 83605; 83880; 84484; 85025; 85651; 86140; 86850; 86900; 86901; 86922; 87040; 87081; 87086; 87186; 87426; 87635; 93971; 94640; 94761; 97162; 99213; 99284; 99285; A9270; J0360; J1170; J1940; J2543; J7030; J7120; P9016

== ENCOUNTER 2022-09-29 12:17 | Outpatient (CLI) | payer MEDICARE, MEDICAID, SELFPAY | END 2022-09-29 12:18 | disposition home or self-care (01) | LOC: AMB 10-01 17:26 | PROVIDERS: Visit Provider Emergency Medicine Emergency Medical Services | DX: Z99.3 Dependence on wheelchair (principal) | CPT/HCPCS: A0425; A0428 ==

== ENCOUNTER 2022-10-06 09:22 | Outpatient (CLI) | payer MEDICARE, MEDICAID, SELFPAY | END 2022-10-06 09:23 | disposition home or self-care (01) | LOC: WOUND 09:22 | PROVIDERS: Visit Provider Nurse Practitioner Family | DX: E11.622 Type 2 diabetes mellitus with other skin ulcer (principal); L97.825 Non-pressure chronic ulcer of other part of left lower leg with muscle involvement without evidence of necrosis; Z79.4 Long term (current) use of insulin | CPT/HCPCS: 11043; 11046 ==

== ENCOUNTER 2022-10-13 09:30 | Outpatient (CLI) | payer MEDICARE, MEDICAID, SELFPAY | END 2022-10-13 09:31 | disposition home or self-care (01) | LOC: WOUND 09:30 | PROVIDERS: Visit Provider Nurse Practitioner Family | DX: I87.312 Chronic venous hypertension (idiopathic) with ulcer of left lower extremity (principal); E11.622 Type 2 diabetes mellitus with other skin ulcer; L97.225 Non-pressure chronic ulcer of left calf with muscle involvement without evidence of necrosis; Z79.4 Long term (current) use of insulin | CPT/HCPCS: 11042; 11045 ==

== ENCOUNTER 2022-10-21 14:59 | Outpatient (CLI) | payer MEDICARE, MEDICAID, SELFPAY | END 2022-10-21 15:00 | disposition home or self-care (01) | LOC: WOUND 15:00 | PROVIDERS: Visit Provider Nurse Practitioner Family | DX: I87.312 Chronic venous hypertension (idiopathic) with ulcer of left lower extremity (principal); L97.225 Non-pressure chronic ulcer of left calf with muscle involvement without evidence of necrosis; I89.0 Lymphedema, not elsewhere classified | CPT/HCPCS: 11043; 11046 ==

== ENCOUNTER 2022-10-28 14:13 | Outpatient (CLI) | payer MEDICARE, MEDICAID, SELFPAY | END 2022-10-28 14:14 | disposition home or self-care (01) | LOC: WOUND 14:14 | PROVIDERS: Visit Provider Nurse Practitioner Family | DX: E11.622 Type 2 diabetes mellitus with other skin ulcer (principal); I87.312 Chronic venous hypertension (idiopathic) with ulcer of left lower extremity; L97.225 Non-pressure chronic ulcer of left calf with muscle involvement without evidence of necrosis; I89.0 Lymphedema, not elsewhere classified; Z79.4 Long term (current) use of insulin | CPT/HCPCS: 11042; 11045 ==

== ENCOUNTER 2022-11-04 15:54 | Outpatient (CLI) | payer MEDICARE, MEDICAID, SELFPAY | END 2022-11-04 15:55 | disposition home or self-care (01) | LOC: WOUND 15:54 | PROVIDERS: Visit Provider Nurse Practitioner Family | DX: E11.622 Type 2 diabetes mellitus with other skin ulcer (principal); I89.0 Lymphedema, not elsewhere classified; L97.828 Non-pressure chronic ulcer of other part of left lower leg with other specified severity; Z79.4 Long term (current) use of insulin | CPT/HCPCS: 11042; 11045 ==

== ENCOUNTER 2022-11-05 21:01 | Outpatient (CLI) | payer MEDICARE, MEDICAID, SELFPAY | END 2022-11-05 21:02 | disposition home or self-care (01) | LOC: AMB 11-06 10:18 | PROVIDERS: Visit Provider Student in an Organized Health Care Education/Training Program | DX: R06.09 Other forms of dyspnea (principal); R50.9 Fever, unspecified | CPT/HCPCS: A0425; A0429 ==

== ENCOUNTER 2022-11-05 21:27 | Inpatient (IN) | payer MEDICARE, MEDICAID, SELFPAY ==
[2022-11-05] VITALS (11 sets, daily range): BP systolic 173; BP diastolic 71; PULSE 99–105; RESP 24; TEMP 37.5–38.6; O2SAT 92–99; BMI 56.2
--- NOTE | 2022-11-05 21:44 | CRLHL7_ITS ---
For Patients: As a result of the Cures Act, medical imaging exams and procedure reports are released immediately into your electronic medical record. You may view this report before your referring provider. If you have questions, please contact your health care provider. INDICATION: Shortness of breath, chest pain TECHNIQUE: Chest radiograph 2 views COMPARISON: 09/24/2022, 04/20/2022 FINDINGS: The sensitivity and specificity of the exam are severely limited by the patient`s body habitus. 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 Moderate stable cardiomegaly is noted. Lung: Moderate pulmonary vascular congestion, mild perihilar edema and bibasilar atelectasis are present with small bilateral pleural effusions. No pneumothorax is identified. Bone and Soft tissue: Unremarkable for age. IMPRESSIONS: 1. Moderate pulmonary vascular congestion, mild perihilar edema and bibasilar atelectasis are present with small bilateral pleural effusions. 2. Moderate stable cardiomegaly is noted. Dictated by Toño Peoples MD @ 11/05/2022 10:43:58 PM Dictated by: Toño Peoples MD @ 11/05/2022 22:44:03 (Electronically Signed)
--- NOTE | 2022-11-05 21:46 | ED.GENADULT ---
HPI - General Adult General Time Seen by Provider: 21:46 Date Seen: 11/05/22 Chief complaint: Shortness of Breath/Dyspnea Stated complaint: possible covid Time Seen by Provider: 11/05/22 21:28 Source: patient Mode of arrival: EMS Limitations: no limitations History of Present Illness HPI narrative: Patient is a 67-year-old female with history of hypertension, obesity, diabetes, chronic kidney disease, healing left leg laceration presented emergency department for shortness of breath and chest pain. She states earlier this afternoon she started developing chest pain and shortness of breath. She normally does not wear oxygen but staff at her group home states she is on 81% on room air an EMS states that she was 88% on room air for them. She has tried multiple breathing treatments in symptoms now improved. EMS was concerned she might have aspirated the patient states the event they are speaking of was just her taking her pills last night and then having occurred a couple hours later. She states she did not vomit at all but she is aware of. She has no increased lower extremity swelling compared to her baseline but notably does have lymphedema of the lower extremities. She was told in the past she has CHF. There is concerned she could have COVID per the group home. Patient denies abdominal pain, nausea, vomiting, headache, vision changes, diarrhea, constipation. Says the pain is midsternal. Related Data Home Medications Medication Instructions Recorded Confirmed albuterol sulfate 90 mcg/actuation 1 puff inhalation Q4H PRN 10/13/21 09/24/22 aerosol inhaler (Ventolin HFA) cyclobenzaprine 10 mg tablet 10 mg PO HS 10/13/21 09/24/22 diltiazem HCl 300 mg 300 mg PO HS 10/13/21 09/24/22 capsule,extended release 24 hr docusate sodium 100 mg capsule 200 mg PO HS 10/13/21 09/24/22 duloxetine 60 mg capsule,delayed 60 mg PO HS 10/13/21 09/24/22 release ferrous sulfate 325 mg (65 mg 325 mg PO QAM 10/13/21 09/24/22 iron) tablet (FeroSul) fluticasone 500 mcg-salmeterol 50 1 inh inhalation BID 10/13/21 09/24/22 mcg/dose blistr powdr for inhalation (Advair Diskus) fluticasone propionate 50 2 spray intranasal DAILY 10/13/21 09/24/22 mcg/actuation nasal spray,suspension furosemide 20 mg tablet 20 mg PO QAM 10/13/21 09/24/22 indapamide 2.5 mg tablet 2.5 mg PO DAILY 10/13/21 09/24/22 levothyroxine 150 mcg tablet 150 mcg PO DAILY 10/13/21 09/24/22 montelukast 10 mg tablet 10 mg PO HS 10/13/21 09/24/22 nystatin 100,000 unit/gram topical 1 applic topical BID PRN 10/13/21 09/24/22 powder (Nystop) pantoprazole 40 mg tablet,delayed 40 mg PO BID 10/13/21 09/24/22 release polyethylene glycol 3350 17 17 g PO DAILY 10/13/21 09/24/22 gram/dose oral powder topiramate 100 mg tablet 100 mg PO BID 10/13/21 09/24/22 cholecalciferol (vitamin D3) 50 2,000 unit PO DAILY 10/14/21 09/24/22 mcg (2,000 unit) tablet (Vitamin D3) insulin aspart U-100 100 unit/mL 1 sliding scale dose subcut 10/14/21 09/24/22 (3 mL) subcutaneous pen (Novolog USEASDIRECTD FlexPen U-100 Insulin aspart) melatonin 3 mg capsule 3 mg PO HS 10/14/21 09/24/22 clotrimazole 1 % topical cream 1 applic topical BID PRN 09/15/22 09/24/22 ipratropium 20 mcg-albuterol 100 1 puff inhalation Q6H PRN 09/15/22 09/24/22 mcg/actuation mist for inhalation Previous Rx's Medication Instructions Recorded amlodipine 10 mg tablet 10 mg PO QPM #30 tabs 09/29/22 hydrochlorothiazide 25 mg tablet 25 mg PO DAILY #30 tabs 09/29/22 insulin aspart U-100 100 unit/mL 12 unit (0.12 mL) subcut TIDWM #15 09/29/22 (3 mL) subcutaneous pen (Novolog mL FlexPen U-100 Insulin aspart) insulin glargine 100 unit/mL (3 20 unit (0.2 mL) subcut BID #1 mL 09/29/22 mL) subcutaneous pen (Basaglar KwikPen U-100 Insulin) levofloxacin 250 mg tablet 250 mg PO DAILY #3 tabs 09/29/22 oxycodone 20 mg tablet,crush 60 mg (3 x 20 mg) PO Q12H #18 tabs 09/29/22 resistant,extended release 12 hr (OxyContin) tramadol 50 mg tablet 50 mg PO TID #10 tabs 09/29/22 Allergies Allergy/AdvReac Type Severity Reaction Status Date / Time adhesive tape Allergy Verified 09/14/22 20:32 allopurinol Allergy Verified 09/14/22 20:32 atorvastatin Allergy Verified 09/14/22 20:32 clarithromycin Allergy Verified 09/14/22 20:32 dulaglutide [From Trulicity] Allergy Verified 09/14/22 20:32 fluconazole [From Diflucan] Allergy Verified 09/14/22 20:32 Review of Systems Status of ROS: Reports: 10 or more systems reviewed and unremarkable except as noted in History and below [facility] History (Updated 11/06/22 @ 00:18 by Lyndon Denton DO) Hypertension ?I10 - Essential (primary) hypertension (ICD-10) Physical debility ?R53.81 - Other malaise (ICD-10) Chronic pain ?G89.29 - Other chronic pain (ICD-10) Chronic kidney disease, stage 5 ?N18.5 - Chronic kidney disease, stage 5 (ICD-10) Diabetes mellitus type 2 in obese ?E11.69 - Type 2 diabetes mellitus with other specified complication (ICD-10) ?E66.9 - Obesity, unspecified (ICD-10) Anemia ?D64.9 - Anemia, unspecified (ICD-10) Murmur ?R01.1 - Cardiac murmur, unspecified (ICD-10) Unstable gait ?R26.81 - Unsteadiness on feet (ICD-10) Hypothyroidism ?E03.9 - Hypothyroidism, unspecified (ICD-10) Lymphedema associated with obesity ?I89.0 - Lymphedema, not elsewhere classified (ICD-10) ?E66.9 - Obesity, unspecified (ICD-10) Morbid obesity ?E66.01 - Morbid (severe) obesity due to excess calories (ICD-10) Obstructive sleep apnea ?G47.33 - Obstructive sleep apnea (adult) (pediatric) (ICD-10) Diabetic peripheral neuropathy associated with type 2 diabetes mellitus ?E11.42 - Type 2 diabetes mellitus with diabetic polyneuropathy (ICD-10) Asthma ?J45.909 - Unspecified asthma, uncomplicated (ICD-10) Fibromyalgia ?M79.7 - Fibromyalgia (ICD-10) Supraventricular tachycardia ?I47.1 - Supraventricular tachycardia (ICD-10) Chronic rhinitis ?J31.0 - Chronic rhinitis (ICD-10) Hyperlipidemia associated with type 2 diabetes mellitus ?E11.69 - Type 2 diabetes mellitus with other specified complication (ICD-10) ?E78.5 - Hyperlipidemia, unspecified (ICD-10) POLST (Physician Orders for Life-Sustaining Treatment) ?Z78.9 - Other specified health status (ICD-10) Chronic, continuous use of opioids ?F11.90 - Opioid use, unspecified, uncomplicated (ICD-10) Vaginal bleeding ?N93.9 - Abnormal uterine and vaginal bleeding, unspecified (ICD-10) Metabolic acidosis ?E87.2 - Acidosis (ICD-10) Hyponatremia ?E87.1 - Hypo-osmolality and hyponatremia (ICD-10) Surgical History S/P carpal tunnel release ?Z98.890 - Other specified postprocedural states (ICD-10) H/O left wrist surgery ?Z98.890 - Other specified postprocedural states (ICD-10) H/O: section ?Z98.891 - History of uterine scar from previous surgery (ICD-10) H/O hysterectomy with oophorectomy Social History (Updated 09/24/22 @ 18:15 by Evelyne Whalen MD) Narrative: Eryn is , has 2 adult sons (Filipeer in [place] would be MDM if needed) in [place]. Nonsmoker, no ETOH use. Retired from [employer]. Full Code. What is your current living situation?: I presently have a place to live Problems where you live: no known problems Problems where you live details: none In the past 12 months, utilities in danger of being shut off: no In the past 12 mos, have been you worried that your food would run out before you had money to buy more?: never true In the past 12 mos, the food you bought just didn't last and you didn't have money to buy more?: never true Highest level of school completed/degree received: 12th grade, no diploma Smoking Status: Never smoker Do you use any of these nicotine containing products: None Second hand tobacco smoke exposure: No How often do you have a drink containing alcohol: never How often do you have six or more drinks on one occasion: Never AUDIT-C Alcohol total score: 0 Non-prescribed substance use: denies use Caffeine: Yes How often does anyone, including family, friends and others, physically hurt you: never How often does anyone, including family, friends and others, insult or talk down to you: never How often does anyone, including family, friends and others, threaten you with harm: never How often does anyone, including family, friends and others, scream or curse at you: never Gender Identity: female service: No Exam Narrative: Exam Narrative: Const: Well-nourished, Well-developed, in mild distress Eyes: PERRL, no conjunctival injection, and symmetrical lids ENMT: Atraumatic external nose and ears. Moist mucous membranes. Neck: Symmetric, trachea midline, No thyromegaly. CVS: Tachycardic, 2/6 diastolic murmur at the right sternal border 2nd rib space. Peripheral pulses 2+ and equal in all extremities RESP: Unlabored respiratory effort. Clear to auscultation bilaterally. GI: Nontender/Nondistended, No rebound or guarding. MSK:Extremities w/o deformity, Normal Active ROM Skin: Warm, Dry. No rashes or lesions. Neuro: Normal Muscle tone, No focal neurological deficits. Psych: Awake, Alert, & Oriented x3. Appropriate mood and affect. Const: Vital Signs, click to edit/add: Vital Signs - 24 hr 11/05/22 21:39 11/05/22 21:47 11/05/22 21:58 Temperature 101.5 F H Pulse Rate 103 H Pulse Rate [Pulse Oximeter] 105 H Respiratory Rate 24 Blood Pressure [Ri ght Forearm] 173/71 H Pulse Oximetry 93 92 99 Oxygen Delivery Me thod Nasal Cannula Nasal Cannula Oxygen Flow Rate 3 3 11/05/22 22:00 11/05/22 22:15 11/05/22 22:38 Temperature Pulse Rate 105 H 101 H 101 H Pulse Rate [Pulse Oximeter] Respiratory Rate Blood Pressure [Ri ght Forearm] Pulse Oximetry 99 95 96 Oxygen Delivery Me thod Oxygen Flow Rate 11/05/22 22:45 11/05/22 23:00 11/05/22 23:15 Temperature 99.5 F Pulse Rate 101 H 101 H 101 H Pulse Rate [Pulse Oximeter] Respiratory Rate Blood Pressure [Ri ght Forearm] Pulse Oximetry 95 93 94 Oxygen Delivery Me thod Oxygen Flow Rate 11/05/22 23:30 11/05/22 23:45 Temperature Pulse Rate 99 100 Pulse Rate [Pulse Oximeter] Respiratory Rate Blood Pressure [Ri ght Forearm] Pulse Oximetry 95 93 Oxygen Delivery Me thod Oxygen Flow Rate Course Vital Signs Vital signs: Initial Vital Signs Temperature 101.5 F H 11/05/22 21:39 Temperature Source Temporal Artery Scan 11/05/22 21:39 Pulse Rate 105 H 11/05/22 21:39 Respiratory Rate 24 11/05/22 21:39 Blood Pressure 173/71 H 11/05/22 21:39 Blood Pressure Mean 105 11/05/22 21:39 Pulse Oximetry 93 11/05/22 21:39 Oxygen Delivery Method Nasal Cannula 11/05/22 21:39 Oxygen Flow Rate 3 11/05/22 21:39 Vital Signs Temperature 101.5 F H 11/05/22 21:39 Pulse Rate 105 H 11/05/22 21:39 Respiratory Rate 24 11/05/22 21:39 Blood Pressure 173/71 H 11/05/22 21:39 Pulse Oximetry 93 11/05/22 21:39 Oxygen Delivery Method Nasal Cannula 11/05/22 21:39 Oxygen Flow Rate 3 11/05/22 21:39 Temperature 99.5 F 11/05/22 23:00 Pulse Rate 100 11/05/22 23:45 Respiratory Rate 24 11/05/22 21:39 Blood Pressure 173/71 H 11/05/22 21:39 Pulse Oximetry 93 11/05/22 23:45 Oxygen Delivery Method Nasal Cannula 11/05/22 21:47 Oxygen Flow Rate 3 11/05/22 21:47 Medical Decision Making MDM Narrative Medical decision making narrative: Patient is a 67-year-old female presenting was 14 for increased shortness of breath starting today. There was some concern for aspiration but she states she did not vomit. She was satting 88% on room air if EMS was placed on oxygen. She does not wear oxygen at baseline. There was concern for COVID from the group home. She does have a fever in meets 3 of the 4 sirs criteria on arrival in the septic workup was ordered. Tylenol was given for her fever. Chest x-ray shows mild pulmonary vascular congestion no clear signs of pneumonia. Even with this she does have an elevated white count the with all of her other symptoms we will treat with doxycycline and Rocephin for pneumonia. COVID test flu/RSV is negative. Troponin was elevated 0.09 but with her appearance of CHF and elevated BNP this is likely demand. I do not believe she is having a myocardial infarction at this time. Lipase was within normal limits. Lasix were ordered. Patient's potassium was also 2.5 minutes this was replenished both orally and intravenously. Patient was admitted to the hospitalist service through [facility]. Lab Data Labs: Lab Results 11/05/22 11/05/22 Range/Units 21:35 22:20 WBC 15.40 H (4.50-11.00) K/uL RBC 3.46 L (4.00-5.20) m/uL Hgb 10.1 L (12.0-16.0) gm/dL Hct 31.1 L (33.0-51.0) % MCV 90 (80-100) fL MCH 29 (26-34) pg MCHC 33 (32-36) gm/dL RDW Coeff of Antonio 13.9 (11.5-15.5) % Plt Count 328 (140-440) K/uL Neut % (Auto) 88.7 H (42.0-72.0) % Lymph % (Auto) 5.8 L (20-44) % [place] % (Auto) 4.5 (0.0-11.0) % Eos % (Auto) 0.3 (0.0-7.0) % Baso % (Auto) 0.1 (0.0-3.0) % Neut # (Auto) 13.70 H (1.7-7.0) K/uL Lymph # (Auto) 0.90 (0.90-2.90) K/uL [place] # (Auto) 0.70 (0.00-0.90) K/UL Eos # (Auto) 0.00 (0.00-0.50) K/uL Baso # (Auto) 0.00 (0.00-0.30) K/uL Abs Immat Gran (auto) 0.10 (0.00-0.30) K/uL Imm/Tot Granulo (auto) 0.6 % Sodium 137 (135-149) mmol/L Potassium 2.5 L* (3.6-5.1) mmol/L Chloride 94 L (96-114) mmol/L Carbon Dioxide 34 H (20-32) mmol/L BUN 30 (7-30) mg/dL Creatinine 1.5 (0.5-1.5) mg/dL Estimated Creat Clear 75.77 Estimated GFR 38 ml/min Glucose 192 H (60-115) mg/dL Lactate 1.4 (0.5-1.9) mmol/L Calcium 8.8 (8.4-10.6) mg/dL Total Bilirubin 0.5 (0.1-1.5) mg/dL AST 27 (12-35) U/L ALT 25 (4-35) U/L Alkaline Phosphatase 77 (40-150) U/L Troponin I 0.09 H* (0.01-0.04) ng/mL NT-Pro-B Natriuret Pep 1090 pg/mL Total Protein 7.4 (6.0-8.3) g/dL Albumin 3.9 (3.3-5.0) g/dL Lipase 22 L (23-300) U/L SARS-CoV-2 (PCR) Negative SARS-CoV-2 (Negative) Influenza Type A (PCR) Negative PCR FLU A (Negative) Influenza Type B (PCR) Negative PCR FLU B (Negative) Imaging Data Chest x-ray: Radiologist's impression: INDICATION: Shortness of breath, chest pain TECHNIQUE: Chest radiograph 2 views COMPARISON: 09/24/2022, 04/20/2022 FINDINGS: The sensitivity and specificity of the exam are severely limited by the patient`s body habitus. 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 Moderate stable cardiomegaly is noted. Lung: Moderate pulmonary vascular congestion, mild perihilar edema and bibasilar atelectasis are present with small bilateral pleural effusions. No pneumothorax is identified. Bone and Soft tissue: Unremarkable for age. IMPRESSIONS: 1. Moderate pulmonary vascular congestion, mild perihilar edema and bibasilar atelectasis are present with small bilateral pleural effusions. 2. Moderate stable cardiomegaly is noted. Dictated by Toño Peoples MD @ 11/05/2022 10:43:58 PM ECG Data Attestation: I personally reviewed and interpreted this ECG as follows: (Sinus tachycardia 102 beats per minute, normal intervals, normal axis, no ST or T-wave abnormalities. Feels similar to previous EKGs) Prior ECG tracings: available for review (09/14/2022) Discharge Plan Discharge Clinical Impression: CHF (congestive heart failure), Pneumonia, Acute hypokalemia Patient Disposition: Admitted As Observation Condition: Stable Prescriptions: No Action cyclobenzaprine 10 mg tablet 10 mg PO HS indapamide 2.5 mg tablet 2.5 mg PO DAILY diltiazem HCl 300 mg capsule,extended release 24hr 300 mg PO HS pantoprazole 40 mg tablet,delayed release (DR/EC) 40 mg PO BID ferrous sulfate [FeroSul] 325 mg (65 mg iron) tablet 325 mg PO QAM levothyroxine 150 mcg tablet 150 mcg PO DAILY fluticasone propion-salmeterol [Advair Diskus] 500-50 mcg/dose blister with device 1 inh INHALATION BID docusate sodium 100 mg capsule 200 mg PO HS montelukast 10 mg tablet 10 mg PO HS furosemide 20 mg tablet 20 mg PO QAM nystatin [Nystop] 100,000 unit/gram powder 1 applic TOPICAL BID PRN polyethylene glycol 3350 17 gram/dose powder 17 g PO DAILY albuterol sulfate [Ventolin HFA] 90 mcg/actuation HFA aerosol inhaler 1 puff INHALATION Q4H PRN topiramate 100 mg tablet 100 mg PO BID fluticasone propionate 50 mcg/actuation spray,suspension 2 spray INTRANASAL DAILY duloxetine 60 mg capsule,delayed release(DR/EC) 60 mg PO HS melatonin 3 mg capsule 3 mg PO HS insulin aspart U-100 [Novolog FlexPen U-100 Insulin] 100 unit/mL (3 mL) insulin pen 1 sliding scale dose subcut USEASDIRECTD Rx Instructions: 2 ADDITIONAL UNITS FOR EVERY 40 POINTS GREATER THAN BLOOD SUGAR OF 180 cholecalciferol (vitamin D3) [Vitamin D3] 50 mcg (2,000 unit) tablet 2,000 unit PO DAILY ipratropium-albuterol 20-100 mcg/actuation mist 1 puff inhalation Q6H PRN clotrimazole 1 % cream 1 applic topical BID PRN amlodipine 10 mg Tablet 10 mg PO QPM Qty: 30 0RF hydrochlorothiazide 25 mg tablet 25 mg PO DAILY Qty: 30 0RF insulin glargine [Basaglar KwikPen U-100 Insulin] 100 unit/mL (3 mL) insulin pen 20 unit subcut BID Qty: 1 2RF tramadol 50 mg tablet 50 mg PO TID Qty: 10 0RF oxycodone [OxyContin] 20 mg Tablet,Oral Only,Ext.Rel.12 Hr 60 mg PO Q12H Qty: 18 0RF levofloxacin 250 mg tablet 250 mg PO DAILY Qty: 3 0RF Rx Instructions: please start on September 30, end on October 02 insulin aspart U-100 [Novolog FlexPen U-100 Insulin] 100 unit/mL (3 mL) insulin pen 12 unit SUBCUT TIDWM Qty: 15 0RF Patient Comments: PLUS SLIDING SCALE Follow Up/Referrals: Provider,Not a Local [Primary Care Provider] -
[2022-11-05] MEDS: ACETAMINOPHEN 325 MG TABLET 650 MG PO (21:55)
[2022-11-05 22:23] LABS: PCR FLU A Negative PCR FLU A (Negative); PCR FLU B Negative PCR FLU B (Negative)
[2022-11-05 22:25] LABS: SARS PCR* Negative SARS-CoV-2 (Negative)
[2022-11-05 22:32] LABS: Lactate* 1.4 mmol/L (0.5-1.9)
[2022-11-05 22:46] LABS: Albumin* 3.9 g/dL (3.3-5.0); Basophils Percent Auto 0.1 % (0.0-3.0); Chloride* 94 mmol/L (96-114); Eosinophils Percent Auto 0.3 % (0.0-7.0); Hematocrit 31.1 % (33.0-51.0); Hemoglobin* 10.1 gm/dL (12.0-16.0); Immature Granulocytes Pct Auto 0.6 %; Lymphocytes Percent Auto 5.8 % (20-44); Mean Corpuscular HGB Conc 33 gm/dL (32-36); Mean Corpuscular Hemoglobin 29 pg (26-34); Mean Corpuscular Volume 90 fL (80-100); Monocytes Percent Auto 4.5 % (0.0-11.0); Neutrophils Percent Auto 88.7 % (42.0-72.0); Platelet Count* 328 K/uL (140-440); RDW Coefficient of Variation % 13.9 % (11.5-15.5); Red Blood Count 3.46 m/uL (4.00-5.20)
[2022-11-05 22:47] LABS: Sodium* 137 mmol/L (135-149)
[2022-11-05 22:49] LABS: Bilirubin Total* 0.5 mg/dL (0.1-1.5); Carbon Dioxide* 34 mmol/L (20-32); Creatinine* 1.5 mg/dL (0.5-1.5); Est. Creatinine Clearance* 75.77; Estimated Glomerular Filt Rate 38 ml/min
[2022-11-05 22:50] LABS: Alanine Aminotransferase* 25 U/L (4-35); Alkaline Phosphatase* 77 U/L (40-150); Aspartate Amino Transferase* 27 U/L (12-35); Blood Urea Nitrogen* 30 mg/dL (7-30); Calcium* 8.8 mg/dL (8.4-10.6); Glucose* 192 mg/dL (60-115); Lipase* 22 U/L (23-300); Total Protein* 7.4 g/dL (6.0-8.3)
[2022-11-05 22:53] LABS: Potassium* 2.5 mmol/L (3.6-5.1)
[2022-11-05 22:54] LABS: Slide Review Reflex No
--- NOTE | 2022-11-05 22:56 | ED.NURSE ---
Updated [facility] of current diagnostic and laboratory findings and likely admission to the hospital.
[2022-11-05 23:05] LABS: NT Pro B Type NatriureticPept* 1090 pg/mL; Troponin I* 0.09 ng/mL (0.01-0.04)
[2022-11-05] MEDS: POTASSIUM CHLORIDE 10 MEQ CAPSULE ER 40 MEQ PO (23:15)
[2022-11-05] MEDS: cefTRIAXone 2 GM in 0.9 % SODIUM CHLORIDE Mini-bag 100 ML IVPB (23:40)
--- NOTE | 2022-11-05 23:47 | ED.NURSE ---
Patient's oxygen saturation at 94% on 2.5 L NC.
[2022-11-06] VITALS (9 sets, daily range): BP systolic 145–168; BP diastolic 63–76; PULSE 70–101; RESP 18–22; TEMP 36.4–37.4; O2SAT 91–95; BMI 56.0
[2022-11-06] MEDS: FUROSEMIDE 10 MG/ML inj 40 MG IVP (00:12)
--- NOTE | 2022-11-06 00:49 | ED.NURSE ---
Report given to med/surg unit. Will be admitted to room 259.
[2022-11-06] MEDS: DOXYCYCLINE HYCLATE 100 MG in 0.9 % SODIUM CHLORIDE Mini-bag 100 ML IVPB (02:23)
[2022-11-06] MEDS: POTASSIUM CHLORIDE 10 MEQ/100 ML PIGGYBACK 100 MEQ IVPB ×2 (04:41→05:40)
[2022-11-06 06:48] LABS: Basophils Percent Auto 0.2 % (0.0-3.0); Eosinophils Percent Auto 0.6 % (0.0-7.0); Hematocrit 27.5 % (33.0-51.0); Immature Granulocytes Pct Auto 0.2 %; Lymphocytes Percent Auto 14.5 % (20-44); Mean Corpuscular HGB Conc 33 gm/dL (32-36); Mean Corpuscular Hemoglobin 30 pg (26-34); Mean Corpuscular Volume 91 fL (80-100); Monocytes Percent Auto 7.9 % (0.0-11.0); Neutrophils Percent Auto 76.6 % (42.0-72.0); Platelet Count* 282 K/uL (140-440); RDW Coefficient of Variation % 13.9 % (11.5-15.5); Red Blood Count 3.04 m/uL (4.00-5.20); White Blood Count* 14.31 K/uL (4.50-11.00)
[2022-11-06 06:51] LABS: Slide Review Reflex No
[2022-11-06 06:58] LABS: Chloride* 97 mmol/L (96-114); Sodium* 135 mmol/L (135-149)
[2022-11-06 07:01] LABS: Blood Urea Nitrogen* 30 mg/dL (7-30); Carbon Dioxide* 31 mmol/L (20-32); Creatinine* 1.4 mg/dL (0.5-1.5); Est. Creatinine Clearance* 28.78; Estimated Glomerular Filt Rate 42 ml/min; Glucose* 204 mg/dL (60-115)
[2022-11-06 07:02] LABS: Calcium* 8.2 mg/dL (8.4-10.6)
[2022-11-06 07:11] LABS: Potassium* 2.8 mmol/L (3.6-5.1)
--- NOTE | 2022-11-06 07:32 | PM.IMHP1 ---
Hospitalist- H&P: HPI History of Present Illness Date Seen: 11/06/22 Chief complaint: possible covid Narrative: Eryn Pollard is a 67 year old female who presented to the emergency room by EMS last night for acute onset of shortness of breath. She is currently living at [facility], and her oxygenation was reportedly 81% on room air. Intermittent chest discomfort (but states this is only when I am having trouble breathing). She has known TRACY that is untreated. Her chronic LE edema/lymphedema is stable. No fevers, no cough or hemoptysis. No known sick contacts. No significant relief from nebs at [facility]. There was concern that she may have aspirated, but Eryn doesn't so. She was seen at the wound care clinic earlier this week for evaluation of a chronic LE wound, no changes noted at that visit ER course and findings: - negative COVID/influenza screen - leukocytosis with white blood count 15 - hypoxia with oxygen saturations in the 80%s - troponin 0.09, no acute ST changes on EKG - chest x-ray revealed evidence of fluid overload, no acute infectious process - ceftriaxone and doxycycline initiated given leukocytosis and symptoms Patient admitted overnight by E-hospitalist. This morning, she endorses feeling better. Her troponin has increased to 0.26. She has no chest pain this morning. Review of Systems Status of ROS: Reports: 10 or more systems reviewed and unremarkable except as noted in History and below Narrative: More low back pain than previous, no radiculopathy. No UTI symptoms. [facility] Medical History (Updated 11/06/22 @ 10:49 by Evelyne Whalen MD) Laceration of leg not thigh, complicated ?S81.819A - Laceration without foreign body, unspecified lower leg, initial encounter (ICD-10) Hypertension ?I10 - Essential (primary) hypertension (ICD-10) Physical debility ?R53.81 - Other malaise (ICD-10) Chronic pain ?G89.29 - Other chronic pain (ICD-10) Chronic kidney disease, stage 5 ?N18.5 - Chronic kidney disease, stage 5 (ICD-10) Diabetes mellitus type 2 in obese ?E11.69 - Type 2 diabetes mellitus with other specified complication (ICD-10) ?E66.9 - Obesity, unspecified (ICD-10) Anemia ?D64.9 - Anemia, unspecified (ICD-10) Murmur ?R01.1 - Cardiac murmur, unspecified (ICD-10) Unstable gait ?R26.81 - Unsteadiness on feet (ICD-10) Hypothyroidism ?E03.9 - Hypothyroidism, unspecified (ICD-10) Lymphedema associated with obesity ?I89.0 - Lymphedema, not elsewhere classified (ICD-10) ?E66.9 - Obesity, unspecified (ICD-10) Morbid obesity ?E66.01 - Morbid (severe) obesity due to excess calories (ICD-10) Obstructive sleep apnea ?G47.33 - Obstructive sleep apnea (adult) (pediatric) (ICD-10) Diabetic peripheral neuropathy associated with type 2 diabetes mellitus ?E11.42 - Type 2 diabetes mellitus with diabetic polyneuropathy (ICD-10) Asthma ?J45.909 - Unspecified asthma, uncomplicated (ICD-10) Fibromyalgia ?M79.7 - Fibromyalgia (ICD-10) Supraventricular tachycardia ?I47.1 - Supraventricular tachycardia (ICD-10) Chronic rhinitis ?J31.0 - Chronic rhinitis (ICD-10) Hyperlipidemia associated with type 2 diabetes mellitus ?E11.69 - Type 2 diabetes mellitus with other specified complication (ICD-10) ?E78.5 - Hyperlipidemia, unspecified (ICD-10) POLST (Physician Orders for Life-Sustaining Treatment) ?Z78.9 - Other specified health status (ICD-10) Chronic, continuous use of opioids ?F11.90 - Opioid use, unspecified, uncomplicated (ICD-10) Vaginal bleeding ?N93.9 - Abnormal uterine and vaginal bleeding, unspecified (ICD-10) Surgical History S/P carpal tunnel release ?Z98.890 - Other specified postprocedural states (ICD-10) H/O left wrist surgery ?Z98.890 - Other specified postprocedural states (ICD-10) H/O: section ?Z98.891 - History of uterine scar from previous surgery (ICD-10) H/O hysterectomy with oophorectomy Social History (Updated 09/24/22 @ 18:15 by Evelyne Whalen MD) Narrative: Eryn is , has 2 adult sons (Maurisio in [place] would be MDM if needed) in [place]. Nonsmoker, no ETOH use. Retired from [employer]. Full Code. What is your current living situation?: I presently have a place to live Problems where you live: declined to answer Problems where you live details: na In the past 12 months, utilities in danger of being shut off: no In the past 12 mos, have been you worried that your food would run out before you had money to buy more?: never true In the past 12 mos, the food you bought just didn't last and you didn't have money to buy more?: never true Highest level of school completed/degree received: 12th grade, no diploma Smoking Status: Never smoker Do you use any of these nicotine containing products: None Second hand tobacco smoke exposure: No How often do you have a drink containing alcohol: never How often do you have six or more drinks on one occasion: Never AUDIT-C Alcohol total score: 0 Non-prescribed substance use: denies use Caffeine: Yes (1-2 cup coffee/soda daily) How often does anyone, including family, friends and others, physically hurt you: never How often does anyone, including family, friends and others, insult or talk down to you: never How often does anyone, including family, friends and others, threaten you with harm: never How often does anyone, including family, friends and others, scream or curse at you: never Gender Identity: female service: No Meds Home Medications and Allergies Home Medications Medication Instructions Recorded Confirmed Type albuterol sulfate 90 mcg/actuation 1 puff inhalation Q4H PRN 10/13/21 09/24/22 History aerosol inhaler (Ventolin HFA) cyclobenzaprine 10 mg tablet 10 mg PO HS 10/13/21 09/24/22 History diltiazem HCl 300 mg 300 mg PO HS 10/13/21 09/24/22 History capsule,extended release 24 hr docusate sodium 100 mg capsule 200 mg PO HS 10/13/21 09/24/22 History duloxetine 60 mg capsule,delayed 60 mg PO HS 10/13/21 09/24/22 History release ferrous sulfate 325 mg (65 mg 325 mg PO QAM 10/13/21 09/24/22 History iron) tablet (FeroSul) fluticasone 500 mcg-salmeterol 50 1 inh inhalation BID 10/13/21 09/24/22 History mcg/dose blistr powdr for inhalation (Advair Diskus) fluticasone propionate 50 2 spray intranasal DAILY 10/13/21 09/24/22 History mcg/actuation nasal spray,suspension furosemide 20 mg tablet 20 mg PO QAM 10/13/21 09/24/22 History indapamide 2.5 mg tablet 2.5 mg PO DAILY 10/13/21 09/24/22 History levothyroxine 150 mcg tablet 150 mcg PO DAILY 10/13/21 09/24/22 History montelukast 10 mg tablet 10 mg PO HS 10/13/21 09/24/22 History nystatin 100,000 unit/gram topical 1 applic topical BID PRN 10/13/21 09/24/22 History powder (Nystop) pantoprazole 40 mg tablet,delayed 40 mg PO BID 10/13/21 09/24/22 History release polyethylene glycol 3350 17 17 g PO DAILY 10/13/21 09/24/22 History gram/dose oral powder topiramate 100 mg tablet 100 mg PO BID 10/13/21 09/24/22 History cholecalciferol (vitamin D3) 50 2,000 unit PO DAILY 10/14/21 09/24/22 History mcg (2,000 unit) tablet (Vitamin D3) insulin aspart U-100 100 unit/mL 1 sliding scale dose subcut 10/14/21 09/24/22 History (3 mL) subcutaneous pen (Novolog USEASDIRECTD FlexPen U-100 Insulin aspart) melatonin 3 mg capsule 3 mg PO HS 10/14/21 09/24/22 History clotrimazole 1 % topical cream 1 applic topical BID PRN 09/15/22 09/24/22 History ipratropium 20 mcg-albuterol 100 1 puff inhalation Q6H PRN 09/15/22 09/24/22 History mcg/actuation mist for inhalation Allergies Allergy/AdvReac Type Severity Reaction Status Date / Time adhesive tape Allergy Verified 09/14/22 20:32 allopurinol Allergy Verified 09/14/22 20:32 atorvastatin Allergy Verified 09/14/22 20:32 clarithromycin Allergy Verified 09/14/22 20:32 dulaglutide [From Trulicity] Allergy Verified 09/14/22 20:32 fluconazole [From Diflucan] Allergy Verified 09/14/22 20:32 Exam Narrative: Exam Narrative: GEN: Alert and oriented, laying comfortably in bed and answering questions appropriately HEENT: EOMIs bilaterally, no scleral icterus CV: RRR, + holosystolic murmur heard best at LSB R: LCTA bilaterally without concerning wheezing, fine rales bilateral bases, air movement adequate Ext: 3+ edema BLE, symmetrc Skin: wound on LLE is wrapped and not formally examined on admission Neuro: No focal deficits Psych: Appropriate Const: Vital Signs, click to edit/add: Vital Signs - 24 hr 11/05/22 21:39 11/05/22 21:47 11/05/22 21:58 Temperature 101.5 F H Pulse Rate 103 H Pulse Rate [Pulse Oximeter] 105 H Respiratory Rate 24 Blood Pressure [Le ft Arm] Blood Pressure [Ri ght Forearm] 173/71 H Pulse Oximetry 93 92 99 Oxygen Delivery Me thod Nasal Cannula Nasal Cannula Oxygen Flow Rate 3 3 11/05/22 22:00 11/05/22 22:15 11/05/22 22:38 Temperature Pulse Rate 105 H 101 H 101 H Pulse Rate [Pulse Oximeter] Respiratory Rate Blood Pressure [Le ft Arm] Blood Pressure [Ri ght Forearm] Pulse Oximetry 99 95 96 Oxygen Delivery Me thod Oxygen Flow Rate 11/05/22 22:45 11/05/22 23:00 11/05/22 23:15 Temperature 99.5 F Pulse Rate 101 H 101 H 101 H Pulse Rate [Pulse Oximeter] Respiratory Rate Blood Pressure [Le ft Arm] Blood Pressure [Ri ght Forearm] Pulse Oximetry 95 93 94 Oxygen Delivery Me thod Oxygen Flow Rate 11/05/22 23:30 11/05/22 23:45 11/06/22 00:00 Temperature Pulse Rate 99 100 101 H Pulse Rate [Pulse Oximeter] Respiratory Rate Blood Pressure [Le ft Arm] Blood Pressure [Ri ght Forearm] Pulse Oximetry 95 93 95 Oxygen Delivery Me thod Oxygen Flow Rate 11/06/22 02:41 11/06/22 03:00 Temperature 99.0 F Pulse Rate Pulse Rate [Pulse Oximeter] Respiratory Rate 20 20 Blood Pressure [Le ft Arm] 162/63 H Blood Pressure [Ri ght Forearm] Pulse Oximetry 95 94 Oxygen Delivery Me thod Nasal Cannula Nasal Cannula Oxygen Flow Rate 2 2 Hospitalist - H&P: Result Labs Labs: Short CBC 11/05/22 11/06/22 Range/Units 22:20 06:18 WBC 15.40 H 14.31 H (4.50-11.00) K/uL Hgb 10.1 L 9.0 L (12.0-16.0) gm/dL Hct 31.1 L 27.5 L (33.0-51.0) % Plt Count 328 282 (140-440) K/uL BMP 11/05/22 11/06/22 22:20 06:18 Sodium 137 135 Potassium 2.5 L* 2.8 L* Chloride 94 L 97 Carbon Dioxide 34 H 31 BUN 30 30 Creatinine 1.5 1.4 Glucose 192 H 204 H Calcium 8.8 8.2 L Cardiac Enzymes 11/05/22 Range/Units 22:20 Troponin I 0.09 H* (0.01-0.04) ng/mL Liver Function 11/05/22 Range/Units 22:20 Total Bilirubin 0.5 (0.1-1.5) mg/dL AST 27 (12-35) U/L ALT 25 (4-35) U/L Alkaline Phosphatase 77 (40-150) U/L Albumin 3.9 (3.3-5.0) g/dL Assessment and Plan Assessment and plan (1) Acute respiratory failure with hypoxia: Problem comment: - likely multifactorial: Untreated TRACY, CHF exacerbation, NSTEMI (elevated troponin could be 2/2 myocardial strain or CKD; however, increase requires follow-up) - follow troponins, repeat TTE today - patient would desire transfer to a tertiary care facility if needed - Patient appears fluid overloaded, will initiate diuresis with aggressive potassium replacement - does not appear to have an acutely infectious process, d/c antibiotics at this time. Obtain procalcitonin with next troponin to evaluate further Status: Acute (2) Acute hypokalemia: Problem comment: - likely iatrogenic, replace and follow Status: Acute (3) Diabetes mellitus type 2 in obese: Problem comment: - insulin dependent - continue home medications + SSI Status: Acute (4) Hypertension: Problem comment: - continue home medications Status: Acute (5) Chronic kidney disease, stage 5: Problem comment: - baseline 2.1, admission creatinine 1.4 on 11/06/22 Status: Acute (6) Chronic pain: Problem comment: - on chronic narcotics. Likely contributing to hypoxia and worsening sleep apnea Status: Acute Plan - follow troponins, repeat TTE, add d-dimer to labs (CTA and BLE ultrasounds if +) - continue supplemental oxygen - diurese + potassium supplementation - Full Code
[2022-11-06 07:41] LABS: Troponin I* 0.26 ng/mL (0.01-0.04)
--- NOTE | 2022-11-06 07:47 | PC.NURSE ---
Pt up with 4wheel walker in room for BR use. Tubie-door glass installer doubled up on bilat LE as well as dressings and ABD to wound on left gold, this [facility] all [facility] Wound on left gold swabbed and sent to lab. Pt on 2L O2 sat's holding in low to mid 90's. No crackles noted in posterior lung cameron. Pt asking for pain meds and then following asleep while program writer is still in room.
[2022-11-06] MEDS: ALBUTEROL INHALER 2 PUFF IH (08:00)
[2022-11-06] MEDS: POTASSIUM CHLORIDE 10 MEQ, LIDOCAINE 1 % 1 ML in 0.9 % SODIUM CHLORIDE 100 ml 100 ML 106 MEQ IVPB ×4 (08:10→12:30)
[2022-11-06] MEDS: FUROSEMIDE 10 MG/ML inj 20 MG IVP (08:14)
[2022-11-06] MEDS: POTASSIUM BICARB 25 MEQ EFFERVESCENT TAB PO ×2 (08:17→10:10)
[2022-11-06] MEDS: DOXYCYCLINE HYCLATE 100 MG PO (09:22)
[2022-11-06] MEDS: predniSONE 20 MG TABLET 40 MG PO (09:23)
--- NOTE | 2022-11-06 10:07 | RESP.RT ---
Patient states that she had a BiPAP ordered for her over 10 years ago, but she has not worn it. I reviewed the process with her, and what happens to the body when she does not wear the BiPAP. She said that she is wanting to redo her sleep study and is willing to wear it now. She is currently SATing 92% on 1L NC, and we will continue to wean as tolerated.
[2022-11-06] MEDS: ASPIRIN EC 325 MG TABLET PO (10:08)
[2022-11-06] MEDS: IPRAT-ALBUT 0.5-2.5 MG/3 ML NEB 1 NEB IH ×2 (11:32→21:45)
[2022-11-06] MEDS: TRAMADOL HCL 50 MG TABLET PO ×2 (12:29→23:35)
[2022-11-06 13:42] LABS: Potassium* 3.1 mmol/L (3.6-5.1)
[2022-11-06 13:50] LABS: D Dimer Quantitative* 1.99 ug/ml (0.00-0.50)
[2022-11-06] MEDS: FUROSEMIDE 40 MG TABLET PO (13:53)
[2022-11-06] MEDS: GUAIF/DM 200-20 MG/20 ML 118 ML LIQUID 10 ML PO ×2 (13:53→23:29)
--- NOTE | 2022-11-06 14:02 | CRLHL7_ITS ---
For Patients: As a result of the Century Cures Act, medical imaging exams and procedure reports are released immediately into your electronic medical record. You may view this report before your referring provider. If you have questions, please contact your health care provider. INDICATION: Hypoxia. Elevated D-dimer. COMPARISON: Chest radiograph from yesterday. CT of the chest, abdomen, and pelvis with contrast from 04/20/2022. TECHNIQUE: CT examination of the chest was performed with the uneventful intravenous administration of 95 cc of Isovue 370 while 1.5 mm thick axial sections were obtained from above the apices of the lungs through the mid renal level. Please note that all CT scans at this facility use dose modulation, iterative reconstruction, and/or weight-based dosing when appropriate to reduce radiation dose to as low as reasonably achievable. FINDINGS: : There is no sign of pulmonary embolism, with normal enhancement and branching of the pulmonary arteries. There are mild bilateral pleural effusions. There is mild patchy density in the dependent portions of the right middle and right lower lobes, atelectasis versus pneumonia. The rest of the chest has mild prominence of interstitial markings consistent with mild congestive failure. There is no sign of mediastinal or hilar mass or adenopathy. There is mild LAD coronary calcification. The heart remains top-normal in size. There is no sign of a pericardial effusion. There is age appropriate appearance of the thoracic aorta and ascending great vessels. There is no sign of supraclavicular or axillary mass or adenopathy. The visualized superior liver, spleen, pancreas, kidneys, and adrenals are normal in appearance. The osseous structures are normal in appearance for the patient`s age. IMPRESSION: No sign of pulmonary embolism. Small bilateral pleural effusions and mild interstitial pulmonary edema consistent with mild congestive failure. The heart is top-normal in size. Please note that all CT scans at this facility use dose modulation, iterative reconstruction, and/or weight-based dosing when appropriate to reduce radiation dose to as low as reasonably achievable. Dictated by Jimbo Flores MD @ 11/06/2022 5:21:19 PM (Electronically Signed)
[2022-11-06 14:03] LABS: Troponin I* 0.16 ng/mL (0.01-0.04)
--- NOTE | 2022-11-06 15:29 | PC.NURSE ---
Patient reported generalized pain rated 7/10 this shift. Received scheduled Oxycontin and PRN Tramadol. C/O SOB with exertion. Productive cough. Thick phlegm noted. PRN Guaifenesin given x1. PRN duoneb given x1. O2 saturation 94% on 2 LPM. Pt had a low grade fever this morning. Recheck temp 98.5. Transferred with stand by assist and walker. Tolerating regular diet.
[2022-11-06] MEDS: AMLODIPINE 10 MG TABLET PO (17:36)
[2022-11-06] MEDS: POTASSIUM CHLORIDE 10 MEQ CAPSULE ER 20 MEQ PO (17:36)
[2022-11-06] MEDS: dilTIAZem 120 MG CAP.ER.24H PO (20:31)
[2022-11-06] MEDS: CYCLOBENZAPRINE HCL 10 MG TABLET PO (20:31)
[2022-11-06] MEDS: dilTIAZem 180 MG CAP (CD) PO (20:31)
[2022-11-06] MEDS: MELATONIN 3 MG TABLET PO (20:31)
[2022-11-06] MEDS: ENOXAPARIN 40 MG/0.4 ML INJ SUBCUT (20:31)
--- NOTE | 2022-11-06 23:19 | W.PM.CROSSCO ---
Subjective Subjective Interval history: ct pe IMPRESSION: No sign of pulmonary embolism. Small bilateral pleural effusions and mild interstitial pulmonary edema consistent with mild congestive failure.
--- NOTE | 2022-11-06 23:48 | PC.NURSE ---
End of Shift: Pt remained AO throughout shift, ambulating with walker, gait belt and SBA. LLE wound dressing changed. Tolerating regular diet well, eating 100% of meals. Blood glucose levels remained in 300's via dexcom readings throughout shift. Pt reported pain at 6/10 in LLE. Pt requested PRN nebulizer d/t SOB and congestion. 2L O2 titrated down to 1L O2 NC. O2 sats remained between 90-96% throughout shift.
[2022-11-07] VITALS (7 sets, daily range): BP systolic 143–177; BP diastolic 79–89; PULSE 92–107; RESP 22–33; TEMP 37–37.7; O2SAT 89–96
[2022-11-07] MEDS: IPRAT-ALBUT 0.5-2.5 MG/3 ML NEB 1 NEB IH (05:01)
[2022-11-07] MEDS: NITROGLYCERIN 0.4 MG TAB.SUBL SUBLINGUAL ×3 (05:27→05:37)
--- NOTE | 2022-11-07 05:35 | P.IMPN_ITS ---
Progress Note: A&P Assessment and plan (1) Acute respiratory failure with hypoxia: Problem details: - likely multifactorial: Untreated TRACY, CHF exacerbation, NSTEMI (elevated troponin could be 2/2 myocardial strain or CKD; however, increase requires follow-up) - follow troponins, repeat TTE today - patient would desire transfer to a tertiary care facility if needed - Patient appears fluid overloaded, will initiate diuresis with aggressive potassium replacement - does not appear to have an acutely infectious process, d/c antibiotics at this time. Obtain procalcitonin with next troponin to evaluate further Status: Acute (2) CHF (congestive heart failure): Status: Acute (3) Hypertension: Problem details: - continue home medications Status: Acute (4) NSTEMI (non-ST elevated myocardial infarction): Status: Acute Plan See above note. Subjective Time Seen by Provider: 05:25 Date Seen: 11/07/22 [facility] The local provider initiating contact: YONI Mccoy. Purpose of contact: Rapid Response. HPI: This patient is a 67-year-old lady who resides in a halfway who was admitted to the hospital with dyspnea and chest pain. She was found to have hypoxic respiratory failure due to pulmonary edema, bilateral effusions, and possible bilateral lower lobe pneumonia. A CTA of the chest yesterday showed no evidence for pulmonary embolism. Troponin I levels were elevated but no signs of infarction was seen on her EKG, and so NSTEMI was an additional diagnosis at the time of admission. Her potassium level was low (2.5) and so this has been supplemented since hospitalization. It is noted that she was feverish at the time of admission (temp 101.5 ?F). The [facility] hospitalist was called to reassess the patient because of her progressive hypoxia on supplemental O2, complaints of chest pain and worsening shortness of breath. The nurses report that over the last shift she has been progressively dyspneic and wheezing. Pertinent information was reviewed and gathered from the patient's hospital chart. VITAL SIGNS: T 97.5. P 119. RR 20. BP 188/89. SPO2 97% on heated high flow O2 per nasal cannula. GENERAL: Alert and oriented x person, time, place, and situation. The patient is visibly dyspneic but answers questions appropriately, and follows commands normally. A mild level of distress is displayed. Pain level claimed: 3/10, due to chest discomfort with deep inspiratory effort. HEENT: NC/AT. Facial features symmetric. PERRL. EOM function WNL. No jaundice seen. No cyanosis seen. Oropharynx is visualized. No erythema or exudates seen. NECK: Supple. No JVD visible due to increased neck girth. CHEST: Chest wall is not tender. Respiratory motion appears normal. LUNGS: Breath sounds heard in all lung cameron, bilaterally. Several wheezes heard bilaterally. Moist rales heard in the lateral bases, bilaterally HEART: RR. No murmurs heard. No gallops heard. ABD: Bowel sounds present in 4 quadrants. Soft. No rebound rigidity or guarding palpated. : Not examined. EXTREMITIES: Bilateral, symmetric lower leg edema noted (2/4 to 3/4). SKIN: No rashes seen. No primary skin lesions identified. NEUROLOGICAL: Awake. Oriented x 4. Moves all extremities purposefully or on command. Cranial nerve 2-12 function WNL. Strength symmetric. No tremors seen. No myoclonus seen. Assessment: 1. Worsening hypoxic respiratory failure. 2. Visible dyspnea/labored respirations. 3. Signs and symptoms consistent with pulmonary edema. 4. Imaging studies thus far have not ruled out pneumonia as a contributing factor to the patient's dyspnea. Plans: 1. Labs: BMP, troponin I, BNP, ABG, and lactic acid. Add magnesium. 2. Chest x-ray. 3. ABG. 4. Lasix 40 mg IVP now. Administer 80 mg Lasix as patient has no increased urine output after 30 minutes. 5. Morphine sulfate 4 mg IVP for dyspnea and chest pain. 6. Sublingual nitroglycerin 0.4 mg sublingually every 5 minutes for chest discomfort. Maximum dosage 3 tablets. 7. Heated high flow O2 per nasal cannula to manage the SpO2 to the 90 to 92% range. 8. Nebulized bronchodilator therapy: Scheduled doses of DuoNebs 4 times daily; as needed doses of albuterol nebs every 2 hours for shortness of breath and wheezing. Recommendations: 1. Consider the potential benefits for empirically treating the patient with antibiotics for CAP. Since the patient is a halfway patient hospital- acquired pneumonia regimens should be considered. 2. DVT prevention steps. 3. Consider the benefits of BiPAP if the patient shows evidence of hypercarbia on the ABG. 4. Transferred to CCU if the patient remains more than moderately dyspneic and hypoxic after initial phases of treatment and monitoring. I have reviewed this case in consultation. Information has been gathered from conversations with the local provider, a review of the patient's chart, and by a patient evaluation at the bedside using [facility] video-assisted exams. Thank you for including [facility] in the patient's care. This service is available for further assistance as requested by your care team by calling [phone]. Exam Narrative: Exam Narrative: See above. Const: Vital Signs, click to edit/add: Vital Signs - 24 hr 11/06/22 07:00 11/06/22 07:00 11/06/22 07:00 Temperature 99.3 F Pulse Rate Pulse Rate [Pulse Oximeter] 89 89 Respiratory Rate 22 22 Blood Pressure [Le ft Arm] 168/69 H Pulse Oximetry 94 91 Oxygen Delivery Me thod Nasal Cannula Nasal Cannula Oxygen Flow Rate 2 2 11/06/22 09:30 11/06/22 11:00 11/06/22 15:00 Temperature 99.3 F Pulse Rate 83 89 Pulse Rate [Pulse Oximeter] 70 Respiratory Rate 18 Blood Pressure [Le ft Arm] 160/76 H Pulse Oximetry 94 Oxygen Delivery Me thod Nasal Cannula Oxygen Flow Rate 2 11/06/22 15:00 11/06/22 15:00 11/06/22 15:00 Temperature 98.5 F Pulse Rate Pulse Rate [Pulse Oximeter] 97 97 Respiratory Rate 18 18 18 Blood Pressure [Le ft Arm] 147/68 H Pulse Oximetry 93 93 Oxygen Delivery Me thod Nasal Cannula Nasal Cannula Oxygen Flow Rate 2.5 2.5 11/06/22 19:00 11/06/22 23:00 11/06/22 23:00 Temperature 98.0 F Pulse Rate 89 Pulse Rate [Pulse Oximeter] 93 Respiratory Rate 18 22 Blood Pressure [Le ft Arm] 145/64 H Pulse Oximetry 93 92 Oxygen Delivery Me thod Nasal Cannula Nasal Cannula Oxygen Flow Rate 1.0 1 11/06/22 23:00 Temperature 97.5 F L Pulse Rate Pulse Rate [Pulse Oximeter] 91 Respiratory Rate 22 Blood Pressure [Le ft Arm] 168/75 H Pulse Oximetry 92 Oxygen Delivery Me thod Nasal Cannula Oxygen Flow Rate 1 Labs Labs: Laboratory Results - last 24 hr 11/06/22 11/06/22 11/06/22 06:18 07:10 08:00 WBC 14.31 H RBC 3.04 L Hgb 9.0 L Hct 27.5 L MCV 91 MCH 30 MCHC 33 RDW Coeff of Antonio 13.9 Plt Count 282 Neut % (Auto) 76.6 H Lymph % (Auto) 14.5 L [place] % (Auto) 7.9 Eos % (Auto) 0.6 Baso % (Auto) 0.2 Neut # (Auto) 11.00 H Lymph # (Auto) 2.10 [place] # (Auto) 1.10 H Eos # (Auto) 0.10 Baso # (Auto) 0.00 Abs Immat Gran (auto) 0.00 Imm/Tot Granulo (auto) 0.2 D-Dimer Quant (PE/DVT) Sodium 135 Potassium 2.8 L* Chloride 97 Carbon Dioxide 31 BUN 30 Creatinine 1.4 Estimated Creat Clear 28.78 Estimated GFR 42 Glucose 204 H Calcium 8.2 L Troponin I 0.26 H* Procalcitonin TSH 1.490 Lab Acknowledgement Test Added Test Added 11/06/22 13:23 WBC RBC Hgb Hct MCV MCH MCHC RDW Coeff of Antonio Plt Count Neut % (Auto) Lymph % (Auto) [place] % (Auto) Eos % (Auto) Baso % (Auto) Neut # (Auto) Lymph # (Auto) [place] # (Auto) Eos # (Auto) Baso # (Auto) Abs Immat Gran (auto) Imm/Tot Granulo (auto) D-Dimer Quant (PE/DVT) 1.99 H Sodium Potassium 3.1 L Chloride Carbon Dioxide BUN Creatinine Estimated Creat Clear Estimated GFR Glucose Calcium Troponin I 0.16 H* Procalcitonin 0.20 TSH Lab Acknowledgement
[2022-11-07] MEDS: MORPHINE 4 MG/ML INJ IVP ×3 (05:42→10:28)
[2022-11-07] MEDS: FUROSEMIDE 10 MG/ML inj 40 MG IVP (05:43)
[2022-11-07] MEDS: ALBUTEROL SULFATE 2.5 MG/3 ML VIAL.NEB NEB (05:50)
[2022-11-07 05:59] LABS: Basophils Percent Auto 0.1 % (0.0-3.0); Eosinophils Percent Auto 0.1 % (0.0-7.0); Hematocrit 30.3 % (33.0-51.0); Hemoglobin* 9.8 gm/dL (12.0-16.0); Immature Granulocytes Pct Auto 0.5 %; Lymphocytes Percent Auto 14.3 % (20-44); Mean Corpuscular HGB Conc 32 gm/dL (32-36); Mean Corpuscular Hemoglobin 29 pg (26-34); Mean Corpuscular Volume 91 fL (80-100); Monocytes Percent Auto 7.1 % (0.0-11.0); Neutrophils Percent Auto 77.9 % (42.0-72.0); Platelet Count* 320 K/uL (140-440); RDW Coefficient of Variation % 14.1 % (11.5-15.5); Red Blood Count 3.34 m/uL (4.00-5.20); White Blood Count* 17.82 K/uL (4.50-11.00)
--- NOTE | 2022-11-07 05:59 | CRLHL7_ITS ---
For Patients: As a result of the Century Cures Act, medical imaging exams and procedure reports are released immediately into your electronic medical record. You may view this report before your referring provider. If you have questions, please contact your health care provider. Indication: Hypoxia and increasing shortness of breath. Technique: Chest 1 view. Comparison: 11/05/2022. Findings/Impression: Cardiovascular and mediastinum: Cardiomegaly is present. Lungs and pleural space: Diffuse pulmonary edema suspicious for congestive heart failure. Pneumonia is difficult to exclude. Possible pleural effusions. No pneumothorax. Bones and soft tissues: No acute findings. Dictated by Norbert Dempsey MD @ 11/07/2022 6:28:09 AM Dictated by: Norbert Dempsey MD @ 11/07/2022 06:28:13 (Electronically Signed)
[2022-11-07 06:00] LABS: Slide Review Reflex No
[2022-11-07 06:13] LABS: Chloride* 93 mmol/L (96-114); Potassium* 3.1 mmol/L (3.6-5.1); Sodium* 136 mmol/L (135-149)
[2022-11-07 06:13] LABS: ABG PCO2 48 mmHG (35-45); Base Excess ABG 3.3 mmol/L (-3.0-3.0); Carboxyhemoglobin* 1.6 % (0.0-5.0); HCO3 ABG 29 mmol/L (21-28); Oxygen Saturation ABG 97 % (92-100); PO2 ABG 81.4 mmHG (80-105); TCO2 ABG 27 mmol/l (21-30); pH ABG 7.39 (7.35-7.45)
[2022-11-07 06:15] LABS: Albumin* 3.9 g/dL (3.3-5.0); Chloride* 93 mmol/L (96-114); Sodium* 136 mmol/L (135-149)
[2022-11-07] MEDS: FUROSEMIDE 10 MG/ML inj 80 MG IVP (06:15)
[2022-11-07 06:16] LABS: Carbon Dioxide* 30 mmol/L (20-32); Creatinine* 1.7 mg/dL (0.5-1.5); Estimated Glomerular Filt Rate 33 ml/min; Potassium* 3.1 mmol/L (3.6-5.1)
[2022-11-07 06:17] LABS: Blood Urea Nitrogen* 35 mg/dL (7-30); Calcium* 9.2 mg/dL (8.4-10.6)
[2022-11-07 06:18] LABS: Alanine Aminotransferase* 25 U/L (4-35); Alkaline Phosphatase* 88 U/L (40-150); Aspartate Amino Transferase* 24 U/L (12-35); Bilirubin Total* 0.6 mg/dL (0.1-1.5); Blood Urea Nitrogen* 35 mg/dL (7-30); Carbon Dioxide* 30 mmol/L (20-32); Creatinine* 1.7 mg/dL (0.5-1.5); Estimated Glomerular Filt Rate 33 ml/min; Total Protein* 7.4 g/dL (6.0-8.3)
[2022-11-07 06:21] LABS: Glucose* 370 mg/dL (60-115)
[2022-11-07] MEDS: METHYLPREDNISOLONE SOD SUCC 62.5 MG/ML (125) 125 MG IVP (06:21)
[2022-11-07 06:22] LABS: Glucose* 371 mg/dL (60-115)
[2022-11-07 06:34] LABS: NT Pro B Type NatriureticPept* 3610 pg/mL
--- NOTE | 2022-11-07 07:01 | PC.NURSE ---
Patient alert and oriented x 4, pain to left lower leg reported at 2330, received prn tramadol with effective results. Dressing to left calf clean dry and intact. At 2330 requested prn guaifenesin for productive cough, patient unable to bring up sputum but has wet sounding cough. Lung sounds at that time were fine crackles in bases with diminished breath sounds bilaterally, denies any shortness of breath. At 0500 patient placed call light on and light answered by Nadine VALLEJO, patient reporting shortness of breath and O2 sats at that time 75% on 1L, patient had audible wheezing but upper lung cameron clear on auscultation, lower lobes with crackles. Access Tech administered PRN duoneb and call placed to [facility] at 0504, BP 182/87 pulse 107 at time of call. At 0507 patient reporting left anterior chest wall pain at 10/10 BP 201/92 at that time, patient became pale and diaphoretic. Charge nurse updated of reports of pain and BP, Rechecked blood pressure at 0520 and found to be 207/91, second call placed to [facility] at 0521. Return video call received from Cameron Alvarado at 0525 and MD updated with patient current vitals and complaints. Order for nitro STAT, patient received 0.4mg nitro SL at 0527, patient reported chest pain decreased to 7/10 after first tab and BP decreased to 189/92, MD requested 2nd dose of nitro to be given, patient received at 0532, chest pain reduced to 5/10 after second dose and BP 189/74, third tab administered at 0537 with pain subsiding to 4/10 and blood pressure decreased to 164/85. IV lasix 40 mg and morphine 4mg administered at 0540 for shortness of breath, chest pain and audible wheezing. Patient continued to report shortness of breath, PRN albuterol neb administered at 0550 per MD order with minimal relief. Hi-flow oxygen applied at 0555 20L at 50%, O2 sats increased to 93%. at 0605 vitals as follows BP 188/89 P119 R 26 O2 97%. Dowd catheter insertion attempted by Gela VALLEJO, patient did not tolerate positioning for placement. Patient received an additional 80mg lasix per MD order due to no urine output within 30 minutes of first dose of lasix and solu-medrol via IVP. At 0650 reporting pain 4/10, shortness of breath is resolving and respirations decreased to 20.
[2022-11-07] MEDS: POTASSIUM CHLORIDE 10 MEQ CAPSULE ER 20 MEQ PO (09:33)
[2022-11-07] MEDS: predniSONE 20 MG TABLET 40 MG PO (09:33)
[2022-11-07 10:55] LABS: Troponin I* 0.08 ng/mL (0.01-0.04)
--- NOTE | 2022-11-07 12:17 | PC.NURSE ---
Transfer-- Pleasant and cooperative, alert and oriented patient was transferred to [facility] at approximately 1145 via EMS. VSS, though hypertensive with B/P 160/80s, mildly tachycardic with HR in low 100s and tachypneic with RR from 20-30s. Highest temp this shift 99.8F. Pt initially SOB at rest and c/o tightness in her chest in addition to low back pain which she rated 6-7 out of 10. SPO2 75% on RA. She was given Morphine and put on bipap per RT. SpO2 increased to 90-96% on bipap with IPAP 12, EPAP 10 and FIO2 30%. Crackles auscultated in bilateral posterior bottom half of lungs increased slightly on left. Diminished lung sounds anteriorly. Telemetry showed NSR to sinus tachycardia with 1st degree AV block. Attempted twice to place Dowd catheter without success. Pt was able to void 300ml of clear, yellow urine via bedpan. Blood sugars 373 (per radu) or 343 (per finger stick) and pt was given 16 units NovoLog in addition to scheduled Levemir. Pt ate only a yogurt. Recheck prior to transfer 371 with no additional insulin given. Nurse to nurse report was given to Corrina at [facility] and all questions were answered. Left message for pt's son Chato at 1035 this morning and am still awaiting call back.
--- NOTE | 2022-11-08 15:23 | PM.DS1 ---
DS: Providers Provider Time Seen by Provider: 07:30 Date Seen: 11/08/22 Date of admission: 11/06/22 10:34 Primary care physician: Not a Local Provider Admitting Clinician: Lyndon Denton DO Attending Physician on discharge: Tre Paredes MD Date of Discharge: 11/07/22 DS: Diagnosis Discharge Diagnosis (1) Acute respiratory failure with hypoxia: Status: Acute Problem details: - likely multifactorial: Untreated TRACY, CHF exacerbation, NSTEMI (elevated troponin could be 2/2 myocardial strain or CKD; however, increase requires follow-up) - follow troponins, repeat TTE today - patient would desire transfer to a tertiary care facility if needed - Patient appears fluid overloaded, will initiate diuresis with aggressive potassium replacement - does not appear to have an acutely infectious process, d/c antibiotics at this time. Obtain procalcitonin with next troponin to evaluate further (2) NSTEMI (non-ST elevated myocardial infarction): Status: Acute (3) Acute pulmonary edema: Status: Acute (4) CHF (congestive heart failure): Status: Acute (5) Hypertension: Status: Acute Problem details: - continue home medications (6) Diabetes mellitus type 2 in obese: Status: Acute Problem details: - insulin dependent - continue home medications + SSI (7) Acute kidney injury: Status: Acute (8) Chronic kidney disease, stage 5: Status: Acute Problem details: - baseline 2.1, admission creatinine 1.4 on 11/06/22 DS: Summary Hospital Course Hospital Course: 67-year-old woman presented with dyspnea, tachypnea, hypoxia. Was found to be in the throes of a non STEMI. Troponin I max was 0.26 and declined thereafter. Initially responded to low-flow oxygen supplementation. In time required high-flow oxygen supplementation and then CPAP. Her heart failure worsen despite diuresis efforts. She had a chest PE protocol day prior to discharge which demonstrated no pulmonary embolism. Unfortunately she subsequently became oliguric and her hypoxemic respiratory failure worsened. Patient then transferred to [facility] to the ICU for ongoing assessments and interventions. Dr. Sawyer, chain person, accepted patient in transfer. Patient agreeable to transfer. Status at Discharge Overall status at discharge: patient is not back to baseline Time Spent with Patient Time attestation: Total time spent providing and/or coordinating discharge services: Time spent: Greater than 30 minutes Exam Narrative: Exam Narrative: Patient appears anxious and is requiring CPAP to manage her oxygenation and ventilation. Lungs with diffuse rales bilaterally. Scattered rhonchi and wheezing as well. Tachycardic with soft systolic murmur without gallop or rub. Abdomen benign. Extremities with trace edema. No focal motor neurologic deficits. Const: Documenting provider has reviewed patient's vital signs: yes DS: Data Data Completed and Pending Completed studies during hospitalization: Procedures Excision of Left Lower Leg Subcutaneous Tissue and Fascia, Open Approach (09/15/22) Introduction of Other Gas into Respiratory Tract, Via Natural or Artificial Opening (09/24/22) Irrigation of Skin and Mucous Membranes using Irrigating Substance (09/15/22) Repair Left Lower Leg Subcutaneous Tissue and Fascia, Open Approach (09/15/22) Transfusion of Nonautologous Red Blood Cells into Peripheral Vein, Percutaneous Approach (09/24/22) Labs on day of discharge: Preliminary micro results at discharge 11/06/22 03:51 Wound Culture - Preliminary Leg Left NO GROWTH AFTER 48 HOURS 11/05/22 22:40 Blood Culture - Preliminary Blood NO GROWTH AFTER 48 HOURS 11/05/22 22:20 Blood Culture - Preliminary Blood NO GROWTH AFTER [address] scan - chest: Attestation: I have reviewed the pertinent imaging results. Radiologist's impression: IMPRESSION: No sign of pulmonary embolism. Small bilateral pleural effusions and mild interstitial pulmonary edema consistent with mild congestive failure. The heart is top-normal in size. Chest x-ray: Attestation: I have reviewed the pertinent imaging results. My impression: Worsening of heart failure with near white out a both lung cameron. Radiologist's impression: Findings/Impression: Cardiovascular and mediastinum: Cardiomegaly is present. Lungs and pleural space: Diffuse pulmonary edema suspicious for congestive heart failure. Pneumonia is difficult to exclude. Possible pleural effusions. No pneumothorax. Bones and soft tissues: No acute findings. Discharge Plan Discharge Disposition: Xfer Other Date of Admission: 11/06/22 10:34 Attending Provider on Discharge: Tre Paredes Primary Care Provider: Provider,Not a Local Condition: Critical Anticipated Discharge Date/Time: 11/07/22 11:00 Discharge Medications: Continued cyclobenzaprine 10 mg tablet 10 mg PO HS indapamide 2.5 mg tablet 2.5 mg PO DAILY diltiazem HCl 300 mg capsule,extended release 24hr 300 mg PO HS pantoprazole 40 mg tablet,delayed release (DR/EC) 40 mg PO BID ferrous sulfate [FeroSul] 325 mg (65 mg iron) tablet 325 mg PO QAM levothyroxine 150 mcg tablet 150 mcg PO DAILY fluticasone propion-salmeterol [Advair Diskus] 500-50 mcg/dose blister with device 1 inh INHALATION BID docusate sodium 100 mg capsule 200 mg PO HS montelukast 10 mg tablet 10 mg PO HS furosemide 20 mg tablet 20 mg PO QAM nystatin [Nystop] 100,000 unit/gram powder 1 applic TOPICAL BID PRN polyethylene glycol 3350 17 gram/dose powder 17 g PO DAILY albuterol sulfate [Ventolin HFA] 90 mcg/actuation HFA aerosol inhaler 1 puff INHALATION Q4H PRN topiramate 100 mg tablet 100 mg PO BID fluticasone propionate 50 mcg/actuation spray,suspension 2 spray INTRANASAL DAILY duloxetine 60 mg capsule,delayed release(DR/EC) 60 mg PO HS melatonin 3 mg capsule 3 mg PO HS insulin aspart U-100 [Novolog FlexPen U-100 Insulin] 100 unit/mL (3 mL) insulin pen 1 sliding scale dose subcut USEASDIRECTD Rx Instructions: 2 ADDITIONAL UNITS FOR EVERY 40 POINTS GREATER THAN BLOOD SUGAR OF 180 cholecalciferol (vitamin D3) [Vitamin D3] 50 mcg (2,000 unit) tablet 2,000 unit PO DAILY amlodipine 10 mg Tablet 10 mg PO HS aspirin [Lisa Low Dose Aspirin] 81 mg tablet,delayed release (DR/EC) 81 mg PO DAILY potassium chloride [K-Tab] 20 mEq tablet extended release 20 meq PO BID ipratropium-albuterol 20-100 mcg/actuation mist 1 puff inhalation Q6H PRN clotrimazole 1 % cream 1 applic topical BID PRN hydrochlorothiazide 25 mg tablet 25 mg PO DAILY Qty: 30 0RF insulin glargine [Basaglar KwikPen U-100 Insulin] 100 unit/mL (3 mL) insulin pen 20 unit subcut BID Qty: 1 2RF tramadol 50 mg tablet 50 mg PO TID Qty: 10 0RF oxycodone [OxyContin] 20 mg Tablet,Oral Only,Ext.Rel.12 Hr 60 mg PO Q12H Qty: 18 0RF levofloxacin 250 mg tablet 250 mg PO DAILY Qty: 3 0RF Rx Instructions: please start on September 30, end on October 02 insulin aspart U-100 [Novolog FlexPen U-100 Insulin] 100 unit/mL (3 mL) insulin pen 12 unit SUBCUT TIDWM Qty: 15 0RF Patient Comments: PLUS SLIDING SCALE Discharge Orders: Discharge Order (Routine); Ordered 11/08/22 Ordered By: Tre Paredes Activity Level: Activity as Tolerated Discharge Diet: Heart Healthy (2 gm sodium, low fat) Follow Up Appointments: Provider,Not a Local [Primary Care Provider] - Forms: MyHealth Info Instructions
== END 2022-11-07 11:45 | disposition short-term general hospital (02) | DRG 189 ==
LOC: ED 11-06 00:18 → MEDSURG 11-06 00:55
PROVIDERS: Hospitalist; Internal Medicine; Student in an Organized Health Care Education/Training Program; Admitting Provider Family Medicine; Emergency Provider Student in an Organized Health Care Education/Training Program; Visit Provider Student in an Organized Health Care Education/Training Program
DX: J96.01 Acute respiratory failure with hypoxia (principal); I50.43 Acute on chronic combined systolic (congestive) and diastolic (congestive) heart failure; I13.2 Hypertensive heart and chronic kidney disease with heart failure and with stage 5 chronic kidney disease, or end stage renal disease; N18.5 Chronic kidney disease, stage 5; N17.9 Acute kidney failure, unspecified; Z68.43 Body mass index [BMI] 50.0-59.9, adult; G47.33 Obstructive sleep apnea (adult) (pediatric); E11.22 Type 2 diabetes mellitus with diabetic chronic kidney disease; Z79.4 Long term (current) use of insulin; E03.9 Hypothyroidism, unspecified; E66.01 Morbid (severe) obesity due to excess calories; I89.0 Lymphedema, not elsewhere classified; E11.42 Type 2 diabetes mellitus with diabetic polyneuropathy; G89.29 Other chronic pain; J45.909 Unspecified asthma, uncomplicated; F11.90 Opioid use, unspecified, uncomplicated; E87.6 Hypokalemia; I87.2 Venous insufficiency (chronic) (peripheral); M79.7 Fibromyalgia; E78.5 Hyperlipidemia, unspecified; J44.9 Chronic obstructive pulmonary disease, unspecified; D64.9 Anemia, unspecified
CPT/HCPCS: 11042; 11045; 36415; 36600; 71045; 71046; 71260; 80048; 80053; 82803; 82962; 83605; 83690; 83880; 84132; 84145; 84443; 84484; 85025; 85379; 87040; 87070; 87081; 87631; 93005; 93306; 94640; 94660; 99283; 99285; G0378; A9270; J0696; J1650; J1940; J2270; J2930; J3480; J7512; Q9967

== ENCOUNTER 2022-11-07 11:42 | Outpatient (CLI) | payer MEDICARE, MEDICAID, SELFPAY | END 2022-11-07 11:43 | disposition home or self-care (01) | LOC: AMB 11-10 11:30 | PROVIDERS: Visit Provider Family Medicine | DX: J96.01 Acute respiratory failure with hypoxia (principal) | CPT/HCPCS: A0425; A0427 ==

== ENCOUNTER 2022-12-18 15:04 | Outpatient (CLI) | payer MEDICARE, MEDICAID, SELFPAY | END 2022-12-18 15:05 | disposition home or self-care (01) | LOC: WOUND 15:04 | PROVIDERS: Visit Provider Nurse Practitioner Family | DX: E11.622 Type 2 diabetes mellitus with other skin ulcer (principal); I89.0 Lymphedema, not elsewhere classified; L97.825 Non-pressure chronic ulcer of other part of left lower leg with muscle involvement without evidence of necrosis; Z79.4 Long term (current) use of insulin | CPT/HCPCS: 97597 ==

== ENCOUNTER 2023-03-19 20:10 | Outpatient (CLI) | payer MEDICARE, MEDICAID, SELFPAY | END 2023-03-19 20:11 | disposition home or self-care (01) | LOC: AMB 03-21 06:40 | PROVIDERS: Visit Provider Emergency Medicine | DX: U07.1 COVID-19 (principal); R53.1 Weakness | CPT/HCPCS: A0425; A0427 ==

== ENCOUNTER 2023-05-08 18:41 | Outpatient (CLI) | payer MEDICARE, MEDICAID, SELFPAY | END 2023-05-08 18:42 | disposition home or self-care (01) | LOC: AMB 05-11 10:36 | PROVIDERS: Visit Provider Family Medicine | DX: M79.605 Pain in left leg (principal) | CPT/HCPCS: A0425; A0429 ==

== ENCOUNTER 2025-01-22 21:31 | Outpatient (CLI) | payer BC, SELFPAY | END 2025-01-22 21:32 | disposition home or self-care (01) | LOC: AMB 01-25 09:24 | PROVIDERS: Visit Provider Family Medicine | DX: R41.0 Disorientation, unspecified (principal); R73.09 Other abnormal glucose | CPT/HCPCS: A0425; A0429 ==